=== PATIENT | female | born 1945 | race Caucasian/White ===

== ENCOUNTER 2016-09-07 12:29 | Observation (INO) | payer MEDICARE ==
--- NOTE | 2016-09-07 13:39 | RAD ---
Indication: Shortness of breath. Single frontal view of the chest performed at 1322 hours was reviewed. Comparison is made with previous exam dated January 21, 2016. No mediastinal shift is noted. Heart is of normal size and configuration. Lung maciel appear clear. Elevated right hemidiaphragm is present unchanged from previous exam IMPRESSION: NO ACTIVE CARDIOPULMONARY DISEASE IS NOTED.
[2016-09-07 14:15] LABS: Hematocrit 32 % (35-47); Mean Corpuscular HGB Conc 32 g/dl (31-36); Mean Corpuscular Hemoglobin 28 pg (27-31); Mean Corpuscular Volume 89 fL (80-97); Mean Platelet Volume 7 um3 (7.4-10.4); Red Blood Count 3.57 10^6/ul (4.0-5.4); Red Cell Distribution Width 16 % (10.5-15); White Blood Count 13.3 10^3/ul (3.5-10.8)
[2016-09-07 14:32] LABS: Albumin 3.6 g/dL (3.2-5.2); BUN/Creatinine Ratio 18.6 (8-20); Calcium 9.1 mg/dL (8.6-10.3); EGFR African American 29.9 (>60); EGFR Non-African American 23.2 (>60); Globulin 2.5 g/dL (2-4); Potassium 4.4 mmol/L (3.5-5.0); Total Bilirubin 0.5 mg/dL (0.2-1.0); Total Protein 6.1 g/dL (6.4-8.9)
[2016-09-07 14:33] LABS: Troponin I 0.01 ng/mL (<0.04)
[2016-09-07] MEDS ORDERED: Dextrose 50% Syringe 50 ML* 25 GM/50 ML SYRINGE IV PUSH ONE (14:50)
--- NOTE | 2016-09-07 15:14 | ED ---
Lalo Beckman Benjamin, scribed for Matilde Sherwood MD on 09/07/16 at 1310 . Complex/Multi-Sys Presentation - HPI Summary HPI Summary: 71yo female c/o weakness and lightheadedness today. Pt came from [place] today for low orthostatic BP . Pt also had diarrhea last week. Pt is on xeralto and presents ecchymosis on her left forearm. Pt is SOB chronically, and states that her SOB isnt any different to her baseline. 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 Onset/Duration: Gradual Onset, Lasting Hours, Still Present Timing: Constant Severity Currently: Moderate Severity Initially: Moderate Associated Signs And Symptoms: Positive: Weakness, Diarrhea - last week, Other - Lightheadedness - Allergies/Home Medications Allergies/Adverse Reactions: Allergies Allergy/AdvReac Type Severity Reaction Status Date / Time Meperidine Allergy Unknown Unknown Verified 06/24/16 06:55 Reaction Details Codeine Allergy Unknown Verified 07/20/16 15:13 Reaction Details Glatiramer [From Copaxone] Allergy Unknown Verified 07/20/16 15:13 Reaction Details Mannitol [From Copaxone] Allergy Unknown Verified 07/20/16 15:13 Reaction Details Morphine AdvReac Unknown Nausea And Verified 06/24/16 06:55 Vomiting NSAIDs AdvReac Unknown Bowel Verified 06/24/16 06:55 Changes PMH/Surg Hx/FS Hx/Imm Hx Endocrine/Hematology History: Reports: Hx Anticoagulant Therapy - S/P KNEE REPLACEMENTS, NOT CURRENTLY, Hx Anemia - CONTROL WITH MED Denies: Hx Blood Disorders, Hx Bone Marrow Disease, Hx Diabetes, Hx Systemic Lupus Erythematosus, Hx Sickle Cell Disease, Hx Thyroid Disease, Hx Unexplained Bleeding, Other Endocrine/Hematological Disorders Cardiovascular History: Reports: Hx Congestive Heart Failure, Hx Coronary Artery Disease - 2 STENT PLACED, Hx Hypercholesterolemia, Hx Hypertension, Hx Myocardial Infarction, Other Cardiovascular Problems/Disorders - systolic and diaslotic heart failure, EF 35 to 40% Denies: Hx Aneurysm, Hx Angina, Hx Angioplasty, Hx Auto Implanted Cardiovert Defib, Hx Cardiac Arrest, Hx Cardiomegaly, Hx Congenital Heart Disease, Hx Deep Vein Thrombosis, Hx Hypotension, Hx Pacemaker/ICD, Hx Peripheral Vascular Disease, Hx Rheumatic Fever, Hx Syncope, Hx Valvular Heart Disease Respiratory History: Reports: Hx Chronic Obstructive Pulmonary Disease (COPD), Hx Sleep Apnea - NO CPAP, Other Respiratory Problems/Disorders - HAVE OXYGEN BUT DOES NOT USE Denies: Hx Asthma, Hx Chronic Bronchitis, Hx Cystic Fibrosis, Hx Lung Cancer , Hx Pleural Effusion, Hx Pneumonia, Hx Pulmonary Edema, Hx Pulmonary Embolism, Hx Seasonal Allergies GI History: Reports: Hx Crohn's Disease - QUESTIONABLE, Hx Gastroesophageal Reflux Disease, Hx Irritable Bowel - QUESTIONABLE, Hx Ulcer - HX OF Denies: Hx Cirrhosis, Hx Diverticulosis, Hx Gall Bladder Disease, Hx Gastrointestinal Bleed, Hx Hiatal Hernia, Hx Jaundice, Hx Obstructive Bowel, Hx Ileostomy, Hx Pyloric Stenosis, Other GI Disorders History: Denies: Hx Acute Renal Failure, Hx Benign Prostatic Hyperplasia, Hx Chronic Renal Failure, Hx Dialysis, Hx Kidney Infection, Hx Kidney Stones, Other Problems/Disorders Musculoskeletal History: Reports: Hx Arthritis - OSTEOARTHRITIS, RHEUMATOID, Hx Rheumatoid Arthritis, Hx Back Problems, Hx Osteoporosis - OSTEOARTHRITIS, Other Musculoskeletal History - RA Denies: Hx Bursitis, Hx Congenital Bone Abnormalities, Hx Fibromyalgia, Hx Gout, Hx Orthopedic Injury, Hx Scoliosis, Hx Tendonitis Sensory History: Reports: Hx Cataracts - HX OF Denies: Hx Contacts or Glasses, Hx Eye Injury, Hx Eye Prosthesis, Hx Glaucoma , Hx Legally Blind, Hx Macular Degeneration, Hx Vision Problem, Hx Deafness, Hx Hearing Aid, Hx Hearing Problem, Other Sensory Impairments Opthamlomology History: Reports: Hx Cataracts - HX OF Denies: Hx Contacts or Glasses, Hx Eye Injury, Hx Eye Prosthesis, Hx Glaucoma , Hx Legally Blind, Hx Macular Degeneration, Hx Vision Problem, Other Sensory Impairments Neurological History: Reports: Hx Migraine - NONE LATELY, Hx Spinal Cord Injury Denies: Hx Dementia, Hx Developmental Delay, Hx Headaches, Hx Nerve Disease, Hx Seizures, Hx Transient Ischemic Attacks (TIA), Other Neuro Impairments/ Disorders Psychiatric History: Reports: Hx Anxiety, Hx Depression Denies: Hx Attention Deficit Hyperactivity Disorder, Hx Eating Disorder, Hx Panic Disorder, Hx Post Traumatic Stress Disorder, Hx Inpatient Treatment, Hx Community Mental Health Tx, Hx Schizophrenia, Hx Bipolar Disorder, Hx Suicide Attempt, Hx of Violent Episodes Against Others, Hx Substance Abuse, Other Psychiatric Issues/Disorders - Cancer History Hx Chemotherapy: No Hx Radiation Therapy: No - Surgical History Surgery Procedure, Year, and Place: Bilateral Osteotomies 1988,. OVARIAN CYST REMOVAL,. 2007 & 2011 BILATERAL CATARACT EXTRACTION WITH IOL IMPLANT, [facility] [place]. 1998 RIGHT TOTAL KNEE REPLACEMENT, [facility]. 2007 Triple Arthrodesis,. 2012 LEFT TOTAL KNEE REPLACEMENT. Appendectomy. 2013 RIGHT KNEE EXPLORATION, DEBRIDEMENT , REPLACEMENT OF ARTICULAR SURFACE, [facility] [place]. 2012 RIGHT KNEE ARTHROSCOPIC LAVAGE, [facility] [place]. 2013 CARDIAC EVENT MONITOR IMPLANTATION, [facility] [place]. 2014 HEART CATHERIZATION, [facility] [place]. 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 Denies: Hx Clostridium Difficile, Hx Hepatitis, Hx Human Immunodeficiency Virus (HIV), Hx of Known/Suspected MRSA, Hx Tuberculosis, Hx Known/Suspected VRSA, Traveled Outside the [place] in Last 30 Days - Family History Known Family History: Positive: Unknown - pt was a bad historian of FHx - Social History Alcohol Use: None Hx Substance Use: No Substance Use Type: Reports: None Hx Tobacco Use: Yes Smoking Status (MU): Former Smoker Type: Cigarettes Amount Used/How Often: 1 PPD FOR 40+ YEARS Length of Time of Smoking/Using Tobacco: 40+ YEARS Have You Smoked in the Last Year: No Review of Systems Constitutional: Negative Eyes: Negative ENT: Negative Cardiovascular: Negative Positive: Shortness Of Breath - chronic Positive: Nausea Genitourinary: Negative Musculoskeletal: Negative Positive: Bruising - Left forearm Positive: Weakness Psychological: Normal All Other Systems Reviewed And Are Negative: Yes Physical Exam Triage Information Reviewed: Yes Vital Signs On Initial Exam: Initial Vitals Temp Pulse Resp BP Pulse Ox 97.8 F 84 16 115/81 100 09/07/16 12:41 09/07/16 12:41 09/07/16 12:41 09/07/16 12:41 09/07/16 12:41 Vital Signs Reviewed: Yes Appearance: Positive: No Pain Distress, Well-Nourished, Ill-Appearing - mildly ill appearing Skin: Positive: Warm, Skin Color Reflects Adequate Perfusion, Dry, Other - large hematoma on left forearm Head/Face: Positive: Normal Head/Face Inspection Eyes: Positive: EOMI, MO ENT: Positive: Hearing grossly normal, Pharynx normal, TMs normal Neck: Positive: Supple, Nontender Respiratory/Lung Sounds: Positive: Clear to Auscultation, Breath Sounds Present Cardiovascular: Positive: RRR Abdomen Description: Positive: Nontender, Soft Bowel Sounds: Positive: Present Musculoskeletal: Positive: Strength/ROM Intact Neurological: Positive: Sensory/Motor Intact, Alert, Oriented to Person Place, Time, CN Intact II-III Psychiatric: Positive: Affect/Mood Appropriate Diagnostics - Vital Signs Vital Signs Temp Pulse Resp BP Pulse Ox 09/07/16 12:41 97.8 F 84 16 115/81 100 - Laboratory Lab Results: Lab Results 09/07/16 09/07/16 09/07/16 Range/Units 13:53 13:53 13:53 WBC 13.3 H (3.5-10.8) 10^3/ul RBC 3.57 L (4.0-5.4) 10^6/ul Hgb 10.0 L (12.0-16.0) g/dl Hct 32 L (35-47) % MCV 89 (80-97) fL MCH 28 (27-31) pg MCHC 32 (31-36) g/dl RDW 16 H (10.5-15) % Plt Count 283 (150-450) 10^3/ul MPV 7 L (7.4-10.4) um3 Neut % (Auto) 74.3 (38-83) % Lymph % (Auto) 13.5 L (25-47) % Milam % (Auto) 11.1 H (1-9) % Eos % (Auto) 0.3 (0-6) % Baso % (Auto) 0.8 (0-2) % Absolute Neuts (auto) 9.9 H (1.5-7.7) 10^3/ul Absolute Lymphs (auto) 1.8 (1.0-4.8) 10^3/ul Absolute Monos (auto) 1.5 H (0-0.8) 10^3/ul Absolute Eos (auto) 0 (0-0.6) 10^3/ul Absolute Basos (auto) 0.1 (0-0.2) 10^3/ul Absolute Nucleated RBC 0 10^3/ul Nucleated RBC % 0 INR (Anticoag Therapy) 0.97 (0.89-1.11) APTT 26.6 (26.0-36.3) seconds Sodium 130 L (133-145) mmol/L Potassium 4.4 (3.5-5.0) mmol/L Chloride 100 L (101-111) mmol/L Carbon Dioxide 22 (22-32) mmol/L Anion Gap 8 (2-11) mmol/L BUN 39 H (6-24) mg/dL Creatinine 2.10 H (0.51-0.95) mg/dL Est GFR ( Amer) 29.9 (>60) Est GFR (Non-Af Amer) 23.2 (>60) BUN/Creatinine Ratio 18.6 (8-20) Glucose 62 L (70-100) mg/dL Lactic Acid (0.5-2.0) mmol/L Calcium 9.1 (8.6-10.3) mg/dL Total Bilirubin 0.50 (0.2-1.0) mg/dL AST 21 (13-39) U/L ALT 14 (7-52) U/L Alkaline Phosphatase 92 (34-104) U/L Troponin I 0.01 (<0.04) ng/mL Total Protein 6.1 L (6.4-8.9) g/dL Albumin 3.6 (3.2-5.2) g/dL Globulin 2.5 (2-4) g/dL Albumin/Globulin Ratio 1.4 (1-3) // Range/Units 13:53 WBC (3.5-10.8) 10^3/ul RBC (4.0-5.4) 10^6/ul Hgb (12.0-16.0) g/dl Hct (35-47) % MCV (80-97) fL MCH (27-31) pg MCHC (31-36) g/dl RDW (10.5-15) % Plt Count (150-450) 10^3/ul MPV (7.4-10.4) um3 Neut % (Auto) (38-83) % Lymph % (Auto) (25-47) % Milam % (Auto) (1-9) % Eos % (Auto) (0-6) % Baso % (Auto) (0-2) % Absolute Neuts (auto) (1.5-7.7) 10^3/ul Absolute Lymphs (auto) (1.0-4.8) 10^3/ul Absolute Monos (auto) (0-0.8) 10^3/ul Absolute Eos (auto) (0-0.6) 10^3/ul Absolute Basos (auto) (0-0.2) 10^3/ul Absolute Nucleated RBC 10^3/ul Nucleated RBC % INR (Anticoag Therapy) (0.89-1.11) APTT (26.0-36.3) seconds Sodium (133-145) mmol/L Potassium (3.5-5.0) mmol/L Chloride (101-111) mmol/L Carbon Dioxide (22-32) mmol/L Anion Gap (2-11) mmol/L BUN (6-24) mg/dL Creatinine (0.51-0.95) mg/dL Est GFR ( Amer) (>60) Est GFR (Non-Af Amer) (>60) BUN/Creatinine Ratio (8-20) Glucose (70-100) mg/dL Lactic Acid 2.0 (0.5-2.0) mmol/L Calcium (8.6-10.3) mg/dL Total Bilirubin (0.2-1.0) mg/dL AST (13-39) U/L ALT (7-52) U/L Alkaline Phosphatase (34-104) U/L Troponin I (<0.04) ng/mL Total Protein (6.4-8.9) g/dL Albumin (3.2-5.2) g/dL Globulin (2-4) g/dL Albumin/Globulin Ratio (1-3) Result Diagrams: 09/07/16 13:53 09/07/16 13:53 Lab Statement: Any lab studies that have been ordered have been reviewed, and results considered in the medical decision making process. - Radiology CXR Xray Interpretation: No Acute Changes Radiology Interpretation Completed By: Radiologist - EKG 1312. Cardiac Rate: NL - 81bpm EKG Rhythm: Sinus Rhythm EKG Interpretation: incomplete BBB, inferior Qs, EKG Comparison: No Significant Change - compared to 03/29/16 Complex Multi-Symp Course/Dx Course Of Treatment: 71 yo male who went to pmd after several days of diarrhea with hematoma to left arm and noted hypotension in office. Here she was slightly hypotensive after getting a 500 cc bolus of d5. 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 I have asked Dr. Bernardo to evaluate the pt and am giving her an amp of d50 - Diagnoses Provider Diagnoses: Hypoglycemia, Dehydration - Physician Notifications Discussed Care Of Patient With: Dr. Bernardo (Hospitalist) @[id number]. Discharge - Discharge Plan Condition: Stable Disposition: ADMITTED TO [facility] documentation as recorded by the Lalo contreras Benjamin accurately reflects the service I personally performed and the decisions made by me, Matilde Sherwood MD.
[2016-09-07] MEDS ORDERED: Dextrose 50% Syringe 50 ML* 25 GM/50 ML SYRINGE IV PUSH PRN (15:39)
[2016-09-07] MEDS ORDERED: NS 0.9% 1000 ML* 500 ML IV SCH (15:45)
[2016-09-07] MEDS ORDERED: NS 0.9% 500 ML* 500 ML IV ONE (15:45)
--- NOTE | 2016-09-07 21:01 | HP ---
ADMISSION HISTORY AND PHYSICAL: DATE OF ADMISSION: 09/07/16 PRIMARY CARE PROVIDER: Dr. Watkins. SOURCE OF INFORMATION: History obtained from interview with the patient, review of past medical records. RELIABILITY: Good. CHIEF COMPLAINT: Hypotension and shortness of breath at primary care provider' s office today. HISTORY OF PRESENT ILLNESS: This 71-year-old female with complicated past medical history including history of rheumatoid arthritis, CAD with history of [place], systolic CHF and CVAs, chronic abdominal cramping, nausea and vomiting, suspected to be IBS, who has generally felt weaker over the last 1 to 2 months with decreased oral intake. For a fact, yesterday she thinks the only thing she ate was pizza chicken for dinner. She felt that she had been more fatigued and also wanted to discuss her medications with her primary care provider and so arranged followup for her today. When she arrived there today, she felt short of breath and fatigued. Her blood pressure was measured and found to be low, reportedly per the patient in the 70s, when she was referred to the emergency room for further evaluation. In the emergency room, presentation vitals are 115/81, heart rate of 83; however , blood sugar was noted to be 62 on presentation. The patient denies any chest pain or change in the character of her shortness of breath, which has been chronic. She denies any fevers, chills, or night sweats. No change in her cough or color of sputum. No nausea. She typically has 1 to 2 bowel movements per day that have not been loose. No melena or hematochezia. She denies any symptoms including dysuria, frequency or urinary hesitancy. Besides feeling generally weak and decreased appetite over the last 1 to 2 weeks, she has no other complaints. When seen by this author, she was interactive, pleasant, and had no complaints. In the emergency room, she received D50 injection for her low blood sugar. PAST MEDICAL HISTORY: 1. Hypertension. 2. CAD with NJ. 3. Systolic heart failure with last EF known 35% to 40%. 4. Rheumatoid arthritis. 5. COPD. 6. Paroxysmal atrial fibrillation. 7. CVA. 8. Depression. 9. Chronic abdominal cramping with nausea, vomiting, migraines. 10. FRANKIE. 11. Anemia. 12. Spinal compression fracture. 13. Ovarian cyst removal. 14. Appendectomy. 15. Knee replacement. MEDICATIONS: Include: 1. Venlafaxine 225 mg daily. 2. Tiotropium inhaled daily. 3. Spironolactone 25 mg every other day. 4. Xarelto 15 mg at bedtime. 5. Probiotic. 6. Potassium chloride 20 mEq twice daily. 7. Protonix 40 mg in the morning. 8. Metoprolol succinate 25 mg in the evening. 9. Magnesium oxide 800 mg daily. 10. Lisinopril 10 mg in the evening. 11. Hyoscyamine, both 0.125 and 0.375 mg daily. 12. Plaquenil 200 mg twice daily. 13. Vitamin D 1000 units daily. 14. Bumex 1 mg every other day. 15. Atorvastatin 40 mg in the evening. 16. Aspirin 81 mg daily. 17. Alendronate 70 units as directed. 18. Albuterol 1 to 2 puffs every 4 hours as needed for shortness of breath. 19. Alprazolam 0.25 mg twice daily as needed for anxiety. ALLERGIES: Include MEPERIDINE, CODEINE, , MANNITOL, MORPHINE, and NSAIDS. FAMILY HISTORY: Significant for CAD in her mother and her father. SOCIAL HISTORY: A [id number] history of smoking. No alcohol or illicits. REVIEW OF SYSTEMS: As per HPI. Otherwise, all other systems negative. PHYSICAL EXAMINATION GENERAL: Elderly woman lying approximately 25 degrees in bed, interactive, pleasant, in no apparent distress. VITAL SIGNS: When seen by this author, 109/84, heart rate 80, respiratory rate 16, 100% on room air, T-max in the emergency room was 97.8. HEENT: Oropharynx is clear. Moist mucous membranes. Sclerae anicteric. NECK: Nonelevated JVD. No supraclavicular or cervical lymphadenopathy. LUNGS: Mild rales in the right base. Otherwise clear. HEART: Regular rate and rhythm. No murmurs, rubs, or gallops. ABDOMEN: Soft, nontender, nondistended. EXTREMITIES: Warm and well perfused. She has 1+ lower extremity edema, bilateral lower extremities. She has diffuse ecchymosis in her left forearm which she notes is there since IV placed for her recent sigmoidoscopy in August. NEUROLOGIC: She is alert and oriented x3. Cranial nerves II through XII are intact. DATA: Reviewed. Notable for leukocytosis. White blood cell count 13,300, 74 % neutrophils, hemoglobin 10.0, MCV of 89, platelets 283. Her INR is 0.97. Sodium 130, chloride 100, BUN 39, creatinine 2.10, BNP 171, lactic acid 2.0. Data reviewed. Chest x-ray: Elevated right hemidiaphragm. Otherwise, no cardiopulmonary disease. EKG: Left axis, normal sinus rhythm. ASSESSMENT AND PLAN: This is a 71-year-old female with complicated past medical history presenting with hypotension at her PCP, resolved in the emergency room, although noted to have hypoglycemia and generalized malaise, decreased appetite, as well as acute on chronic kidney disease, with presence of rales in her right base. Hypotension, resolved on its own. Suspect possibility of mismanagement or mismeasurement. If it was correct, I suspect medication effect in the setting of diuretics. We will hold diuretics today and administer 500 cc of fluid at 75 cc per hour. Potential for adrenal insufficiency. She will be treated if blood pressure decreases again. Acute on chronic renal insufficiency in the setting of decreased p.o. intake as well as diuretics. Hold diuretics at 500 cc of fluid as above. Trend tomorrow. Leukocytosis: Unclear etiology at this point. We will hold on antibiotics. Trend for fevers. Repeat tomorrow. Urinalysis is still pending at this point. Hypoglycemia: Also unclear possibly in the setting of decreased p.o. intake; however, infectious should be on the etiology. In the absence of fevers or other source, we will hold on antibiotics and start if needed. Put on fingerstick glucose every 8 hours or D50 glucose if needed. Systolic heart failure: Holding diuretics as above. Continue all other home medications. Paroxysmal atrial fibrillation, on Xarelto. DVT prophylaxis, on Xarelto. CC: Dr. Watkins * [id number]/[facility] #: [id number] [facility] DIVISIONJose
[2016-09-08 06:38] LABS: Hematocrit 32 % (35-47); Hemoglobin 10.3 g/dl (12.0-16.0); Mean Corpuscular HGB Conc 32 g/dl (31-36); Mean Corpuscular Hemoglobin 29 pg (27-31); Mean Corpuscular Volume 89 fL (80-97); Mean Platelet Volume 7 um3 (7.4-10.4); Red Blood Count 3.58 10^6/ul (4.0-5.4); Red Cell Distribution Width 16 % (10.5-15); White Blood Count 12.5 10^3/ul (3.5-10.8)
[2016-09-08 06:52] LABS: BUN/Creatinine Ratio 19.2 (8-20); Calcium 8.7 mg/dL (8.6-10.3); EGFR African American 35.2 (>60); EGFR Non-African American 27.4 (>60); Potassium 4.5 mmol/L (3.5-5.0)
[2016-09-08] MEDS ORDERED: ALPRAZolam TAB* 0.25 MG PO PRN (07:07)
[2016-09-08 07:33] VITALS: BP 134/76
[2016-09-08] MEDS ORDERED: NS 0.9% 1000 ML* 500 ML IV SCH (08:30)
[2016-09-08] MEDS ORDERED: Hydroxychloroquine TAB* 200 MG PO SCH (09:00)
[2016-09-08] MEDS ORDERED: Tiotropium CAP.INH* CAP.INH/18 MCG (USE ORDER SET !) INH SCH (09:00)
[2016-09-08] MEDS ORDERED: Omeprazole CAP* 20 MG PO SCH (09:00)
[2016-09-08] MEDS ORDERED: Spiriva Inhaler DEVICE* 1 EACH DEVICE INH SCH (09:00)
[2016-09-08] MEDS ORDERED: Cholecalciferol TAB* 1000 UNITS PO SCH (09:00)
[2016-09-08] MEDS ORDERED: Potassium Chlor TAB* 20 MEQ TAB.ER PO SCH (09:00)
[2016-09-08] MEDS ORDERED: Hyoscyamine ER (NF) 0.375 MG TAB PO SCH (09:00)
[2016-09-08] MEDS ORDERED: Venlafaxine EXT RELEASE CAP* 75 MG PO SCH ×2 (09:00)
[2016-09-08] MEDS ORDERED: Aspirin Low Dose CHEW TAB* 81 MG PO SCH (09:00)
[2016-09-08] MEDS ORDERED: Magnesium Oxide TAB* 400 MG PO SCH (09:00)
[2016-09-08] MEDS ORDERED: Spironolactone TAB* 25 MG PO SCH (09:00)
[2016-09-08 12:07] LABS: Urine Bacteria Absent (Absent); Urine Bilirubin Negative (Negative); Urine Glucose Negative (Negative); Urine Nitrite Negative (Negative)
[2016-09-08] MEDS ORDERED: Lisinopril TAB* 10 MG PO SCH (18:00)
[2016-09-08] MEDS ORDERED: Atorvastatin* 40 MG TAB PO SCH (18:00)
--- NOTE | 2016-09-08 20:29 | DS ---
DISCHARGE SUMMARY: DATE OF ADMISSION: 09/07/16 DATE OF DISCHARGE: 09/08/16 PRIMARY CARE PROVIDER: Dr. Watkins. PRIMARY DIAGNOSES: 1. Dehydration. 2. Acute on chronic kidney disease. 3. Hypotension in office prior to presentation to the hospital. SECONDARY DIAGNOSES: Include: 1. Systolic heart failure, chronic and compensated. 2. History of coronary artery disease. 3. Hypertension. 4. Rheumatoid arthritis. 5. Chronic obstructive pulmonary disease. 6. Paroxysmal atrial fibrillation. 7. Depression. 8. Anemia. MEDICATIONS ON DISCHARGE: Unchanged from admission except for the decreased dose of Bumex from 1 mg every other day to 0.5 mg every other day. Home medications include: 1. Acetaminophen 500 mg twice daily as needed 2. Alprazolam 0.25 mg twice daily as needed. 3. Atorvastatin 40 mg in the evening. 4. Aspirin 81 mg daily. 5. Alendronate 70 units as directed. 6. Albuterol HFA 1 to 2 puffs every 4 hours as needed. 7. Cholecalciferol 5000 units daily. 8. Avant 10/325 one tab every hours as needed. 9. Lisinopril 10 mg daily. 10. Levbid 0.375 mg daily. 11. Protonix 40 mg in the morning. 12. Metoprolol XL 25 mg at bedtime. 13. Magnesium oxide 800 mg in the morning. 14. Tiotropium 1 cap inhaled daily. 15. Spironolactone 25 mg every other day. 16. Rivaroxaban 15 mg at bedtime. 17. Probiotics 1 cap daily. 18. Potassium chloride 20 mEq twice daily. 19. Venlafaxine extended release 75 and 150 mg in the morning for total of 225 mg daily. 20. Imitrex 50 mg twice daily as needed. 21. Bumex decreased to 0.5 mg every other day. PERTINENT LABORATORY DATA: Include creatinine on presentation 2.1, decreased to 1.8 on discharge; BUN of 39 decreasing to 35. White blood cell count 12.5 on discharge, 74% neutrophils. HISTORY OF PRESENT ILLNESS AND HOSPITAL COURSE: This is a 71-year-old female with past medical history as outlined in the history of present illness on date of admission by myself who presented to her PCP the day of admission to discuss her multiple medications and potentially decreasing or simplifying her regimen. When she arrived, she was short of breath, which she notes it was not unusual for herself; however, had her blood pressure checked and was noted to be hypotensive, reportedly in systolic of 70s. She was directed to [facility]. On presentation to [facility], her triage vitals were 115/81 without intervention, it changed to 134/76 on the day of discharge. She had no new complaints, although does have a constellation of chronic complaints including fatigue and decreased appetite. In the setting of her acute kidney injury, she was monitored. Her diuretics were held including Bumex and spironolactone with improvement in her kidney function. She was given addition of 500 cc of normal saline on the day of discharge and her Bumex was resumed at half dose. Her creatinine does not reflect the additional fluids received on the day of discharge. On the day of discharge, she had no complaints, tolerating heart- healthy diet, no shortness of breath or other symptoms. FOLLOWUP INSTRUCTIONS: On followup, please: 1. Evaluate stability of volume status on lower dose Bumex. 2. Can consider repeat BMP for stability of creatinine. 3. Can consider repeat CBC. Had elevated leukocytosis without left shift. No evidence of infection in urine, remained afebrile, and had no symptoms. Reasons to return to the hospital including, but not limited to recurrent or worsening symptoms including chest pain or shortness of breath, nausea, vomiting , lightheadedness, palpitations, loss of consciousness, near loss of consciousness, fevers, chills, night sweats, blood from any source, inability to obtain or tolerate medications were discussed with the patient. She acknowledged understanding. TIME SPENT: Greater than 45 minutes was spent on the discharge of this patient , greater than half was spent [id number] with the patient. CC: Dr. Watkins * [id number]/[facility] #: [id number] [place] [facility]
[2016-09-08] MEDS ORDERED: Metoprolol Succinate XL TAB* 25 MG PO SCH (21:00)
[2016-09-08] MEDS ORDERED: Rivaroxaban TAB(*) 15 MG PO SCH (21:00)
== END 2016-09-08 14:05 | disposition home or self-care (01) ==
LOC: ED 12:29 → MEDTELE 15:36 → MED 09-08 07:17
PROVIDERS: ADMIT Internal Medicine; ATTEND Internal Medicine
DX: E86.0 Dehydration (principal); I95.9 Hypotension, unspecified; M06.9 Rheumatoid arthritis, unspecified; J44.9 Chronic obstructive pulmonary disease, unspecified; I48.0 Paroxysmal atrial fibrillation; Z79.01 Long term (current) use of anticoagulants; F32.9 Major depressive disorder, single episode, unspecified; Z79.82 Long term (current) use of aspirin; I25.2 Old myocardial infarction; Z88.5 Allergy status to narcotic agent; Z88.6 Allergy status to analgesic agent
CPT/HCPCS: 36415; 71010; 80048; 80053; 81003; 81015; 83605; 83880; 84484; 85025; 85027; 85610; 85730; 87040; 87086; 93005; 99284; A9270-GY; G0378

== ENCOUNTER 2017-01-22 20:07 | Inpatient (IN) | payer MEDICARE ==
[2017-01-22] MEDS ORDERED: NS 0.9% 1000 ML* 1,000 ML IV ONE ×2 (20:08→21:59)
[2017-01-22] MEDS ORDERED: Ondansetron INJ* 2 MG/ML VIAL IV ONE (20:08)
[2017-01-22 20:36] LABS: Comments Flag Yes; Hematocrit 38 % (35-47); Hemoglobin 11.3 g/dl (12.0-16.0); Mean Corpuscular HGB Conc 30 g/dl (31-36); Mean Corpuscular Hemoglobin 25 pg (27-31); Mean Corpuscular Volume 86 fL (80-97); Mean Platelet Volume 7 um3 (7.4-10.4); Red Blood Count 4.48 10^6/ul (4.0-5.4); Red Cell Distribution Width 16 % (10.5-15); White Blood Count 29.9 10^3/ul (3.5-10.8)
[2017-01-22 20:38] LABS: Albumin 3.8 g/dL (3.2-5.2); C Reactive Protein 4.05 mg/L (< 5.00); Calcium 9.5 mg/dL (8.6-10.3); EGFR African American 24.7 (>60); EGFR Non-African American 19.2 (>60); Globulin 3.2 g/dL (2-4); Magnesium 2.7 mg/dL (1.9-2.7); Potassium 4.6 mmol/L (3.5-5.0); Total Bilirubin 0.4 mg/dL (0.2-1.0)
[2017-01-22 20:43] LABS: Add Diff/Slide Review? Slide Review Added
[2017-01-22] MEDS ORDERED: NS 0.9% 500 ML BAG* 500 ML IV ONE (21:19)
--- NOTE | 2017-01-22 21:31 | ED ---
Flaquita Beckman Thomas, scribed for Brandon Majano MD on 01/22/17 at 2012 . GI/ HPI - HPI Summary HPI Summary: The pt is a 72 y/o F BIBA c/o N/V/D that began at 15:00 today after she ate shrimp. In the ED, the pt says that she is feeling a little bit better. She additionally c/o dizziness (resolved when supine). She denies CP, jaw pain, shoulder pain. Per EMS, she was very pale in the ambulance. Per EMS, her blood sugar was 233. Per EMS, her systolic was in the 70s. Per EMS, she was fully alert and oriented in the ambulance. She is not allergic to any foods as far as she knows. PMHx: HTN, COPD, emphysema. She is on a ton of meds, per EMS. Her [place] [facility] [place]. NKDA. - History of Current Complaint Chief Complaint: EDNauseaVomitDiarrh Time Seen by Provider: 01/22/17 20:07 Stated Complaint: GENERAL ILLNESS Hx Obtained From: Patient, EMS Onset/Duration: Started Hours Ago - 15:00, Still Present Associated Signs and Symptoms: Positive: Dizziness - resolved when supine, Nausea, Vomiting, Diarrhea, Other: - NEG: jaw pain, shoulder pain. Negative: Chest Pain - Additional Pertinent History Primary Care Physician: [id number] - Allergy/Home Medications Allergies/Adverse Reactions: Allergies Allergy/AdvReac Type Severity Reaction Status Date / Time Meperidine Allergy Unknown Unknown Verified 06/24/16 06:55 Reaction Details Codeine Allergy Unknown Verified 07/20/16 15:13 Reaction Details Glatiramer [From Copaxone] Allergy Unknown Verified 07/20/16 15:13 Reaction Details Mannitol [From Copaxone] Allergy Unknown Verified 07/20/16 15:13 Reaction Details Morphine AdvReac Unknown Nausea And Verified 06/24/16 06:55 Vomiting NSAIDs AdvReac Unknown Bowel Verified 06/24/16 06:55 Changes Home Medications: Home Medications Alendronate Sodium 70 mg PO SEE INSTRUCTIONS 01/22/17 [History Confirmed ] Ferrous Sulfate 325 mg PO DAILY 01/22/17 [History Confirmed 01/22/17] Plaquenil TAB* 400 mg PO DAILY 01/22/17 [History Confirmed 01/22/17] Probiotic 1 dose PO DAILY 01/22/17 [History Confirmed 01/22/17] Protonix TAB (NF) 40 mg PO DAILY 01/22/17 [History Confirmed 01/22/17] Tylenol 500 mg PO BID PRN 01/22/17 [History Confirmed 01/22/17] Vitamin D-3 5,000 unit PO DAILY 01/22/17 [History Confirmed 01/22/17] sulfaSALAzine TAB* 500 mg PO BID 01/22/17 [History Confirmed 01/22/17] PMH/Surg Hx/FS Hx/Imm Hx Previously Healthy: No Endocrine/Hematology History: Reports: Hx Anticoagulant Therapy - S/P KNEE REPLACEMENTS, NOT CURRENTLY, Hx Anemia - CONTROL WITH MED Denies: Hx Blood Disorders, Hx Bone Marrow Disease, Hx Diabetes, Hx Systemic Lupus Erythematosus, Hx Sickle Cell Disease, Hx Thyroid Disease, Hx Unexplained Bleeding, Other Endocrine/Hematological Disorders Cardiovascular History: Reports: Hx Congestive Heart Failure, Hx Coronary Artery Disease - 2 STENT PLACED, Hx Hypercholesterolemia, Hx Hypertension, Hx Myocardial Infarction, Other Cardiovascular Problems/Disorders - systolic and diaslotic heart failure, EF 35 to 40% Denies: Hx Aneurysm, Hx Angina, Hx Angioplasty, Hx Auto Implanted Cardiovert Defib, Hx Cardiac Arrest, Hx Cardiomegaly, Hx Congenital Heart Disease, Hx Deep Vein Thrombosis, Hx Hypotension, Hx Pacemaker/ICD, Hx Peripheral Vascular Disease, Hx Rheumatic Fever, Hx Syncope, Hx Valvular Heart Disease Respiratory History: Reports: Hx Chronic Obstructive Pulmonary Disease (COPD), Hx Sleep Apnea - NO CPAP, Other Respiratory Problems/Disorders - HAVE OXYGEN BUT DOES NOT USE Denies: Hx Asthma, Hx Chronic Bronchitis, Hx Cystic Fibrosis, Hx Lung Cancer , Hx Pleural Effusion, Hx Pneumonia, Hx Pulmonary Edema, Hx Pulmonary Embolism, Hx Seasonal Allergies GI History: Reports: Hx Crohn's Disease - QUESTIONABLE, Hx Gastroesophageal Reflux Disease, Hx Irritable Bowel - QUESTIONABLE, Hx Ulcer - HX OF Denies: Hx Cirrhosis, Hx Diverticulosis, Hx Gall Bladder Disease, Hx Gastrointestinal Bleed, Hx Hiatal Hernia, Hx Jaundice, Hx Obstructive Bowel, Hx Ileostomy, Hx Pyloric Stenosis, Other GI Disorders History: Denies: Hx Acute Renal Failure, Hx Benign Prostatic Hyperplasia, Hx Chronic Renal Failure, Hx Dialysis, Hx Kidney Infection, Hx Kidney Stones, Other Problems/Disorders Musculoskeletal History: Reports: Hx Arthritis - OSTEOARTHRITIS, RHEUMATOID, Hx Rheumatoid Arthritis, Hx Back Problems, Other Musculoskeletal History Denies: Hx Bursitis, Hx Congenital Bone Abnormalities, Hx Fibromyalgia, Hx Gout, Hx Orthopedic Injury, Hx Osteoporosis, Hx Scoliosis, Hx Tendonitis Sensory History: Reports: Hx Cataracts - HX OF Denies: Hx Contacts or Glasses, Hx Eye Injury, Hx Eye Prosthesis, Hx Glaucoma , Hx Legally Blind, Hx Macular Degeneration, Hx Vision Problem, Hx Deafness, Hx Hearing Aid, Hx Hearing Problem, Other Sensory Impairments Opthamlomology History: Reports: Hx Cataracts - HX OF Denies: Hx Contacts or Glasses, Hx Eye Injury, Hx Eye Prosthesis, Hx Glaucoma , Hx Legally Blind, Hx Macular Degeneration, Hx Vision Problem, Other Sensory Impairments Neurological History: Reports: Hx Migraine - NONE LATELY, Hx Spinal Cord Injury Denies: Hx Dementia, Hx Developmental Delay, Hx Headaches, Hx Nerve Disease, Hx Seizures, Hx Transient Ischemic Attacks (TIA), Other Neuro Impairments/ Disorders Psychiatric History: Reports: Hx Anxiety, Hx Depression Denies: Hx Attention Deficit Hyperactivity Disorder, Hx Eating Disorder, Hx Panic Disorder, Hx Post Traumatic Stress Disorder, Hx Inpatient Treatment, Hx Community Mental Health Tx, Hx Schizophrenia, Hx Bipolar Disorder, Hx Suicide Attempt, Hx of Violent Episodes Against Others, Hx Substance Abuse, Other Psychiatric Issues/Disorders - Cancer History Hx Chemotherapy: No Hx Radiation Therapy: No - Surgical History Surgery Procedure, Year, and Place: Bilateral Osteotomies 1988,. OVARIAN CYST REMOVAL,. 2007 & 2011 BIL[place] [facility] [place]AC[place] [facility] [place] 2007 Triple Arthrodesis,. 2012 LEFT TOTAL KNEE REPLACEMENT. Appendectomy. 2012 RIGHT KNEE EXPLORATION, DEBRIDEMENT , REPLACEMENT OF ARTICULAR SURFACE[place] [facility] [place] 2012 RIGHT KNEE ARTHROSCOPIC LAVAGE[place] [facility] [place] 2014 CARDIAC EVENT MONITOR IMPL[place]ATION[place] [facility] [place] [facility] [place] [facility] [place] Anesthesia Reactions: No Infectious Disease History: Denies: Hx Clostridium Difficile, Hx Hepatitis, Hx Human Immunodeficiency Virus (HIV), Hx of Known/Suspected MRSA, Hx Tuberculosis, Hx Known/Suspected VRE , Hx Known/Suspected VRSA, Traveled Outside the [place] in Last 30 Days - Family History Known Family History: Positive: Unknown - pt was a bad historian of FHx (per previous EMR) - Social History Alcohol Use: Rare Hx Substance Use: No Substance Use Type: Reports: None Hx Tobacco Use: Yes Smoking Status (MU): Former Smoker Type: Cigarettes Amount Used/How Often: 1 PPD FOR 40+ YEARS Length of Time of Smoking/Using Tobacco: 40+ YEARS Have You Smoked in the Last Year: No Review of Systems Positive: Other - pallor (in ambulance), per EMS Eyes: Negative ENT: Negative Negative: Other - NEG: jaw pain Cardiovascular: Negative Negative: Chest Pain Respiratory: Negative Positive: Vomiting, Diarrhea, Nausea Genitourinary: Negative Musculoskeletal: Negative Negative: Other - NEG shoulder pain Skin: Negative Neurological: Other - POS: dizziness (resolved when supine) Psychological: Normal All Other Systems Reviewed And Are Negative: Yes Physical Exam Triage Information Reviewed: Yes Vital Signs On Initial Exam: Initial Vitals Temp Pulse Resp BP Pulse Ox 97.2 F 76 16 70/47 95 01/22/17 20:10 01/22/17 20:10 01/22/17 20:10 01/22/17 20:10 01/22/17 20:10 Vital Signs Reviewed: Yes Appearance: Positive: No Pain Distress, Ill-Appearing Skin: Positive: Warm, Dry, Pale Head/Face: Positive: Normal Head/Face Inspection Eyes: Positive: MO ENT: Positive: Hearing grossly normal Neck: Positive: Supple Respiratory/Lung Sounds: Positive: Clear to Auscultation, Breath Sounds Present Cardiovascular: Positive: RRR Abdomen Description: Positive: Nontender, Soft Bowel Sounds: Positive: Present Musculoskeletal: Positive: Strength/ROM Intact Neurological: Positive: Alert, Oriented to Person Place, Time Psychiatric: Positive: Affect/Mood Appropriate Diagnostics - Vital Signs Vital Signs Temp Pulse Resp BP Pulse Ox 01/22/17 20:10 97.2 F 76 16 70/47 95 - Laboratory Lab Results: Lab Results 01/22/17 01/22/17 01/22/17 Range/Units 20:15 20:15 20:15 WBC 29.9 H (3.5-10.8) 10^3/ul RBC 4.48 (4.0-5.4) 10^6/ul Hgb 11.3 L (12.0-16.0) g/dl Hct 38 (35-47) % MCV 86 (80-97) fL MCH 25 L (27-31) pg MCHC 30 L (31-36) g/dl RDW 16 H (10.5-15) % Plt Count 488 H D (150-450) 10^3/ul MPV 7 L (7.4-10.4) um3 Neut % (Auto) 87.7 H (38-83) % Lymph % (Auto) 7.5 L (25-47) % [place] % (Auto) 4.1 (1-9) % Eos % (Auto) 0.2 (0-6) % Baso % (Auto) 0.5 (0-2) % Absolute Neuts (auto) 26.2 H (1.5-7.7) 10^3/ul Absolute Lymphs (auto) 2.2 (1.0-4.8) 10^3/ul Absolute Monos (auto) 1.2 H (0-0.8) 10^3/ul Absolute Eos (auto) 0.1 (0-0.6) 10^3/ul Absolute Basos (auto) 0.1 (0-0.2) 10^3/ul Absolute Nucleated RBC 0.01 10^3/ul Nucleated RBC % 0 Sodium 134 (133-145) mmol/L Potassium 4.6 (3.5-5.0) mmol/L Chloride 100 L (101-111) mmol/L Carbon Dioxide 17 L (22-32) mmol/L Anion Gap 17 H (2-11) mmol/L BUN 37 H (6-24) mg/dL Creatinine 2.47 H (0.51-0.95) mg/dL Est GFR ( Amer) 24.7 (>60) Est GFR (Non-Af Amer) 19.2 (>60) BUN/Creatinine Ratio 15.0 (8-20) Glucose 197 H (70-100) mg/dL Lactic Acid 7.1 H* (0.5-2.0) mmol/L Calcium 9.5 (8.6-10.3) mg/dL Magnesium 2.7 (1.9-2.7) mg/dL Total Bilirubin 0.40 (0.2-1.0) mg/dL AST 30 (13-39) U/L ALT 18 (7-52) U/L Alkaline Phosphatase 166 H (34-104) U/L C-Reactive Protein 4.05 (< 5.00) mg/L Total Protein 7.0 (6.4-8.9) g/dL Albumin 3.8 (3.2-5.2) g/dL Globulin 3.2 (2-4) g/dL Albumin/Globulin Ratio 1.2 (1-3) Lipase 43 (11.0-82.0) U/L Result Diagrams: 01/22/17 20:15 01/22/17 20:15 Lab Statement: Any lab studies that have been ordered have been reviewed, and results considered in the medical decision making process. Re-Evaluation - Re-Evaluation First Eval Re-Evaluation Time: 20:26 Change: Improved - more alert, bp up GIGU Course/Dx - Diagnoses Provider Diagnoses: Vomiting, Dehydration - Physician Notifications Discussed Care Of Patient With: Sofia Oswald Time Discussed With Above Provider: 21:17 Instructed by Provider To: Admit As Inpatient - Discussed patient. She is in to see the pt at 21:35 Discharge - Discharge Plan Condition: Fair Disposition: ADMITTED TO [facility] The documentation as recorded by the Flaquita contreras Thomas accurately reflects the service I personally performed and the decisions made by me, Brandon Majano MD.
[2017-01-22] MEDS ORDERED: Ondansetron INJ* 2 MG/ML VIAL IV PRN (21:41)
[2017-01-22] MEDS ORDERED: Al Hydrox/Mg Hydrox/Simet LIQ* 30 ML UDC PO PRN (21:41)
[2017-01-22] MEDS ORDERED: PROCHLORPERAZINE INJ 5 MG/ML 2 ML VIAL IV PRN (21:43)
[2017-01-22] MEDS ORDERED: Albuterol HFA INHALER* 8 gm MDI INH PRN (21:49)
[2017-01-22] MEDS ORDERED: ALPRAZolam TAB* 0.25 MG PO PRN (21:49)
[2017-01-22] MEDS ORDERED: Omeprazole CAP* 20 MG PO SCH (22:00)
[2017-01-22] MEDS ORDERED: Rivaroxaban TAB(*) 15 MG PO SCH (22:30)
--- NOTE | 2017-01-22 23:23 | PN ---
Progress Note - Progress Note Date of Service: 01/22/17 Note: Paged by RN, toro red blood per rectum. Will d/c xarelto, start SCDs and change to IV protonix. Monitor H/H closely
[2017-01-22] MEDS ORDERED: Zosyn per Pharmacy* NOTE FOLLOW UP SCH (23:45)
[2017-01-22] MEDS: Pantoprazole IV* 40 MG IV SCH (23:49)
--- NOTE | 2017-01-23 00:44 | HP ---
CC: Jordin Watkins MD * HISTORY AND PHYSICAL: DATE OF ADMISSION: 01/22/17 TIME OF EVALUATION: 0. CHIEF COMPLAINT: Nausea, vomiting, and diarrhea. HISTORY OF PRESENT ILLNESS: This is a 72-year-old female with a past medical history of rheumatoid arthritis, systolic heart failure with EF of 35% to 40% with chronic intermittent explosive diarrhea with nausea who has been followed by GI in the past, who states she was in her usual state of health when she went out to dinner with her sister and [id number] to [employer] and had shrimp. No one else at the table had shrimp. About an hour later she began having explosive diarrhea and nausea and vomiting. She states she has only vomited a little bit, still remains very nauseated. She says she has a slight discomfort in her abdomen. In the emergency room the patient had labs, 2 L of fluid. She was brought in by EMS of note and was found to be hypotensive, systolic 70 and several metabolic derangements and was referred to the hospitalist service for further evaluation. She denies any chest pain or shortness of breath. No weight changes. Regarding her chronic nausea, vomiting , and diarrhea, she has issues with explosive diarrhea off and on in the past. She thought things were getting better. She has seen Dr. Gonzalez on occasion for this and he did a sigmoidoscopy back in July. Biopsies were negative for any abnormality. She denies any recent travel or antibiotic use. She states she has a mild chronic cough. She has had persistent chronic left-sided headache. No swelling in her legs recently. No fevers or chills. Otherwise, remaining review of systems is negative. As mentioned in the emergency room, she received 2 L of fluid, Zofran and was referred to the hospitalist service. PAST MEDICAL HISTORY: 1. Chronic explosive diarrhea with nausea and vomiting. 2. Hypertension. 3. Coronary artery disease, status post AR. 4. Systolic heart failure with an EF of less than 35% to 40%. 5. Rheumatoid arthritis. 6. COPD. 7. Paroxysmal atrial fibrillation, on anticoagulation. 8. History of CVA. 9. Depression. 10. Obstructive sleep apnea. 11. Anemia. 12. History of spinal cord compression fracture. 13. History of ovarian cyst removal. 14. History of appendectomy. 15. History of knee replacement. HOME MEDICATIONS: 1. Alendronate 70 mg as directed. 2. Tylenol 500 mg p.o. b.i.d. as needed. 3. Probiotic 1 dose p.o. daily. 4. Ferrous sulfate 325 mg p.o. daily. 5. Plaquenil 400 mg daily. 6. Vitamin D3 of 5000 units daily. 7. Sulfasalazine 500 mg p.o. b.i.d. 8. Protonix 40 mg p.o. daily. 9. Albuterol inhaler 1 to 2 puffs q.4 hours as needed. 10. Imitrex 50 mg p.o. b.i.d. as needed. 11. Xanax 0.25 mg p.o. b.i.d. as needed. 12. Bumex 0.5 mg p.o. every other day. 13. Atorvastatin 40 mg p.o. daily. 14. Aspirin 81 mg q.a.m. 15. Magnesium oxide 100 mg p.o. in the morning. 16. Lisinopril 5 mg p.o. daily. 17. Levbid 0.375 mg p.o. daily. 18. Hydrocodone/acetaminophen 10/325 one tablet p.o. q.8 hours as needed. 19. Metoprolol succinate XL 25 mg daily. 20. Potassium chloride 20 mEq p.o. b.i.d. 21. Spironolactone 25 mg every other day. 22. Xarelto 50 mg p.o. at bedtime. 23. Spiriva 1 cap inhaled in the morning. 24. Effexor 75 mg p.o. in the morning and 150 mg p.o. in the morning. ALLERGIES: MEPERIDINE, CODEINE, GLATIMAR, MANNITOL, MORPHINE, and NSAIDS. FAMILY HISTORY: Significant for coronary artery disease. SOCIAL HISTORY: The patient lives alone. She is independent of her ADLs. Her healthcare proxy is her sister, Sarah Membreno, phone number is [phone]. She has a [id number] history, quit 5 years ago. No alcohol use or illicit drug use. 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 MOLST form, which will be completed this evening is a DNR/DNI. REVIEW OF SYSTEMS: A 14-point review of systems was reviewed and as mentioned in the HPI. PHYSICAL EXAMINATION GENERAL: A frail, elderly, moderately ill-appearing female in no acute distress with her sister and [id number] sitting at the bedside. VITAL SIGNS: Temp 97.2, pulse rate 76, respiratory rate 16, oxygen saturation 95% on 2 L, blood pressure is 90/60. HEENT: Pupils are equal and reactive. Anicteric. Head; normocephalic. Oropharynx; mucous membranes dry. Cool, clammy skin appearance. NECK: Supple. No adenopathy. RESPIRATORY: Diminished breath sounds. No wheezes, rhonchi, or rales. CARDIAC: Regular rate and rhythm. Soft, systolic murmur heard throughout. ABDOMEN: Hypoactive bowel sounds, soft, some mild left lower quadrant tenderness. No rebound or guarding. EXTREMITIES: No clubbing, cyanosis or edema. Her extremities are warm, +1 DP. NEUROLOGIC: Alert and oriented x2, oriented to self and time. Answering questions appropriately and following commands appropriately. LABORATORY DATA: White count 29.9, hemoglobin 11.3, hematocrit 38, platelets 488,000. Sodium 134, potassium 4.6, chloride 100, bicarb 17, BUN 37, creatinine 3.47, lactic acid 7.1, alk phos 166, CRP is 4, mag is 2.7, total bili 0.4, AST is 30, ALT is 18, lipase is 43. ASSESSMENT: This is a 72-year-old female with a past medical history of intermittent diarrhea, nausea, vomiting with systolic heart failure with an ejection fraction 35% to 40% who presented to the emergency room with acute onset of nausea, vomiting, diarrhea with hypotensive and ill appearing, found to have leukocytosis and lactic acidosis. 1. Nausea, vomiting, diarrhea. Assessment: The patient is mildly to moderately ill appearing. Her symptoms became acutely onset after an hour after [employer] and no one else had the shrimp. It could be gastroenteritis from infectious etiology from food poisoning contributing to her lactic acidosis and leukocytosis. It is unclear because she has had these incidents in the past and has had an unremarkable workup including a negative biopsy, but this time she is much more ill appearing. Plan: We will admit her to the ICU, give her another liter of fluid, and continue fluids. We will obtain a CAT scan and we will check stool studies including Clostridium difficile, occult stool and stool culture, could be Clostridium difficile. Will start her on Zosyn empirically for possibly bacteremia. 2. Acute on chronic kidney injury. The patient's creatinine elevated, creatinine clearance is around 20. We will hold her lisinopril or Bumex and renally dose her remaining medications and check her renal function in the morning. Suspect this is from hypovolemia, prerenal azotemia. 3. Lactic acidosis. Assessment: This is likely secondary to her nausea, vomiting, and diarrhea. Plan: We will repeat the lactate after fluid resuscitation. CHRONIC MEDICAL PROBLEMS: 1. Coronary artery disease. History of congestive heart failure. At this time , we will hold her Bumex and her lisinopril and her Toprol in the setting of her severe hypotension. We will watch for rebound tachycardia. Continue her on her aspirin. 2. History of atrial fibrillation. Appears to be in sinus at this time. We will get an EKG. We will continue her on her aspirin or anticoagulant. If she is Hemoccult positive, we will hold that. 3. Rheumatoid arthritis. Continue her Plaquenil. 4. Chronic nausea, vomiting, diarrhea. Continue her sulfasalazine and hyoscyamine. 5. Chronic pain. Continue her Effexor to a renally dose level and hydrocodone. 6. Chronic obstructive pulmonary disease. Continue her albuterol and Spiriva. 7. Gastroesophageal reflux disease. Continue omeprazole 20 mg p.o. b.i.d. 8. FEN. We will place her on a clear liquid diet. Advance as tolerated. 9. DVT prophylaxis. The patient is moderate risk. She is on rivaroxaban. 10. Code status. The patient confirmed DNR/DNI. She will have her MOLST from completed at this time. TIME SPENT: Greater than 60 minutes was spent doing history and physical, more than half the time spent in direct patient contact and critical care time as the patient is critically ill and being admitted to the intensive care unit and admission will be discussed with Dr. Rogel. [id number]/[facility] #: [id number] LA NENA
[2017-01-23] MEDS: NS 0.9% 1000 ML* 1,000 ML IV SCH ×3 (01:16→19:44)
[2017-01-23 05:52] LABS: Hematocrit 29 % (35-47); Hemoglobin 8.9 g/dl (12.0-16.0); Mean Corpuscular HGB Conc 30 g/dl (31-36); Mean Corpuscular Hemoglobin 26 pg (27-31); Mean Corpuscular Volume 85 fL (80-97); Mean Platelet Volume 7 um3 (7.4-10.4); Red Blood Count 3.47 10^6/ul (4.0-5.4); Red Cell Distribution Width 16 % (10.5-15); White Blood Count 26.9 10^3/ul (3.5-10.8)
[2017-01-23 06:01] LABS: Comments Flag Yes
[2017-01-23 06:06] LABS: Albumin 2.8 g/dL (3.2-5.2); Calcium 7.6 mg/dL (8.6-10.3); EGFR African American 29.6 (>60); Globulin 2.3 g/dL (2-4); Potassium 4.3 mmol/L (3.5-5.0); Total Bilirubin 0.3 mg/dL (0.2-1.0); Total Protein 5.1 g/dL (6.4-8.9)
--- NOTE | 2017-01-23 07:46 | RAD ---
INDICATION: Nausea/vomiting. COMPARISON: CT abdomen and pelvis March 29, 2016 TECHNIQUE: Noncontrast axial source images were obtained from the hemidiaphragms to the symphysis pubis. This examination was ordered using a renal stone protocol which is performed without oral or intravenous contrast and therefore has inherent limitations when used to evaluate other intra-abdominal or intrapelvic pathology. Consider conventional contrast enhanced imaging if clinically . Lung bases: There is an implantable device in the left lower chest. There are coronary artery calcifications There are mild emphysematous changes in lung bases with a focal infiltrate in the right lung base. Suggest follow-up chest x-ray. Liver: The liver is normal in size. Noncontrast imaging shows no evidence of a hepatic mass or ductal dilatation. Gallbladder: There are no calcified gallstones. There is no evidence of wall thickening or pericholecystic fluid.. Spleen: The spleen is normal in size. The noncontrast CT appearance is normal. Pancreas: Noncontrast imaging shows no pancreatic mass or ductal dilitation. There is pancreatic atrophy Adrenal glands: No masses are identified. Kidneys/Bladder: There is no evidence of nephrolithiasis or CT evidence of hydronephrosis. The left kidney is mildly atrophic. Noncontrast imaging shows no evidence of a worrisome mass. There is a small left sided parapelvic cyst, unchanged. The bladder is decompressed. Adenopathy: There is no evidence of intraperitoneal or retroperitoneal adenopathy. Evaluation is limited without oral contrast. Fluid collections: There are no significant free or localized fluid collections. Vessels: Advanced atherosclerotic changes. Mild ectasia of the aortic root. Mild fusiform aneurysmal dilatation of the infrarenal abdominal aorta with a maximum transverse dimension of 2.7 x 2.7 cm. Iliac vessel intimal calcifications. Pelvic organs: The uterus and adnexa appear normal GI tract: Marked distention of the stomach. The stomach is largely fluid-filled. There are multiple nondilated fluid-filled loops of small bowel. Several loops show mild apparent mucosal thickening. The colon is also largely fluid-filled and is normal in caliber. There are scattered colonic diverticula. Soft tissues: No acute soft tissue abnormalities of the extraperitoneal abdomen or pelvis are identified. Elevation right hemidiaphragm, unchanged. Osseous structures: Advanced multilevel degenerative disc disease lumbar spine. Mild stable compression deformities at the thoracolumbar junction. No acute bony change. IMPRESSION: 1. Small infiltrate right lung base. Suggest follow-up chest x-ray. Underlying emphysematous change. 2. Advanced atherosclerotic changes of the aorta with mild dilatation of the aortic root and infrarenal abdominal aorta, unchanged. 3. Marked distention of the stomach. Nasogastric decompression is likely indicated. Consider gastroparesis or gastric outlet obstruction. Although not dilated there is significant amount of fluid in the small bowel and colon. There are several small bowel loops which appear mildly dilated. Suggest a follow-up abdominal series. 4. Scattered diverticula.
--- NOTE | 2017-01-23 07:59 | PN ---
Subjective Date of Service: 01/23/17 Interval History: Ms. Solomon is a 72 yo female with a history of chronic intermittent n/v/d who , after eating a shrimp dinner at [facility], had onset of explosive diarrhea and nausea and vomiting. She currently denies nausea at this time and last had diarrhea overnight between 12 and 1 am. She reports minimal abdominal pain and mostly just reports being tired. Denies CP, SOB. She states she didn't realize she was having bloody bowel movements, although this was reported overnight. Telemetry: SR 80s Family History: Unchanged from Admission Social History: Unchanged from Admission Past Medical History: Unchanged from Admission Objective Active Medications: Acetaminophen (Tylenol Tab*) 650 mg PO Q4H PRN PRN Reason: FEVER/PAIN Hydrocodone Bitart/Acetaminophen ([place] 5-325 Tab*) 1 tab PO Q8H PRN PRN Reason: PAIN Al Hydrox/Mg Hydrox/Simethicone (Maalox Plus*) 30 ml PO Q6H PRN PRN Reason: INDIGESTION Albuterol (Ventolin Hfa Inhaler*) 2 puff INH Q4H PRN PRN Reason: SOB/WHEEZING Alprazolam (Xanax Tab*) 0.25 mg PO BID PRN PRN Reason: STOMACH DISTRESS Aspirin (Aspirin Low Dose Tab*) 81 mg PO QAM [facility] Atorvastatin Calcium (Lipitor*) 40 mg PO QPM [facility] Device (Tiotropium Inhaler Device*) 0 each .SEE ORDER ONCE ONE Stop: 01/23/17 09:01 Hydroxychloroquine Sulfate (Plaquenil Tab*) 200 mg PO BID [facility] Hyoscyamine (Levbid (Nf)) 0.375 mg PO DAILY [facility] Piperacillin Sod/Tazobactam (Sod 3.375 gm/ Sodium Chloride) 100 mls @ 25 mls/ hr IVPB Q8H [facility] Last Admin: 01/23/17 03:10 Dose: 25 mls/hr Sodium Chloride (Ns 0.9% 1000 Ml*) 1,000 mls @ 125 mls/hr IV PER RATE [facility] Last Admin: 01/23/17 01:16 Dose: 125 mls/hr Magnesium Oxide (Magox 400 Tab*) 800 mg PO QAM [facility] Ondansetron HCl (Zofran Inj*) 4 mg IV Q4H PRN PRN Reason: NAUSEA/VOMITING Last Admin: 01/22/17 22:51 Dose: 4 mg Pantoprazole Sodium (Protonix Iv*) 40 mg IV Q24H [facility] Last Admin: 01/22/17 23:49 Dose: 40 mg Pharmacy Consult (Zosyn Per Pharmacy*) 1 note FOLLOW UP .ZOSYN PER PHARMACY [facility] Prochlorperazine Edisylate (Compazine Inj*) 5 mg IV Q6H PRN PRN Reason: NAUSEA/VOMITING Last Admin: 01/22/17 23:17 Dose: 5 mg Sulfasalazine (Azulfidine Tab*) 500 mg PO BID [facility] Sumatriptan Succinate (Imitrex Tab*) 50 mg PO BID PRN PRN Reason: MIGRAINE HEADACHE Tiotropium [place] (Spiriva Cap.Inh*) 1 cap INH QAM [facility] Venlafaxine HCl (Effexor Xr Cap*) 75 mg PO QAM [facility] Vital Signs 01/22/17 01/22/17 01/22/17 22:33 22:35 22:36 Temperature 98.4 F Pulse Rate 77 Respiratory 21 14 Rate Blood Pressure 90/66 90/66 (mmHg) O2 Sat by Pulse 93 Oximetry 01/22/17 01/22/17 01/22/17 22:45 22:46 23:00 Temperature Pulse Rate 73 Respiratory 16 18 17 Rate Blood Pressure 66/46 72/52 83/54 (mmHg) O2 Sat by Pulse 98 Oximetry 01/22/17 01/22/17 01/22/17 23:15 23:23 23:30 Temperature Pulse Rate 79 73 Respiratory 16 12 25 Rate Blood Pressure 86/63 98/55 (mmHg) O2 Sat by Pulse 87 99 Oximetry 01/22/17 01/22/17 01/23/17 23:45 23:52 00:00 Temperature 97.9 F Pulse Rate Respiratory 25 25 Rate Blood Pressure 95/53 (mmHg) O2 Sat by Pulse Oximetry 01/23/17 01/23/17 01/23/17 00:01 00:15 00:30 Temperature Pulse Rate 80 Respiratory 24 23 24 Rate Blood Pressure 99/56 88/70 108/62 (mmHg) O2 Sat by Pulse 98 Oximetry 01/23/17 01/23/17 01/23/17 00:45 01:00 01:15 Temperature Pulse Rate 82 79 81 Respiratory 24 25 24 Rate Blood Pressure 116/71 113/59 116/55 (mmHg) O2 Sat by Pulse 93 97 96 Oximetry 01/23/17 01/23/17 01/23/17 01:30 01:45 02:00 Temperature Pulse Rate 80 83 81 Respiratory 24 23 23 Rate Blood Pressure 120/73 126/67 (mmHg) O2 Sat by Pulse 99 98 97 Oximetry 01/23/17 01/23/17 01/23/17 02:01 02:15 02:30 Temperature Pulse Rate 81 83 80 Respiratory 21 17 18 Rate Blood Pressure 121/70 134/66 122/59 (mmHg) O2 Sat by Pulse 98 98 99 Oximetry 01/23/17 01/23/17 01/23/17 02:45 03:00 03:15 Temperature Pulse Rate 80 63 85 Respiratory 23 21 22 Rate Blood Pressure 121/66 113/92 98/51 (mmHg) O2 Sat by Pulse 97 90 93 Oximetry 01/23/17 01/23/17 01/23/17 03:39 04:00 05:00 Temperature 98.3 F Pulse Rate 86 Respiratory 21 19 Rate Blood Pressure 102/50 113/55 (mmHg) O2 Sat by Pulse 96 Oximetry 01/23/17 01/23/17 01/23/17 06:00 07:00 07:39 Temperature 98.9 F Pulse Rate 85 83 Respiratory 20 19 Rate Blood Pressure 82/59 117/57 (mmHg) O2 Sat by Pulse 98 91 Oximetry Appearance: Older female, drowsy but arousable, lying in bed, NAD Eyes: No Scleral Icterus Ears/Nose/Mouth/Throat: Clear Oropharnyx, - - dry oral mucosa Neck: NL Appearance and Movements; NL JVP Respiratory: Symmetrical Chest Expansion and Respiratory Effort, Clear to Auscultation - diminished throughout Cardiovascular: RRR - soft systolic murmur Abdominal: - - mild tenderness to mid and left abdomen with palpation, hypoactive BS Extremities: No Edema, No Clubbing, Cyanosis Skin: No Rash or Ulcers Neurological: Alert and Oriented x 3 Lines/Tubes/Other Access: Clean, Dry and Intact Peripheral IV Result Diagrams: 01/23/17 05:40 01/23/17 05:40 Additional Lab and Data: Lab Results 01/22/17 01/22/17 01/22/17 Range/Units 20:15 20:15 20:15 WBC 29.9 H (3.5-10.8) 10^3/ul RBC 4.48 (4.0-5.4) 10^6/ul Hgb 11.3 L (12.0-16.0) g/dl Hct 38 (35-47) % MCV 86 (80-97) fL MCH 25 L (27-31) pg MCHC 30 L (31-36) g/dl RDW 16 H (10.5-15) % Plt Count 488 H D (150-450) 10^3/ul MPV 7 L (7.4-10.4) um3 Neut % (Auto) 87.7 H (38-83) % Lymph % (Auto) 7.5 L (25-47) % [place] % (Auto) 4.1 (1-9) % Eos % (Auto) 0.2 (0-6) % Baso % (Auto) 0.5 (0-2) % Absolute Neuts (auto) 26.2 H (1.5-7.7) 10^3/ul Absolute Lymphs (auto) 2.2 (1.0-4.8) 10^3/ul Absolute Monos (auto) 1.2 H (0-0.8) 10^3/ul Absolute Eos (auto) 0.1 (0-0.6) 10^3/ul Absolute Basos (auto) 0.1 (0-0.2) 10^3/ul Absolute Nucleated RBC 0.01 10^3/ul Nucleated RBC % 0 Sodium 134 (133-145) mmol/L Potassium 4.6 (3.5-5.0) mmol/L Chloride 100 L (101-111) mmol/L Carbon Dioxide 17 L (22-32) mmol/L Anion Gap 17 H (2-11) mmol/L BUN 37 H (6-24) mg/dL Creatinine 2.47 H (0.51-0.95) mg/dL Est GFR ( Amer) 24.7 (>60) Est GFR (Non-Af Amer) 19.2 (>60) BUN/Creatinine Ratio 15.0 (8-20) Glucose 197 H (70-100) mg/dL Lactic Acid 7.1 H* (0.5-2.0) mmol/L Calcium 9.5 (8.6-10.3) mg/dL Magnesium 2.7 (1.9-2.7) mg/dL Total Bilirubin 0.40 (0.2-1.0) mg/dL AST 30 (13-39) U/L ALT 18 (7-52) U/L Alkaline Phosphatase 166 H (34-104) U/L C-Reactive Protein 4.05 (< 5.00) mg/L Total Protein 7.0 (6.4-8.9) g/dL Albumin 3.8 (3.2-5.2) g/dL Globulin 3.2 (2-4) g/dL Albumin/Globulin Ratio 1.2 (1-3) Lipase 43 (11.0-82.0) U/L Microbiology and Other Data: Microbiology 01/22/17 22:44 Nasal Screen MRSA (PCR)([facility]IT) - Final Nasal Mrsa Negative 01/22/17 23:12 Stool Gross Appearance - Final Stool C. difficile DNA Amplification - Final 027 Presumptive NEGATIVE Toxigenic C.diff NEGATIVE Stool Occult Blood (SUMIT) - Final 01/22/17 23:12 Stool Gross Appearance - Final Stool Assess/Plan/Problems-Billing Assessment: Ms. Solomon is a 72 yo female with a PMH of chronic intermittent n/v/d, HTN, CAD, systolic HF (EF <35-40%), RA, COPD, PAF (on anticoagulation), FRANKIE, anemia, and depression who presented on 01/22/17 with nausea/vomiting, explosive diarrhea and acute on chronic kidney injury. - Patient Problems (1) Nausea, vomiting, and diarrhea Code(s): R11.2 - NAUSEA WITH VOMITING, UNSPECIFIED; R19.7 - DIARRHEA, UNSPECIFIED Comment: Has a history of chronic intermittent n/v/d but had previously been well controlled. Will continue home sulfasalazine and hyosycamine Likely a gastroenteritis, etiology unclear Still with concern for food poisoning, given the short onset (1 hr) following shrimp dinner C. difficile PCR negative, stool culture, lactoferrin still pending. Abd CT/pelvis with concern for obstruction overnight, likely secondary to acute gastroenteritis (source unknown) Check KUB this morning, as there is concern stomach distention and dilated loops of bowel on CT, which may be secondary to sudden onset of gastroenteritis. Recheck HH this AM, with concern for reported bloody bowel movement, Xarelto d/ c. (2) GIB (gastrointestinal bleeding) Code(s): K92.2 - GASTROINTESTINAL HEMORRHAGE, UNSPECIFIED Comment: Positive stool occult, bright red blood seen with diarrhea HH did drop overnight to this morning, continue to trend Patient hemodynamically stable May be secondary to acute gastroenteritis Xarelto discontinued overnight (3) JUSTINA (acute kidney injury) Code(s): N17.9 - ACUTE KIDNEY FAILURE, UNSPECIFIED Comment: Acute on chronic kidney injury, mildly improved Suspect pre-renal causes, in the presence of N/V/D Continue to hold lisinopril, bumetanide Renally dose medications, avoid nephrotoxic agents (4) Lactic acidosis Code(s): E87.2 - ACIDOSIS Comment: Suspect secondary to acute n/v/d Recheck lactic acid this AM (5) COPD (chronic obstructive pulmonary disease) Code(s): J44.9 - CHRONIC OBSTRUCTIVE PULMONARY DISEASE, UNSPECIFIED Comment: Does not appear to be in acute exacerbation Continue tiotropium, prn albuterol. (6) Hypertension Code(s): I10 - ESSENTIAL (PRIMARY) HYPERTENSION Comment: Currently normotensive and at times mildly hypotensive Holding antihypertensives at this time. (7) CAD (coronary artery disease) Code(s): I25.10 - ATHSCL HEART DISEASE OF [place] CORONARY ARTERY W/O ANG PCTRS Comment: Aspirin held with concern for acute GIB Resume metoprolol when medically appropriate, pt currently hypotensive (8) CHF (congestive heart failure) Code(s): I50.9 - HEART FAILURE, UNSPECIFIED Comment: Chronic systolic heart failure, EF <35-40% Currently holding home metoprolol, spironolactone, bumetanide, lisinopril. Daily weights, I/O Resume home meds as patient's condition continues to improve (9) Paroxysmal a-fib Code(s): I48.0 - PAROXYSMAL ATRIAL FIBRILLATION Comment: Currently in sinus rhythm Resume home metoprolol when hemodynamically stable (currently hypotensive) Rivaroxaban on hold for acute GIB (10) Rheumatoid arthritis Code(s): M06.9 - RHEUMATOID ARTHRITIS, UNSPECIFIED Comment: Continue hydroxychloroquine, sulfasalazine. (11) Depression Code(s): F32.9 - MAJOR DEPRESSIVE DISORDER, SINGLE EPISODE, UNSPECIFIED Comment: Continue venlafaxine. (12) Migraine Code(s): G43.909 - MIGRAINE, UNSP, NOT INTRACTABLE, WITHOUT STATUS MIGRAINOSUS Comment: Continue PRN sumatriptan. (13) H/O: stroke Code(s): Z86.73 - PRSNL HX OF TIA (TIA), AND CEREB INFRC W/O RESID DEFICITS Comment: Rivaroxaban on hold with acute GIB (14) DVT prophylaxis Code(s): [id number] - Comment: SCDs Rivaroxaban held for acute GIB (15) DNR (do not resuscitate) Status and Disposition: Inpatient admission. Anticipate LOS >2 days. D/c to home when medically stable.
--- NOTE | 2017-01-23 08:49 | RAD ---
Indication: Obstruction. Flat and upright views of the abdomen demonstrates no free air. Nonspecific bowel gas pattern is noted with mildly distended loops of small bowel. No organomegaly is noted. IMPRESSION: Mildly distended small bowel loops. No free air is noted. Nonspecific bowel gas pattern. Distended stomach is present.
[2017-01-23] MEDS ORDERED: Spiriva Inhaler DEVICE* 1 EACH DEVICE ONE (09:00)
[2017-01-23] MEDS ORDERED: Venlafaxine EXT RELEASE CAP* 75 MG PO SCH ×2 (09:00)
[2017-01-23] MEDS ORDERED: Aspirin Low Dose CHEW TAB* 81 MG PO SCH (09:00)
[2017-01-23] MEDS: Hydroxychloroquine TAB* 200 MG PO SCH ×2 (10:17→21:07)
[2017-01-23] MEDS: sulfaSALAzine TAB* 500 MG PO SCH ×3 (10:17→21:07)
[2017-01-23] MEDS: Tiotropium CAP.INH* CAP.INH/18 MCG INH SCH (10:17)
[2017-01-23] MEDS: Magnesium Oxide TAB* 400 MG PO SCH (10:17)
[2017-01-23] MEDS: Hyoscyamine ER (NF) 0.375 MG TAB PO SCH (10:17)
[2017-01-23 12:03] LABS: Hematocrit 32 % (35-47); Hemoglobin 9.4 g/dl (12.0-16.0)
[2017-01-23 12:04] LABS: Comments Flag Yes
[2017-01-23] MEDS: Atorvastatin* 40 MG TAB PO SCH (18:07)
[2017-01-23] MEDS: Pantoprazole IV* 40 MG IV SCH (23:31)
[2017-01-24] MEDS: Acetaminophen TAB* 325 MG PO PRN ×2 (00:10→16:10)
[2017-01-24] MEDS: NS 0.9% 1000 ML* 1,000 ML IV SCH (04:55)
[2017-01-24 06:12] LABS: Hematocrit 26 % (35-47); Hemoglobin 7.8 g/dl (12.0-16.0); Mean Corpuscular HGB Conc 31 g/dl (31-36); Mean Corpuscular Hemoglobin 26 pg (27-31); Mean Corpuscular Volume 84 fL (80-97); Mean Platelet Volume 7 um3 (7.4-10.4); Red Blood Count 3.03 10^6/ul (4.0-5.4); Red Cell Distribution Width 16 % (10.5-15); White Blood Count 15.5 10^3/ul (3.5-10.8)
[2017-01-24 06:25] LABS: BUN/Creatinine Ratio 19.4 (8-20); Calcium 7.8 mg/dL (8.6-10.3); EGFR African American 52.2 (>60); EGFR Non-African American 40.6 (>60); Potassium 4.2 mmol/L (3.5-5.0)
[2017-01-24] MEDS ORDERED: NS 0.9% 1000 ML* 1,000 ML IV SCH (07:29)
--- NOTE | 2017-01-24 08:15 | RAD ---
Indication: Nausea, vomiting, diarrhea. Gastroenteritis. Comparison: January 23, 2017 Technique: Supine view of the abdomen. Report: Chronic moderate elevation of the RIGHT hemidiaphragm. Unremarkable bowel gas pattern. Small volume of stool in the colon without significant rectal distension. Multiple peripherally calcified pelvic phleboliths versus hyperdense diverticula of the sigmoid colon based on correlation with CT. Unremarkable soft tissue contours. Multilevel degenerative spondylosis and facet joint osteoarthritis of the lumbar sacral spine. IMPRESSION: 1. No compelling evidence for presence of an acute abdominal pelvic pathologic process. 2. Multiple peripherally calcified pelvic phleboliths versus hyperdense diverticula of the sigmoid colon based on correlation with CT.
[2017-01-24] MEDS: Hydroxychloroquine TAB* 200 MG PO SCH ×2 (08:36→21:23)
[2017-01-24] MEDS: Magnesium Oxide TAB* 400 MG PO SCH (08:38)
[2017-01-24] MEDS: Venlafaxine EXT RELEASE CAP* 75 MG PO SCH (08:39)
[2017-01-24] MEDS: sulfaSALAzine TAB* 500 MG PO SCH ×2 (08:39→21:23)
[2017-01-24] MEDS: Hyoscyamine ER (NF) 0.375 MG TAB PO SCH (08:40)
--- NOTE | 2017-01-24 08:41 | PN ---
Subjective Date of Service: 01/24/17 Interval History: Patient seen and examined at bedside. Ms. Solomon reports feeling better this morning and denies any further n/v. No further episodes of diarrhea or bloody stools. She reports having "lots of gas" this morning. No other complaint. She is frustrated over not knowing the cause of these episodes. Family History: Unchanged from Admission Social History: Unchanged from Admission Past Medical History: Unchanged from Admission Objective Active Medications: Acetaminophen (Tylenol Tab*) 650 mg PO Q4H PRN PRN Reason: FEVER/PAIN Last Admin: 01/24/17 00:10 Dose: 650 mg Hydrocodone Bitart/Acetaminophen ([place] 5-325 Tab*) 1 tab PO Q8H PRN PRN Reason: PAIN Al Hydrox/Mg Hydrox/Simethicone (Maalox Plus*) 30 ml PO Q6H PRN PRN Reason: INDIGESTION Albuterol (Ventolin Hfa Inhaler*) 2 puff INH Q4H PRN PRN Reason: SOB/WHEEZING Alprazolam (Xanax Tab*) 0.25 mg PO BID PRN PRN Reason: STOMACH DISTRESS Atorvastatin Calcium (Lipitor*) 40 mg PO QPM [facility] Last Admin: 01/23/17 18:07 Dose: 40 mg Hydroxychloroquine Sulfate (Plaquenil Tab*) 200 mg PO BID [facility] Last Admin: 01/24/17 08:36 Dose: 200 mg Hyoscyamine (Levbid (Nf)) 0.375 mg PO DAILY [facility] Last Admin: 01/24/17 08:40 Dose: Not Given Piperacillin Sod/Tazobactam (Sod 3.375 gm/ Sodium Chloride) 100 mls @ 25 mls/ hr IVPB Q8H [facility] Last Admin: 01/24/17 02:50 Dose: 25 mls/hr Sodium Chloride (Ns 0.9% 1000 Ml*) 1,000 mls @ 75 mls/hr IV PER RATE [facility] Magnesium Oxide (Magox 400 Tab*) 800 mg PO QAM [facility] Last Admin: 01/24/17 08:38 Dose: 800 mg Ondansetron HCl (Zofran Inj*) 4 mg IV Q4H PRN PRN Reason: NAUSEA/VOMITING Last Admin: 01/22/17 22:51 Dose: 4 mg Pantoprazole Sodium (Protonix Iv*) 40 mg IV Q24H [facility] Last Admin: 01/23/17 23:31 Dose: 40 mg Pharmacy Consult (Zosyn Per Pharmacy*) 1 note FOLLOW UP .ZOSYN PER PHARMACY [facility] Prochlorperazine Edisylate (Compazine Inj*) 5 mg IV Q6H PRN PRN Reason: NAUSEA/VOMITING Last Admin: 01/22/17 23:17 Dose: 5 mg Sulfasalazine (Azulfidine Tab*) 500 mg PO BID [facility] Last Admin: 01/24/17 08:39 Dose: 500 mg Sumatriptan Succinate (Imitrex Tab*) 50 mg PO BID PRN PRN Reason: MIGRAINE HEADACHE Tiotropium [place] (Spiriva Cap.Inh*) 1 cap INH QAM [facility] Last Admin: 01/23/17 10:17 Dose: 1 cap Venlafaxine HCl (Effexor Xr Cap*) 150 mg PO DAILY [facility] Last Admin: 01/24/17 08:39 Dose: 150 mg Vital Signs 01/23/17 01/23/17 01/23/17 09:00 10:00 11:00 Temperature Pulse Rate 81 84 Respiratory 18 17 13 Rate Blood Pressure 117/63 128/74 132/75 (mmHg) O2 Sat by Pulse 94 99 Oximetry 01/23/17 01/23/17 01/23/17 11:23 11:50 12:00 Temperature 99.2 F Pulse Rate Respiratory 13 17 Rate Blood Pressure 133/68 (mmHg) O2 Sat by Pulse Oximetry 01/23/17 01/23/17 01/23/17 13:00 14:00 15:00 Temperature Pulse Rate 86 85 Respiratory 20 18 17 Rate Blood Pressure 124/60 114/62 (mmHg) O2 Sat by Pulse 97 92 Oximetry 01/23/17 01/23/17 01/23/17 15:24 17:30 19:30 Temperature 99.9 F 98.1 F 98.0 F Pulse Rate 84 85 Respiratory 16 16 Rate Blood Pressure 152/82 132/65 (mmHg) O2 Sat by Pulse 100 98 Oximetry 01/23/17 01/23/17 01/24/17 20:00 22:20 00:12 Temperature 97.9 F Pulse Rate 97 Respiratory 17 17 20 Rate Blood Pressure 114/69 (mmHg) O2 Sat by Pulse 93 Oximetry 01/24/17 01/24/17 01/24/17 04:02 07:16 07:35 Temperature 97.3 F 98.2 F Pulse Rate 84 82 Respiratory 16 16 16 Rate Blood Pressure 124/54 143/69 (mmHg) O2 Sat by Pulse 95 99 Oximetry Oxygen Devices in Use Now: None Appearance: Elderly female, lying in bed, NAD Eyes: No Scleral Icterus Ears/Nose/Mouth/Throat: Clear Oropharnyx, Mucous Membranes Moist Neck: NL Appearance and Movements; NL JVP Respiratory: Symmetrical Chest Expansion and Respiratory Effort, Clear to Auscultation Cardiovascular: RRR - soft systolic murmur Abdominal: NL Sounds; No Tenderness; No Distention Extremities: No Edema Neurological: Alert and Oriented x 3 Lines/Tubes/Other Access: Clean, Dry and Intact Peripheral IV Nutrition: Taking PO's Result Diagrams: 01/24/17 11:35 01/24/17 05:46 Additional Lab and Data: Lab Results 01/22/17 01/22/17 01/22/17 Range/Units 20:15 20:15 20:15 WBC 29.9 H (3.5-10.8) 10^3/ul RBC 4.48 (4.0-5.4) 10^6/ul Hgb 11.3 L (12.0-16.0) g/dl Hct 38 (35-47) % MCV 86 (80-97) fL MCH 25 L (27-31) pg MCHC 30 L (31-36) g/dl RDW 16 H (10.5-15) % Plt Count 488 H D (150-450) 10^3/ul MPV 7 L (7.4-10.4) um3 Neut % (Auto) 87.7 H (38-83) % Lymph % (Auto) 7.5 L (25-47) % [place] % (Auto) 4.1 (1-9) % Eos % (Auto) 0.2 (0-6) % Baso % (Auto) 0.5 (0-2) % Absolute Neuts (auto) 26.2 H (1.5-7.7) 10^3/ul Absolute Lymphs (auto) 2.2 (1.0-4.8) 10^3/ul Absolute Monos (auto) 1.2 H (0-0.8) 10^3/ul Absolute Eos (auto) 0.1 (0-0.6) 10^3/ul Absolute Basos (auto) 0.1 (0-0.2) 10^3/ul Absolute Nucleated RBC 0.01 10^3/ul Nucleated RBC % 0 Sodium 134 (133-145) mmol/L Potassium 4.6 (3.5-5.0) mmol/L Chloride 100 L (101-111) mmol/L Carbon Dioxide 17 L (22-32) mmol/L Anion Gap 17 H (2-11) mmol/L BUN 37 H (6-24) mg/dL Creatinine 2.47 H (0.51-0.95) mg/dL Est GFR ( Amer) 24.7 (>60) Est GFR (Non-Af Amer) 19.2 (>60) BUN/Creatinine Ratio 15.0 (8-20) Glucose 197 H (70-100) mg/dL Lactic Acid 7.1 H* (0.5-2.0) mmol/L Calcium 9.5 (8.6-10.3) mg/dL Magnesium 2.7 (1.9-2.7) mg/dL Total Bilirubin 0.40 (0.2-1.0) mg/dL AST 30 (13-39) U/L ALT 18 (7-52) U/L Alkaline Phosphatase 166 H (34-104) U/L C-Reactive Protein 4.05 (< 5.00) mg/L Total Protein 7.0 (6.4-8.9) g/dL Albumin 3.8 (3.2-5.2) g/dL Globulin 3.2 (2-4) g/dL Albumin/Globulin Ratio 1.2 (1-3) Lipase 43 (11.0-82.0) U/L Microbiology and Other Data: Microbiology 01/22/17 22:44 Nasal Screen MRSA (PCR)([facility]) - Final Nasal Mrsa Negative 01/22/17 23:12 Stool Gross Appearance - Final Stool C. difficile DNA Amplification - Final 027 Presumptive NEGATIVE Toxigenic C.diff NEGATIVE Stool Occult Blood ([facility]) - Final 01/22/17 23:12 Stool Gross Appearance - Final Stool Assess/Plan/Problems-Billing Assessment: Ms. Solomon is a 72 yo female with a PMH of chronic intermittent n/v/d, HTN, CAD, systolic HF (EF <35-40%), RA, COPD, PAF (on anticoagulation), FRANKIE, anemia, and depression who presented on 01/22/17 with nausea/vomiting, explosive diarrhea and acute on chronic kidney injury. - Patient Problems (1) Gastroenteritis Code(s): K52.9 - NONINFECTIVE GASTROENTERITIS AND COLITIS, UNSPECIFIED Comment : Improving Etiology unclear, likely viral Patient had concern for food poisoning from shrimp, but onset of symptoms was only 1 hour after ingestion. Will continue Zosyn, given patient's leukocytosis; could probably discontinue at discharge. Has a history of chronic intermittent n/v/d but had previously been well controlled. Will continue home sulfasalazine and hyosycamine C. difficile and E. coli PCR negative, stool culture negative. Resolution of bowel and stomach distention on KUB Continue to follow HH Advance diet (2) GIB (gastrointestinal bleeding) Code(s): K92.2 - GASTROINTESTINAL HEMORRHAGE, UNSPECIFIED Comment: Positive stool occult, bright red blood seen with diarrhea HH dropped to 7.8, recheck later this AM Type and screen, as patient may require PRBC Fecal lactoferrin positive ASA and Xarelto held (3) Sepsis Comment: Patient meets sepsis criteria on admission by SIRS criteria with leukocytosis, tachypnea, and elevated lactic acid. Patient meets sepsis criteria on admission by SOFA guidelines with tachypnea, MAP <70, SBP <90, and acute renal dysfunction (creatinine 2.47). Source is gastrointestinal. Continue Zosyn. (4) JUSTINA (acute kidney injury) Code(s): N17.9 - ACUTE KIDNEY FAILURE, UNSPECIFIED Comment: Acute on chronic kidney injury, improved back to patient's baseline Suspect pre-renal causes, in the presence of N/V/D Continue to hold lisinopril, bumetanide Avoid nephrotoxic agents (5) Lactic acidosis Code(s): E87.2 - ACIDOSIS Comment: Resolved Suspect secondary to acute n/v/d (6) COPD (chronic obstructive pulmonary disease) Code(s): J44.9 - CHRONIC OBSTRUCTIVE PULMONARY DISEASE, UNSPECIFIED Comment: Does not appear to be in acute exacerbation Continue tiotropium, prn albuterol. (7) Hypertension Code(s): I10 - ESSENTIAL (PRIMARY) HYPERTENSION Comment: Normotensive Resume home metoprolol. (8) CAD (coronary artery disease) Code(s): I25.10 - ATHSCL HEART DISEASE OF [place] CORONARY ARTERY W/O ANG PCTRS Comment: Aspirin held with concern for acute GIB Continue metoprolol. (9) CHF (congestive heart failure) Code(s): I50.9 - HEART FAILURE, UNSPECIFIED Comment: Chronic systolic heart failure, EF <35-40% Continue metoprolol Currently holding home spironolactone, bumetanide, lisinopril. Daily weights, I/O Resume home meds as patient's condition continues to improve (10) Paroxysmal a-fib Code(s): I48.0 - PAROXYSMAL ATRIAL FIBRILLATION Comment: Currently in sinus rhythm Continue metoprolol Rivaroxaban on hold for acute GIB (11) Rheumatoid arthritis Code(s): M06.9 - RHEUMATOID ARTHRITIS, UNSPECIFIED Comment: Continue hydroxychloroquine, sulfasalazine. (12) Depression Code(s): F32.9 - MAJOR DEPRESSIVE DISORDER, SINGLE EPISODE, UNSPECIFIED Comment: Continue venlafaxine. (13) Migraine Code(s): G43.909 - MIGRAINE, UNSP, NOT INTRACTABLE, WITHOUT STATUS MIGRAINOSUS Comment: Continue PRN sumatriptan. (14) H/O: stroke Code(s): Z86.73 - PRSNL HX OF TIA (TIA), AND CEREB INFRC W/O RESID DEFICITS Comment: Rivaroxaban on hold with acute GIB (15) DVT prophylaxis Code(s): [id number] - Comment: SCDs Rivaroxaban held for acute GIB (16) DNR (do not resuscitate) Status and Disposition: Inpatient admission. Anticipate LOS >2 days. D/c to home when medically stable.
[2017-01-24] MEDS: HYDROcodone/ACETAMIN 5-325 MG* 1 TAB PO PRN ×2 (08:48→17:19)
[2017-01-24] MEDS: Tiotropium CAP.INH* CAP.INH/18 MCG INH SCH (09:07)
[2017-01-24] MEDS: Omeprazole CAP* 20 MG PO SCH (10:42)
[2017-01-24 11:53] LABS: Hematocrit 24 % (35-47); Hemoglobin 7.3 g/dl (12.0-16.0)
[2017-01-24] MEDS ORDERED: Furosemide IV* 10 MG/ML VIAL (40 MG) IV SLOW PU ONE (16:00)
[2017-01-24] MEDS: Atorvastatin* 40 MG TAB PO SCH (17:18)
--- NOTE | 2017-01-24 18:18 | RAD ---
INDICATION: Gastroenteritis COMPARISON: Chest x-ray dated September 07, 2016 TECHNIQUE: PA and lateral views of the chest were obtained. FINDINGS: The heart and mediastinal structures are normal in size and morphology. An external subcutaneous cardiac device is unchanged in position. There is a gas-filled loop of bowel below the right hemidiaphragm consistent with a [place] bowel loop. There is persistent elevation of the right hemidiaphragm relative to the previous chest x-ray. This chest x-ray is linear density overlying the medial aspect of the right lung. IMPRESSION: INTERVAL APPEARANCE OF LINEAR DENSITY AT THE MEDIAL ASPECT OF THE RIGHT LUNG BASE COULD REPRESENT ATELECTASIS VERSUS CONSOLIDATION. THERE IS PERSISTENT ELEVATION OF THE RIGHT HEMIDIAPHRAGM OVERLYING A [place]ILA[place]ITI LOOP OF BOWEL.
[2017-01-24 18:35] LABS: Hematocrit 30 % (35-47); Hemoglobin 9.4 g/dl (12.0-16.0)
[2017-01-24 19:49] LABS: Urine Bilirubin Negative (Negative); Urine Glucose Negative (Negative); Urine Nitrite Negative (Negative)
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
[2017-01-24 20:36] LABS: Urine Bacteria Absent (Absent)
[2017-01-24] MEDS: Metoprolol Succinate XL TAB* 25 MG PO SCH (21:23)
[2017-01-25] MEDS: HYDROcodone/ACETAMIN 5-325 MG* 1 TAB PO PRN ×3 (03:20→18:33)
[2017-01-25 05:23] LABS: Hematocrit 30 % (35-47); Hemoglobin 9.3 g/dl (12.0-16.0); Mean Corpuscular HGB Conc 32 g/dl (31-36); Mean Corpuscular Hemoglobin 27 pg (27-31); Mean Corpuscular Volume 85 fL (80-97); Mean Platelet Volume 7 um3 (7.4-10.4); Red Blood Count 3.48 10^6/ul (4.0-5.4); Red Cell Distribution Width 16 % (10.5-15); White Blood Count 12.2 10^3/ul (3.5-10.8)
[2017-01-25 05:33] LABS: BUN/Creatinine Ratio 21.4 (8-20); Calcium 8.2 mg/dL (8.6-10.3); EGFR African American 58.5 (>60); EGFR Non-African American 45.5 (>60); Potassium 3.7 mmol/L (3.5-5.0)
[2017-01-25] MEDS: Magnesium Oxide TAB* 400 MG PO SCH (10:28)
[2017-01-25] MEDS: Lactobacillus Acidophilu (GG)* 1 CAP CAP PO SCH (10:29)
[2017-01-25] MEDS: Hydroxychloroquine TAB* 200 MG PO SCH ×2 (10:29→21:56)
[2017-01-25] MEDS: sulfaSALAzine TAB* 500 MG PO SCH ×2 (10:29→21:57)
[2017-01-25] MEDS: Venlafaxine EXT RELEASE CAP* 75 MG PO SCH (10:29)
[2017-01-25] MEDS: Ferrous Sulfate TAB* 325 MG PO SCH (10:29)
[2017-01-25] MEDS: SUMAtriptan TAB* 50 MG PO PRN (10:30)
[2017-01-25] MEDS: Omeprazole CAP* 20 MG PO SCH (10:32)
[2017-01-25] MEDS: Tiotropium CAP.INH* CAP.INH/18 MCG INH SCH (12:06)
[2017-01-25] MEDS: Hyoscyamine ER (NF) 0.375 MG TAB PO SCH (12:24)
--- NOTE | 2017-01-25 12:27 | PN ---
Subjective Date of Service: 01/25/17 Interval History: This is a 72 yo female with CAD and associated ischemic cardiomyopathy, FRANKIE, PAF , FRANKIE and RA who presented with severe n/v/d. One BM was slightly bloody and she was heme positive at admission. She was empirically started on Zosyn. No pathogens have been isolated on stool testing, but lactoferrin and heme positive. Hgb has fallen throughout hospital stay and she was transfused one unit PRBCs yesterday. Initial CT showed a severely distended stomach and mildly dilated loops of bowel. Subsequent KUBs has shown resolution. Patient was evaluated by GI yesterday who did not recommend further work-up. Today, she reports that she is still having frequent bouts of diarrhea, but none are bloody. Her appetite has improved. No n/v. She is complaining of a FUENTES. No abd pain. She is still feeling fairly weak Objective Active Medications: Acetaminophen (Tylenol Tab*) 650 mg PO Q4H PRN PRN Reason: FEVER/PAIN Last Admin: 01/24/17 16:10 Dose: 650 mg Hydrocodone Bitart/Acetaminophen (Independence 5-325 Tab*) 1 tab PO Q8H PRN PRN Reason: PAIN Last Admin: 01/25/17 10:31 Dose: 1 tab Al Hydrox/Mg Hydrox/Simethicone (Maalox Plus*) 30 ml PO Q6H PRN PRN Reason: INDIGESTION Albuterol (Ventolin Hfa Inhaler*) 2 puff INH Q4H PRN PRN Reason: SOB/WHEEZING Alprazolam (Xanax Tab*) 0.25 mg PO BID PRN PRN Reason: STOMACH DISTRESS Last Admin: 01/24/17 12:48 Dose: 0.25 mg Atorvastatin Calcium (Lipitor*) 40 mg PO QPM MARY Last Admin: 01/24/17 17:18 Dose: 40 mg Ferrous Sulfate (Ferrous Sulfate Tab*) 325 mg PO DAILY [facility] Last Admin: 01/25/17 10:29 Dose: 325 mg Hydroxychloroquine Sulfate (Plaquenil Tab*) 200 mg PO BID [facility] Last Admin: 01/25/17 10:29 Dose: 200 mg Hyoscyamine (Anaspaz Tab*) 0.125 mg PO TID [facility] Piperacillin Sod/Tazobactam (Sod 3.375 gm/ Sodium Chloride) 100 mls @ 25 mls/ hr IVPB Q8H [facility] Last Admin: 01/25/17 12:04 Dose: 25 mls/hr Lactobacillus Rhamnosus (Culturelle*) 1 cap PO DAILY [facility] Last Admin: 01/25/17 10:29 Dose: 1 cap Magnesium Oxide (Magox 400 Tab*) 800 mg PO QAM [facility] Last Admin: 01/25/17 10:28 Dose: 800 mg Metoprolol Succinate (Toprol Xl Tab*) 25 mg PO BEDTIME [facility] Last Admin: 01/24/17 21:23 Dose: 25 mg Omeprazole (Prilosec Cap*) 20 mg PO DAILY [facility] Last Admin: 01/25/17 10:32 Dose: 20 mg Ondansetron HCl (Zofran Inj*) 4 mg IV Q4H PRN PRN Reason: NAUSEA/VOMITING Last Admin: 01/22/17 22:51 Dose: 4 mg Pharmacy Consult (Zosyn Per Pharmacy*) 1 note FOLLOW UP .ZOSYN PER PHARMACY [facility] Prochlorperazine Edisylate (Compazine Inj*) 5 mg IV Q6H PRN PRN Reason: NAUSEA/VOMITING Last Admin: 01/22/17 23:17 Dose: 5 mg Sulfasalazine (Azulfidine Tab*) 500 mg PO BID [facility] Last Admin: 01/25/17 10:29 Dose: 500 mg Sumatriptan Succinate (Imitrex Tab*) 50 mg PO BID PRN PRN Reason: MIGRAINE HEADACHE Last Admin: 01/25/17 10:30 Dose: 50 mg Tiotropium Clinton (Spiriva Cap.Inh*) 1 cap INH QAM [facility] Last Admin: 01/25/17 12:06 Dose: 1 cap Venlafaxine HCl (Effexor Xr Cap*) 150 mg PO DAILY [facility] Last Admin: 01/25/17 10:29 Dose: 150 mg Vital Signs: Temp Pulse Resp BP Pulse Ox 97.6 F 73 16 140/80 96 01/25/17 04:00 01/25/17 07:17 01/25/17 10:31 01/25/17 07:17 01/25/17 07:17 Oxygen Devices in Use Now: None Appearance: Well appearing elderly female in NAD Respiratory: Symmetrical Chest Expansion and Respiratory Effort, Clear to Auscultation Cardiovascular: NL Sounds; No Murmurs; No JVD, RRR Abdominal: NL Sounds; No Tenderness; No Distention Extremities: No Edema Skin: No Rash or Ulcers Neurological: Alert and Oriented x 3 Result Diagrams: 01/25/17 05:06 01/25/17 05:06 Additional Lab and Data: . Microbiology and Other Data: Microbiology 01/22/17 22:44 Nasal Screen MRSA (PCR)([facility]) - Final Nasal Mrsa Negative 01/22/17 23:12 Stool Gross Appearance - Final Stool C. difficile DNA Amplification - Final 027 Presumptive NEGATIVE Toxigenic C.diff NEGATIVE Stool Occult Blood ([facility]) - Final 01/22/17 23:12 Stool Gross Appearance - Final Stool Diagnostic Imaging: CT abd/pelvis - distended stomach and mildly dilated loops of small bowel KUB 7/10 - stomach and SB still slightly dilated KUB 7/11 - NAD CXR - small linear atelectasis in the R lung field Assess/Plan/Problems-Billing Assessment: Ms. Solomon is a 72 yo female with a PMH of chronic intermittent n/v/d, HTN, CAD, systolic HF (EF <35-40%), RA, COPD, PAF (on anticoagulation), FRANKIE, anemia, and depression who presented on 01/22/17 with nausea/vomiting, explosive diarrhea and acute on chronic kidney injury. - Patient Problems (1) Sepsis Comment: Patient meets sepsis criteria on admission by SIRS criteria with leukocytosis, tachypnea, and elevated lactic acid. Patient meets sepsis criteria on admission by SOFA guidelines with tachypnea, MAP <70, SBP <90, and acute renal dysfunction (creatinine 2.47). Source is gastrointestinal. Continue Zosyn. (2) GIB (gastrointestinal bleeding) Comment: Positive stool occult, bright red blood seen with diarrhea Transfused 1U pRBCs Fecal lactoferrin positive ASA and Xarelto held No further bleeding noted H/H stable (3) Nausea, vomiting, and diarrhea Comment: Has a history of chronic intermittent n/v/d but had previously been well controlled. Will continue home sulfasalazine and hyosycamine Likely a gastroenteritis, etiology unclear Still with concern for food poisoning, given the short onset (1 hr) following shrimp dinner C. difficile PCR negative, lactoferrin positive, no pathogens identified on culture Abd CT/pelvis with concern for obstruction overnight, likely secondary to acute gastroenteritis, but now resolved (4) JUSTINA (acute kidney injury) Comment: Acute on chronic kidney injury, improved back to patient's baseline Secondary to hypovolemia due to GI losses Continue to hold bumetanide, lisinopril resumed today Avoid nephrotoxic agents (5) Anemia Comment: Transfused 1U PRBCs yesterday Stool heme positive Hgb appears stable since transfusion GI does recommend further evaluation at this time Will cont to monitor (6) CHF (congestive heart failure) Comment: No evidence of acute exacerbation Chronic systolic heart failure, EF <35-40% Continue metoprolol Currently holding home Bumex Resume lisinopril and spironolactone today Daily weights, I/O Resume home meds as patient's condition continues to improve (7) CAD (coronary artery disease) Comment: Aspirin held with concern for acute GIB Continue metoprolol. (8) Paroxysmal a-fib Comment: Currently in sinus rhythm Continue metoprolol Rivaroxaban on hold for acute GIB, GI recommends resuming in 10-14 days if heme negative and GI symptoms completely resolve (9) Rheumatoid arthritis Comment: Continue hydroxychloroquine, sulfasalazine. (10) DNR (do not resuscitate) (11) DVT prophylaxis Comment: SCDs Rivaroxaban held for acute GIB Status and Disposition: Inpatient admission. Possible discharge home tomorrow
[2017-01-25] MEDS: Spironolactone TAB* 25 MG PO SCH (14:25)
[2017-01-25] MEDS: Hyoscyamine TAB* 0.125 MG PO SCH ×2 (14:25→21:56)
[2017-01-25] MEDS ORDERED: Lisinopril TAB* 10 MG PO SCH (18:00)
[2017-01-25] MEDS: Atorvastatin* 40 MG TAB PO SCH (18:31)
[2017-01-25] MEDS: Metoprolol Succinate XL TAB* 25 MG PO SCH (21:57)
[2017-01-26] MEDS: HYDROcodone/ACETAMIN 5-325 MG* 1 TAB PO PRN (04:25)
[2017-01-26] MEDS: SUMAtriptan TAB* 50 MG PO PRN (04:26)
[2017-01-26 07:26] VITALS: BP 137/88
[2017-01-26 08:10] LABS: Hematocrit 33 % (35-47); Hemoglobin 10.6 g/dl (12.0-16.0); Mean Corpuscular HGB Conc 32 g/dl (31-36); Mean Corpuscular Hemoglobin 26 pg (27-31); Mean Corpuscular Volume 84 fL (80-97); Mean Platelet Volume 7 um3 (7.4-10.4); Red Blood Count 3.99 10^6/ul (4.0-5.4); Red Cell Distribution Width 15 % (10.5-15); White Blood Count 13.8 10^3/ul (3.5-10.8)
[2017-01-26] MEDS: Ferrous Sulfate TAB* 325 MG PO SCH (08:16)
[2017-01-26] MEDS: Venlafaxine EXT RELEASE CAP* 75 MG PO SCH (08:16)
[2017-01-26] MEDS: Omeprazole CAP* 20 MG PO SCH (08:16)
[2017-01-26] MEDS: Lactobacillus Acidophilu (GG)* 1 CAP CAP PO SCH (08:17)
[2017-01-26] MEDS: Spironolactone TAB* 25 MG PO SCH (08:17)
[2017-01-26] MEDS: Hydroxychloroquine TAB* 200 MG PO SCH (08:17)
[2017-01-26] MEDS: Hyoscyamine TAB* 0.125 MG PO SCH (08:18)
[2017-01-26] MEDS: Magnesium Oxide TAB* 400 MG PO SCH (08:18)
[2017-01-26] MEDS: sulfaSALAzine TAB* 500 MG PO SCH (08:19)
[2017-01-26 08:28] LABS: Calcium 8.9 mg/dL (8.6-10.3); EGFR African American 66.3 (>60); EGFR Non-African American 51.5 (>60)
[2017-01-26] MEDS: Tiotropium CAP.INH* CAP.INH/18 MCG INH SCH (08:28)
--- NOTE | 2017-01-26 17:18 | DS ---
CC: Dr. Watkins * DISCHARGE SUMMARY: DATE OF ADMISSION: 01/22/17 DATE OF DISCHARGE: 01/26/17 PRIMARY CARE PROVIDER: Dr. Watkins. CONSULTING GUM SPRAYER: Dr. Claros. DISCHARGING PROVIDER: STARLA Mills SUPERVISING PHYSICIAN: Dr. Desiree Chaney. * (DICTATED BY STARLA MILLS) PRIMARY DISCHARGE DIAGNOSES: 1. Sepsis secondary to suspected gastroenteritis. 2. Gastrointestinal bleed. 3. Acute kidney injury secondary to sepsis. 4. Anemia secondary to gastrointestinal blood loss, status post transfusion of 1 unit of packed red blood cells. SECONDARY DISCHARGE DIAGNOSES: 1. Chronic systolic heart failure with ejection fraction of approximately 35% to 40%. 2. Coronary artery disease without acute symptoms. 3. Paroxysmal atrial fibrillation - Xarelto held at the time of discharge due to concern for acute bleeding. 4. Rheumatoid arthritis. DISCHARGE MEDICATIONS: 1. Alendronate 70 mg p.o. weekly. 2. Ferrous sulfate 325 mg p.o. daily. 3. Plaquenil 400 mg p.o. daily. 4. Probiotic daily. 5. Protonix 40 mg p.o. daily. 6. Vitamin D3 5000 units p.o. daily. 7. Sulfasalazine 500 mg p.o. twice daily. 8. Xanax 0.25 mg p.o. twice daily. 9. Albuterol 1 to 2 puffs inhaled q.4 hours as needed for shortness of breath. 10. Aspirin 81 mg p.o. daily. 11. Lipitor 40 mg p.o. daily. 12. Bumex 0.5 mg p.o. every other day. 13. Cipro 500 mg p.o. twice daily x7 days. 14. Hydrocodone/acetaminophen 10/325 one tablet p.o. q.8 hours as needed for pain. 15. Hyoscyamine extended release 0.375 mg p.o. daily. 16. Lisinopril 5 mg p.o. daily. 17. Magnesium oxide 800 mg p.o. daily. 18. Metoprolol succinate 25 mg p.o. at bedtime. 19. Potassium chloride 20 mEq p.o. twice daily. 20. Imitrex 50 mg p.o. twice daily as needed for migraine headache. 21. Spironolactone 25 mg p.o. every other day. 22. Spiriva 1 capsule inhaled daily. 23. Effexor 225 mg p.o. daily. Medication changes: 1. Cipro x7 days. 2. Hold Xarelto. HOSPITAL IMAGIN. CT of the abdomen and pelvis demonstrates severe distention of the stomach with borderline dilatation of the small bowel, scattered diverticula without diverticulitis, and small infiltrate of the right lung base. 2. KUB, 01/23/17, demonstrates mildly distended small bowel loops. No free air noted and nonspecific bowel gas pattern and distended stomach is present. 3. KUB, 01/24/17, shows no intraabdominal pathologic process. 4. Chest x-ray shows linear density at the medial aspect of the right lung, which could represent atelectasis versus consolidation. HOSPITAL COURSE: This is a 72-year-old female with history of coronary artery disease and associated ischemic cardiomyopathy with estimated EF of 35% to 40% as well as hypertension; obstructive sleep apnea; paroxysmal atrial fibrillation , anticoagulated on Xarelto; as well as rheumatoid arthritis, who presented to the emergency department with severe nausea, vomiting, and diarrhea. The patient's symptoms started approximately 30 minutes after consuming a seafood meal at a local restaurant. She had 1 episode of bloody diarrhea in the emergency department. She had been feeling otherwise well earlier in the day and denied any sick contacts. Initial labs demonstrated severe leukocytosis with white blood cell count of 29,000, which were primarily neutrophils at that time with an associated thrombocytosis. She also had significant elevation in her creatinine to 2.47 just well above her baseline of approximately 1.1 to 1.2 and an estimated GFR of 19. Her initial lactic acid was 7.1 and she was severely hypotensive with an initial blood pressure of 70/47. The patient underwent CT of the abdomen and pelvis, which demonstrated a severely distended stomach and borderline dilated loops of small bowel, but no other specific pathology. She was initially admitted to ICU with picture of septic shock and aggressively rehydrated and empirically started on Zosyn for coverage of intraabdominal pathology. Blood cultures remained negative. Stool analysis was negative for C. diff or other pathogens. Stool was positive for heme and lactoferrin. Her white blood cell count slowly improved throughout her hospital stay, had not completely normalized at the time of discharge. She continued to have frequent loose bowel movements but her appetite returned to normal. She was able to maintain a soft diet without nausea or vomiting. Her stomach distention and dilated loops of small bowel resolved on serial KUBs with supportive care. Her hemoglobin did drift down during her hospital stay initially measured at 11,300, drifted down to as low as 7.3 g/dL and the patient was transfused 1 unit of packed red blood cells. She was evaluated by Gastroenterology at the time of her heme-positive status and associated anemia. Dr. Claros did not suggest any further workup at this time. Her Xarelto had been held and he recommended continuing to hold it for an additional 10 to 14 days, rechecking the stool. If she is heme negative at that point, can cautiously resume Xarelto. DISPOSITION AND FOLLOWUP PLAN: The patient is being discharged to home where she lives alone. Recommend close followup with her primary care provider within a week including repeat CBC and she will also need to have a repeat stool sample submitted to test for occult blood. Can resume Xarelto in 10 to 14 days if she is heme negative and hemoglobin is stable. Also, recommend 7 days of Cipro as described above. STARLA MILLS [id number]/[facility] #: [id number] LA NENA
== END 2017-01-26 17:00 | disposition home health service (06) | DRG 871 ==
LOC: ED 20:07 → ICU 21:41 → MED 01-23 14:46
PROVIDERS: ADMIT Pediatrics; ATTEND Hospitalist
PROC: 30233N1 Transfusion of Nonautologous Red Blood Cells into Peripheral Vein, Percutaneous Approach (ICD-10-PCS; principal; 2017-01-24)
DX: A41.9 Sepsis, unspecified organism (principal); R65.21 Severe sepsis with septic shock; N17.9 Acute kidney failure, unspecified; I95.9 Hypotension, unspecified; E87.2 Acidosis; I50.22 Chronic systolic (congestive) heart failure; D62 Acute posthemorrhagic anemia; K92.2 Gastrointestinal hemorrhage, unspecified; I48.0 Paroxysmal atrial fibrillation; J44.9 Chronic obstructive pulmonary disease, unspecified; K52.9 Noninfective gastroenteritis and colitis, unspecified; I25.10 Atherosclerotic heart disease of native coronary artery without angina pectoris; M06.9 Rheumatoid arthritis, unspecified; Z96.653 Presence of artificial knee joint, bilateral; E78.00 Pure hypercholesterolemia, unspecified; K21.9 Gastro-esophageal reflux disease without esophagitis; M19.90 Unspecified osteoarthritis, unspecified site; Z96.1 Presence of intraocular lens; F41.9 Anxiety disorder, unspecified; F32.9 Major depressive disorder, single episode, unspecified; G43.909 Migraine, unspecified, not intractable, without status migrainosus; G47.33 Obstructive sleep apnea (adult) (pediatric); Z66 Do not resuscitate; G89.29 Other chronic pain; I25.5 Ischemic cardiomyopathy; K58.9 Irritable bowel syndrome, unspecified; K57.10 Diverticulosis of small intestine without perforation or abscess without bleeding; Z79.82 Long term (current) use of aspirin; Z88.5 Allergy status to narcotic agent; Z88.8 Allergy status to other drugs, medicaments and biological substances; Z95.5 Presence of coronary angioplasty implant and graft; I25.2 Old myocardial infarction; Z88.6 Allergy status to analgesic agent; Z98.42 Cataract extraction status, left eye; Z98.41 Cataract extraction status, right eye; Z87.891 Personal history of nicotine dependence; Z86.73 Personal history of transient ischemic attack (TIA), and cerebral infarction without residual deficits; Z82.49 Family history of ischemic heart disease and other diseases of the circulatory system
CPT/HCPCS: 36415; 71020; 74000; 74176; 80048; 80053; 81003; 81015; 82272; 83605; 83630; 83690; 83735; 85014; 85018; 85025; 85610; 85730; 86140; 86850; 86900; 86901; 86922; 87040; 87045; 87046; 87493; 87641; 87899; 93005; 94640; A9270-GY; J0780; J1940; J2405; J2543; P9040

== ENCOUNTER 2017-06-14 17:36 | Inpatient (IN) | payer MEDICARE ==
[2017-06-14] MEDS ORDERED: NS 0.9% 1000 ML* 2,000 ML IV ONE (17:56)
[2017-06-14 18:40] LABS: Hematocrit 33 % (35-47); Hemoglobin 10.3 g/dl (12.0-16.0); Mean Corpuscular HGB Conc 32 g/dl (31-36); Mean Corpuscular Hemoglobin 30 pg (27-31); Mean Corpuscular Volume 93 fL (80-97); Mean Platelet Volume 7 um3 (7.4-10.4); Red Blood Count 3.49 10^6/ul (4.0-5.4); Red Cell Distribution Width 14 % (10.5-15); White Blood Count 28.7 10^3/ul (3.5-10.8)
--- NOTE | 2017-06-14 18:41 | RAD ---
INDICATION: Short of breath COMPARISON: January 24, 2017 TECHNIQUE: An AP portable view obtained at 1826 hours is submitted. FINDINGS: Bones/Soft Tissues: There are no acute bony findings. Cardiomediastinal: The cardiomediastinal silhouette is normal. Lungs: There are acute infiltrates. There is minor atelectasis or scarring in the medial right lung base, unchanged. Pleura: There are no pleural effusions . There is mild biapical scarring. Other: There is partially eventration of the right hemidiaphragm, unchanged. IMPRESSION: NO ACTIVE DISEASE.
[2017-06-14 18:44] LABS: Add Diff/Slide Review? Slide Review Added; Comments Flag Yes
[2017-06-14 18:52] LABS: BUN/Creatinine Ratio 14.4 (8-20); Blood Urea Nitrogen 34 mg/dL (6-24); CO2 Carbon Dioxide 19 mmol/L (22-32); Chloride 104 mmol/L (101-111); EGFR Non-African American 20.2 (>60); Glucose 86 mg/dL (70-100); Sodium 138 mmol/L (133-145)
[2017-06-14 18:53] LABS: ALT 11 U/L (7-52); Albumin 3.3 g/dL (3.2-5.2); Alkaline Phosphatase 328 U/L (34-104); Calcium 8.3 mg/dL (8.6-10.3); Creatine Kinase 66 U/L (10-223); Globulin 2.3 g/dL (2-4); Magnesium 2.8 mg/dL (1.9-2.7); Total Protein 5.6 g/dL (6.4-8.9)
[2017-06-14 18:55] LABS: Anion Gap 15 mmol/L (2-11)
[2017-06-14 18:57] LABS: Troponin I 0.04 ng/mL (<0.04)
[2017-06-14] MEDS ORDERED: metroNIDAZOLE IV 500 MG/100ML* 500 MG/100 ML BAG IVPB ONE (19:12)
[2017-06-14] MEDS ORDERED: Levofloxacin 500 MG IVPREMIX(* 500 MG/100 ML BAG IVPB ONE (19:12)
[2017-06-14 19:13] LABS: Urine Bacteria Absent (Absent); Urine Bilirubin Negative (Negative); Urine Glucose Negative (Negative); Urine Nitrite Negative (Negative)
[2017-06-14 19:22] LABS: TSH (Thyroid Stimulating Horm) 4.48 mcIU/mL (0.34-5.60)
[2017-06-14] MEDS ORDERED: NS 0.9% 1000 ML* 1,000 ML IV ONE ×2 (19:27→22:10)
[2017-06-14] MEDS ORDERED: Piperacillin/Tazobac ADVAN(*) 3.375 GM in NS 0.9% 100 ML* 100 ML IVPB ONE (19:37)
[2017-06-14 19:45] LABS: Immature Granulocytes 11 % (0-9); Neutrophil % 79 % (38-83); RBC Morphology Normal (Normal); Toxic Granulation 1+
[2017-06-14] MEDS ORDERED: Norepinephrine 16MCG/ML IVPRE* 4,000 MCG/250 ML BAG IV ONE (19:55)
[2017-06-14] MEDS ORDERED: Vancomycin(*) 1,000 MG VIAL IVPB SCH (20:00)
[2017-06-14] MEDS ORDERED: Norepinephrine 16MCG/ML IVPRE* 4,000 MCG/250 ML BAG IV SCH (20:00)
[2017-06-14] MEDS ORDERED: Vancomycin(*) 1,000 MG - ED ONCE IVPB ONE ×2 (20:00)
[2017-06-14 20:18] LABS: Troponin I 0.03 ng/mL (<0.04)
--- NOTE | 2017-06-14 20:31 | RAD ---
INDICATION: Abdominal pain COMPARISON: CT January 22, 2017 TECHNIQUE: Noncontrast axial source images were obtained from the hemidiaphragms to the symphysis pubis. This examination was ordered using a renal stone protocol which is performed without oral or intravenous contrast and therefore has inherent limitations when used to evaluate other intra-abdominal or intrapelvic pathology. Consider conventional contrast enhanced imaging if clinically . Lung bases: There is mild right basilar infiltrate or atelectasis with elevation right hemidiaphragm, unchanged.. Liver: The liver is normal in size. Noncontrast imaging shows no evidence of a hepatic mass or ductal dilatation. Gallbladder: The gallbladder is mildly distended. There is no thickening gallbladder wall or pericholecystic fluid. There are no calcified gallstones. Spleen: The spleen is normal in size. The noncontrast CT appearance is normal. Pancreas: Noncontrast imaging shows no pancreatic mass or ductal dilitation. The pancreas appears atrophic Adrenal glands: No masses are identified. Kidneys/Bladder: There is no evidence of nephrolithiasis or CT evidence of hydronephrosis. Noncontrast imaging shows no evidence of a renal mass. There is moderate left renal atrophy. The bladder is unremarkable.. Adenopathy: There is no evidence of intraperitoneal or retroperitoneal adenopathy. Evaluation is limited without oral contrast. Fluid collections: There are no free or localized fluid collections. Vessels: There are atherosclerotic changes of the aorta and iliac vessels. There is fusiform ectasia of the infrarenal abdominal aorta to approximately 2.7 cm, unchanged. The IVC appears normal Pelvic organs: The uterus and adnexa appear normal GI tract: Evaluation is very limited as no oral contrast was given. The stomach is significantly distended and fluid-filled. This was also present previously. Consider nasogastric decompression. The noncontrast CT appearance the small bowel is unremarkable. There does appear to be mild diffuse mural thickening of the descending colon but in part this may be related to underdistention. There are scant diverticula. There is colonic interposition in the right upper quadrant Soft tissues: No soft tissue abnormalities of the extraperitoneal abdomen or pelvis are identified. Osseous structures: There is advanced multilevel degenerative disc disease of lumbar spine. The findings are stable. There is a 30% compression deformity of T12 which is chronic. IMPRESSION: LIMITED NONCONTRAST IMAGING WAS PERFORMED. THERE ARE NO ACUTE CT FINDINGS. THERE IS SIGNIFICANT DILATATION OF THE STOMACH WHICH MAY REQUIRE NASOGASTRIC DECOMPRESSION
--- NOTE | 2017-06-14 21:31 | RAD ---
INDICATION: Abdominal pain COMPARISON: CT abdomen and pelvis; gallbladder sonogram March 29, 2016 same date TECHNIQUE: Longitudinal and transverse scans of the right upper quadrant were obtained. Doppler interrogation of the hepatic and portal venous system was performed. FINDINGS: Liver: The liver is normal in size and echogenicity. There are no focal masses. The liver measures 17 cm in cephalocaudal dimension. Vessels: There is normal portal venous flow. The hepatic venous flow cannot be evaluated due to bowel gas.. Bile ducts: The ducts are not adequately evaluated due to bowel gas. Gallbladder: Gallbladder is mildly distended but not well evaluated due to bowel gas. Pancreas: The visualized pancreas appears normal evaluation is limited. Right kidney: The right kidney is normal in size and echogenicity. There are no masses or calculi. There is no evidence of hydronephrosis. The right kidney measures 9.2 x 4.6 x 5.0 cm. IVC and aorta: The aorta and superior vena cava appear normal. Fluid: There is no ascites. Other: None. IMPRESSION: LIMITED STUDY DUE INTERFERING BOWEL GAS. MILDLY DISTENDED GALLBLADDER WITHOUT EVIDENCE OF CHOLELITHIASIS
[2017-06-14] MEDS ORDERED: Morphine INJ* 2 MG/ML 1 ML SYRINGE (TWO MG - NEW SYRINGE VERSION) IV PRN (21:36)
[2017-06-14] MEDS ORDERED: Al Hydrox/Mg Hydrox/Simet LIQ* 30 ML UDC PO PRN (21:36)
[2017-06-14] MEDS ORDERED: Acetaminophen TAB* 325 MG PO PRN (21:36)
[2017-06-14] MEDS ORDERED: Senna TAB PO PRN (21:36)
[2017-06-14] MEDS ORDERED: Docusate CAP* 100 MG PO PRN (21:36)
[2017-06-14] MEDS ORDERED: NS 0.9% 1000 ML* 1,000 ML IV SCH (22:15)
[2017-06-14 23:38] LABS: Hematocrit 28 % (35-47); Hemoglobin 8.7 g/dl (12.0-16.0)
[2017-06-15] MEDS ORDERED: Ciprofloxacin 400MG IVPREMIX(* 400 MG/200 ML BAG IVPB SCH ×2 (01:00)
[2017-06-15] MEDS: metroNIDAZOLE IV 500 MG/100ML* 500 MG/100 ML BAG IVPB SCH ×2 (01:35→06:32)
--- NOTE | 2017-06-15 03:15 | HP ---
CC: Jordin Watkins MD * HISTORY AND PHYSICAL: DATE OF ADMISSION: 06/14/17 TIME OF EVALUATION: 0 PRIMARY CARE PHYSICIAN: Jordin Watkins MD CHIEF COMPLAINT: Diarrhea, abdominal pain, and nausea. HISTORY OF PRESENT ILLNESS: This is a 72-year-old female with a past medical history of rheumatoid arthritis, irritable bowel syndrome, who presents to the emergency room, was having 3 days of abdominal pain, diarrhea, and nausea. The patient states she was doing relatively well, and then developed epigastric right upper quadrant abdominal pain with stool incontinence, nausea. No vomiting, no fevers or chills. The pain and discomfort became unbearable. She came to the emergency room for further evaluation. She denies any chest pain. She states she is always short of breath; is not worse recently. She denies any urinary symptoms. She states that she was recently here in January, she had seen Gastroenterology then, she had a sigmoidoscopy back in June of 2016 and was told there was nothing remarkable then. She never had an EGD in the past or colonoscopy. She does mention that she does have episodes of chronic explosive diarrhea with nausea and vomiting; this was different and more significant. In the emergency room, the patient had labs, imaging. She was given 3 L of normal saline. She was given vanco, Zosyn, Flagyl, and started on Levophed for hypotension and referred to the hospitalist service for further evaluation. PAST MEDICAL HISTORY: 1. Admission back in January 2017 with a GI bleed and gastroenteritis. 2. History of chronic explosive diarrhea with nausea and vomiting/irritable bowel syndrome. 3. Hypertension. 4. History of coronary artery status post UT. 5. History of systolic heart failure with EF of 35% to 40%. 6. Rheumatoid arthritis, followed by Dr. Ceron. 7. COPD on room air. 8. History of paroxysmal atrial fibrillation, on anticoagulation. 9. History of CVA. 10. Depression. 11. Obstructive sleep apnea. 12. Anemia. 13. History of spinal cord compression fracture. 14. History of ovarian cyst removal. 15. History of appendectomy. 16. History of knee replacement. MEDICATIONS: The patient is not sure of the exact list. We will need to obtain that in the morning, she did state that she is still taking her Xarelto and a new IBS medication called Viberzi. ALLERGIES: MEPERIDINE, CODEINE, GLATIRAMER, MANNITOL, MORPHINE, and NSAIDS. FAMILY HISTORY: Reviewed and noncontributory. SOCIAL HISTORY: The patient lives alone. She is independent of her ADLs. Her healthcare proxy is her sister, Sarah Wood, phone number is [phone]. I did offer to call for her, but she declined. She has a [id number] history of smoking, quit 5 years ago. No alcohol use or illicit drug use. 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 She confirms she remains a DNR/DNI. REVIEW OF SYSTEMS: Fourteen-point review of systems, pertinent positives and negatives as mentioned in the HPI, otherwise negative. PHYSICAL EXAMINATION GENERAL: Ill-appearing, in no acute distress. VITAL SIGNS: Temp 98.8, pulse rate 81, respiratory rate 20, oxygen saturation 96 % on room air, blood pressure 149/73. HEENT: Head normocephalic. Pupils are equal and reactive. Anicteric. Oropharynx, mucous membranes dry. NECK: Supple. No adenopathy. RESPIRATORY: Diminished breath sounds. No wheezes, rhonchi, or rales. CARDIAC: Regular rate and rhythm. Soft, systolic murmur heard throughout. ABDOMEN: Hyperactive bowel sounds, soft, tenderness in the epigastric and right upper quadrant region. EXTREMITIES: The patient with a significant left upper extremity hematoma. No lower extremity swelling. +2 DPs. NEUROLOGIC: Alert and oriented x3, no focal neurologic deficits. DIAGNOSTIC STUDIES/LAB DATA: White count 28.7, hemoglobin 10.3, hematocrit 33 , platelets 446. INR is 1.05. Sodium 138, potassium 4.2, chloride 104, bicarb 29, BUN 34, creatinine 2.36, lactic acid 5.75, magnesium 2.8. Alk phos 328. Troponin 0.04, repeat 0.03. TSH is 4.48. Urine shows +1 protein, trace leukocytes. Radiographic data: Abdominal and pelvis CT shows there are no acute findings. There is significant dilatation of the stomach which may require NG decompression. Gallbladder ultrasound: Limited study due to bowel gas, mildly distended gallbladder without evidence of cholelithiasis. Chest x-ray: No active disease. EKG shows normal sinus rhythm. ASSESSMENT AND PLAN: This is a 72-year-old female with past medical history of irritable bowel syndrome with issues with explosive diarrhea and nausea and vomiting and rheumatoid arthritis, who presents to the emergency room with worsening of abdominal pain, stool incontinence, and nausea. 1. Nausea, abdominal pain, and diarrhea. Assessment: The patient with multiple laboratory derangements with leukocytosis , bandemia, and CAT scan showing a dilated stomach of unclear etiology, concerning for infectious, gastroenteritis, possibly Clostridium difficile colitis. Plan: We will admit her to the ICU. I did speak with Dr. Rogel discussing the care of her case. Continue her for a total of 4 L of normal saline. Continue her on Levophed. We will continue on Cipro and Flagyl for intraabdominal infectious etiology. We will follow up on her lactate as well and her cultures including followup on her Clostridium difficile. We will place an NG tube for comfort and gastric decompression. 2. Acute kidney injury. Assessment: Likely from prerenal azotemia in the setting of sepsis. Plan: Continue IV fluids. Repeat her labs and renally dose her meds. 3. Hematoma. Assessment: The patient with a significant hematoma on her left lower extremity. She states she had some knee swelling and put a brace on it and then disocovered the hematoma after the brace was placed.. We will repeat an H and H to see if this is expanding and then do further imaging. She states the size has not dramatically increased in size over the past day. CHRONIC MEDICAL PROBLEMS: We will need to get a home medication list and order them accordingly. We will hold off on any p.o. medications in the setting of her extremely dilated stomach. FEN: We will keep her n.p.o. with ice chips only in the setting of her gastric dilatation, and IV fluids on board. DVT prophylaxis: The patient scores high risk with her huge hematoma and inability to take p.o. We will hold off on resuming her Xarelto and place her on SCDs for now. Code status: The patient confirmed that she is DNR/DNI. PATIENT TIME: Greater than 60 minutes was spent doing history and physical, and critical care time, more than half time spent in direct patient contact. [id number]/[facility] #: [id number] MTDD
[2017-06-15] MEDS: Vancomycin CAP* 250 MG CAP PO SCH ×2 (03:23→06:32)
[2017-06-15 06:49] LABS: Hematocrit 29 % (35-47); Mean Corpuscular HGB Conc 32 g/dl (31-36); Mean Corpuscular Hemoglobin 30 pg (27-31); Mean Corpuscular Volume 95 fL (80-97); Mean Platelet Volume 6 um3 (7.4-10.4); Red Blood Count 3.02 10^6/ul (4.0-5.4); Red Cell Distribution Width 14 % (10.5-15); White Blood Count 29.7 10^3/ul (3.5-10.8)
[2017-06-15 07:04] LABS: Albumin 2.8 g/dL (3.2-5.2); BUN/Creatinine Ratio 17.4 (8-20); Calcium 7.5 mg/dL (8.6-10.3); EGFR African American 30.3 (>60); EGFR Non-African American 23.5 (>60); Globulin 2.1 g/dL (2-4); Potassium 4.9 mmol/L (3.5-5.0); Total Bilirubin 0.7 mg/dL (0.2-1.0); Total Protein 4.9 g/dL (6.4-8.9)
[2017-06-15 07:10] LABS: Comments Flag Yes
--- NOTE | 2017-06-15 07:17 | ED ---
Neelam Beckman Gabriel, scribed for Don Garcia MD on 06/14/17 at 1936 . Progress - Progress Note Progress Note: This patient was signed out from Dr. Fay, pending disposition, awaiting CT ABD /Pelvis. CT reveals LIMITED NONCONTRAST IMAGING WAS PERFORMED. THERE ARE NO ACUTE CT FINDINGS. THERE IS SIGNIFICANT DILATATION OF THE STOMACH WHICH MAY REQUIRE NASOGASTRIC DECOMPRESSION. US Gallbladder reveals LIMITED STUDY DUE INTERFERING BOWEL GAS. MILDLY DISTENDED GALLBLADDER WITHOUT EVIDENCE OF CHOLELITHIASIS. The patients condition is stable and will be admitted to [facility] with Dx of septic shock and RUQ abdominal pain. The patient was evaluated and given a physical exam. Pt states she has had ABD problems previously and currently reports ABD pain 1 and loose stool that has been happening for three days. Pt denies cough, congestion, and sore throat. She does not still have her appendix but her gallbladder has not been removed. She has not been on antibiotics recently. Appearance: Pale appearing, no pain distress Skin: warm, dry, reflects adequate perfusion Head/face: normal Eyes: EOMI, [place] ENT: Dry mucous membranes Neck: supple, non-tender Respiratory: CTA, breath sounds present Cardiovascular: RRR, pulses symmetrical Abdomen: soft, RUQ tenderness Bowel: present Musculoskeletal: normal, strength/ROM intact Neuro: normal, sensory motor intact, A&Ox3 Course/Dx - Course Course Of Treatment: Pt critically ill. Pale and hypotense. Cont lg volume IVF. "Diarrhea" at home but lab delay C diff testing as stool was more formed. Abd discomfort, CT neg for def pathology. US GB pending at discharge. Septic shock. Started vasopressor. Admit for further to ICU. - Diagnoses Provider Diagnoses: Septic shock, RUQ abdominal pain - Provider Notifications Discussed Care Of Patient With: Sofia Oswald Time Discussed With Above Provider: 20:52 Instructed by Provider To: Other - We discussed patient care with Dr. Oswald, hospitalist. She recommends the patient is admitted to ICU. - Critical Care Time Critical Care Time: 30-74 min - CCT is EXCLUSIVE of separately billable procedures The documentation as recorded by the Neelam contreras Gabriel accurately reflects the service I personally performed and the decisions made by , Don Garcia MD.
[2017-06-15] MEDS ORDERED: NS 0.9% 1000 ML* 1,000 ML IV SCH (07:40)
--- NOTE | 2017-06-15 07:46 | PN ---
Subjective Date of Service: 06/15/17 Interval History: No more diarrhea. She states she takes 15 mg rivaroxaban at night, may not have taken it for 2 days for no particular reason. Hungry. No new c/0. Objective Active Medications: Acetaminophen (Tylenol Tab*) 650 mg PO Q4H PRN PRN Reason: FEVER/PAIN Al Hydrox/Mg Hydrox/Simethicone (Maalox Plus*) 30 ml PO Q6H PRN PRN Reason: INDIGESTION Aspirin (Aspirin Low Dose Tab*) 81 mg PO QAM MARY Atorvastatin Calcium (Lipitor*) 40 mg PO QPM MARY Docusate Sodium (Colace Cap*) 100 mg PO BID PRN PRN Reason: CONSTIPATION Norepinephrine Bitartrate (Levophed 16 Mcg/Ml Premix Bag*) 4,000 mcg in 250 mls @ 0 mls/hr IV .INITIAL RATE MARY; Titrate PRN Reason: Protocol Last Admin: 06/14/17 19:58 Dose: 7.5 mls/hr Sodium Chloride (Ns 0.9% 1000 Ml*) 1,000 mls @ 50 mls/hr IV PER RATE [facility] Lisinopril (Prinivil Tab*) 2.5 mg PO DAILY [facility] Metoprolol Succinate (Toprol Xl Tab*) 25 mg PO BEDTIME [facility] Metronidazole (Flagyl Tab*) 500 mg PO TID [facility] Morphine Sulfate (Morphine Inj (Syringe)*) 2 mg IV Q4H PRN PRN Reason: PAIN Non-Formulary Medication (Bumetanide [Bumex 0.5 Mg Tab]) 0.5 mg PO EVERY OTHER DAY [facility] Non-Formulary Medication (Plaquenil Tab*) 400 mg PO DAILY [facility] Non-Formulary Medication (Protonix Tab (Nf)) 40 mg PO DAILY [facility] Non-Formulary Medication (Sulfasalazine Tab*) 500 mg PO BID [facility] Ondansetron HCl (Zofran Inj*) 4 mg IV Q4H PRN PRN Reason: NAUSEA/VOMITING Rivaroxaban (Xarelto(*)) 15 mg PO BEDTIME [facility] Senna (Senokot Tab*) 1 tab PO BID PRN PRN Reason: CONSTIPATION Spironolactone (Aldactone Tab*) 25 mg PO EVERY OTHER DAY [facility] Tiotropium Marana (Spiriva Cap.Inh*) cap INH QAM MARY Venlafaxine HCl (Effexor Er (Nf)) 150 mg PO QAM [facility] Vital Signs 06/14/17 06/14/17 06/14/17 21:45 22:00 22:15 Temperature Pulse Rate 81 82 82 Respiratory 14 15 16 Rate Blood Pressure 132/67 126/72 117/68 (mmHg) O2 Sat by Pulse 99 99 99 Oximetry 06/14/17 06/14/17 06/14/17 22:30 22:45 22:58 Temperature Pulse Rate 71 80 Respiratory 23 17 Rate Blood Pressure 137/71 121/66 119/71 (mmHg) O2 Sat by Pulse 79 98 Oximetry 06/14/17 06/14/17 06/14/17 23:00 23:02 23:12 Temperature 98.8 F Pulse Rate 80 82 Respiratory 17 Rate Blood Pressure 135/77 135/77 (mmHg) O2 Sat by Pulse 91 98 Oximetry 06/14/17 06/14/17 06/14/17 23:15 23:16 23:17 Temperature Pulse Rate 81 81 Respiratory 20 20 18 Rate Blood Pressure 149/73 (mmHg) O2 Sat by Pulse 96 95 Oximetry 06/14/17 06/14/17 06/15/17 23:30 23:46 00:00 Temperature 98.5 F Pulse Rate 80 78 82 Respiratory 19 21 19 Rate Blood Pressure 146/75 134/70 134/76 (mmHg) O2 Sat by Pulse 93 95 99 Oximetry 06/15/17 06/15/17 06/15/17 00:39 00:46 00:52 Temperature Pulse Rate 80 86 81 Respiratory 12 23 18 Rate Blood Pressure 128/72 95/72 118/72 (mmHg) O2 Sat by Pulse 99 Oximetry 06/15/17 06/15/17 06/15/17 01:00 01:15 01:30 Temperature Pulse Rate 76 79 78 Respiratory 12 19 19 Rate Blood Pressure 127/76 113/64 111/57 (mmHg) O2 Sat by Pulse 97 96 94 Oximetry 06/15/17 06/15/17 06/15/17 01:45 02:00 02:18 Temperature Pulse Rate 75 75 Respiratory 17 22 Rate Blood Pressure 101/66 (mmHg) O2 Sat by Pulse 96 100 Oximetry 06/15/17 06/15/17 06/15/17 02:19 02:30 02:46 Temperature Pulse Rate 75 74 74 Respiratory 21 20 20 Rate Blood Pressure 98/52 106/65 95/62 (mmHg) O2 Sat by Pulse 93 97 96 Oximetry 06/15/17 06/15/17 06/15/17 03:00 03:05 03:15 Temperature Pulse Rate 77 80 76 Respiratory 19 20 18 Rate Blood Pressure 87/56 89/57 91/58 (mmHg) O2 Sat by Pulse 93 96 94 Oximetry 06/15/17 06/15/17 06/15/17 03:30 03:45 04:00 Temperature 98.9 F Pulse Rate 73 79 76 Respiratory 20 19 18 Rate Blood Pressure 103/65 104/60 109/61 (mmHg) O2 Sat by Pulse 94 94 100 Oximetry 06/15/17 06/15/17 06/15/17 04:15 04:45 05:00 Temperature Pulse Rate 77 79 80 Respiratory 17 19 18 Rate Blood Pressure 105/57 95/52 84/58 (mmHg) O2 Sat by Pulse 95 100 93 Oximetry 06/15/17 06/15/17 06/15/17 05:11 05:15 05:30 Temperature Pulse Rate 80 82 81 Respiratory 24 19 18 Rate Blood Pressure 91/55 92/55 90/57 (mmHg) O2 Sat by Pulse 94 95 94 Oximetry 06/15/17 06/15/17 06/15/17 05:45 05:54 06:00 Temperature Pulse Rate 81 82 Respiratory 14 18 16 Rate Blood Pressure 94/56 101/61 (mmHg) O2 Sat by Pulse 94 95 Oximetry Oxygen Devices in Use Now: None Appearance: Alert, supine on ICU bed. In fair spirits. Looks comfortable. Eyes: No Scleral Icterus Neck: NL Appearance and Movements; NL JVP, No Thyroid Enlargement, Masses Respiratory: Symmetrical Chest Expansion and Respiratory Effort, Clear to Auscultation, Clear to Percussion Cardiovascular: NL Sounds; No Murmurs; No JVD, RRR, No Edema Extremities: No Edema, No Clubbing, Cyanosis, - Skin: No Nodules or Sclerosis, - - extensive ecchymosis L thigh medial aspect, no palpable hematoma, not tender Neurological: Alert and Oriented x 3, NL Sensation, - - Some decrease in memory and word-finding. Result Diagrams: 06/15/17 06:25 06/15/17 06:25 Microbiology and Other Data: Microbiology 06/15/17 00:39 Stool Gross Appearance - Final Stool C. difficile DNA Amplification - Final 027 Presumptive NEGATIVE Toxigenic C.diff POSITIVE 06/14/17 23:10 Nasal Screen MRSA (PCR)([facility]) - Final Nasal Mrsa Negative Assess/Plan/Problems-Billing Assessment: - Patient Problems (1) C. difficile diarrhea Current Visit: Yes Status: Acute Code(s): A04.72 - ENTEROCOLITIS D/T CLOSTRIDIUM DIFFICILE, NOT SPCF RECUR SNOMED Code(s): 0661120067140 Comment: Oral metronidazole ordered. HH diet. Reduce IV fluids. (2) JUSTINA (acute kidney injury) Current Visit: No Status: Acute Priority: Medium Code(s): N17.9 - ACUTE KIDNEY FAILURE, UNSPECIFIED SNOMED Code(s): 06128657 Comment: Acute on chronic kidney injury, improved 06/15. Reduce IV fluids. BMP 06/16. Due to diarrhea with chronic systolic heart failure. (3) CAD (coronary artery disease) Current Visit: No Status: Chronic Priority: Medium Code(s): I25.10 - ATHSCL HEART DISEASE OF [place] CORONARY ARTERY W/O ANG PCTRS SNOMED Code(s): 38232977 Comment: Chronic systolic heart failure. Continue ASA, statin. Start lower dose lisinopril 06/16, resume bumetanide 06/16 and spironolactone 06/15. Continue BB. (4) Paroxysmal a-fib Current Visit: No Status: Chronic Priority: Medium Code(s): I48.0 - PAROXYSMAL ATRIAL FIBRILLATION SNOMED Code(s): 292304262 Comment: Resume rivaroxaban PM 06/15. Continue BB. (5) Anemia Current Visit: No Status: Acute Priority: Medium Code(s): D64.9 - ANEMIA, UNSPECIFIED SNOMED Code(s): 285482954 Comment: Chronic, due to CKD, perhaps sl worse due to soft tissue bleeding. Needs outpt fup. (6) Rheumatoid arthritis Current Visit: No Status: Chronic Code(s): M06.9 - RHEUMATOID ARTHRITIS, UNSPECIFIED SNOMED Code(s): 73529844 Comment: Continue hydroxychloroquine, sulfasalazine. (7) Irritable bowel disease Current Visit: Yes Status: Acute Comment: Pt gets constipated with Viberzi. Pt advised to not use it.
--- NOTE | 2017-06-15 08:11 | RAD ---
Indication: Evaluate hematoma size. CT of the left lower extremity from the hip to the knee was obtained. Sagittal and coronal reconstructed images were obtained. Patient status post left knee replacement. This limits evaluation. There is suprapatellar effusion noted. No definite fracture is identified although evaluation is limited due to artifact in the distal femur. Soft tissue edema is noted at the level of the greater trochanter in the left hip. A Menon catheter is in place. No pelvic masses are identified. IMPRESSION: No fracture of the left femur is noted. Patient is status post left knee arthroplasty. A joint effusion is noted in the knee.
[2017-06-15] MEDS ORDERED: Spiriva Inhaler DEVICE* 1 EACH DEVICE INH ONE (09:00)
[2017-06-15] MEDS ORDERED: metroNIDAZOLE TAB* 250 MG PO SCH (09:00)
[2017-06-15] MEDS: Tiotropium CAP.INH* CAP.INH/18 MCG (USE ORDER SET !) INH SCH (09:55)
[2017-06-15] MEDS: Omeprazole CAP* 20 MG PO SCH (09:57)
[2017-06-15] MEDS: Spironolactone TAB* 25 MG PO SCH (09:57)
[2017-06-15] MEDS: Aspirin Low Dose CHEW TAB* 81 MG PO SCH (09:57)
[2017-06-15] MEDS: Venlafaxine EXT RELEASE CAP* 75 MG PO SCH (09:57)
[2017-06-15] MEDS: Hydroxychloroquine TAB* 200 MG PO SCH (14:04)
[2017-06-15] MEDS: sulfaSALAzine TAB* 500 MG PO SCH ×2 (14:04→20:48)
[2017-06-15] MEDS: metroNIDAZOLE TAB* 250 MG PO SCH ×2 (14:08→20:48)
--- NOTE | 2017-06-15 17:13 | ECHO ---
Patient: IZABELA DORAN [facility] Rec#: [id number] : 1945 Date: 06/15/2017 Age: 72y Height: 177.8 cm / 70.0 in Weight: 69.9 kg / 154.1 lbs Sex: F BSA: 1.9 Room#: ICU 4 Admit Date#: 06/14/2017 Type: Inpatient Referring: Boni Buchanan MD Reading: Stephan Riley DO Arts Administrator: Randi Godfrey RN RDCS CC: Jordin Watkins MD Transthoracic Echocardiogram Indication: Hypotension BP: 101/61 HR: 88 Rhythm: NSR Findings History: CAD with [place] and PCI, HTN, CVA, CHF, COPD, FRANKIE, former smoker, RA Technical Comments: The study quality is fair. The study is technically limited due to the patient's history of COPD. The study is technically limited due to the patient's smoking history. Completed at 1500. Left Ventricle: The left ventricular chamber size is normal. Mild to moderate concentric left ventricular hypertrophy is observed. There is global hypokinesis of the left ventricle with minor regional variation., inferolateral wall is akinetic There is mild to moderately decreased left ventricular systolic function. The estimated ejection fraction is 35-40%. Abnormal left ventricular diastolic filling is observed, consistent with impaired relaxation. Left Atrium: The left atrium is mildly dilated. Right Ventricle: The right ventricular chamber size and systolic function are within normal limits. Right Atrium: The right atrial cavity size is normal. There is evidence of an atrial septal aneurysm. Aortic Valve: The aortic valve leaflets are moderately thickened.and mildly calcified There is a trace of aortic regurgitation. There is mild aortic stenosis. Mitral Valve: Mild mitral annular calcification present. The mitral valve leaflets are moderately thickened. There is mild mitral regurgitation. There is no evidence of mitral stenosis. Tricuspid Valve: The tricuspid valve leaflets are normal. There is mild tricuspid regurgitation. There is evidence of borderline pulmonary hypertension. There is no tricuspid stenosis. Pulmonic Valve: The pulmonic valve structure is not well visualized. There is a trace pulmonic regurgitation. There is no pulmonic stenosis. Pericardium: There is no significant pericardial effusion. Aorta: There is no dilatation of the ascending aorta. There is no dilatation of the aortic arch. The aortic root is normal in size. Pulmonary Artery: The main pulmonary artery is not well visualized. Venous: The venous system is not well visualized. The inferior vena cava is not visualized. Conclusions The left ventricular chamber size is normal. Mild to moderate concentric left ventricular hypertrophy is observed. There is global hypokinesis of the left ventricle with minor regional variation, inferolateral wall is severely hypokinetic to akinetic. There is mild to moderately decreased left ventricular systolic function. The estimated ejection fraction is 35-40%. The left atrium is mildly dilated. The right ventricular chamber size and systolic function are within normal limits. There is mild aortic stenosis. No more than mild valvular regurgitation noted. There is evidence of borderline pulmonary hypertension. Compared to prior study from 02/2017, no clinically significant changes noted Measurements Name Value Normal Range RVDdMajor (2D) 3.2 cm (2.2 - 4.4) RAd ISD 4CH 4.6 cm (3.4 - 4.9) RA (A4C)W 3.8 cm (2.9 - 4.6) IVSd (2D) 1.4 cm (0.6 - 1) LVPWd (2D) 1.3 cm (0.6 - 1) LVIDd (2D) 3.6 cm (3.6 - 5.4) Aortic Annulus 1.9 cm (1.4 - 2.6) Ao root diameter (2D) 3.5 cm (2.1 - 3.5) Ascending Ao 3.3 cm (2.1 - 3.4) Aortic arch 2.8 cm (1.8 - 3.4) LA dimension (AP) 2D 3.5 cm (2.3 - 3.8) LAd ISD 4CH 4.4 cm (2.9 - 5.3) LA ISD 4CH W 3.8 cm (2.5 - 4.5) Name Value Normal Range LA ESV SP 4CH (A/L) 46 ml - LA ESV SP 2CH (A/L) 77 ml - LA ESV BP (A/L) 67 ml - LA ESV BP (A/L) index 36 ml/m2 - LA ESV SP 4CH (MOD) 43 ml - LA ESV SP 2CH (MOD) 73 ml - Name Value Normal Range MV E-wave Vmax 0.77 m/sec - MV deceleration time 194 msec - MV A-wave Vmax 1.3 m/sec - MV E:A ratio 0.6 ratio - LV septal e' Vmax 0.06 m/sec - LV lateral e' Vmax 0.12 m/sec - LV E:e' septal ratio 12.8 ratio - LV E:e' lateral ratio 6.4 ratio - Name Value Normal Range AV Vmax 2.6 m/sec - AV VTI 43.9 cm - AV peak gradient 26.4 mmHg - AV mean gradient 14.3 mmHg - LVOT diameter 2 cm - LVOT Vmax 1.2 m/sec - LVOT VTI 22.6 cm - LVOT peak gradient 6.1 mmHg - LVOT mean gradient 3.8 mmHg - DOI (VTI) 0.51 ratio - DOI (Vmax) 0.46 ratio - SV LVOT 71 ml - CO LVOT 6.2 l/min - Cardiac index 3.3 l/min/m2 - VITO (continuity VTI) 1.6 cm2 - Name Value Normal Range MV Vmax 1.5 m/sec - MV VTI 24 cm - MV peak gradient 9.3 mmHg - MV mean gradient 2.7 mmHg - MV PHT 70 msec - MVA (PHT) 3.2 cm2 - MVA (continuity VTI) 3 cm2 - Name Value Normal Range TR Vmax 2.6 m/sec - TR peak gradient 27 mmHg - RAP 8 mmHg - RVSP 35 mmHg - Name Value Normal Range PV Vmax 1.2 m/sec -
[2017-06-15] MEDS: Atorvastatin* 40 MG TAB PO SCH (19:23)
[2017-06-15] MEDS: Metoprolol Succinate XL TAB* 25 MG PO SCH (20:48)
[2017-06-15] MEDS: Rivaroxaban TAB(*) 15 MG PO SCH (20:48)
[2017-06-16 08:29] LABS: BUN/Creatinine Ratio 27.9 (8-20); Calcium 7.2 mg/dL (8.6-10.3); EGFR African American 47.5 (>60); Potassium 4.8 mmol/L (3.5-5.0)
[2017-06-16] MEDS: Venlafaxine EXT RELEASE CAP* 75 MG PO SCH (08:55)
[2017-06-16] MEDS: Aspirin Low Dose CHEW TAB* 81 MG PO SCH (08:55)
[2017-06-16] MEDS: Omeprazole CAP* 20 MG PO SCH (08:55)
[2017-06-16] MEDS: Lisinopril TAB* 5 MG PO SCH (08:56)
[2017-06-16] MEDS: sulfaSALAzine TAB* 500 MG PO SCH ×2 (08:56→22:15)
[2017-06-16] MEDS: Hydroxychloroquine TAB* 200 MG PO SCH (08:56)
[2017-06-16] MEDS: metroNIDAZOLE TAB* 250 MG PO SCH ×3 (08:56→22:15)
[2017-06-16] MEDS ORDERED: Bumetanide TAB* 1 MG PO SCH (09:00)
--- NOTE | 2017-06-16 12:42 | PN ---
Subjective Date of Service: 06/16/17 Interval History: She reports two small BM's so far today. More or less at her baseline, no new c /o. Objective Active Medications: Acetaminophen (Tylenol Tab*) 650 mg PO Q4H PRN PRN Reason: FEVER/PAIN Al Hydrox/Mg Hydrox/Simethicone (Maalox Plus*) 30 ml PO Q6H PRN PRN Reason: INDIGESTION Aspirin (Aspirin Low Dose Tab*) 81 mg PO QAM [facility] Last Admin: 06/16/17 08:55 Dose: 81 mg Atorvastatin Calcium (Lipitor*) 40 mg PO QPM [facility] Last Admin: 06/15/17 19:23 Dose: 40 mg Bumetanide (Bumex Tab*) 0.5 mg PO EVERY OTHER DAY [facility] Last Admin: 06/16/17 08:55 Dose: 0.5 mg Docusate Sodium (Colace Cap*) 100 mg PO BID PRN PRN Reason: CONSTIPATION Hydroxychloroquine Sulfate (Plaquenil Tab*) 400 mg PO DAILY [facility] Last Admin: 06/16/17 08:56 Dose: 400 mg Norepinephrine Bitartrate (Levophed 16 Mcg/Ml Premix Bag*) 4,000 mcg in 250 mls @ 0 mls/hr IV .INITIAL RATE MARY; Titrate PRN Reason: Protocol Last Admin: 06/14/17 19:58 Dose: 7.5 mls/hr Lisinopril (Prinivil Tab*) 2.5 mg PO DAILY [facility] Last Admin: 06/16/17 08:56 Dose: 2.5 mg Metoprolol Succinate (Toprol Xl Tab*) 25 mg PO BEDTIME [facility] Last Admin: 06/15/17 20:48 Dose: 25 mg Metronidazole (Flagyl Tab*) 500 mg PO TID [facility] Last Admin: 06/16/17 08:56 Dose: 500 mg Morphine Sulfate (Morphine Inj (Syringe)*) 2 mg IV Q4H PRN PRN Reason: PAIN Omeprazole (Prilosec Cap*) 20 mg PO DAILY@0730 [facility] Last Admin: 06/16/17 08:55 Dose: 20 mg Ondansetron HCl (Zofran Inj*) 4 mg IV Q4H PRN PRN Reason: NAUSEA/VOMITING Rivaroxaban (Xarelto(*)) 15 mg PO BEDTIME [facility] Last Admin: 06/15/17 20:48 Dose: 15 mg Senna (Senokot Tab*) 1 tab PO BID PRN PRN Reason: CONSTIPATION Spironolactone (Aldactone Tab*) 25 mg PO EVERY OTHER DAY [facility] Last Admin: 06/15/17 09:57 Dose: 25 mg Sulfasalazine (Azulfidine Tab*) 500 mg PO BID [facility] Last Admin: 06/16/17 08:56 Dose: 500 mg Tiotropium [place] (Spiriva Cap.Inh*) 1 cap INH QAM [facility] Last Admin: 06/15/17 09:55 Dose: 18 mcg Venlafaxine HCl (Effexor Xr Cap*) 150 mg PO QAM [facility] Last Admin: 06/16/17 08:55 Dose: 150 mg Vital Signs 06/15/17 06/15/17 06/15/17 13:00 13:31 14:00 Temperature Pulse Rate 89 Respiratory 16 20 21 Rate Blood Pressure 114/60 (mmHg) O2 Sat by Pulse 95 Oximetry 06/15/17 06/15/17 06/15/17 14:33 15:00 15:30 Temperature Pulse Rate 88 90 87 Respiratory 18 14 20 Rate Blood Pressure 131/86 109/76 123/70 (mmHg) O2 Sat by Pulse 95 98 98 Oximetry 06/15/17 06/15/17 06/15/17 16:00 16:30 17:00 Temperature 98.7 F Pulse Rate 89 87 91 Respiratory 21 21 17 Rate Blood Pressure 133/69 110/75 125/70 (mmHg) O2 Sat by Pulse 95 93 95 Oximetry 06/15/17 06/15/17 06/15/17 18:00 18:01 18:49 Temperature Pulse Rate Respiratory 23 15 20 Rate Blood Pressure 118/76 (mmHg) O2 Sat by Pulse Oximetry 06/15/17 06/15/17 06/15/17 21:00 21:37 21:45 Temperature 97.4 F 97.4 F Pulse Rate 93 93 Respiratory 16 20 18 Rate Blood Pressure 147/74 147/74 (mmHg) O2 Sat by Pulse 97 97 Oximetry 06/16/17 06/16/17 06/16/17 00:12 00:19 03:03 Temperature 98.0 F 98.0 F Pulse Rate 102 95 99 Respiratory 16 24 Rate Blood Pressure 85/52 112/62 (mmHg) O2 Sat by Pulse 92 94 Oximetry 06/16/17 06/16/17 06/16/17 03:10 07:34 09:10 Temperature 98.0 F Pulse Rate 84 Respiratory 18 16 Rate Blood Pressure 102/56 123/67 (mmHg) O2 Sat by Pulse 94 Oximetry 06/16/17 11:05 Temperature 98.1 F Pulse Rate 85 Respiratory 20 Rate Blood Pressure 110/58 (mmHg) O2 Sat by Pulse 96 Oximetry Oxygen Devices in Use Now: None Appearance: Alert, on her side in bed. In fair spirits, looks comfortable. Abdominal: NL Sounds; No Tenderness; No Distention, No Hepatosplenomegaly, - Extremities: No Edema, No Clubbing, Cyanosis, - Skin: No Rash or Ulcers, No Nodules or Sclerosis, - Neurological: Alert and Oriented x 3, NL Sensation Result Diagrams: 06/15/17 06:25 06/16/17 06:31 Microbiology and Other Data: Microbiology 06/15/17 00:39 Stool Gross Appearance - Final Stool C. difficile DNA Amplification - Final 027 Presumptive NEGATIVE Toxigenic C.diff POSITIVE 06/14/17 23:10 Nasal Screen MRSA (PCR)([facility]) - Final Nasal Mrsa Negative Assess/Plan/Problems-Billing Assessment: - Patient Problems (1) C. difficile diarrhea Current Visit: Yes Status: Acute Code(s): A04.72 - ENTEROCOLITIS D/T CLOSTRIDIUM DIFFICILE, NOT SPCF RECUR SNOMED Code(s): 4389189321539 Comment: Continue oral metronidazole. HH diet. Stop IV fluids. (2) JUSTINA (acute kidney injury) Current Visit: No Status: Acute Priority: Medium Code(s): N17.9 - ACUTE KIDNEY FAILURE, UNSPECIFIED SNOMED Code(s): 94453064 Comment: Creatinine at her baseline 06/16. (3) CAD (coronary artery disease) Current Visit: No Status: Chronic Priority: Medium Code(s): I25.10 - ATHSCL HEART DISEASE OF [place] CORONARY ARTERY W/O ANG PCTRS SNOMED Code(s): 12083694 Comment: Chronic systolic heart failure. Continue ASA, statin. Continue lower dose lisinopril, home dose bumetanide, spironolactone, BB. (4) Paroxysmal a-fib Current Visit: No Status: Chronic Priority: Medium Code(s): I48.0 - PAROXYSMAL ATRIAL FIBRILLATION SNOMED Code(s): 941001080 Comment: Resume rivaroxaban PM 06/15. Continue BB. (5) Anemia Current Visit: No Status: Acute Priority: Medium Code(s): D64.9 - ANEMIA, UNSPECIFIED SNOMED Code(s): 887159194 Comment: Chronic, due to CKD, perhaps sl worse due to soft tissue bleeding. Needs outpt fup. (6) Rheumatoid arthritis Current Visit: No Status: Chronic Code(s): M06.9 - RHEUMATOID ARTHRITIS, UNSPECIFIED SNOMED Code(s): 73375083 Comment: Continue hydroxychloroquine, sulfasalazine. (7) Irritable bowel disease Current Visit: Yes Status: Acute Comment: Pt gets constipated with Viberzi. Pt advised to not use it.
[2017-06-16] MEDS: Tiotropium CAP.INH* CAP.INH/18 MCG (USE ORDER SET !) INH SCH (14:17)
--- NOTE | 2017-06-16 15:02 | PN ---
Progress Note - Progress Note Date of Service: 06/16/17 Note: Additional diagnosis noted: hypovolemic shock, resolved after pressors and IV fluids.
[2017-06-16] MEDS: Atorvastatin* 40 MG TAB PO SCH (17:08)
[2017-06-16] MEDS: ALPRAZolam TAB* 0.25 MG PO PRN (17:50)
[2017-06-16] MEDS: HYDROcodone/ACETAMIN 5-325 MG* 1 TAB PO PRN (20:39)
[2017-06-16] MEDS: Metoprolol Succinate XL TAB* 25 MG PO SCH (22:15)
[2017-06-16] MEDS: Rivaroxaban TAB(*) 15 MG PO SCH (22:15)
[2017-06-17] MEDS: Ondansetron INJ* 2 MG/ML VIAL IV PRN ×2 (03:43→08:34)
[2017-06-17] MEDS: HYDROcodone/ACETAMIN 5-325 MG* 1 TAB PO PRN (03:43)
[2017-06-17] MEDS: Tiotropium CAP.INH* CAP.INH/18 MCG (USE ORDER SET !) INH SCH (08:29)
[2017-06-17] MEDS: Omeprazole CAP* 20 MG PO SCH (08:30)
[2017-06-17] MEDS: Venlafaxine EXT RELEASE CAP* 75 MG PO SCH (08:31)
[2017-06-17] MEDS: sulfaSALAzine TAB* 500 MG PO SCH (08:31)
[2017-06-17] MEDS: Lisinopril TAB* 5 MG PO SCH (08:31)
[2017-06-17] MEDS: Aspirin Low Dose CHEW TAB* 81 MG PO SCH (08:31)
[2017-06-17] MEDS: Spironolactone TAB* 25 MG PO SCH (08:31)
[2017-06-17] MEDS: Hydroxychloroquine TAB* 200 MG PO SCH (08:31)
[2017-06-17] MEDS: metroNIDAZOLE TAB* 250 MG PO SCH (08:31)
[2017-06-17] MEDS: ALPRAZolam TAB* 0.25 MG PO PRN (08:49)
[2017-06-17 08:54] VITALS: BP 114/65
[2017-06-17] MEDS ORDERED: Ondansetron TAB* 4 MG PO PRN (08:55)
--- NOTE | 2017-06-17 10:23 | DCNOTE ---
Subjective Date of Service: 06/17/17 Interval History: C/O again about occipital headache. She is also concerned that she still has some abdominal discomfort and some loose stools. Objective Active Medications: Acetaminophen (Tylenol Tab*) 650 mg PO Q4H PRN PRN Reason: FEVER/PAIN Hydrocodone Bitart/Acetaminophen ([place] 5-325 Tab*) 1 tab PO Q4H PRN PRN Reason: PAIN Last Admin: 06/17/17 03:43 Dose: 1 tab Al Hydrox/Mg Hydrox/Simethicone (Maalox Plus*) 30 ml PO Q6H PRN PRN Reason: INDIGESTION Alprazolam (Xanax Tab*) 0.25 mg PO Q6H PRN PRN Reason: ANXIETY Last Admin: 06/17/17 08:49 Dose: 0.25 mg Aspirin (Aspirin Low Dose Tab*) 81 mg PO QAM [facility] Last Admin: 06/17/17 08:31 Dose: 81 mg Atorvastatin Calcium (Lipitor*) 40 mg PO QPM [facility] Last Admin: 06/16/17 17:08 Dose: 40 mg Bumetanide (Bumex Tab*) 0.5 mg PO EVERY OTHER DAY [facility] Last Admin: 06/16/17 08:55 Dose: 0.5 mg Docusate Sodium (Colace Cap*) 100 mg PO BID PRN PRN Reason: CONSTIPATION Hydroxychloroquine Sulfate (Plaquenil Tab*) 400 mg PO DAILY [facility] Last Admin: 06/17/17 08:31 Dose: 400 mg Norepinephrine Bitartrate (Levophed 16 Mcg/Ml Premix Bag*) 4,000 mcg in 250 mls @ 0 mls/hr IV .INITIAL RATE MARY; Titrate PRN Reason: Protocol Last Admin: 06/14/17 19:58 Dose: 7.5 mls/hr Lisinopril (Prinivil Tab*) 2.5 mg PO DAILY [facility] Last Admin: 06/17/17 08:31 Dose: 2.5 mg Metoprolol Succinate (Toprol Xl Tab*) 25 mg PO BEDTIME [facility] Last Admin: 06/16/17 22:15 Dose: 25 mg Metronidazole (Flagyl Tab*) 500 mg PO TID [facility] Last Admin: 06/17/17 08:31 Dose: 500 mg Morphine Sulfate (Morphine Inj (Syringe)*) 2 mg IV Q4H PRN PRN Reason: PAIN Omeprazole (Prilosec Cap*) 20 mg PO DAILY@0730 [facility] Last Admin: 06/17/17 08:30 Dose: 20 mg Ondansetron HCl (Zofran Tab*) 4 mg PO Q6H PRN PRN Reason: NAUSEA Rivaroxaban (Xarelto(*)) 15 mg PO BEDTIME [facility] Last Admin: 06/16/17 22:15 Dose: 15 mg Senna (Senokot Tab*) 1 tab PO BID PRN PRN Reason: CONSTIPATION Spironolactone (Aldactone Tab*) 25 mg PO EVERY OTHER DAY [facility] Last Admin: 06/17/17 08:31 Dose: 25 mg Sulfasalazine (Azulfidine Tab*) 500 mg PO BID [facility] Last Admin: 06/17/17 08:31 Dose: 500 mg Tiotropium [place] (Spiriva Cap.Inh*) 1 cap INH QAM [facility] Last Admin: 06/17/17 08:29 Dose: 1 mcg Venlafaxine HCl (Effexor Xr Cap*) 150 mg PO QAM [facility] Last Admin: 06/17/17 08:31 Dose: 150 mg Vital Signs 06/16/17 06/16/17 06/16/17 11:05 15:18 15:36 Temperature 98.1 F 97.7 F Pulse Rate 85 92 Respiratory 20 18 16 Rate Blood Pressure 110/58 112/56 (mmHg) O2 Sat by Pulse 96 95 Oximetry 06/16/17 06/16/17 06/16/17 17:50 20:00 20:39 Temperature Pulse Rate Respiratory 18 20 20 Rate Blood Pressure (mmHg) O2 Sat by Pulse Oximetry 06/16/17 06/17/17 06/17/17 23:51 03:27 03:36 Temperature 97.5 F 97.6 F Pulse Rate 86 78 Respiratory 16 16 16 Rate Blood Pressure 109/66 117/67 (mmHg) O2 Sat by Pulse 94 94 Oximetry 06/17/17 06/17/17 06/17/17 03:43 06:47 08:17 Temperature 98.1 F Pulse Rate 86 Respiratory 20 16 20 Rate Blood Pressure 114/65 (mmHg) O2 Sat by Pulse 96 Oximetry 06/17/17 06/17/17 08:49 08:55 Temperature Pulse Rate Respiratory 16 16 Rate Blood Pressure (mmHg) O2 Sat by Pulse Oximetry Oxygen Devices in Use Now: None Appearance: Alert, supine in bed. Depressed affect, otherwise looks comfortable. Eyes: No Scleral Icterus Abdominal: NL Sounds; No Tenderness; No Distention, No Hepatosplenomegaly, - Extremities: No Edema, No Clubbing, Cyanosis, - Skin: No Rash or Ulcers, No Nodules or Sclerosis, - Neurological: Alert and Oriented x 3, NL Sensation Result Diagrams: 06/15/17 06:25 06/16/17 06:31 Microbiology and Other Data: Microbiology 06/15/17 00:39 Stool Gross Appearance - Final Stool C. difficile DNA Amplification - Final 027 Presumptive NEGATIVE Toxigenic C.diff POSITIVE 06/14/17 23:10 Nasal Screen MRSA (PCR)([facility]) - Final Nasal Mrsa Negative Assess/Plan/Problems-Billing Assessment: - Patient Problems (1) C. difficile diarrhea Current Visit: Yes Status: Acute Code(s): A04.72 - ENTEROCOLITIS D/T CLOSTRIDIUM DIFFICILE, NOT SPCF RECUR SNOMED Code(s): 1033185067758 Comment: Continue oral metronidazole 14 days as outpt. (2) JUSTINA (acute kidney injury) Current Visit: No Status: Acute Priority: Medium Code(s): N17.9 - ACUTE KIDNEY FAILURE, UNSPECIFIED SNOMED Code(s): 03498795 Comment: Creatinine at her baseline 06/16. BMP in 3 days as outpt. (3) CAD (coronary artery disease) Current Visit: No Status: Chronic Priority: Medium Code(s): I25.10 - ATHSCL HEART DISEASE OF [place] CORONARY ARTERY W/O ANG PCTRS SNOMED Code(s): 02711413 Comment: Chronic systolic heart failure. Continue ASA, statin. Continue lower dose lisinopril, home dose bumetanide, spironolactone, BB. (4) Paroxysmal a-fib Current Visit: No Status: Chronic Priority: Medium Code(s): I48.0 - PAROXYSMAL ATRIAL FIBRILLATION SNOMED Code(s): 308193801 Comment: Resume rivaroxaban PM 06/15. Continue BB. (5) Anemia Current Visit: No Status: Acute Priority: Medium Code(s): D64.9 - ANEMIA, UNSPECIFIED SNOMED Code(s): 529266415 Comment: Chronic, due to CKD, perhaps sl worse due to soft tissue bleeding. CBC in 3 days as outpt. (6) Rheumatoid arthritis Current Visit: No Status: Chronic Code(s): M06.9 - RHEUMATOID ARTHRITIS, UNSPECIFIED SNOMED Code(s): 30926323 Comment: Continue hydroxychloroquine, sulfasalazine. (7) Irritable bowel disease Current Visit: Yes Status: Acute Comment: Pt gets constipated with Viberzi. Pt advised to not use it.
--- NOTE | 2017-06-17 10:31 | PN ---
Progress Note - Progress Note Date of Service: 06/17/17 Note: Time spent on discharge 50 minutes.
--- NOTE | 2017-06-17 11:02 | RAD ---
INDICATION: Posterior headache. COMPARISON: Most recent comparison head CT's dated May 15, 2014 TECHNIQUE: Contiguous axial sections of the brain were obtained from the skull base to the vertex without contrast. FINDINGS: The ventricles, cisterns and sulci mild involutional changes. There is a focus of hypoattenuation at the junction of the left frontal and parietal lobes (axial image 19 of 32). Elsewhere the willams-white matter differentiation is adequately maintained and there is no sulcal effacement. No significant focal abnormality or mass effect is present. There is no evidence for intracranial hemorrhage. No significant focal osseous abnormality is present. The visualized portion of the paranasal sinuses and mastoid air cells appear clear. IMPRESSION: There is an age indeterminant focus of hypoattenuation at the junction of the left frontal and parietal lobes new since the May 15, 2014 CT of the brain. Differential includes encephalomalacia from focal infarction or, less likely a neoplastic focus. If the patient is exhibiting focal neurologic deficits further characterization can be made with MRI. Findings discussed with Dr. Buchanan over the telephone at approximately 1000 hours on June 17, 2017.
--- NOTE | 2017-06-17 15:39 | DS ---
CC: Dr. Watkins; Dr. Gonzalez DISCHARGE SUMMARY: DATE OF ADMISSION: DATE OF DISCHARGE: 06/17/17 HISTORY: This 72-year-old woman presented with diarrhea, abdominal pain, and nausea. She said she h as had these symptoms for 3 days. She has had a lot of trouble with bowel function in the past and s he had been prescribed Viberzi, which started gave her constipation. The patient with some hypotensive. In the emergency room, she was given Levophed and admitted to the intensive care unit. She received intravenous fluids. She did not require pressors for very long t tatiana. She did have acute kidney injury. This resolved with a creatinine going from 2.36 to 1.40 duri ng the hospital stay. It was not checked on the day of discharge. She will have repeat labs in 3 ys as an outpatient. Stool showed C. difficile and she was treated initially with oral vancomycin, then oral metronidazole . She was having a few bowel movements a day at the time of discharge, not a large volume and some m ild abdominal discomfort. She also complained of occipital headache. CT scan showed encephalomalacia at the side of her previo us frontal infarction from 2013. No acute findings. DISCHARGE DIAGNOSES: 1. Clostridium difficile diarrhea. 2. Acute kidney injury. 3. Coronary artery disease. 4. Paroxysmal atrial fibrillation. 5. Anemia. 6. Rheumatoid arthritis. 7. Irritable bowel disease. DISCHARGE MEDICATIONS: 1. Metronidazole 500 mg t.i.d. for 14 more days. 2. Rivaroxaban 15 mg h.s. 3. Lisinopril 2.5 mg daily, this is a reduction in her usual dose. 4. Aspirin 81 mg daily. 5. Potassium 20 mEq b.i.d. 6. Magnesium oxide 800 mg daily. 7. Spironolactone 25 mg daily. 8. Venlafaxine extended release 75 mg daily. 9. Metoprolol succinate 25 mg h.s. 10. Atorvastatin 40 mg h.s. 11. Tiotropium one capsule daily. 12. Albuterol inhaler 1 to 2 puffs every 4 hours p.r.n. 13. Alprazolam 0.25 mg b.i.d. 14. Hyoscyamine 0.375 mg daily. 15. Sumatriptan 50 mg b.i.d. p.r.n. 16. Bumetanide 0.5 mg every other day. 17. Vitamin D3 5000 units daily. 18. Sulfasalazine 500 mg b.i.d. 19. Pantoprazole 40 mg daily. 20. Plaquenil 400 mg daily. 21. Acetaminophen 500 mg b.i.d. p.r.n. 22. Probiotic 1 daily. 23. Ferrous sulfate 325 mg daily. 24. Alendronate 70 mg as prescribed. 25. Hydrocodone/acetaminophen 10/325 one every 8 hours p.r.n. [id number]/[facility] #: [id number]
== END 2017-06-17 12:10 | disposition home health service (06) | DRG 371 ==
LOC: ED 17:36 → ICU 21:36 → MED 06-15 21:47
PROVIDERS: ADMIT Pediatrics; ATTEND Internal Medicine
PROC: 3E033XZ Introduction of Vasopressor into Peripheral Vein, Percutaneous Approach (ICD-10-PCS; principal; 2017-06-14)
DX: A04.72 Enterocolitis due to Clostridium difficile, not specified as recurrent (principal); R57.1 Hypovolemic shock; N17.9 Acute kidney failure, unspecified; I13.0 Hypertensive heart and chronic kidney disease with heart failure and stage 1 through stage 4 chronic kidney disease, or unspecified chronic kidney disease; G93.89 Other specified disorders of brain; I95.9 Hypotension, unspecified; I50.22 Chronic systolic (congestive) heart failure; I48.0 Paroxysmal atrial fibrillation; S80.12XA Contusion of left lower leg, initial encounter; D63.1 Anemia in chronic kidney disease; F32.9 Major depressive disorder, single episode, unspecified; M06.9 Rheumatoid arthritis, unspecified; J44.9 Chronic obstructive pulmonary disease, unspecified; K58.9 Irritable bowel syndrome, unspecified; I25.10 Atherosclerotic heart disease of native coronary artery without angina pectoris; I25.2 Old myocardial infarction; Z86.73 Personal history of transient ischemic attack (TIA), and cerebral infarction without residual deficits; G47.33 Obstructive sleep apnea (adult) (pediatric); Z96.659 Presence of unspecified artificial knee joint; Z88.8 Allergy status to other drugs, medicaments and biological substances; Z88.5 Allergy status to narcotic agent; Z88.6 Allergy status to analgesic agent; Z87.891 Personal history of nicotine dependence; Z66 Do not resuscitate; X58.XXXA Exposure to other specified factors, initial encounter; Y92.9 Unspecified place or not applicable; N18.9 Chronic kidney disease, unspecified; R51 Headache; K59.03 Drug induced constipation; T50.7X5A Adverse effect of analeptics and opioid receptor antagonists, initial encounter; Z79.01 Long term (current) use of anticoagulants; Z79.82 Long term (current) use of aspirin
CPT/HCPCS: 36415; 70450; 71010; 74176; 76705; 80048; 80053; 81003; 81015; 82270; 82272; 82533; 82550; 83605; 83630; 83690; 83735; 84443; 84484; 85014; 85018; 85025; 85610; 85730; 86850; 86900; 86901; 87040; 87045; 87046; 87077; 87086; 87493; 87502; 87641; 87899; 93005; 93306; 94640; A9270-GY; J0744; J2405; J2543; J3370; J3490

== ENCOUNTER 2017-09-15 15:26 | Inpatient (IN) | payer MEDICARE ==
[2017-09-15 16:43] LABS: ABS Basophils 0.1 10^3/ul (0-0.2); ABS Eosinophils 0 10^3/ul (0-0.6); ABS Lymphocytes 1.9 10^3/ul (1.0-4.8); ABS Monocytes 0.9 10^3/ul (0-0.8); ABS Neutrophils 5.6 10^3/ul (1.5-7.7); ABS Nucleated RBC 0 10^3/ul; Eosinophil % 0 % (0-6); Hematocrit 33 % (35-47); Hemoglobin 10.6 g/dl (12.0-16.0); Lymphocyte % 21.8 % (25-47); Mean Corpuscular HGB Conc 32 g/dl (31-36); Mean Corpuscular Hemoglobin 27 pg (27-31); Mean Corpuscular Volume 86 fL (80-97); Mean Platelet Volume 7 um3 (7.4-10.4); Nucleated Red Blood Cells % 0; Platelet Count 195 10^3/ul (150-450); Red Blood Count 3.87 10^6/ul (4.0-5.4); Red Cell Distribution Width 18 % (10.5-15); White Blood Count 8.5 10^3/ul (3.5-10.8)
[2017-09-15 16:50] LABS: INR 1.54 (0.77-1.02)
[2017-09-15 16:57] LABS: EGFR Non-African American 42.9 (>60)
[2017-09-15] MEDS ORDERED: NS 0.9% 1000 ML* 1,000 ML BOLUS SCH (17:30)
[2017-09-15] MEDS ORDERED: Calcium Gluconate INJ* 1 GM in NS 0.9% 100 ML* 100 ML IVPB ONE (18:24)
[2017-09-15] MEDS ORDERED: Magnesium Sulfate IV* 3 GM in NS 0.9% 100 ML* 100 ML IVPB ONE (18:26)
[2017-09-15] MEDS ORDERED: NS 0.9% 1000 ML* 1,000 ML IV SCH (18:30)
[2017-09-15] MEDS ORDERED: Ondansetron INJ* 2 MG/ML VIAL IV PRN (18:33)
--- NOTE | 2017-09-15 19:12 | RAD ---
Indication: Assess for CHF. History of CHF with systolic and diastolic heart failure. COPD. Comparison: June 14, 2017 CT abdomen. June 14, 2017 chest radiograph. Technique: Upright AP 1830 hours Report: Moderate elevation of the RIGHT hemidiaphragm without significant change. Elevated lung volumes and both diffuse mild prominence of the interstitial markings and patchy rarefaction of the mid to upper lung zone interstitial markings. No focal pulmonary lesion, compelling alveolar consolidation, pleural effusion, pneumothorax. Cardiomegaly. Unremarkable central pulmonary vasculature and mediastinal contours. Implanted cardiac sonographer noted. Healed RIGHT fifth rib fracture noted. IMPRESSION: 1. Stigmata of chronic obstructive pulmonary disease. 2. Cardiomegaly without evidence for pulmonary edema.
[2017-09-15 19:39] LABS: EGFR Non-African American 42.5 (>60)
[2017-09-15] MEDS ORDERED: Insulin REGULAR(*) 1 UNITS UNIT IV PUSH ONE (19:44)
[2017-09-15] MEDS ORDERED: Dextrose 50% Syringe 50 ML* 25 GM/50 ML SYRINGE IV PUSH ONE (19:46)
--- NOTE | 2017-09-15 19:57 | RAD ---
Indication: Abdominal pain, diarrhea. Comparison: June 14, 2017 CT Technique: Supine view of the abdomen. Report: Implanted cardiac/vascular sonographer noted. Unremarkable bowel gas pattern. Moderate stool in the colon without significant rectal distension. Atherosclerotic calcification of the abdominal aorta noted. Unremarkable soft tissue contours. IMPRESSION: Moderate stool in the colon without significant rectal distension. Negative for dilated bowel loops to indicate bowel obstruction.
[2017-09-15] MEDS ORDERED: Dextrose 50% Syringe 50 ML* 25 GM/50 ML SYRINGE IV PUSH PRN (20:11)
[2017-09-15] MEDS: Mometasone/Formoter 200/5 MDI INH SCH (20:22)
--- NOTE | 2017-09-15 20:51 | ED ---
Nely Beckman Nilda, scribed for Janette Lance MD on 09/15/17 at 1642 . GI/ HPI - HPI Summary HPI Summary: This patient is a 72 year old F BIBA with a chief complaint of constant diffuse abd pain with diarrhea secondary to recurrent C. difficile infection. The patient rates the pain 3/10 in severity. Symptoms aggravated and alleviated by nothing. Patient reports bowel incontinence, bloody stool secondary to irritated anus, and increased flatus, but denies fever, CP, SOB, and N/V. Pt states that she's had constant abd pain for over a year. She notes Dr. Gonzalez (GI) performed sigmoidoscopy, which was unremarkable. In 05/2017 she was diagnosed with C. Diff and was placed on flagyl first and then oral vancomycin for a few weeks. Pt states her symptoms didn't clear, and she was placed on a second course of oral vancomycin, which also didn't resolve her symptoms. Pt notes she's been on a 3rd course of oral vancomycin (125 mg q6) since 09/08/17. Pt has consulted with Cherie Fish about this and has wanted to consult with Dr. James (ID specialist). She has not seen Dr. Gonzalez for this , and has not seen him since the sigmoidoscopy. She also notes she is immunosuppresed on Humira for RA. Pt's PCP is Dr. Watkins. - History of Current Complaint Chief Complaint: EDNauseaVomitDiarrh Time Seen by Provider: 09/15/17 16:05 Stated Complaint: ABD PAIN Hx Obtained From: Patient Onset/Duration: Started Weeks Ago, Still Present Timing: Constant Severity: Moderate Current Severity: Severe Pain Intensity: 3 Location of Pain: Diffuse Pain Characteristics: Cramping Pain Radiates to: Flank Associated Signs and Symptoms: Positive: Weight Loss, Blood w/Stool, Diarrhea, Other: - diarrhea, bowel incontinence, bloody stool secondary to irritated anus , and increased flatus, but denies fever, CP, SOB, and N/V. Aggravating Factor(s): Nothing Alleviating Factor(s): Nothing - Additional Pertinent History Primary Care Physician: [id number] - Allergy/Home Medications Allergies/Adverse Reactions: Allergies Allergy/AdvReac Type Severity Reaction Status Date / Time meperidine Allergy Unknown Unknown Verified 09/15/17 17:44 Reaction Details codeine Allergy Unknown Verified 09/15/17 17:44 Reaction Details glatiramer (copolymer 1) Allergy Unknown Verified 09/15/17 17:44 Reaction Details morphine AdvReac Nausea And Verified 09/15/17 17:44 Vomiting NSAIDS (Non-Steroidal AdvReac BOWEL Verified 09/15/17 17:44 Anti-Inflamma CHANGES Home Medications: Home Medications Acetaminophen [Acetaminophen Extra Strength] 500 mg PO BID 09/15/17 [History Confirmed 09/15/17] Alendronate (NF) [Fosamax (NF)] 70 mg PO WEEKLY 09/15/17 [History Confirmed 09/03] Bumetanide TAB* [Bumex 1 MG TAB*] 0.5 mg PO EVERY OTHER DAY 09/15/17 [History Confirmed 09/15/17] Cholecalciferol TAB* [Vitamin D TAB*] 5,000 unit PO DAILY 09/15/17 [History Confirmed 09/15/17] Eluxadoline (NF) [Viberzi] 75 mg PO EVERY OTHER DAY MDD 75 mg 09/15/17 [History Confirmed 09/15/17] Ferrous Sulfate TAB* 325 mg PO DAILY 09/15/17 [History Confirmed 09/15/17] Fluticasone/Vilanterol MDI(NF) [Breo Ellipta MDI 200/25(NF)] 1 inh IN DAILY 09/03 [History Confirmed 09/15/17] Hydrocodone/Acetamin 10/325(NF [[place] 10/325 (NF)] 1 tab PO Q6H PRN MDD 4 tabs 09/15/17 [History Confirmed 09/15/17] Hydroxychloroquine TAB* [Plaquenil TAB*] 200 mg PO BID 09/15/17 [History Confirmed 09/15/17] L.acidoph,Paracasei, B.lactis [Probiotic] 1 each PO DAILY 09/15/17 [History Confirmed 09/15/17] Ondansetron TAB* [Zofran 4 MG Tab*] 4 mg PO Q6H PRN 09/15/17 [History Confirmed 09/15/17] Pantoprazole TAB (NF) [Protonix TAB (NF)] 40 mg PO DAILY 09/15/17 [History Confirmed 09/15/17] Rivaroxaban TAB(*) [Xarelto 15 mg(*)] 15 mg PO DAILY 09/15/17 [History Confirmed 09/15/17] Vancomycin CAP* 125 mg PO Q6H 09/15/17 [History Confirmed 09/15/17] Venlafaxine ER (NF) [Effexor ER (NF)] 150 mg PO DAILY 09/15/17 [History Confirmed 09/15/17] PMH/Surg Hx/FS Hx/Imm Hx Endocrine/Hematology History: Reports: Hx Anticoagulant Therapy - xarelto, s/p CVA, Hx Anemia Denies: Hx Blood Disorders, Hx Bone Marrow Disease, Hx Diabetes, Hx Systemic Lupus Erythematosus, Hx Sickle Cell Disease, Hx Thyroid Disease, Hx Unexplained Bleeding, Other Endocrine/Hematological Disorders Cardiovascular History: Reports: Hx Congestive Heart Failure, Hx Coronary Artery Disease - 2 STENT PLACED, Hx Hypercholesterolemia, Hx Hypertension, Hx Myocardial Infarction, Other Cardiovascular Problems/Disorders - systolic and diaslotic heart failure, EF 35 to 40% Denies: Hx Aneurysm, Hx Angina, Hx Angioplasty, Hx Auto Implanted Cardiovert Defib, Hx Cardiac Arrest, Hx Cardiomegaly, Hx Congenital Heart Disease, Hx Deep Vein Thrombosis, Hx Hypotension, Hx Pacemaker/ICD, Hx Peripheral Vascular Disease, Hx Rheumatic Fever, Hx Syncope, Hx Valvular Heart Disease Respiratory History: Reports: Hx Chronic Obstructive Pulmonary Disease (COPD), Hx Sleep Apnea - NO CPAP Denies: Hx Asthma, Hx Chronic Bronchitis, Hx Cystic Fibrosis, Hx Lung Cancer , Hx Pleural Effusion, Hx Pneumonia, Hx Pulmonary Edema, Hx Pulmonary Embolism, Hx Seasonal Allergies GI History: Reports: Hx Gastroesophageal Reflux Disease, Hx Ulcer Denies: Hx Cirrhosis, Hx Diverticulosis, Hx Gall Bladder Disease, Hx Gastrointestinal Bleed, Hx Hiatal Hernia, Hx Jaundice, Hx Obstructive Bowel, Hx Ileostomy, Hx Pyloric Stenosis, Other GI Disorders History: Denies: Hx Acute Renal Failure, Hx Benign Prostatic Hyperplasia, Hx Chronic Renal Failure, Hx Dialysis, Hx Kidney Infection, Hx Kidney Stones, Other Problems/Disorders Musculoskeletal History: Reports: Hx Arthritis - OSTEOARTHRITIS, RHEUMATOID, Hx Rheumatoid Arthritis, Hx Back Problems Denies: Hx Bursitis, Hx Congenital Bone Abnormalities, Hx Fibromyalgia, Hx Gout, Hx Orthopedic Injury, Hx Osteoporosis, Hx Scoliosis, Hx Tendonitis Sensory History: Reports: Hx Cataracts - HX OF Denies: Hx Contacts or Glasses, Hx Eye Injury, Hx Eye Prosthesis, Hx Glaucoma , Hx Legally Blind, Hx Macular Degeneration, Hx Vision Problem, Hx Deafness, Hx Hearing Aid, Hx Hearing Problem, Other Sensory Impairments Opthamlomology History: Reports: Hx Cataracts - HX OF Denies: Hx Contacts or Glasses, Hx Eye Injury, Hx Eye Prosthesis, Hx Glaucoma , Hx Legally Blind, Hx Macular Degeneration, Hx Vision Problem, Other Sensory Impairments Neurological History: Reports: Hx CVA, Hx Migraine Denies: Hx Dementia, Hx Developmental Delay, Hx Headaches, Hx Nerve Disease, Hx Seizures, Hx Transient Ischemic Attacks (TIA), Other Neuro Impairments/ Disorders Psychiatric History: Reports: Hx Anxiety, Hx Depression Denies: Hx Attention Deficit Hyperactivity Disorder, Hx Eating Disorder, Hx Panic Disorder, Hx Post Traumatic Stress Disorder, Hx Inpatient Treatment, Hx Community Mental Health Tx, Hx Schizophrenia, Hx Bipolar Disorder, Hx Suicide Attempt, Hx of Violent Episodes Against Others, Hx Substance Abuse, Other Psychiatric Issues/Disorders - Cancer History Hx Chemotherapy: No Hx Radiation Therapy: No - Surgical History Surgery Procedure, Year, and Place: Bilateral Osteotomies 1988,. OVARIAN CYST REMOVAL,. 2007 & 2011 BILATERAL CATARACT EXTRACTION WITH IOL IMPLANT, [facility] [place]. 1998 RIGHT TOTAL KNEE REPLACEMENT, [facility] [place]. 2007 Triple Arthrodesis,. 2012 LEFT TOTAL KNEE REPLACEMENT. Appendectomy. 2013 RIGHT KNEE EXPLORATION, DEBRIDEMENT , REPLACEMENT OF ARTICULAR SURFACE, [facility] [place]. 2012 RIGHT KNEE ARTHROSCOPIC LAVAGE, [facility] [place]. 2013 CARDIAC EVENT MONITOR IMPLANTATION, [facility] [place]. 2014 HEART CATHERIZATION, [facility] [place]. 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 Negative: Vomiting, Nausea Genitourinary: Negative Positive: Arthralgia Skin: Negative Neurological: Negative Psychological: Normal All Other Systems Reviewed And Are Negative: Yes Physical Exam - Summary Physical Exam Summary: Appearance: Frail, elderly female with rheumatoid deformities and ulnar deviation, expelling copious gas even during interview Skin: Warm, color reflects adequate perfusion Head: Normal Head/Face inspection Eyes: Conjunctiva clear ENT: Normal inspection Neck: Supple, no nodes, no JVD. Respiratory: Lungs clear, Normal breath sounds, no respiratory distress Cardio: RRR, No murmur, pulses normal, brisk capillary refill Abdomen: soft, diffuse tenderness, no masses palpated, expelling copious gas even during interview. Bowel sounds: hyperactive Musculoskeletal: Rheumatoid deformities and ulnar deviation. No calf tenderness. No edema. Neuro: Alert, muscle tone normal, facial symmetry, speech normal, sensory/motor intact Psychological: Normal Triage Information Reviewed: Yes Vital Signs On Initial Exam: Initial Vitals Temp Pulse Resp BP Pulse Ox 98.2 F 83 16 103/83 95 09/15/17 15:28 09/15/17 15:28 09/15/17 15:28 09/15/17 15:28 09/15/17 15:28 Vital Signs Reviewed: Yes Diagnostics - Vital Signs Vital Signs Temp Pulse Resp BP Pulse Ox 09/15/17 16:01 81 94 09/15/17 16:00 106/75 09/15/17 15:59 25 84 09/15/17 15:51 44 91 09/15/17 15:40 103/83 09/15/17 15:28 98.2 F 83 16 103/83 95 - Laboratory Result Diagrams: 09/15/17 16:25 09/15/17 23:41 Lab Statement: Any lab studies that have been ordered have been reviewed, and results considered in the medical decision making process. Re-Evaluation - Re-Evaluation First Eval Re-Evaluation Time: 17:37 Change: Unchanged Comment: Reviewed labs and admission plan with pt. JONATHAN Course/Dx - Course Assessment/Plan: This patient is a 72 year old F BIBA with a chief complaint of constant diffuse abd pain with diarrhea secondary to recurrent C. difficile infection which has not resolved s/p 3 courses of oral vancomycin and 1 course of Flagyl. Pending labs. Labs reveal BNP 8082, Trop 0.04 and Potassium 6.0. Of note lab states K+ is not hemolyzed. Also note pt is on K+ supplementation and on spironolactone. Also note, pt had no CP or SOB or physical exam findings of CHF. [1716] Dr. Gonzalez (GI) recommended pt be admitted. [1736] Dr. Phillips (hospitalist) agrees to admit pt. Pt medications reviewed this visit. High blood pressure noted. Allergies Noted. New LBBB (widened QRS) noted when repeat EKG is done in setting of hyperkalemia. Pt still with no CP. Reviewed with STARLA Gonzalez. Pt is stable and will be admitted with C difficile colitis, resistant to antibiotic treatment, Hyperkalemia, elevated troponin, new LBBB, HTN in poor control. Pt understands and is agreeable with this plan to be admitted. - Diagnoses Differential Diagnoses - Female: Colitis, Diarrhea, Enterocolitis, Ischemic Bowel Provider Diagnoses: Hypertension, poor control, C. difficile colitis, Hyperkalemia, Elevated troponin, New onset left bundle branch block (LBBB) - Physician Notifications Discussed Care Of Patient With: Sunday Gonzalez - GI Time Discussed With Above Provider: 17:16 Instructed by Provider To: Other - recommends pt admission. Discharge - Discharge Plan Condition: Stable Disposition: ADMITTED TO [facility] documentation as recorded by the Nely contreras Nilda accurately reflects the service I personally performed and the decisions made by , Janette Lance MD.
[2017-09-15] MEDS ORDERED: Potassium Chlor TAB* 10 MEQ TAB.ER PO SCH (21:00)
[2017-09-15] MEDS: NS 0.9% 1000 ML* 1,000 ML IV SCH (22:15)
[2017-09-15] MEDS: Hydroxychloroquine TAB* 200 MG PO SCH (22:29)
[2017-09-15] MEDS: Lactobacillus Acidophilu (GG)* 1 CAP CAP PO SCH (22:30)
[2017-09-15] MEDS: Metoprolol Succinate XL TAB* 25 MG PO SCH (22:30)
[2017-09-15] MEDS: Vancomycin CAP* 125 MG CAP PO SCH (22:31)
[2017-09-16 00:02] LABS: EGFR Non-African American 47.8 (>60)
[2017-09-16] MEDS: Vancomycin CAP* 125 MG CAP PO SCH ×4 (00:58→18:10)
--- NOTE | 2017-09-16 04:05 | HP ---
CC: Dr. Watkins; Dr. Gonzalez; Dr. Alice Nj.* ADMISSION HISTORY AND PHYSICAL: DATE OF ADMISSION: 09/15/17 PRIMARY CARE PROVIDER: Dr. Watkins. PARTY PLAN DEMONSTRATOR: Dr. Gonzalez. MY ATTENDING WHILE IN THE HOSPITAL: Alice Nj MD* (dictated by STARLA Torres). CHIEF COMPLAINT: Diarrhea, nausea, weakness. HISTORY OF PRESENT ILLNESS: Ms. Solomon is a 72-year-old female with past medical history significant for recurrent C. diff; history of myocardial infarction, with stent placement; CHF, estimated ejection fraction 35% to 40%; rheumatoid arthritis; COPD; anemia; and CVA, who presents with 3 days of explosive frequent diarrhea with nausea for about the last 3 weeks with very poor oral intake and weakness that has been ongoing for months, but has recently gotten much worse. The patient was diagnosed with clostridium difficile colitis when she was here in May. The patient was treated with initially vancomycin, which was switched to Flagyl. The patient after finishing that course had 3 recurrences of diarrhea, all of which were treated with vancomycin outpatient by her primary care provider. The patient states that she has been getting slowly and progressively weaker. The patient states today she came in to the emergency department because she was incontinent of stool and just did not have the energy to even stand up and clean herself up. The patient recently finished a course of vancomycin, but as soon as she stopped it approximately 3 days ago, her diarrhea started again. The patient had a sigmoidoscopy while she was previously in the hospital in July of last year, which showed no microscopic colitis or other abnormality. The patient has not followed up since that time with Gastroenterology. The patient has no fevers or chills. The patient has increased shortness of breath on exertion without leg swelling, PND, nocturia. The patient has no chest pain with exertion or rest, though the patient has no chest pain with her previous [facility]. The patient had a heart catheterization. The patient has occasional abdominal pain, which does not get better or worse. She describes it as a cramping, diffuse pain. The patient states she has had dizziness with standing. No syncope, changes in her vision, headache. The patient denies decrease in her urination or change in the color. The patient states she urinates approximately 8 to 10 times a day. The patient states that she remembers when this all started several years ago on an uneventful day when she went out to lunch with her friend and has had frequent loose stools since then. The patient has tried physical therapy for her weakness which was prescribed by her primary care provider and she had no improvement with this. The patient was found to have a potassium of 6.0 while in the hospital. For concerns for recurrent C. diff colitis, weakness, and hyperkalemia, the hospitalist service was asked to evaluate for admission. PAST MEDICAL HISTORY: Recurrent Clostridium difficile infection; myocardial infarction with systolic CHF, most recent EF of 30% to 40%; hypertension; rheumatoid arthritis, on Plaquenil; COPD; paroxysmal atrial fibrillation; CVA; depression; obstructive sleep apnea; anemia, probable anemia of chronic disease ; spinal compression fracture. PAST SURGICAL HISTORY: Ovarian cyst removal, appendectomy, and knee replacement. MEDICATIONS: 1. Aspirin 81 mg p.o. q.a.m. 2. Potassium chloride 20 mEq p.o. t.i.d. 3. Magnesium oxide 800 mg p.o. q.a.m. 4. Spironolactone 25 mg p.o. every other day. 5. Venlafaxine 75 mg p.o. q.a.m. 6. Metoprolol succinate 25 mg p.o. at bedtime. 7. Atorvastatin 40 mg p.o. q.p.m. 8. Tiotropium 1 cap inhalation q.a.m. 9. Alprazolam 0.25 mg b.i.d. as needed. 10. Lisinopril 2.5 mg p.o. daily. 11. Rivaroxaban 15 mg p.o. daily. 12. Vancomycin 125 mg p.o. q.6 hours. 13. Lactobacillus acidophilus, paracasei, B. Lactis probiotic 1 each daily. 14. Pantoprazole tab 40 mg p.o. daily. 15. Zofran 4 mg p.o. q.6 hours as needed. 16. Hydroxychloroquine 200 mg p.o. b.i.d. 17. Breo Ellipta 225 one inhalation daily. 18. Ferrous sulfate 325 mg p.o. daily. 19. Viberzi 75 mg p.o. every other day. 20. Vitamin D 5000 units p.o. daily. 21. Bumex 0.5 mg p.o. every other day. 22. Fosamax 75 mg p.o. weekly. 23. Tylenol 500 mg p.o. b.i.d. 24. [place] 10/325 1 tab p.o. q.6 hours as needed. ALLERGIES: MEPERIDINE, CODEINE, GLATIRAMER, MORPHINE, NSAIDS. FAMILY HISTORY: Both patient's parents have a history of coronary artery disease as well as her brother. The patient had an aunt with ovarian cancer. The patient has no other syndromes that run in her family. SOCIAL HISTORY: The patient has a 50-pack year history of smoking, quit in recent years. The patient denies any alcohol or drugs. 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 The patient lives at home alone. The patient has steps in her house, but she has been able to get up, but it is a very tiring experience for her. The patient's healthcare proxy is her sister, Sarah. REVIEW OF SYSTEMS: A 14-point review of systems was reviewed and is negative except as above. PHYSICAL EXAMINATION GENERAL: The patient is a 72-year-old female who appears stated age and sitting on the bed, in no acute distress. VITAL SIGNS: Upon arrival to the emergency department, temperature 98.2, pulse rate 84, respiratory rate 16, oxygen saturation 96% on room air, blood pressure 103/83. HEENT: Head normocephalic and atraumatic. Sclerae anicteric. No conjunctival injection. Nasal mucosa and oral mucosa dry. No pharyngeal erythema, discharge or exudate. NECK: Supple, nontender. No lymphadenopathy. No carotid bruit auscultated. No JVD. RESPIRATORY: Clear to auscultation bilaterally. No wheezes, rales or rhonchi. Good air exchange bilaterally. CARDIAC: Regular rate and rhythm. No clicks, murmurs, gallops, or rubs. Pulses 2+ in the bilateral dorsalis pedis, posterior tibialis, and radial areas. No bilateral lower extremity edema noted. No tenderness to palpation in the calves. ABDOMEN: Bowel sounds present and hypoactive in all 4 quadrants. No hepatosplenomegaly. No abdominal bruits is auscultated. Slight tenderness to palpation throughout. NEUROLOGIC: Cranial nerves II through XII intact. No focal deficits. Alert and oriented x3. PSYCHIATRIC: Pleasant and cooperative. DIAGNOSTIC STUDIES/LAB DATA: White blood cell count 8.5, hemoglobin 10.6, RDW 18, MCV 86, MCH 27, platelet count 195. INR 1.54, APTT 31.6. Sodium 137, potassium 6.0, chloride 104, carbon dioxide 27, anion gap 6, BUN 21, creatinine 1.23, glucose 80, lactic acid 2.0, calcium 8.9, magnesium 1.7. Bilirubin 0.7, AST 68, ALT 76, alkaline phosphatase 183. Total creatinine kinase 77, troponin I 0.04, CRP 10.74, BNP 8082. Total protein 5.5, albumin 3.2, globulin 2.3, amylase 40, lipase 14. Studies: Electrocardiogram shows normal sinus rhythm, rate of 86, left bundle- branch block pattern, not present on previous exam with ST-segment elevation in V2, V3, and V4 with ST-segment depression and T-wave inversions in V5, V6. No peaked T waves. QTC of 460. Left ventricular hypertrophy. Left axis deviation. No abnormalities. Chest x-ray read pending. On personal review, flattening of the diaphragms, elevation of the right lawson diaphragm, no focal infiltrates, possible increased vascular congestion, cardiomegaly. No other abnormalities. Significant bowel gas present underneath the diaphragm without evidence of intraperitoneal air. ASSESSMENT AND PLAN: Impression: The patient is a 72-year-old female with a past medical history significant for recurrent Clostridium difficile infection, myocardial infarction, congestive heart failure, rheumatoid arthritis, atrial fibrillation and anemia, who presents with recurrent episodes of frequent explosive diarrhea after her third treatment with vancomycin for Clostridium difficile and weakness. While in the emergency department, the patient was found to have an elevated potassium. EKG showed a new left bundle-branch block with ST-segment elevation and positive clostridium difficile by PCR in the stool. The patient was admitted to the hospital for IV fluids, echocardiogram, rule out of myocardial infarction, and continued antibiotics for her Clostridium difficile. 1. Explosive diarrhea, Clostridium difficile infection. Ms. Solomon has toxigenic Clostridium difficile by PCR in her stool, this is consistent with the result from May of last year. The patient has been treated with metronidazole and then vancomycin oral x3. The patient recently finished a course of vancomycin 125 mg p.o. daily and after that had recurrent explosive diarrhea. The patient looks to be very dehydrated and has weakness with inability to function at home. We will resume treatment with vancomycin. We will get Infectious Disease and Gastroenterology consult for the consideration of fecal transplant. We will give fluids to replete the patient's fluid stores as she appears very dry, but I will be careful to not over hydrate due to the patient's previous congestive heart failure. 2. Congestive heart failure, history of myocardial infarction, elevated troponin, new left bundle-branch block. The patient has no chest pain. The patient has a slightly elevated troponin, which could be due to demand ischemia. We will monitor these x3 and consult Cardiology if they continue to rise. The patient has an extremely elevated BNP at 8082. The patient does not appear to be fluid overloaded; however, the patient does have slight increase in her liver enzymes, which may be due to fluid overload or dehydration. We will repeat these in the morning. The patient's new left bundle-branch block may be due to hyperkalemia. We will repeat BMP as the patient has received significant fluids and treat with potassium-lowering therapies, not including Kayexalate due to the patient's diarrhea at this time. The patient has no peaked T waves or signs of symptomatic hyperkalemia. We will monitor the patient on telemetry. Continue aspirin, metoprolol, and Lipitor. 3. Hyperkalemia. As above. We will repeat BMP now and initiate potassium- lowering therapy as indicated. The patient is asymptomatic at this time. Hold patient's lisinopril and spironolactone due to hyperkalemia as well as her potassium chloride. 4. Chronic obstructive pulmonary disease. Continue patient's home inhalers. 5. Rheumatoid arthritis. Continue patient's home Plaquenil. 6. Atrial fibrillation. The patient is currently in normal sinus rhythm. Continue metoprolol. Monitor on telemetry and continue Xarelto. 7. Anemia. This is stable at patient's baseline, likely related to anemia of chronic disease. The patient had a positive stool occult blood; however, the patient is on iron. We will monitor patient's hemoglobin daily. 8. Depression. Continue venlafaxine. 9. Hypertension. Hold patient's spironolactone, lisinopril, and Bumex due to hyperkalemia and hypotension and fluid repletion respectively. 10. FEN: The patient will have a clear liquid diet and fluids as above. 11. DVT prophylaxis: The patient will be continued on Xarelto. 12. Code status: The patient will be a full code. The patient's surrogate decision maker is her sister, Sarah, as above. TIME SPENT: Approximately 60 minutes was spent on this admission, 30 of which was spent [id number] with the patient obtaining history and physical and discussing the treatment plan. This plan has been discussed with my attending, Dr. Alice Nj, and she is in agreement. STARLA TORRES [id number]/CPS #: [id number] [place]
[2017-09-16 04:11] LABS: Urine Appearance Turbid; Urine Blood 1+ (Negative); Urine Color Yellow; Urine Ketones Negative (Negative); Urine Protein 2+(100 mg/dL) (Negative); Urine Specific Gravity 1.016 (1.010-1.030); Urine Urobilinogen Negative (Negative)
[2017-09-16 05:38] LABS: ABS Basophils 0.1 10^3/ul (0-0.2); ABS Eosinophils 0 10^3/ul (0-0.6); ABS Lymphocytes 2.2 10^3/ul (1.0-4.8); ABS Monocytes 1.1 10^3/ul (0-0.8); ABS Neutrophils 6.6 10^3/ul (1.5-7.7); ABS Nucleated RBC 0 10^3/ul; Eosinophil % 0 % (0-6); Hematocrit 36 % (35-47); Hemoglobin 11.2 g/dl (12.0-16.0); Lymphocyte % 21.9 % (25-47); Mean Corpuscular HGB Conc 31 g/dl (31-36); Mean Corpuscular Hemoglobin 27 pg (27-31); Mean Corpuscular Volume 87 fL (80-97); Mean Platelet Volume 7 um3 (7.4-10.4); Nucleated Red Blood Cells % 0; Platelet Count 202 10^3/ul (150-450); Red Blood Count 4.11 10^6/ul (4.0-5.4); Red Cell Distribution Width 18 % (10.5-15); White Blood Count 9.9 10^3/ul (3.5-10.8)
[2017-09-16 05:44] LABS: EGFR Non-African American 48.3 (>60)
[2017-09-16] MEDS: Tiotropium CAP.INH* CAP.INH/18 MCG (USE ORDER SET !) INH SCH (07:36)
[2017-09-16] MEDS: Mometasone/Formoter 200/5 MDI INH SCH ×2 (07:36→20:04)
[2017-09-16] MEDS ORDERED: Spiriva Inhaler DEVICE* 1 EACH DEVICE INH ONE (09:00)
[2017-09-16] MEDS ORDERED: Potassium Chlor TAB* 20 MEQ TAB.ER PO SCH (09:00)
[2017-09-16] MEDS: metroNIDAZOLE IV 500 MG/100ML* 500 MG/100 ML BAG IVPB SCH ×2 (09:56→16:52)
[2017-09-16] MEDS: Venlafaxine EXT RELEASE CAP* 75 MG PO SCH (09:57)
[2017-09-16] MEDS: Aspirin Low Dose CHEW TAB* 81 MG PO SCH (09:57)
[2017-09-16] MEDS: Ferrous Sulfate TAB* 325 MG PO SCH (09:57)
[2017-09-16] MEDS: Omeprazole CAP* 20 MG PO SCH (09:57)
[2017-09-16] MEDS: Rivaroxaban TAB(*) 15 MG PO SCH (09:57)
[2017-09-16] MEDS: Hydroxychloroquine TAB* 200 MG PO SCH ×2 (09:57→20:58)
[2017-09-16] MEDS: Magnesium Oxide TAB* 400 MG PO SCH (09:57)
[2017-09-16] MEDS: Lactobacillus Acidophilu (GG)* 1 CAP CAP PO SCH ×2 (09:57→20:58)
[2017-09-16] MEDS: Cholecalciferol TAB* 1000 UNITS PO SCH (10:03)
--- NOTE | 2017-09-16 15:55 | CONS ---
CONSULTATION REPORT: DATE OF CONSULT: 09/16/17 REQUESTING PHYSICIAN: Dr. Lance, in the emergency room. INDICATION: Explosive diarrhea, positive C. diff. NARRATIVE: Ms. Solomon is a very pleasant 72-year-old female who has a history of recurrent C. diff. She has been treated at least 3 times for this. She has had Flagyl in the past. She has had at least 2 rounds of vancomycin. She came in with complaints of explosive diarrhea and increased gas over the past couple of days. She is feeling very weak and worn out and really could not take care of herself at home. I did see her in the office approximately a month ago, felt that she had a postinfectious irritable bowel, was having formed stools at that time, did perform a small intestinal bacterial overgrowth breath test and was negative. She denies any fevers or chills. She denies any increased abdominal distention. She denies any abdominal pain. She states that this morning she is feeling better. She has not had any further diarrhea and she denies any pain. PAST MEDICAL HISTORY: Also significant for history of an VA, systolic congestive heart failure, EF of 40%, hypertension, rheumatoid arthritis, COPD, A -fib, CVA, depression, FRANKIE, anemia of chronic disease. PAST SURGICAL HISTORY: Includes an appendectomy, knee replacement, ovarian cystectomy. MEDICATIONS UPON ADMISSION: Include: 1. Lando. 2. Fosamax. 3. Bumex. 4. Iron. 5. Breo Ellipta. 6. Hydroxychloroquine. 7. Zofran. 8. Pantoprazole. 9. Vanco. 10. Eliquis. 11. Lisinopril. 12. Alprazolam. 13. Atorvastatin. 14. Metoprolol. 15. Spironolactone. 16. Potassium. 17. Aspirin. ALLERGIES: To DEMEROL, CODEINE, MORPHINE, and NON-STEROIDAL'S. FAMILY HISTORY: Coronary artery disease, ovarian cancer. SOCIAL HISTORY: She quit smoking over the past few years. No alcohol or IV drug use. 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 REVIEW OF SYSTEMS: Twelve systems were reviewed, other than that mentioned in the HPI were unremarkable. PHYSICAL EXAM: Temperature is 97.9, blood pressure is 106/66, pulse is 73. General: Chronically ill-appearing female, in no apparent distress, lying flat in bed. Alert, easily awoken from sleep. She is oriented x3. HEENT: Mucous membranes are moist without lesions, ulcers, or exudate. Neck: Supple. Trachea is midline. Head is normocephalic, atraumatic. Heart: Irregular rate and rhythm. Lungs: Clear to auscultation. Abdomen: Soft, nontender, nondistended. No rebound, no guarding, hypoactive bowel sounds. Skin is warm and dry. DIAGNOSTIC STUDIES/LAB DATA: Of note, white count is 9.9, hemoglobin went from 10.6 to 11.2, platelets of 202,000. INR is 1.54. BUN 19, creatinine 1.11. Lactate is 2.3. AST is elevated at 68, ALT elevated at 76. Alk phos is 185. ASSESSMENT AND PLAN: This is a 72-year-old female with recurrent C. diff infection. This is likely at least her third or fourth episode. She has been treated with Flagyl and vanco in the past. She is on 125 mg of vanco every 6. At this point, I would like to add an intravenous Flagyl. She is not toxic appearing but given the recurrent nature I would like to add another antibiotic. The other options are treatment with Dificid versus pulse dose therapy with vanco versus stool transplants. We will see how she does over the next few days and make further decisions. [id number]/[facility] #: [id number] MTDD
--- NOTE | 2017-09-16 16:19 | PN ---
Subjective Date of Service: 09/16/17 Interval History: No BM since arrival in her room. Appetite OK. No new c/o. Objective Active Medications: Hydrocodone Bitart/Acetaminophen ([place] 10/325 (Nf)) 1 tab PO Q6H PRN PRN Reason: PAIN - BACK Alprazolam (Xanax Tab*) 0.25 mg PO BID PRN PRN Reason: ANXIETY Aspirin (Aspirin Low Dose Tab*) 81 mg PO QAM [facility] Last Admin: 09/16/17 09:57 Dose: 81 mg Atorvastatin Calcium (Lipitor*) 40 mg PO QPM [facility] Cholecalciferol (Vitamin D Tab*) 5,000 units PO DAILY [facility] Last Admin: 09/16/17 10:03 Dose: 5,000 units Dextrose (D50w Syringe 50 Ml*) 25 gm IV PUSH ONCE PRN PRN Reason: FS < 60 Stop: 09/16/17 20:10 Ferrous Sulfate (Ferrous Sulfate Tab*) 325 mg PO DAILY [facility] Last Admin: 09/16/17 09:57 Dose: 325 mg Hydroxychloroquine Sulfate (Plaquenil Tab*) 200 mg PO BID [facility] Last Admin: 09/16/17 09:57 Dose: 200 mg Sodium Chloride (Ns 0.9% 1000 Ml*) 1,000 mls @ 0 mls/hr BOLUS .BOLUS DOSE [facility] PRN Reason: Wide Open Last Admin: 09/15/17 18:21 Dose: 1,000 mls/hr Sodium Chloride (Ns 0.9% 1000 Ml*) 1,000 mls @ 75 mls/hr IV PER RATE [facility] Stop: 09/17/17 11:13 Last Admin: 09/15/17 22:15 Dose: 75 mls/hr Metronidazole/Sodium Chloride (Flagyl 500 Mg Ivpb*) 500 mg in 100 mls @ 100 mls /hr IVPB Q8H [facility] Last Admin: 09/16/17 09:56 Dose: 100 mls/hr Lactobacillus Rhamnosus (Culturelle*) 1 cap PO BID [facility] Last Admin: 09/16/17 09:57 Dose: 1 cap Magnesium Oxide (Magox 400 Tab*) 800 mg PO QAM [facility] Last Admin: 09/16/17 09:57 Dose: 800 mg Metoprolol Succinate (Toprol Xl Tab*) 25 mg PO BEDTIME [facility] Last Admin: 09/15/17 22:30 Dose: 25 mg Mometasone Furoate/Formoterol Fumar (Dulera 200/5 Mdi*) 2 puff INH BID [facility] Last Admin: 09/16/17 07:36 Dose: 2 puff Omeprazole (Prilosec Cap*) 20 mg PO DAILY@0730 [facility] Last Admin: 09/16/17 09:57 Dose: 20 mg Ondansetron HCl (Zofran Inj*) 4 mg IV Q6H PRN PRN Reason: NAUSEA Rivaroxaban (Xarelto(*)) 15 mg PO DAILY [facility] Last Admin: 09/16/17 09:57 Dose: 15 mg Tiotropium [place] (Spiriva Cap.Inh*) 1 cap INH QAM [facility] Last Admin: 09/16/17 07:36 Dose: 1 cap.inh Vancomycin HCl (Vancomycin Cap*) 125 mg PO Q6HR [facility] Last Admin: 09/16/17 11:12 Dose: 125 mg Venlafaxine HCl (Effexor Xr Cap*) 75 mg PO QAM [facility] Last Admin: 09/16/17 09:57 Dose: 75 mg Vital Signs - 8 hr 09/16/17 09/16/17 09/16/17 08:25 11:56 14:48 Temperature 97.2 F 97.2 F Pulse Rate 41 85 Respiratory 16 24 16 Rate Blood Pressure 120/81 112/76 (mmHg) O2 Sat by Pulse 83 95 Oximetry Oxygen Devices in Use Now: None Appearance: Alert, partly up in bed. In good spirits. Looks comfortable. Eyes: No Scleral Icterus Abdominal: NL Sounds; No Tenderness; No Distention, No Hepatosplenomegaly, - Extremities: No Edema, No Clubbing, Cyanosis, - Skin: No Rash or Ulcers, No Nodules or Sclerosis, - Neurological: Alert and Oriented x 3, NL Sensation Result Diagrams: 09/16/17 05:20 09/16/17 05:13 Assess/Plan/Problems-Billing Assessment: - Patient Problems (1) C. difficile diarrhea Current Visit: No Status: Acute Code(s): A04.72 - ENTEROCOLITIS D/T CLOSTRIDIUM DIFFICILE, NOT SPCF RECUR SNOMED Code(s): 4524918280750 Comment: Much improved. Continue IV metronidazole and po vancomycin. Discussed with Dr. Gonzalez. If she continues to do well, consider discharge 09/[address] James. (2) Hyperkalemia Current Visit: Yes Status: Acute Code(s): E87.5 - HYPERKALEMIA SNOMED Code (s): 06429770 Comment: Avoid spironolactone. Now on renal diet. BMP 09/17. She hasn't finished the ordered NSS as of 09/16. (3) Hypertension Current Visit: No Status: Acute Code(s): I10 - ESSENTIAL (PRIMARY) HYPERTENSION SNOMED Code(s): 24836329 Comment: Continue home metoprolol. (4) Paroxysmal a-fib Current Visit: No Status: Chronic Priority: Medium Code(s): I48.0 - PAROXYSMAL ATRIAL FIBRILLATION SNOMED Code(s): 021574269 Comment: Continue rivaroxaban and metoprolol. (5) Rheumatoid arthritis Current Visit: No Status: Chronic Code(s): M06.9 - RHEUMATOID ARTHRITIS, UNSPECIFIED SNOMED Code(s): 03385871 Comment: Continue hydroxychloroquine.
[2017-09-16] MEDS: NS 0.9% 1000 ML* 1,000 ML IV SCH (16:53)
[2017-09-16] MEDS: Atorvastatin* 40 MG TAB PO SCH (18:09)
[2017-09-16] MEDS: Hydrocodone/Acetamin 10/325 1 TAB PO PRN (18:19)
[2017-09-16] MEDS: Metoprolol Succinate XL TAB* 25 MG PO SCH (20:58)
[2017-09-17] MEDS: ALPRAZolam TAB* 0.25 MG PO PRN (00:38)
[2017-09-17] MEDS: Vancomycin CAP* 125 MG CAP PO SCH ×4 (00:43→17:24)
[2017-09-17] MEDS: metroNIDAZOLE IV 500 MG/100ML* 500 MG/100 ML BAG IVPB SCH ×2 (00:55→09:09)
[2017-09-17] MEDS: Hydrocodone/Acetamin 10/325 1 TAB PO PRN (03:20)
[2017-09-17 07:23] LABS: EGFR Non-African American 42.9 (>60)
[2017-09-17] MEDS: Omeprazole CAP* 20 MG PO SCH (07:48)
[2017-09-17] MEDS: Magnesium Oxide TAB* 400 MG PO SCH (07:48)
[2017-09-17] MEDS: Venlafaxine EXT RELEASE CAP* 75 MG PO SCH (07:48)
[2017-09-17] MEDS: Aspirin Low Dose CHEW TAB* 81 MG PO SCH (07:48)
[2017-09-17] MEDS: Hydroxychloroquine TAB* 200 MG PO SCH ×2 (07:48→20:53)
[2017-09-17] MEDS: Ferrous Sulfate TAB* 325 MG PO SCH (07:48)
[2017-09-17] MEDS: Rivaroxaban TAB(*) 15 MG PO SCH (07:48)
[2017-09-17] MEDS: Lactobacillus Acidophilu (GG)* 1 CAP CAP PO SCH ×2 (07:48→20:53)
[2017-09-17] MEDS: Cholecalciferol TAB* 1000 UNITS PO SCH (07:48)
[2017-09-17] MEDS: Tiotropium CAP.INH* CAP.INH/18 MCG (USE ORDER SET !) INH SCH (09:23)
[2017-09-17] MEDS: Mometasone/Formoter 200/5 MDI INH SCH ×2 (09:23→20:31)
--- NOTE | 2017-09-17 12:29 | ECHO ---
Amended Report Patient: IZABELA DORAN [facility] Rec#: [id number] : 1945 Date: 09/17/2017 Age: 72y Height: 177.8 cm / 70.0 in Weight: 60.33 kg / 133.0 lbs Sex: F BSA: 1.76 Room#: 438 Admit Date#: 09/15/2017 Type: Inpatient Referring: Khari Sutton Reading: Genaro Auguste MD Coatings Inspector: Misty Zimmerman RDCS CC: Jordin Watkins MD Transthoracic Echocardiogram Indication: CHF BP: 109/73 HR: 80 Rhythm: NSR with PACs Findings History: C-Diff, ME s/p PCI, CHF, COPD, RA, anemia, CVA, FRANKIE, former smoker. Technical Comments: The study quality is good. Completed at 1200. Left Ventricle: The left ventricular chamber size is normal. Mild concentric left ventricular hypertrophy is observed. There is a prominent septal knuckle. Severe global hypokinesis of the left ventricle is observed.The mid inferior-lateral wall appears severely hyokinetic to akinetic. There is severely decreased left ventricular systolic function. The estimated ejection fraction is 25-30%. The assessment of diastolic function is non-diagnostic. Left Atrium: The left atrium is moderately dilated. Right Ventricle: Moderator Band present. The right ventricle is moderately dilated. The right ventricular global systolic function is mildly to moderately reduced. Right Atrium: The right atrium is moderately dilated. Aortic Valve: The aortic valve is trileaflet. Mild aortic leaflet calcification is visualized. Systolic excursion of the aortic valve cusps is reduced. There is a trace of aortic regurgitation. There is mild aortic stenosis.on 2-D imaging. The mean gradient of the aortic valve is 4.64 mmHg. The peak instantaneous gradient of the aortic valve is 9.33 mmHg. Mitral Valve: There is mitral annular calcification. Moderate mitral leaflet calcification is visualized. Mitral valve leaflet mobility is mildly restricted. There is moderate mitral regurgitation. There is no evidence of mitral stenosis. Tricuspid Valve: The tricuspid valve leaflets are moderately thickened. There is moderate tricuspid regurgitation. The right ventricular systolic pressure is estimated at 37 mmHg. There is evidence of mild pulmonary hypertension. Pulmonic Valve: The pulmonic valve appears normal. There is a trace pulmonic regurgitation. There is no pulmonic stenosis. Pericardium: There is no significant pericardial effusion. Aorta: There is mild dilatation of the ascending aorta. There is no dilatation of the aortic arch. The aortic root is normal in size. Pulmonary Artery: The main pulmonary artery appears normal. Venous: The inferior vena cava appears normal in size. There is a greater than 50% respiratory change in the inferior vena cava dimension. Conclusions There is severely decreased left ventricular systolic function. The estimated ejection fraction is 25-30%. Severe global hypokinesis of the left ventricle is observed.The mid inferior-lateral wall appears severely hyokinetic to akinetic. The left ventricular chamber size is normal. Mild concentric left ventricular hypertrophy is observed. The left atrium is moderately dilated. The right ventricle is moderately dilated. The right ventricular global systolic function is mildly to moderately reduced. The right atrium is moderately dilated. There is mild aortic stenosis. There is moderate mitral regurgitation (MR). There is moderate tricuspid regurgitation (TR). There is evidence of mild pulmonary hypertension. There is mild dilatation of the ascending aorta. Since the prior echocardiogram completed 06/15/17, pertinent changes are prior LVEF reported at 35-40%, prior normal right ventricular size and function reported, prior MR and TR graded mild and prior normal ascending aortic size reported. Measurements Name Value Normal Range RVIDd (AP) 2D 3.9 cm (0.9 - 2.6) RVDdMajor (2D) 5 cm (2.2 - 4.4) RAd ISD 4CH 5.4 cm (3.4 - 4.9) RA (A4C)W 4 cm (2.9 - 4.6) IVSd (2D) 1.3 cm (0.6 - 1) LVPWd (2D) 1.1 cm (0.6 - 1) LVIDd (2D) 4.7 cm (3.6 - 5.4) LVIDs (2D) 4.1 cm - LV FS (2D) 13 % (25 - 45) Aortic Annulus 1.8 cm (1.4 - 2.6) Ao root diameter (2D) 3.4 cm (2.1 - 3.5) Ascending Ao 3.7 cm (2.1 - 3.4) Aortic arch 2.9 cm (1.8 - 3.4) LA dimension (AP) 2D 4.5 cm (2.3 - 3.8) LAd ISD 4CH 6.3 cm (2.9 - 5.3) LA ISD 4CH W 5.3 cm (2.5 - 4.5) Name Value Normal Range LA ESV SP 4CH (A/L) 89 ml - LA ESV SP 2CH (A/L) 120 ml - LA ESV BP (A/L) 115 ml - LA ESV BP (A/L) index 65 ml/m2 - LA ESV SP 4CH (MOD) 77 ml - LA ESV SP 2CH (MOD) 117 ml - Name Value Normal Range MV E-wave Vmax 1.3 m/sec - MV deceleration time 137.3 msec - MV A-wave Vmax 0.94 m/sec - MV E:A ratio 1.32 ratio - LV septal e' Vmax 0.05 m/sec - LV lateral e' Vmax 0.05 m/sec - LV E:e' septal ratio 26 ratio - LV E:e' lateral ratio 26 ratio - Name Value Normal Range AV Vmax 1.52 m/sec - AV VTI 25.6 cm - AV peak gradient 9.33 mmHg - AV mean gradient 4.64 mmHg - LVOT diameter 2 cm - LVOT Vmax 0.56 m/sec - LVOT VTI 8.49 cm - LVOT peak gradient 1.29 mmHg - LVOT mean gradient 0.64 mmHg - DOI (VTI) 0.33 ratio - MARY Vmax 0.27 m/sec - Name Value Normal Range MV Vmax 1.6 m/sec - MV VTI 31.75 cm - MV PHT 38.33 msec - MR Vmax 5.3 m/sec - MR VTI 172.3 cm - MR flow (PISA) 70 ml/sec - MR ERO 0.13 cm2 - MR PISA radius 0.6 cm - MR alias Vmax 30.92 cm/sec - MVA (PHT) 5.7 cm2 - Name Value Normal Range TR Vmax 2.9 m/sec - TR peak gradient 34 mmHg - RAP 3 mmHg - RVSP 37 mmHg - IVC diameter 1.7 cm - Name Value Normal Range PV Vmax 0.64 m/sec - PV peak gradient 1.65 mmHg -
--- NOTE | 2017-09-17 13:24 | PN ---
Subjective Date of Service: 09/17/17 Interval History: One small loose stool so far today. No new c/o. Objective Active Medications: Hydrocodone Bitart/Acetaminophen ([place] 10/325 (Nf)) 1 tab PO Q6H PRN PRN Reason: PAIN - BACK Last Admin: 09/17/17 03:20 Dose: 1 tab Alprazolam (Xanax Tab*) 0.25 mg PO BID PRN PRN Reason: ANXIETY Last Admin: 09/17/17 00:38 Dose: 0.25 mg Aspirin (Aspirin Low Dose Tab*) 81 mg PO QAM [facility] Last Admin: 09/17/17 07:48 Dose: 81 mg Atorvastatin Calcium (Lipitor*) 40 mg PO QPM [facility] Last Admin: 09/16/17 18:09 Dose: 40 mg Cholecalciferol (Vitamin D Tab*) 5,000 units PO DAILY [facility] Last Admin: 09/17/17 07:48 Dose: 5,000 units Ferrous Sulfate (Ferrous Sulfate Tab*) 325 mg PO DAILY [facility] Last Admin: 09/17/17 07:48 Dose: 325 mg Hydroxychloroquine Sulfate (Plaquenil Tab*) 200 mg PO BID [facility] Last Admin: 09/17/17 07:48 Dose: 200 mg Sodium Chloride (Ns 0.9% 1000 Ml*) 1,000 mls @ 0 mls/hr BOLUS .BOLUS DOSE [facility] PRN Reason: Wide Open Last Admin: 09/15/17 18:21 Dose: 1,000 mls/hr Lactobacillus Rhamnosus (Culturelle*) 1 cap PO BID [facility] Last Admin: 09/17/17 07:48 Dose: 1 cap Magnesium Oxide (Magox 400 Tab*) 800 mg PO QAM [facility] Last Admin: 09/17/17 07:48 Dose: 800 mg Metoprolol Succinate (Toprol Xl Tab*) 25 mg PO BEDTIME [facility] Last Admin: 09/16/17 20:58 Dose: 25 mg Metronidazole (Flagyl Tab*) 500 mg PO TID [facility] Mometasone Furoate/Formoterol Fumar (Dulera 200/5 Mdi*) 2 puff INH BID [facility] Last Admin: 09/17/17 09:23 Dose: Not Given Omeprazole (Prilosec Cap*) 20 mg PO DAILY@0730 [facility] Last Admin: 09/17/17 07:48 Dose: 20 mg Ondansetron HCl (Zofran Inj*) 4 mg IV Q6H PRN PRN Reason: NAUSEA Rivaroxaban (Xarelto(*)) 15 mg PO DAILY [facility] Last Admin: 09/17/17 07:48 Dose: 15 mg Tiotropium [place] (Spiriva Cap.Inh*) 1 cap INH QAM [facility] Last Admin: 09/17/17 09:23 Dose: Not Given Vancomycin HCl (Vancomycin Cap*) 125 mg PO Q6HR [facility] Last Admin: 09/17/17 11:43 Dose: 125 mg Venlafaxine HCl (Effexor Xr Cap*) 75 mg PO QAM [facility] Last Admin: 09/17/17 07:48 Dose: 75 mg Vital Signs - 8 hr 09/17/17 09/17/17 09/17/17 07:45 08:18 08:22 Temperature 98.2 F Pulse Rate 62 Respiratory 18 20 Rate Blood Pressure 120/86 (mmHg) O2 Sat by Pulse 79 93 Oximetry Oxygen Devices in Use Now: None Appearance: Alert, sitting up in bed enjoying lunch. In fair spirits. Looks comfortable. Eyes: No Scleral Icterus Extremities: No Edema, No Clubbing, Cyanosis, - Skin: No Rash or Ulcers, No Nodules or Sclerosis, - Neurological: Alert and Oriented x 3, NL Sensation Result Diagrams: 09/16/17 05:20 09/17/17 06:44 Microbiology and Other Data: Microbiology 09/15/17 23:50 Urine Culture - Preliminary Urine Escherichia Coli Assess/Plan/Problems-Billing Assessment: - Patient Problems (1) C. difficile diarrhea Current Visit: No Status: Acute Code(s): A04.72 - ENTEROCOLITIS D/T CLOSTRIDIUM DIFFICILE, NOT SPCF RECUR SNOMED Code(s): 9759665743532 Comment: Much improved. Continue po metronidazole and po vancomycin. Discussed with Dr. Gonzalez. She needs fup with Dr. James. She feels she needs STR. (2) Hyperkalemia Current Visit: Yes Status: Acute Code(s): E87.5 - HYPERKALEMIA SNOMED Code (s): 80030620 Comment: Avoid spironolactone. Now on renal diet. K+ sdl downto 5.4 on 09/17. Re-check in a few days. (3) Hypertension Current Visit: No Status: Acute Code(s): I10 - ESSENTIAL (PRIMARY) HYPERTENSION SNOMED Code(s): 68203667 Comment: Continue home metoprolol. (4) Paroxysmal a-fib Current Visit: No Status: Chronic Priority: Medium Code(s): I48.0 - PAROXYSMAL ATRIAL FIBRILLATION SNOMED Code(s): 195393760 Comment: Continue rivaroxaban and metoprolol. (5) Rheumatoid arthritis Current Visit: No Status: Chronic Code(s): M06.9 - RHEUMATOID ARTHRITIS, UNSPECIFIED SNOMED Code(s): 19544160 Comment: Continue hydroxychloroquine.
[2017-09-17] MEDS: metroNIDAZOLE TAB* 250 MG PO SCH ×2 (14:52→20:53)
[2017-09-17] MEDS: Atorvastatin* 40 MG TAB PO SCH (17:24)
[2017-09-17] MEDS: Metoprolol Succinate XL TAB* 25 MG PO SCH (20:53)
[2017-09-18] MEDS: Vancomycin CAP* 125 MG CAP PO SCH ×4 (00:04→17:13)
[2017-09-18] MEDS: ALPRAZolam TAB* 0.25 MG PO PRN ×2 (07:54→22:15)
[2017-09-18] MEDS: Mometasone/Formoter 200/5 MDI INH SCH ×2 (08:07→20:20)
[2017-09-18] MEDS: Tiotropium CAP.INH* CAP.INH/18 MCG (USE ORDER SET !) INH SCH (08:07)
[2017-09-18] MEDS: Omeprazole CAP* 20 MG PO SCH (09:48)
[2017-09-18] MEDS: Aspirin Low Dose CHEW TAB* 81 MG PO SCH (09:48)
[2017-09-18] MEDS: Cholecalciferol TAB* 1000 UNITS PO SCH (09:49)
[2017-09-18] MEDS: Ferrous Sulfate TAB* 325 MG PO SCH (09:50)
[2017-09-18] MEDS: Hydroxychloroquine TAB* 200 MG PO SCH ×2 (09:50→22:14)
[2017-09-18] MEDS: Lactobacillus Acidophilu (GG)* 1 CAP CAP PO SCH ×2 (09:51→22:14)
[2017-09-18] MEDS: Magnesium Oxide TAB* 400 MG PO SCH (09:51)
[2017-09-18] MEDS: metroNIDAZOLE TAB* 250 MG PO SCH ×3 (09:52→22:14)
[2017-09-18] MEDS: Rivaroxaban TAB(*) 15 MG PO SCH (09:53)
[2017-09-18] MEDS: Venlafaxine EXT RELEASE CAP* 75 MG PO SCH (09:54)
--- NOTE | 2017-09-18 14:02 | PN ---
Subjective Date of Service: 09/18/17 Interval History: C/O malaise, states she doesn't know what's wrong with her. Objective Active Medications: Hydrocodone Bitart/Acetaminophen ([place] 10/325 (Nf)) 1 tab PO Q6H PRN PRN Reason: PAIN - BACK Last Admin: 09/17/17 03:20 Dose: 1 tab Alprazolam (Xanax Tab*) 0.25 mg PO BID PRN PRN Reason: ANXIETY Last Admin: 09/18/17 07:54 Dose: 0.25 mg Aspirin (Aspirin Low Dose Tab*) 81 mg PO QAM [facility] Last Admin: 09/18/17 09:48 Dose: 81 mg Atorvastatin Calcium (Lipitor*) 40 mg PO QPM [facility] Last Admin: 09/17/17 17:24 Dose: 40 mg Cholecalciferol (Vitamin D Tab*) 5,000 units PO DAILY [facility] Last Admin: 09/18/17 09:49 Dose: 5,000 units Ferrous Sulfate (Ferrous Sulfate Tab*) 325 mg PO DAILY [facility] Last Admin: 09/18/17 09:50 Dose: 325 mg Hydroxychloroquine Sulfate (Plaquenil Tab*) 200 mg PO BID [facility] Last Admin: 09/18/17 09:50 Dose: 200 mg Sodium Chloride (Ns 0.9% 1000 Ml*) 1,000 mls @ 0 mls/hr BOLUS .BOLUS DOSE [facility] PRN Reason: Wide Open Last Admin: 09/15/17 18:21 Dose: 1,000 mls/hr Lactobacillus Rhamnosus (Culturelle*) 1 cap PO BID [facility] Last Admin: 09/18/17 09:51 Dose: 1 cap Magnesium Oxide (Magox 400 Tab*) 800 mg PO QAM [facility] Last Admin: 09/18/17 09:51 Dose: 800 mg Metoprolol Succinate (Toprol Xl Tab*) 25 mg PO BEDTIME [facility] Last Admin: 09/17/17 20:53 Dose: 25 mg Metronidazole (Flagyl Tab*) 500 mg PO TID [facility] Last Admin: 09/18/17 09:52 Dose: 500 mg Mometasone Furoate/Formoterol Fumar (Dulera 200/5 Mdi*) 2 puff INH BID [facility] Last Admin: 09/18/17 08:07 Dose: 2 puff Omeprazole (Prilosec Cap*) 20 mg PO DAILY@0730 [facility] Last Admin: 09/18/17 09:48 Dose: 20 mg Ondansetron HCl (Zofran Inj*) 4 mg IV Q6H PRN PRN Reason: NAUSEA Last Admin: 09/18/17 12:56 Dose: 4 mg Rivaroxaban (Xarelto(*)) 15 mg PO DAILY [facility] Last Admin: 09/18/17 09:53 Dose: 15 mg Tiotropium [place] (Spiriva Cap.Inh*) 1 cap INH QAM [facility] Last Admin: 09/18/17 08:07 Dose: 1 cap.inh Vancomycin HCl (Vancomycin Cap*) 125 mg PO Q6HR [facility] Last Admin: 09/18/17 12:57 Dose: 125 mg Venlafaxine HCl (Effexor Xr Cap*) 75 mg PO QAM [facility] Last Admin: 09/18/17 09:54 Dose: 75 mg Vital Signs - 8 hr 09/18/17 09/18/17 09/18/17 07:54 08:00 08:41 Temperature 97.3 F Pulse Rate 79 Respiratory 20 18 18 Rate Blood Pressure 130/90 (mmHg) O2 Sat by Pulse 100 Oximetry 09/18/17 09/18/17 11:10 11:41 Temperature Pulse Rate 80 Respiratory 18 16 Rate Blood Pressure 109/86 (mmHg) O2 Sat by Pulse 98 Oximetry Oxygen Devices in Use Now: None Appearance: Alert, partly up in bed. In fair spirits. Looks comfortable. Eyes: No Scleral Icterus Abdominal: NL Sounds; No Tenderness; No Distention, No Hepatosplenomegaly, - Extremities: No Edema, No Clubbing, Cyanosis, - Skin: No Rash or Ulcers, No Nodules or Sclerosis, - Neurological: Alert and Oriented x 3, NL Sensation - diminished memory Result Diagrams: 09/16/17 05:20 09/17/17 06:44 Microbiology and Other Data: Microbiology 09/15/17 23:50 Urine Culture - Preliminary Urine Escherichia Coli Assess/Plan/Problems-Billing Assessment: - Patient Problems (1) C. difficile diarrhea Current Visit: No Status: Acute Code(s): A04.72 - ENTEROCOLITIS D/T CLOSTRIDIUM DIFFICILE, NOT SPCF RECUR SNOMED Code(s): 6511573869476 Comment: Much improved. Continue po metronidazole and po vancomycin. Discussed with Dr. Gonzalez. She needs fup with Dr. James. She feels she needs STR. (2) Hyperkalemia Current Visit: Yes Status: Acute Code(s): E87.5 - HYPERKALEMIA SNOMED Code (s): 68114989 Comment: Avoid spironolactone. Now on renal diet. K+ 5.4 on 09/17. Re-check 09/19. Cortisol level 09/19. (3) Hypertension Current Visit: No Status: Acute Code(s): I10 - ESSENTIAL (PRIMARY) HYPERTENSION SNOMED Code(s): 41815578 Comment: Continue home metoprolol. (4) Paroxysmal a-fib Current Visit: No Status: Chronic Priority: Medium Code(s): I48.0 - PAROXYSMAL ATRIAL FIBRILLATION SNOMED Code(s): 530675087 Comment: Continue rivaroxaban and metoprolol. (5) Rheumatoid arthritis Current Visit: No Status: Chronic Code(s): M06.9 - RHEUMATOID ARTHRITIS, UNSPECIFIED SNOMED Code(s): 34197671 Comment: Continue hydroxychloroquine.
[2017-09-18] MEDS: Hydrocodone/Acetamin 10/325 1 TAB PO PRN ×2 (15:51→22:15)
[2017-09-18] MEDS: Atorvastatin* 40 MG TAB PO SCH (17:13)
[2017-09-18] MEDS: Ondansetron INJ* 2 MG/ML VIAL IV PRN (20:43)
--- NOTE | 2017-09-18 21:40 | CONS ---
CONSULTATION REPORT: DATE OF CONSULT: 09/18/17 REQUESTING PHYSICIAN: Dr. Buchanan. CONSULTING SERVICE: Infectious Disease. REASON FOR CONSULTATION: C. difficile diarrhea. IMPRESSION: 1. Recent episodes of Clostridium difficile diarrhea treated with vancomycin and recently has been on vancomycin, but developed explosive stools while on it. She had some formed stool on her KUB when she arrived. The Clostridium difficile PCR was positive, formed stool on the KUB I think least diagnosis and question to some extent. In any event, she has improved on a combination of vancomycin and Flagyl and has had a couple formed stools in the last day. 2. Coronary artery disease and a history of myocardial infarction. 3. Rheumatoid arthritis, on Plaquenil. RECOMMENDATION: Continue combination of vancomycin and Flagyl, assuming she continues to improve. We can plan on taper after the 2 weeks of vancomycin. If her symptoms recur on this regimen, I think that would raise the question of other etiologies for diarrhea. HISTORY OF PRESENT ILLNESS: This is a 72-year-old woman treated for C. difficile diarrhea in May, then in July and then was started on vancomycin about 10 to 14 days ago by her provider at [facility] for what she says was a positive C. diff test. She was having a few soft stools a day and then end of last week had a more explosive liquid stools while on vancomycin. She came to the hospital. She did not have a leukocytosis. Her stool was sent and is PCR positive for C. diff. In the last couple of days, she has been on 2 to 3 soft to loose stools with mild generalized abdominal discomfort. No focal pain. She has had no fevers or chills. Food makes her nauseous. PAST MEDICAL HISTORY: 1. C. difficile diarrhea. 2. Myocardial infarction. 3. Coronary artery disease, now systolic congestive heart failure, last ejection fraction 30% to 40%. 4. Hypertension. 5. Rheumatoid arthritis. 6. COPD. 7. Atrial fibrillation. 8. Stroke. 9. Depression. 10. Obstructive sleep apnea. 11. Anemia of chronic disease. 12. Compression fracture. 13. Status post ovarian cyst removal. 14. Status post appendectomy. 15. Status post right knee arthroplasty complicated by infection. MEDICATIONS: 1. Xanax as needed. 2. Aspirin. 3. Lipitor. 4. Cholecalciferol 5. Vicodin. 6. Plaquenil. 7. Lactobacillus. 8. Metronidazole 500 mg by mouth 3 times a day. 9. Rivaroxaban. 10. Vancomycin 125 mg by mouth 4 times a day. 11. Effexor. ALLERGIES: MEPERIDINE, CODEINE, GLATIRAMER, MORPHINE, NONSTEROIDALS. FAMILY HISTORY: No current infections. SOCIAL HISTORY: She lives outside of [place]. 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 Nonsmoker. REVIEW OF SYSTEMS: A 14-point review of systems was negative except as noted above. PHYSICAL EXAMINATION: Vital Signs: Temperature is 36.3, heart rate 80, respiratory rate 18, blood pressure 130/90, oxygen saturation 100% on room air. In general, she is awake, not in distress. Neurologic: She is oriented x3. HEENT: There is no conjunctival hemorrhage. Mucous membranes are moist. Neck is supple without mass. Heart has regular rate and rhythm without murmur, rubs , or gallops. Lungs are clear to auscultation bilaterally. Abdomen: Soft, nontender, nondistended. There are bowel sounds present. Skin: There is no rash or splinter hemorrhages. Musculoskeletal: There is no spine tenderness to palpation. LABORATORY DATA: White blood cell count 9.9, hemoglobin 11.2, platelets 202. Creatinine 1.2. CRP was 10 on admission. Please see impressions and recommendations outlined above, which I have discussed with Dr. Gonzalez. Thank you for asking me to see Ms. Solomon in consultation. [id number]/CPS #: [id number] MTDD
[2017-09-18] MEDS: Metoprolol Succinate XL TAB* 25 MG PO SCH (22:14)
[2017-09-19] MEDS: Ondansetron INJ* 2 MG/ML VIAL IV PRN ×2 (00:57→06:33)
[2017-09-19] MEDS: Vancomycin CAP* 125 MG CAP PO SCH ×4 (00:57→17:33)
[2017-09-19 05:41] LABS: EGFR Non-African American 32.1 (>60)
[2017-09-19] MEDS: Hydrocodone/Acetamin 10/325 1 TAB PO PRN (06:32)
[2017-09-19] MEDS: Omeprazole CAP* 20 MG PO SCH (07:25)
[2017-09-19] MEDS: Tiotropium CAP.INH* CAP.INH/18 MCG (USE ORDER SET !) INH SCH (09:31)
[2017-09-19] MEDS: Mometasone/Formoter 200/5 MDI INH SCH ×2 (09:31→20:44)
[2017-09-19] MEDS: Magnesium Oxide TAB* 400 MG PO SCH (09:51)
[2017-09-19] MEDS: Ferrous Sulfate TAB* 325 MG PO SCH (09:51)
[2017-09-19] MEDS: Aspirin Low Dose CHEW TAB* 81 MG PO SCH (09:51)
[2017-09-19] MEDS: Rivaroxaban TAB(*) 15 MG PO SCH (09:51)
[2017-09-19] MEDS: metroNIDAZOLE TAB* 250 MG PO SCH ×3 (09:52→21:34)
[2017-09-19] MEDS: Hydroxychloroquine TAB* 200 MG PO SCH ×2 (09:52→21:36)
[2017-09-19] MEDS: Venlafaxine EXT RELEASE CAP* 75 MG PO SCH (09:52)
[2017-09-19] MEDS: Lactobacillus Acidophilu (GG)* 1 CAP CAP PO SCH ×2 (09:53→21:35)
[2017-09-19] MEDS: Cholecalciferol TAB* 1000 UNITS PO SCH (09:53)
[2017-09-19] MEDS ORDERED: NS 0.9% 1000 ML* 1,000 ML IV SCH (13:45)
--- NOTE | 2017-09-19 13:52 | PN ---
Subjective Date of Service: 09/19/17 Interval History: SALGUERO. Only 1 BM today. C/O nausea, also SALGUERO. Objective Active Medications: Hydrocodone Bitart/Acetaminophen (Ragan 10/325 (Nf)) 1 tab PO Q6H PRN PRN Reason: PAIN - BACK Last Admin: 09/19/17 06:32 Dose: 1 tab Alprazolam (Xanax Tab*) 0.25 mg PO BID PRN PRN Reason: ANXIETY Last Admin: 09/18/17 22:15 Dose: 0.25 mg Aspirin (Aspirin Low Dose Tab*) 81 mg PO QAM [facility] Last Admin: 09/19/17 09:51 Dose: 81 mg Atorvastatin Calcium (Lipitor*) 40 mg PO QPM [facility] Last Admin: 09/18/17 17:13 Dose: 40 mg Cholecalciferol (Vitamin D Tab*) 5,000 units PO DAILY [facility] Last Admin: 09/19/17 09:53 Dose: 5,000 units Ferrous Sulfate (Ferrous Sulfate Tab*) 325 mg PO DAILY [facility] Last Admin: 09/19/17 09:51 Dose: 325 mg Hydroxychloroquine Sulfate (Plaquenil Tab*) 200 mg PO BID [facility] Last Admin: 09/19/17 09:52 Dose: 200 mg Sodium Chloride (Ns 0.9% 1000 Ml*) 1,000 mls @ 100 mls/hr IV PER RATE [facility] Lactobacillus Rhamnosus (Culturelle*) 1 cap PO BID [facility] Last Admin: 09/19/17 09:53 Dose: 1 cap Magnesium Oxide (Magox 400 Tab*) 800 mg PO QAM [facility] Last Admin: 09/19/17 09:51 Dose: 800 mg Metoprolol Succinate (Toprol Xl Tab*) 25 mg PO BEDTIME [facility] Last Admin: 09/18/17 22:14 Dose: 25 mg Metronidazole (Flagyl Tab*) 500 mg PO TID [facility] Last Admin: 09/19/17 09:52 Dose: 500 mg Mometasone Furoate/Formoterol Fumar (Dulera 200/5 Mdi*) 2 puff INH BID [facility] Last Admin: 09/19/17 09:31 Dose: 2 puff Omeprazole (Prilosec Cap*) 20 mg PO DAILY@0730 [facility] Last Admin: 09/19/17 07:25 Dose: 20 mg Ondansetron HCl (Zofran Inj*) 4 mg IV Q4H PRN PRN Reason: NAUSEA Last Admin: 09/19/17 06:33 Dose: 4 mg Rivaroxaban (Xarelto(*)) 15 mg PO DAILY [facility] Last Admin: 09/19/17 09:51 Dose: 15 mg Sodium Polystyrene Sulfonate (Kayexalate Oral.Skyla*) 15 gm PO TUTHSA [facility] Tiotropium [place] (Spiriva Cap.Inh*) 1 cap INH QAM [facility] Last Admin: 09/19/17 09:31 Dose: 2 cap.inh Vancomycin HCl (Vancomycin Cap*) 125 mg PO Q6HR [facility] Last Admin: 09/19/17 13:06 Dose: 125 mg Venlafaxine HCl (Effexor Xr Cap*) 75 mg PO QAM [facility] Last Admin: 09/19/17 09:52 Dose: 75 mg Vital Signs - 8 hr 09/19/17 09/19/17 09/19/17 06:32 07:38 08:28 Temperature 97.0 F Pulse Rate 73 Respiratory 16 16 16 Rate Blood Pressure 107/72 (mmHg) O2 Sat by Pulse 96 Oximetry 09/19/17 09:43 Temperature Pulse Rate Respiratory 16 Rate Blood Pressure (mmHg) O2 Sat by Pulse Oximetry Oxygen Devices in Use Now: None Appearance: Alert, supine in bed. In fair spirits. Looks comfortable, somewhat discouraged. Neck: No Thyroid Enlargement, Masses - JVD at 90 degrees Respiratory: Symmetrical Chest Expansion and Respiratory Effort, Clear to Auscultation, Clear to Percussion Cardiovascular: NL Sounds; No Murmurs; No JVD, RRR, No Edema, - Extremities: No Edema, No Clubbing, Cyanosis, - Skin: No Rash or Ulcers, No Nodules or Sclerosis, - Neurological: Alert and Oriented x 3, NL Sensation Result Diagrams: 09/16/17 05:20 09/19/17 05:05 Microbiology and Other Data: Microbiology 09/15/17 23:50 Urine Culture - Preliminary Urine Escherichia Coli Assess/Plan/Problems-Billing Assessment: - Patient Problems (1) C. difficile diarrhea Current Visit: No Status: Acute Code(s): A04.72 - ENTEROCOLITIS D/T CLOSTRIDIUM DIFFICILE, NOT SPCF RECUR SNOMED Code(s): 9404174583726 Comment: Much improved. Continue po metronidazole and po vancomycin for [address] course[address]iscuss[address] Dr. Gonzalez. She needs fup with Dr. James. She feels she needs STR. (2) Hyperkalemia Current Visit: Yes Status: Acute Code(s): E87.5 - HYPERKALEMIA SNOMED Code (s): 16652700 Comment: Avoid spironolactone. Now on renal diet. K+ 5.4 on 09/17. Re-check 09/19. Cortisol level 09/19 was 16.99. Start Kayexalate 15 gm TIW on 09/19. BMP 09/20. Random urine soium chliride, potassiu, creatinine sent 09/19. (3) Hypertension Current Visit: No Status: Acute Code(s): I10 - ESSENTIAL (PRIMARY) HYPERTENSION SNOMED Code(s): 82786505 Comment: Continue home metoprolol. (4) Paroxysmal a-fib Current Visit: No Status: Chronic Priority: Medium Code(s): I48.0 - PAROXYSMAL ATRIAL FIBRILLATION SNOMED Code(s): 523074742 Comment: Continue rivaroxaban and metoprolol. (5) Rheumatoid arthritis Current Visit: No Status: Chronic Code(s): M06.9 - RHEUMATOID ARTHRITIS, UNSPECIFIED SNOMED Code(s): 07086949 Comment: Continue hydroxychloroquine.
[2017-09-19] MEDS: Sodium Polystyrene ORAL.SOL* 15 GM/60 ML BTL PO SCH (14:26)
[2017-09-19] MEDS: Atorvastatin* 40 MG TAB PO SCH (17:33)
[2017-09-19] MEDS: Metoprolol Succinate XL TAB* 25 MG PO SCH (21:35)
[2017-09-20] MEDS: Vancomycin CAP* 125 MG CAP PO SCH ×4 (00:02→18:58)
[2017-09-20 05:57] LABS: EGFR Non-African American 27.7 (>60)
[2017-09-20] MEDS: Tiotropium CAP.INH* CAP.INH/18 MCG (USE ORDER SET !) INH SCH (08:23)
[2017-09-20] MEDS: Mometasone/Formoter 200/5 MDI INH SCH ×2 (08:24→19:58)
--- NOTE | 2017-09-20 09:14 | PN ---
Progress Note - Progress Note Date of Service: 09/20/17 SOAP: Subjective: CC: Cdif HPI: 72 year old woman with recurrent Cdif infection treated with vancomycin and admitted with worsening diarrhea. Improved now, no abd pain and 1 soft stool today. Appetite improved. No fever. Objective: Vital Signs Temp 36.7 C 09/20/17 03:44 Pulse 72 09/20/17 03:44 Resp 20 09/20/17 03:44 BP 108/71 09/20/17 03:44 Pulse Ox 98 09/20/17 03:44 Intake & Output 09/19/17 09/20/17 09/20/17 18:59 06:59 18:59 Intake Total 550 400 Output Total 200 200 Balance 350 200 Weight 138 lb 14.4 oz Intake: Oral 550 400 Output: Urine 200 200 Other: Estimated Void Small # Bowel Movements 1 Estimated Stool Amount Small # Voids 1 Gen:awake, no distress HEENT:PERRL, MMM Heart:RRR no murmur Lungs:CTA BL Abd:+BS NTND soft Skin: no rash Laboratory Results - last 24 hr 09/20/17 09/20/17 04:46 05:55 Sodium 135 Potassium 5.2 H Chloride 105 Carbon Dioxide 23 Anion Gap 7 BUN 50 H Creatinine 1.80 H Est GFR ( Amer) 35.6 Est GFR (Non-Af Amer) 27.7 BUN/Creatinine Ratio 27.8 H Glucose 82 Calcium 9.0 Ur Random Creatinine 123.18 Ur Random Sodium < 18 Ur Random Chloride 31 Urine Potassium 106.2 Assessment: 1. Cdif colitis, recurrent, improving 2. Acute kidney injury; pre renal by labs ?secondary to low cardiac output and poor PO intake Plan: 1. continue vancomycin 125 mg po 4 times daily; appetite improving, flagyl may be inhibiting it but starting to improve today Discussed with Dr Buchanan
[2017-09-20] MEDS ORDERED: NS 0.9% 1000 ML* 1,000 ML IV ONE (09:17)
[2017-09-20] MEDS: metroNIDAZOLE TAB* 250 MG PO SCH (09:47)
[2017-09-20] MEDS: Cholecalciferol TAB* 1000 UNITS PO SCH (10:05)
[2017-09-20] MEDS: Aspirin Low Dose CHEW TAB* 81 MG PO SCH (10:06)
[2017-09-20] MEDS: Omeprazole CAP* 20 MG PO SCH (10:06)
[2017-09-20] MEDS: Lactobacillus Acidophilu (GG)* 1 CAP CAP PO SCH ×2 (10:06→20:55)
[2017-09-20] MEDS: Ferrous Sulfate TAB* 325 MG PO SCH (10:07)
[2017-09-20] MEDS: Venlafaxine EXT RELEASE CAP* 75 MG PO SCH (10:07)
[2017-09-20] MEDS: Rivaroxaban TAB(*) 15 MG PO SCH (10:07)
[2017-09-20] MEDS: Hydroxychloroquine TAB* 200 MG PO SCH ×2 (10:07→20:56)
[2017-09-20] MEDS: Magnesium Oxide TAB* 400 MG PO SCH (10:07)
--- NOTE | 2017-09-20 14:12 | PN ---
Subjective Date of Service: 09/20/17 Interval History: No subj change. SALGUERO. Objective Active Medications: Hydrocodone Bitart/Acetaminophen ([place] 10/325 (Nf)) 1 tab PO Q6H PRN PRN Reason: PAIN - BACK Last Admin: 09/19/17 06:32 Dose: 1 tab Alprazolam (Xanax Tab*) 0.25 mg PO BID PRN PRN Reason: ANXIETY Last Admin: 09/18/17 22:15 Dose: 0.25 mg Aspirin (Aspirin Low Dose Tab*) 81 mg PO QAM [facility] Last Admin: 09/20/17 10:06 Dose: 81 mg Atorvastatin Calcium (Lipitor*) 40 mg PO QPM [facility] Last Admin: 09/19/17 17:33 Dose: 40 mg Cholecalciferol (Vitamin D Tab*) 5,000 units PO DAILY [facility] Last Admin: 09/20/17 10:05 Dose: 5,000 units Ferrous Sulfate (Ferrous Sulfate Tab*) 325 mg PO DAILY [facility] Last Admin: 09/20/17 10:07 Dose: 325 mg Hydralazine HCl (Apresoline Tab*) 5 mg PO BID [facility] Hydroxychloroquine Sulfate (Plaquenil Tab*) 200 mg PO BID [facility] Last Admin: 09/20/17 10:07 Dose: 200 mg Sodium Chloride (Ns 0.9% 1000 Ml*) 1,000 mls @ 200 mls/hr IV .PER RATE ONE Stop: 09/20/17 14:16 Last Admin: 09/20/17 10:04 Dose: 200 mls/hr Lactobacillus Rhamnosus (Culturelle*) 1 cap PO BID [facility] Last Admin: 09/20/17 10:06 Dose: 1 cap Magnesium Oxide (Magox 400 Tab*) 800 mg PO QAM [facility] Last Admin: 09/20/17 10:07 Dose: 800 mg Metoprolol Succinate (Toprol Xl Tab*) 25 mg PO BEDTIME [facility] Last Admin: 09/19/17 21:35 Dose: 25 mg Mometasone Furoate/Formoterol Fumar (Dulera 200/5 Mdi*) 2 puff INH BID [facility] Last Admin: 09/20/17 08:24 Dose: 2 puff Omeprazole (Prilosec Cap*) 20 mg PO DAILY@0730 [facility] Last Admin: 09/20/17 10:06 Dose: 20 mg Ondansetron HCl (Zofran Inj*) 4 mg IV Q4H PRN PRN Reason: NAUSEA Last Admin: 09/19/17 06:33 Dose: 4 mg Rivaroxaban (Xarelto(*)) 15 mg PO DAILY [facility] Last Admin: 09/20/17 10:07 Dose: 15 mg Sodium Polystyrene Sulfonate (Kayexalate Oral.Skyla*) 15 gm PO TUTHSA [facility] Last Admin: 09/19/17 14:26 Dose: 15 gm Tiotropium [place] (Spiriva Cap.Inh*) 1 cap INH QAM [facility] Last Admin: 09/20/17 08:23 Dose: 1 cap.inh Vancomycin HCl (Vancomycin Cap*) 125 mg PO Q6HR [facility] Last Admin: 09/20/17 13:09 Dose: 125 mg Venlafaxine HCl (Effexor Xr Cap*) 75 mg PO QAM [facility] Last Admin: 09/20/17 10:07 Dose: 75 mg Vital Signs - 8 hr 09/20/17 09/20/17 09/20/17 07:56 08:00 08:24 Temperature 97.3 F Pulse Rate 71 90 Respiratory 24 22 Rate Blood Pressure 93/60 (mmHg) O2 Sat by Pulse 96 Oximetry Oxygen Devices in Use Now: None Appearance: Alert, sl up in bed. Neutral affect. Looks comfortable. Eyes: No Scleral Icterus Respiratory: Symmetrical Chest Expansion and Respiratory Effort, Clear to Auscultation, Clear to Percussion Extremities: No Edema, No Clubbing, Cyanosis, - Skin: No Rash or Ulcers, No Nodules or Sclerosis, - Neurological: Alert and Oriented x 3, NL Sensation Result Diagrams: 09/16/17 05:20 09/20/17 04:46 Microbiology and Other Data: Microbiology 09/15/17 23:50 Urine Culture - Preliminary Urine Escherichia Coli Assess/Plan/Problems-Billing Assessment: - Patient Problems (1) C. difficile diarrhea Current Visit: No Status: Acute Code(s): A04.72 - ENTEROCOLITIS D/T CLOSTRIDIUM DIFFICILE, NOT SPCF RECUR SNOMED Code(s): 3241180630054 Comment: Much improved. Continue po vancomycin for 2 week course. Discuss[address] with Dr. James 09/20. She feels she needs STR. (2) Hyperkalemia Current Visit: Yes Status: Acute Code(s): E87.5 - HYPERKALEMIA SNOMED Code (s): 74759956 Comment: Avoid spironolactone. Now on renal diet. Cortisol level 09/19 was 16.99. Start Kayexalate 15 gm TIW on 09/19. On liter NSS IV on 09/20. BMP 09/21. (3) Hypertension Current Visit: No Status: Acute Code(s): I10 - ESSENTIAL (PRIMARY) HYPERTENSION SNOMED Code(s): 83782550 Comment: Continue home metoprolol. (4) Paroxysmal a-fib Current Visit: No Status: Chronic Priority: Medium Code(s): I48.0 - PAROXYSMAL ATRIAL FIBRILLATION SNOMED Code(s): 941697193 Comment: Continue rivaroxaban and metoprolol. (5) Rheumatoid arthritis Current Visit: No Status: Chronic Code(s): M06.9 - RHEUMATOID ARTHRITIS, UNSPECIFIED SNOMED Code(s): 11478264 Comment: Continue hydroxychloroquine. (6) JUSTINA (acute kidney injury) Current Visit: Yes Status: Acute Code(s): N17.9 - ACUTE KIDNEY FAILURE, UNSPECIFIED SNOMED Code(s): 21010344 Comment: Discussed with Dr. Pierce. Mainly due to systolic heart failure. Hydralazine started PM 09/20. BMP 09/21. 1000 ml NSS on 08/23 given IV.
--- NOTE | 2017-09-20 14:44 | PN ---
Progress Note - Progress Note Date of Service: 09/20/17 Note: Bladder scan volume 71 ml.
[2017-09-20] MEDS: hydrALAZINE TAB* 10 MG PO SCH ×2 (15:08→20:55)
[2017-09-20] MEDS: Atorvastatin* 40 MG TAB PO SCH (18:58)
--- NOTE | 2017-09-20 19:45 | CONS ---
CONTINUATION ADDENDUM NOW INCLUDED ON THIS REPORT CC: Dr. Watkins * NEPHROLOGY CONSULTATION REPORT: DATE OF CONSULT: 09/20/17 HISTORY OF PRESENT ILLNESS: Ms. Solomon is a 72-year-old female with history of atherosclerotic cardiovascular disease, who is status post myocardial infarction. She has a known depressed ejection fraction of about 35%. However , she also has moderate mitral regurgitation. She has a history of rheumatoid arthritis, COPD, and a previous CVA. She presented because of diarrhea, nausea , and weakness. She has been found to have recurrent C. difficile infection. She has been noted to have rising serum creatinine while here in the hospital precipitating this consultation. She has been weak. She has been noting dyspnea on exertion while here in the hospital. Her appetite is poor. She has not been eating well. PAST MEDICAL HISTORY: Her previous medical history is also significant for an ovarian cyst removal. She has had an appendectomy. She has had bilateral knee replacements. She has compression fractures of the spine. She has obstructive sleep apnea. MEDICATIONS: Her medications at the time of admission included: 1. Aspirin 81 mg daily. 2. Potassium chloride 20 mEq . 3. Magnesium oxide 800 mg every morning. 4. Spironolactone 25 mg every other day. 5. Venlafaxine 75 mg daily. 6. Metoprolol 25 mg at bedtime. 7. Atorvastatin 40 mg daily. 8. Tiotropium 1 cap inhalation daily. 9. Alprazolam 0.25 mg b.i.d. 10. Lisinopril 2.5 mg daily. 11. Rivaroxaban mg daily. 12. Vancomycin 125 mg p.o. q.6 hours. 13. Lactobacillus acidophilus 1 daily. 14. Pantoprazole 40 mg daily. 15. Zofran 4 mg every 6 hours as required. 16. Hydroxychloroquine 200 mg twice a day. 17. Breo Ellipta 200/25 mg daily. 18. Iron sulfate 325 mg daily. 19. Viberzi 75 mg every other day. 20. Vitamin D 50,000 units daily. 21. Bumex 0.5 mg daily. 22. Fosamax 75 mg weekly. 23. Tylenol 500 mg b.i.d. 24. Emily 10/325 one every 6 hours p.r.n. ALLERGIES: She is allergic to MEPERIDINE, CODEINE, GLATIRAMER, MORPHINE, and NSAIDS. CONTINUATION ADDENDUM: FAMILY HISTORY: Significant that her brother had coronary artery disease. She has an aunt with ovarian cancer. 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 She lives at home alone. REVIEW OF SYSTEMS: Significant, she does not feel she has decreased mental acuity. She has not had orthopnea. She has no swallowing difficulties. No chest pain. Otherwise, her review was included in the previous and present medical illnesses. PHYSICAL EXAM: She is an elderly appearing white female, who appears to be quite comfortable, lying at approximately 15 degrees of elevation. Her blood pressure is 93/60 with a pulse of 71, respiratory rate of 22. She is having occasional PVCs on the monitor. Her urinary output has been quite poor. Her weight is up about 2 kg since admission. HEENT: Her mucous membranes are moist. She is anicteric. Her extraocular muscles are intact. The chest is surprisingly clear. The heart revealed a regular rhythm with a grade 2/6 systolic murmur, which apparently is not new. The abdomen is soft and nontender. There is no edema. LABORATORY DATA: Review of her laboratory studies reveals a white count of 9.9 , hemoglobin of 11.2, platelet count of 220,000. INR of 1.54. Sodium of 135, potassium of 5.2, total CO2 23, chloride 105, BUN 50 up from 21 on presentation , creatinine 1.8 up from 1.23 on presentation. Her iron studies have been quite low. She has had urinary sodium of less than 18 ; as a result, her fractional excretion of sodium must be very, very low. IMPRESSION: Acute renal insufficiency. This is highly likely to be on the basis of a prerenal state secondary to her congestive heart failure. She has received some intravenous hydration and her renal function has only deteriorated in the face of that. She is also hyperkalemic and this is a little improved at present and this is likely due to the fact that while her urinary potassium level is reasonable at 106, her total urine volume is terrible. Therefore, total urinary losses of potassium are going to be small. At the present time, drugs like spironolactone and lisinopril are relatively contraindicated. It would be nice to get better blood flow out of her heart and as a result, I think a reasonable trial should be made with some hydralazine. We will obviously start with very low doses and increase sequentially as long as her blood pressure tolerates it. I would hope that as we do that we would see a cessation of her rise in serum creatinine. I have wondered about orthostatic dizziness and hypotension. I have discussed the case at length with Dr. Buchanan. [id number]/CPS #: [id number] Ricky- [id number]/CPS #: [id number] MTDD
--- NOTE | 2017-09-20 20:02 | CONS ---
NEPHROLOGY CONSULTATION: ADDENDUM: FAMILY HISTORY: Significant that her brother had coronary artery disease. She has an aunt with ovarian cancer. 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 She lives at home alone. REVIEW OF SYSTEMS: Significant, she does not feel she has decreased mental acuity. She has not had orthopnea. She has no swallowing difficulties. No chest pain. Otherwise, her review was included in the previous and present medical illnesses. PHYSICAL EXAM: She is an elderly appearing white female, who appears to be quite comfortable, lying at approximately 15 degrees of elevation. Her blood pressure is 93/60 with a pulse of 71, respiratory rate of 22. She is having occasional PVCs on the monitor. Her urinary output has been quite poor. Her weight is up about 2 kg since admission. HEENT: Her mucous membranes are moist. She is anicteric. Her extraocular muscles are intact. The chest is surprisingly clear. The heart revealed a regular rhythm with a grade 2/6 systolic murmur, which apparently is not new. The abdomen is soft and nontender. There is no edema. LABORATORY DATA: Review of her laboratory studies reveals a white count of 9.9 , hemoglobin of 11.2, platelet count of 220,000. INR of 1.54. Sodium of 135, potassium of 5.2, total CO2 23, chloride 105, BUN 50 up from 21 on presentation , creatinine 1.8 up from 1.23 on presentation. Her iron studies have been quite low. She has had urinary sodium of less than 18 as a result her fractional excretion of sodium must be very, very low. IMPRESSION: Acute renal insufficiency. This is highly likely to be on the basis of a prerenal state secondary to her congestive heart failure. She has received some intravenous hydration and her renal function has only deteriorated in the face of that. She is also hyperkalemic and this is a little improved at present and this is likely due to the fact that while her urinary potassium level is reasonable at 106, her total urine volume is terrible. Therefore, total urinary losses of potassium are going to be small. At the present time, drugs like spironolactone and lisinopril are relatively contraindicated. It would be nice to get better blood flow out of her heart and as a result, I think a reasonable trial should be made with some hydralazine. We will obviously start with very low doses and increase sequentially as long as her blood pressure tolerates it. I would hope that as we do that we would see a cessation of her rise in serum creatinine. I have wondered about orthostatic dizziness and hypotension. I have discussed the case at length with Dr. Buchanan. [id number]/[id number] #: [id number] MTDD
[2017-09-20] MEDS: Metoprolol Succinate XL TAB* 25 MG PO SCH (20:56)
[2017-09-21] MEDS: Vancomycin CAP* 125 MG CAP PO SCH ×5 (01:20→23:54)
[2017-09-21 06:00] LABS: EGFR Non-African American 36.4 (>60)
[2017-09-21] MEDS: Omeprazole CAP* 20 MG PO SCH (07:27)
[2017-09-21] MEDS ORDERED: Furosemide IV* 10 MG/ML 2 ML VIAL (20 MG) IV ONE (09:02)
[2017-09-21] MEDS: Mometasone/Formoter 200/5 MDI INH SCH ×2 (09:03→19:18)
[2017-09-21] MEDS: Tiotropium CAP.INH* CAP.INH/18 MCG (USE ORDER SET !) INH SCH (09:03)
[2017-09-21] MEDS: Cholecalciferol TAB* 1000 UNITS PO SCH (09:35)
[2017-09-21] MEDS: Lactobacillus Acidophilu (GG)* 1 CAP CAP PO SCH ×2 (09:35→21:16)
[2017-09-21] MEDS: Ferrous Sulfate TAB* 325 MG PO SCH (09:35)
[2017-09-21] MEDS: Venlafaxine EXT RELEASE CAP* 75 MG PO SCH (09:35)
[2017-09-21] MEDS: Aspirin Low Dose CHEW TAB* 81 MG PO SCH (09:35)
[2017-09-21] MEDS: Rivaroxaban TAB(*) 15 MG PO SCH (09:36)
[2017-09-21] MEDS: hydrALAZINE TAB* 10 MG PO SCH ×3 (09:36→21:17)
[2017-09-21] MEDS: Hydroxychloroquine TAB* 200 MG PO SCH ×2 (09:36→21:16)
[2017-09-21] MEDS: Magnesium Oxide TAB* 400 MG PO SCH (09:37)
--- NOTE | 2017-09-21 09:49 | PN ---
Subjective Date of Service: 09/21/17 Interval History: C/O dyspnea, lower abdominal pain. Objective Active Medications: Hydrocodone Bitart/Acetaminophen ([place] 10/325 (Nf)) 1 tab PO Q6H PRN PRN Reason: PAIN - BACK Last Admin: 09/19/17 06:32 Dose: 1 tab Alprazolam (Xanax Tab*) 0.25 mg PO BID PRN PRN Reason: ANXIETY Last Admin: 09/18/17 22:15 Dose: 0.25 mg Aspirin (Aspirin Low Dose Tab*) 81 mg PO QAM [facility] Last Admin: 09/21/17 09:35 Dose: 81 mg Atorvastatin Calcium (Lipitor*) 40 mg PO QPM [facility] Last Admin: 09/20/17 18:58 Dose: 40 mg Cholecalciferol (Vitamin D Tab*) 5,000 units PO DAILY [facility] Last Admin: 09/21/17 09:35 Dose: 5,000 units Ferrous Sulfate (Ferrous Sulfate Tab*) 325 mg PO DAILY [facility] Last Admin: 09/21/17 09:35 Dose: 325 mg Furosemide (Lasix Tab*) 20 mg PO MOWEFR [facility] Hydralazine HCl (Apresoline Tab*) 5 mg PO TID [facility] Last Admin: 09/21/17 09:36 Dose: 5 mg Hydroxychloroquine Sulfate (Plaquenil Tab*) 200 mg PO BID [facility] Last Admin: 09/21/17 09:36 Dose: 200 mg Lactobacillus Rhamnosus (Culturelle*) 1 cap PO BID [facility] Last Admin: 09/21/17 09:35 Dose: 1 cap Magnesium Oxide (Magox 400 Tab*) 800 mg PO QAM [facility] Last Admin: 09/21/17 09:37 Dose: 800 mg Metoprolol Succinate (Toprol Xl Tab*) 25 mg PO BEDTIME [facility] Last Admin: 09/20/17 20:56 Dose: 25 mg Mometasone Furoate/Formoterol Fumar (Dulera 200/5 Mdi*) 2 puff INH BID [facility] Last Admin: 09/21/17 09:03 Dose: 2 puff Omeprazole (Prilosec Cap*) 20 mg PO DAILY@0730 [facility] Last Admin: 09/21/17 07:27 Dose: 20 mg Ondansetron HCl (Zofran Inj*) 4 mg IV Q4H PRN PRN Reason: NAUSEA Last Admin: 09/19/17 06:33 Dose: 4 mg Rivaroxaban (Xarelto(*)) 15 mg PO DAILY [facility] Last Admin: 09/21/17 09:36 Dose: 15 mg Sodium Polystyrene Sulfonate (Kayexalate Oral.Skyla*) 15 gm PO TUTHSA [facility] Last Admin: 09/19/17 14:26 Dose: 15 gm Tiotropium [place] (Spiriva Cap.Inh*) 1 cap INH QAM [facility] Last Admin: 09/21/17 09:03 Dose: 1 cap.inh Vancomycin HCl (Vancomycin Cap*) 125 mg PO Q6HR [facility] Last Admin: 09/21/17 06:22 Dose: 125 mg Venlafaxine HCl (Effexor Xr Cap*) 75 mg PO QAM [facility] Last Admin: 09/21/17 09:35 Dose: 75 mg Vital Signs - 8 hr 09/21/17 09/21/17 04:15 09:28 Temperature 97.4 F 98.7 F Pulse Rate 76 78 Respiratory 20 21 Rate Blood Pressure 118/82 (mmHg) O2 Sat by Pulse 92 96 Oximetry Oxygen Devices in Use Now: None, Nasal Cannula Appearance: Alert, sl up in bed. In fair spirits. Looks comfortable. Eyes: No Scleral Icterus Respiratory: Symmetrical Chest Expansion and Respiratory Effort, Clear to Percussion, - - Bibasilar coarse rales Cardiovascular: NL Sounds; No Murmurs; No JVD, RRR, No Edema, - Extremities: No Clubbing, Cyanosis, - - Tr edema BL Skin: No Rash or Ulcers, No Nodules or Sclerosis, - Neurological: Alert and Oriented x 3, NL Sensation, - - diminished memory Result Diagrams: 09/16/17 05:20 09/21/17 05:15 Microbiology and Other Data: Microbiology 09/15/17 23:50 Urine Culture - Preliminary Urine Escherichia Coli Assess/Plan/Problems-Billing Assessment: - Patient Problems (1) C. difficile diarrhea Current Visit: No Status: Acute Code(s): A04.72 - ENTEROCOLITIS D/T CLOSTRIDIUM DIFFICILE, NOT SPCF RECUR SNOMED Code(s): 0219651120717 Comment: Much improved. Continue po vancomycin for 2 week course[address]iscuss[address] Dr. James 09/20. She feels she needs STR. (2) Hyperkalemia Current Visit: Yes Status: Acute Code(s): E87.5 - HYPERKALEMIA SNOMED Code (s): 31576935 Comment: Avoid spironolactone. Now on renal diet. Cortisol level 09/19 was 16.99. Start Kayexalate 15 gm TIW on 09/19. On liter NSS IV on 09/20. Furosemide 20 mg IV on 09/21, start furosemide 20 mg MoWeFr on 09/22. BMP 09/22. (3) Hypertension Current Visit: No Status: Acute Code(s): I10 - ESSENTIAL (PRIMARY) HYPERTENSION SNOMED Code(s): 73264299 Comment: Continue home metoprolol. (4) Paroxysmal a-fib Current Visit: No Status: Chronic Priority: Medium Code(s): I48.0 - PAROXYSMAL ATRIAL FIBRILLATION SNOMED Code(s): 551155870 Comment: Continue rivaroxaban and metoprolol. (5) Rheumatoid arthritis Current Visit: No Status: Chronic Code(s): M06.9 - RHEUMATOID ARTHRITIS, UNSPECIFIED SNOMED Code(s): 27403327 Comment: Continue hydroxychloroquine. (6) JUSTINA (acute kidney injury) Current Visit: Yes Status: Acute Code(s): N17.9 - ACUTE KIDNEY FAILURE, UNSPECIFIED SNOMED Code(s): 34472585 Comment: Discussed with Dr. Pierce. Mainly due to systolic heart failure. Hydralazine started PM 09/20, increased to 5 mg tid 09/21, will increase to 10 mg tid 09/21/17 2100 hrs. BMP 09/21. 1000 ml NSS given IV on 09/20 . (7) Anemia Current Visit: No Status: Acute Priority: Medium Code(s): D64.9 - ANEMIA, UNSPECIFIED SNOMED Code(s): 310185698 Comment: Chronic, likely ACD. CBC 09/22.
[2017-09-21] MEDS: Sodium Polystyrene ORAL.SOL* 15 GM/60 ML BTL PO SCH (14:22)
[2017-09-21] MEDS: Atorvastatin* 40 MG TAB PO SCH (17:37)
[2017-09-21] MEDS: Metoprolol Succinate XL TAB* 25 MG PO SCH (21:16)
[2017-09-22 05:07] LABS: ABS Basophils 0 10^3/ul (0-0.2); ABS Eosinophils 0 10^3/ul (0-0.6); ABS Lymphocytes 1.3 10^3/ul (1.0-4.8); ABS Monocytes 1.2 10^3/ul (0-0.8); ABS Neutrophils 8.6 10^3/ul (1.5-7.7); ABS Nucleated RBC 0 10^3/ul; Eosinophil % 0 % (0-6); Hematocrit 27 % (35-47); Hemoglobin 8.7 g/dl (12.0-16.0); Lymphocyte % 11.6 % (25-47); Mean Corpuscular HGB Conc 32 g/dl (31-36); Mean Corpuscular Hemoglobin 28 pg (27-31); Mean Corpuscular Volume 87 fL (80-97); Mean Platelet Volume 7 um3 (7.4-10.4); Nucleated Red Blood Cells % 0.2; Platelet Count 261 10^3/ul (150-450); Red Blood Count 3.08 10^6/ul (4.0-5.4); Red Cell Distribution Width 18 % (10.5-15)
[2017-09-22] MEDS: Vancomycin CAP* 125 MG CAP PO SCH ×4 (05:46→23:24)
[2017-09-22] MEDS: Omeprazole CAP* 20 MG PO SCH (07:32)
[2017-09-22] MEDS: Mometasone/Formoter 200/5 MDI INH SCH ×2 (08:07→19:45)
[2017-09-22] MEDS: Tiotropium CAP.INH* CAP.INH/18 MCG (USE ORDER SET !) INH SCH (08:07)
--- NOTE | 2017-09-22 09:02 | RAD ---
HISTORY: Hypoxia COMPARISONS: September 15, 2014 VIEWS: 1: frontal portable view of the chest at 8:02 AM FINDINGS: LINES AND TUBES: None. CARDIOMEDIASTINAL SILHOUETTE: The cardiac silhouette is enlarged. The cardiomediastinal silhouette is otherwise normal for portable technique. PLEURA: There is persistent elevation of the right hemidiaphragm. LUNG PARENCHYMA: There is linear opacification of the right lung base. ABDOMEN: The upper abdomen is clear. There is no subphrenic gas. BONES AND SOFT TISSUES: There is a chronic right-sided rib fracture. IMPRESSION: 1. CARDIOMEGALY. 2. LINEAR ATELECTASIS OF THE RIGHT LUNG BASE.
[2017-09-22] MEDS: Cholecalciferol TAB* 1000 UNITS PO SCH (10:01)
[2017-09-22] MEDS: Aspirin Low Dose CHEW TAB* 81 MG PO SCH (10:01)
[2017-09-22] MEDS: Venlafaxine EXT RELEASE CAP* 75 MG PO SCH (10:01)
[2017-09-22] MEDS: Lactobacillus Acidophilu (GG)* 1 CAP CAP PO SCH ×2 (10:02→20:04)
[2017-09-22] MEDS: Furosemide TAB* 20 MG PO SCH (10:02)
[2017-09-22] MEDS: Magnesium Oxide TAB* 400 MG PO SCH (10:02)
[2017-09-22] MEDS: hydrALAZINE TAB* 10 MG PO SCH ×3 (10:02→20:06)
[2017-09-22] MEDS: Rivaroxaban TAB(*) 15 MG PO SCH (10:02)
[2017-09-22] MEDS: Hydroxychloroquine TAB* 200 MG PO SCH ×2 (10:02→20:05)
[2017-09-22] MEDS ORDERED: cefTRIAXone(*) 1 GM in NS 0.9% 50 ML* 50 ML IVPB SCH (12:00)
[2017-09-22] MEDS: Hydrocodone/Acetamin 10/325 1 TAB PO PRN (12:30)
[2017-09-22] MEDS ORDERED: Furosemide IV* 10 MG/ML 2 ML VIAL (20 MG) IV SLOW PU ONE (12:59)
--- NOTE | 2017-09-22 16:12 | PN ---
Subjective Date of Service: 09/22/17 Interval History: Patient has had 3 loose stools without blood or melena in the past 24 hours. None during the day today. No abdominal pain. Patient desaturated into the high- 70s overnight and again during the day. No SOB, dizziness, or somnolence. Possible inaccurate reading. No dysuria, F/C, N/V, CP, lower extremity edema, palpitations, or other pain. Family History: Unchanged from Admission Social History: Unchanged from Admission Past Medical History: Unchanged from Admission Objective Active Medications: Hydrocodone Bitart/Acetaminophen ([place] 10/325 (Nf)) 1 tab PO Q6H PRN PRN Reason: PAIN - BACK Last Admin: 09/22/17 12:30 Dose: 1 tab Alprazolam (Xanax Tab*) 0.25 mg PO BID PRN PRN Reason: ANXIETY Last Admin: 09/18/17 22:15 Dose: 0.25 mg Aspirin (Aspirin Low Dose Tab*) 81 mg PO QAM [facility] Last Admin: 09/22/17 10:01 Dose: 81 mg Atorvastatin Calcium (Lipitor*) 40 mg PO QPM [facility] Last Admin: 09/21/17 17:37 Dose: 40 mg Cholecalciferol (Vitamin D Tab*) 5,000 units PO DAILY [facility] Last Admin: 09/22/17 10:01 Dose: 5,000 units Ferrous Sulfate (Ferrous Sulfate Tab*) 325 mg PO EVERY OTHER DAY [facility] Furosemide (Lasix Tab*) 20 mg PO MOWEFR [facility] Last Admin: 09/22/17 10:02 Dose: 20 mg Hydralazine HCl (Apresoline Tab*) 10 mg PO TID [facility] Last Admin: 09/22/17 13:52 Dose: 10 mg Hydroxychloroquine Sulfate (Plaquenil Tab*) 200 mg PO BID [facility] Last Admin: 09/22/17 10:02 Dose: 200 mg Ceftriaxone Sodium 1 gm/ (Sodium Chloride) 50 mls @ 200 mls/hr IVPB Q24H [facility] Last Admin: 09/22/17 12:23 Dose: 200 mls/hr Lactobacillus Rhamnosus (Culturelle*) 1 cap PO BID [facility] Last Admin: 09/22/17 10:02 Dose: 1 cap Magnesium Oxide (Magox 400 Tab*) 800 mg PO QAM [facility] Last Admin: 03/09/18 10:02 Dose: 800 mg Melatonin (Melatonin (Nf)) 3 mg PO BEDTIME [facility] Metoprolol Succinate (Toprol Xl Tab*) 25 mg PO BEDTIME [facility] Last Admin: 09/21/17 21:16 Dose: 25 mg Mometasone Furoate/Formoterol Fumar (Dulera 200/5 Mdi*) 2 puff INH BID [facility] Last Admin: 09/22/17 08:07 Dose: 2 puff Omeprazole (Prilosec Cap*) 20 mg PO DAILY@0730 [facility] Last Admin: 09/22/17 07:32 Dose: 20 mg Ondansetron HCl (Zofran Inj*) 4 mg IV Q4H PRN PRN Reason: NAUSEA Last Admin: 09/19/17 06:33 Dose: 4 mg Rivaroxaban (Xarelto(*)) 15 mg PO DAILY [facility] Last Admin: 09/22/17 10:02 Dose: 15 mg Tiotropium [place] (Spiriva Cap.Inh*) 1 cap INH QAM [facility] Last Admin: 09/22/17 08:07 Dose: 1 cap.inh Vancomycin HCl (Vancomycin Cap*) 125 mg PO Q6HR [facility] Last Admin: 09/22/17 12:23 Dose: 125 mg Venlafaxine HCl (Effexor Xr Cap*) 75 mg PO QAM [facility] Last Admin: 09/22/17 10:01 Dose: 75 mg Vital Signs - 8 hr 09/22/17 09/22/17 09/22/17 11:30 12:14 12:30 Temperature 98.0 F Pulse Rate 86 Respiratory 20 26 Rate Blood Pressure 94/70 (mmHg) O2 Sat by Pulse 96 Oximetry 09/22/17 14:30 Temperature Pulse Rate Respiratory 26 Rate Blood Pressure (mmHg) O2 Sat by Pulse Oximetry Oxygen Devices in Use Now: Nasal Cannula - 2L Appearance: Patient is a 72yo female who appears stated age and is sitting in the bed in [facility]. Eyes: No Scleral Icterus, PERRLA Ears/Nose/Mouth/Throat: NL Teeth, Lips, Gums, Clear Oropharnyx, Mucous Membranes Moist Neck: NL Appearance and Movements; NL JVP, Trachea Midline Respiratory: Symmetrical Chest Expansion and Respiratory Effort, - - Slight crackles in B/L Lung bases. Cardiovascular: NL Sounds; No Murmurs; No JVD, RRR, No Edema Abdominal: NL Sounds; No Tenderness; No Distention, No Hepatosplenomegaly Lymphatic: No Cervical Adenopathy Extremities: No Edema, No Clubbing, Cyanosis Skin: No Nodules or Sclerosis, - - Small pruritic scabs on fingers. Neurological: Alert and Oriented x 3, NL Sensation, NL Muscle Strength and Tone Result Diagrams: 09/22/17 04:45 09/22/17 09:21 Microbiology and Other Data: Microbiology 09/15/17 23:50 Urine Culture - Preliminary Urine Escherichia Coli Assess/Plan/Problems-Billing Assessment: Patient is a 72yo female with a PMF for CHF, C. Diff, ND, RA, AF, FRANKIE, anemia, who presents with recurrent C. Diff improving on vancomycin oral treatment with Justina which is resolved and new hypoxia possibly from fluid overload. - Patient Problems (1) JUSTINA (acute kidney injury) Current Visit: Yes Status: Acute Code(s): N17.9 - ACUTE KIDNEY FAILURE, UNSPECIFIED SNOMED Code(s): 52785023 Comment: Discussed with Dr. Pierce. Improved below baseline with fluids and hydralzaine Mainly due to systolic heart failure. Hydralazine at 10mg TID. (2) Hyperkalemia Current Visit: Yes Status: Acute Code(s): E87.5 - HYPERKALEMIA SNOMED Code (s): 87975772 Comment: Improved. Hold Spironolatone. Now on renal diet. Furosemide 20mg PO MOWEFR. Will monitor. Would recommend holding potassium supplemtation at Discharge. (3) Anemia Current Visit: No Status: Acute Priority: Medium Code(s): D64.9 - ANEMIA, UNSPECIFIED SNOMED Code(s): 020828397 Comment: Chronic, likely ACD and SANA plus possibly some dilution from fluids yesterday. Will monitor. Asymptomatic. Continue iron supplementation every other day. Repeat Stool Occult Blood. (4) C. difficile diarrhea Current Visit: No Status: Acute Code(s): A04.72 - ENTEROCOLITIS D/T CLOSTRIDIUM DIFFICILE, NOT SPCF RECUR SNOMED Code(s): 0819233901142 Comment: 3 loose BMs in the past 24hrs. Much improved. Continue po vancomycin for 2 week course. (5) Elevated troponin Current Visit: No Status: Acute Code(s): R79.89 - OTHER SPECIFIED ABNORMAL FINDINGS OF BLOOD CHEMISTRY SNOMED Code(s): 397549972 Comment: Likely from demand ischemia. Chronic EKG changes with LBBB. No CP or other signs of ACS during admission. (6) Hypertension Current Visit: No Status: Acute Code(s): I10 - ESSENTIAL (PRIMARY) HYPERTENSION SNOMED Code(s): 26817892 Comment: Continue home metoprolol. (7) CAD (coronary artery disease) Current Visit: No Status: Chronic Priority: Medium Code(s): I25.10 - ATHSCL HEART DISEASE OF [place] CORONARY ARTERY W/O ANG PCTRS SNOMED Code(s): 95928257 Comment: Chronic systolic heart failure. Continue ASA, statin. Hold lisinopril, Spironolactone. Lasix 3x a week. (8) CHF (congestive heart failure) Current Visit: No Status: Chronic Priority: High Code(s): I50.9 - HEART FAILURE, UNSPECIFIED SNOMED Code(s): 21139525 Comment: Hypoxia overnight with crackles in lungs. Fluids yesterday. Diurese as BP will tolerate. Chronic systolic heart failure, EF <35-40% Continue metoprolol Lasix 3x week. Daily weights, I/O Resume home meds as patient's condition continues to improve (9) Rheumatoid arthritis Current Visit: No Status: Chronic Code(s): M06.9 - RHEUMATOID ARTHRITIS, UNSPECIFIED SNOMED Code(s): 40351728 Comment: Continue hydroxychloroquine. (10) DVT prophylaxis Current Visit: No Status: Acute Priority: Medium Code(s): YYV6354 - SNOMED Code(s): 340469748 Comment: Ruddy. Status and Disposition: Discharge to [facility] when medically stable.
[2017-09-22] MEDS: Atorvastatin* 40 MG TAB PO SCH (17:44)
[2017-09-22 18:21] LABS: Hematocrit 30 % (35-47); Hemoglobin 9.5 g/dl (12.0-16.0)
[2017-09-22] MEDS: CMCS Melatonin (NF) 3 MG TAB PO SCH (20:05)
[2017-09-22] MEDS: Metoprolol Succinate XL TAB* 25 MG PO SCH (20:05)
[2017-09-22 22:29] LABS: EGFR Non-African American 53.3 (>60)
[2017-09-23] MEDS: Vancomycin CAP* 125 MG CAP PO SCH ×4 (05:52→22:44)
[2017-09-23 05:55] LABS: ABS Basophils 0 10^3/ul (0-0.2); ABS Eosinophils 0 10^3/ul (0-0.6); ABS Lymphocytes 1.3 10^3/ul (1.0-4.8); ABS Monocytes 1.1 10^3/ul (0-0.8); ABS Neutrophils 6.3 10^3/ul (1.5-7.7); ABS Nucleated RBC 0 10^3/ul; Eosinophil % 0 % (0-6); Hematocrit 26 % (35-47); Hematocrit for Retic CNT 26 % (35-47); Hemoglobin 8.4 g/dl (12.0-16.0); Lymphocyte % 14.5 % (25-47); Mean Corpuscular HGB Conc 32 g/dl (31-36); Mean Corpuscular Hemoglobin 28 pg (27-31); Mean Corpuscular Volume 87 fL (80-97); Mean Platelet Volume 7 um3 (7.4-10.4); Nucleated Red Blood Cells % 0.1; Platelet Count 251 10^3/ul (150-450); Red Cell Distribution Width 19 % (10.5-15); White Blood Count 8.7 10^3/ul (3.5-10.8)
[2017-09-23 06:11] LABS: EGFR Non-African American 58.5 (>60)
[2017-09-23] MEDS ORDERED: Magnesium Sulfate 2 GM IV* 2 GM/50 ML BAG IVPB ONE (06:55)
[2017-09-23 07:53] LABS: Corrected Retic Count 2.3 % (0.5-1.5)
[2017-09-23] MEDS: Rivaroxaban TAB(*) 15 MG PO SCH (08:21)
[2017-09-23] MEDS: Hydroxychloroquine TAB* 200 MG PO SCH ×2 (08:21→20:31)
[2017-09-23] MEDS: Lactobacillus Acidophilu (GG)* 1 CAP CAP PO SCH ×2 (08:22→20:31)
[2017-09-23] MEDS: Cholecalciferol TAB* 1000 UNITS PO SCH (08:22)
[2017-09-23] MEDS: Venlafaxine EXT RELEASE CAP* 75 MG PO SCH (08:22)
[2017-09-23] MEDS: Aspirin Low Dose CHEW TAB* 81 MG PO SCH (08:22)
[2017-09-23] MEDS: Ferrous Sulfate TAB* 325 MG PO SCH (08:22)
[2017-09-23] MEDS: Magnesium Oxide TAB* 400 MG PO SCH (08:22)
[2017-09-23] MEDS: Omeprazole CAP* 20 MG PO SCH (08:22)
[2017-09-23] MEDS: hydrALAZINE TAB* 10 MG PO SCH ×5 (08:23→21:00)
[2017-09-23] MEDS: Tiotropium CAP.INH* CAP.INH/18 MCG (USE ORDER SET !) INH SCH (09:03)
[2017-09-23] MEDS: Mometasone/Formoter 200/5 MDI INH SCH ×2 (09:03→20:34)
[2017-09-23] MEDS: ALPRAZolam TAB* 0.25 MG PO PRN ×2 (11:16→22:42)
[2017-09-23] MEDS: ceFAZolin 1 GM VIAL(*) 1 GM in NS 0.9% 50 ML* 50 ML IVPB SCH ×2 (12:23→20:22)
[2017-09-23] MEDS ORDERED: Furosemide IV* 10 MG/ML 2 ML VIAL (20 MG) IV SLOW PU ONE (12:51)
--- NOTE | 2017-09-23 14:19 | PN ---
Subjective Date of Service: 09/23/17 Interval History: Patient feels significantly worse than yesterday. Feels overall fatigued and weak. Had several Loose BMs without blood or melena. Patient has increased SOB from yesterday. Patient denies F/C, N/V abdominal pain, CP, Dizziness, palpitations, FUENTES, dysuria, or other pain. Patient states that she would prefer not to go to a [facility] but that she is not sure how well she would function at home. Family History: Unchanged from Admission Social History: Unchanged from Admission Past Medical History: Unchanged from Admission Objective Active Medications: Hydrocodone Bitart/Acetaminophen ([place] 10 (Nf)) 1 tab PO Q6H PRN PRN Reason: PAIN - BACK Last Admin: 09/22/17 12:30 Dose: 1 tab Alprazolam (Xanax Tab*) 0.25 mg PO BID PRN PRN Reason: ANXIETY Last Admin: 09/23/17 11:16 Dose: 0.25 mg Aspirin (Aspirin Low Dose Tab*) 81 mg PO QAM [facility] Last Admin: 09/23/17 08:22 Dose: 81 mg Atorvastatin Calcium (Lipitor*) 40 mg PO QPM [facility] Last Admin: 09/22/17 17:44 Dose: 40 mg Cholecalciferol (Vitamin D Tab*) 5,000 units PO DAILY [facility] Last Admin: 09/23/17 08:22 Dose: 5,000 units Ferrous Sulfate (Ferrous Sulfate Tab*) 325 mg PO EVERY OTHER DAY [facility] Last Admin: 09/23/17 08:22 Dose: 325 mg Furosemide (Lasix Tab*) 20 mg PO MOWEFR [facility] Last Admin: 09/22/17 10:02 Dose: 20 mg Hydralazine HCl (Apresoline Tab*) 10 mg PO TID [facility] Last Admin: 09/23/17 08:23 Dose: 10 mg Hydroxychloroquine Sulfate (Plaquenil Tab*) 200 mg PO BID [facility] Last Admin: 09/23/17 08:21 Dose: 200 mg Cefazolin Sodium 1 gm/ Sodium (Chloride) 50 mls @ 200 mls/hr IVPB Q8H [facility] Last Admin: 09/23/17 12:23 Dose: 200 mls/hr Lactobacillus Rhamnosus (Culturelle*) 1 cap PO BID [facility] Last Admin: 09/23/17 08:22 Dose: 1 cap Magnesium Oxide (Magox 400 Tab*) 800 mg PO QAM [facility] Last Admin: 09/23/17 08:22 Dose: 800 mg Melatonin (Melatonin (Nf)) 3 mg PO BEDTIME [facility] Last Admin: 09/22/17 20:05 Dose: 3 mg Metoprolol Succinate (Toprol Xl Tab*) 25 mg PO BEDTIME [facility] Last Admin: 09/22/17 20:05 Dose: 25 mg Mometasone Furoate/Formoterol Fumar (Dulera 200/5 Mdi*) 2 puff INH BID [facility] Last Admin: 09/23/17 09:03 Dose: 2 puff Omeprazole (Prilosec Cap*) 20 mg PO DAILY@0730 [facility] Last Admin: 09/23/17 08:22 Dose: 20 mg Ondansetron HCl (Zofran Inj*) 4 mg IV Q4H PRN PRN Reason: NAUSEA Last Admin: 09/19/17 06:33 Dose: 4 mg Tiotropium [place] (Spiriva Cap.Inh*) 1 cap INH QAM [facility] Last Admin: 09/23/17 09:03 Dose: 1 cap.inh Vancomycin HCl (Vancomycin Cap*) 125 mg PO Q6HR [facility] Last Admin: 09/23/17 11:16 Dose: 125 mg Venlafaxine HCl (Effexor Xr Cap*) 75 mg PO QAM [facility] Last Admin: 09/23/17 08:22 Dose: 75 mg Vital Signs - 8 hr 09/23/17 09/23/17 09/23/17 07:47 08:39 09:07 Temperature 97.1 F Pulse Rate 79 87 Respiratory 16 18 16 Rate Blood Pressure 115/77 (mmHg) O2 Sat by Pulse 94 94 Oximetry 09/23/17 11:16 Temperature Pulse Rate Respiratory 18 Rate Blood Pressure (mmHg) O2 Sat by Pulse Oximetry Oxygen Devices in Use Now: None Appearance: Patient is a pale 72yo female who appears stated age and is sitting in the bed in [facility]. Eyes: No Scleral Icterus, PERRLA Ears/Nose/Mouth/Throat: NL Teeth, Lips, Gums, Clear Oropharnyx, Mucous Membranes Moist Neck: NL Appearance and Movements; NL JVP, Trachea Midline Respiratory: Symmetrical Chest Expansion and Respiratory Effort, - - Wet Crackles in B/L lower and middle lobes. Cardiovascular: NL Sounds; No Murmurs; No JVD, RRR, No Edema, - - Pulses 2+ Abdominal: NL Sounds; No Tenderness; No Distention, No Hepatosplenomegaly Lymphatic: No Cervical Adenopathy Extremities: No Clubbing, Cyanosis Skin: No Rash or Ulcers, No Nodules or Sclerosis Neurological: Alert and Oriented x 3, - - CN II-XII intact. Decreased strength throughout without focality. Result Diagrams: 09/23/17 05:27 09/23/17 05:27 Microbiology and Other Data: Microbiology 09/15/17 23:50 Urine Culture - Preliminary Urine Escherichia Coli Assess/Plan/Problems-Billing Assessment: Patient is a 72yo female with a PMF for CHF, C. Diff, [place], RA, AF, FRANKIE, anemia, who presents with recurrent C. Diff improving on vancomycin oral treatment with Justina which is resolved and new hypoxia from fluid overload and anemia with positive Guaic x2. - Patient Problems (1) Anemia Current Visit: No Status: Acute Priority: Medium Code(s): D64.9 - ANEMIA, UNSPECIFIED SNOMED Code(s): 480450029 Comment: Chronic, likely ACD and SANA plus possibly some dilution from fluid overload/ dehydration on admission from diarrhea. Will monitor. Asymptomatic. Continue iron supplementation every other day. Repeat stool occult blood positive. Will hold xarelto at this time. (2) JUSTINA (acute kidney injury) Current Visit: Yes Status: Acute Code(s): N17.9 - ACUTE KIDNEY FAILURE, UNSPECIFIED SNOMED Code(s): 84676090 Comment: Discussed with Dr. Piecre. Improved below baseline with fluids and hydralzaine Mainly due to systolic heart failure. Hydralazine at 10mg TID. (3) Hyperkalemia Current Visit: Yes Status: Acute Code(s): E87.5 - HYPERKALEMIA SNOMED Code (s): 60095001 Comment: Improved. Hold Spironolatone. Now on renal diet. Furosemide 20mg PO MOWEFR. Will monitor. Would recommend holding potassium supplemtation at Discharge. (4) C. difficile diarrhea Current Visit: No Status: Acute Code(s): A04.72 - ENTEROCOLITIS D/T CLOSTRIDIUM DIFFICILE, NOT SPCF RECUR SNOMED Code(s): 7139072169871 Comment: 3 loose BMs in the past 24hrs. Much improved. Continue po vancomycin for 2 week course. Patient had diarrhea disorder before confirmed diagnosis of C. diff. If relapse may benefit from stool transplant. (5) Elevated troponin Current Visit: No Status: Acute Code(s): R79.89 - OTHER SPECIFIED ABNORMAL FINDINGS OF BLOOD CHEMISTRY SNOMED Code(s): 024953702 Comment: Likely from demand ischemia. Chronic EKG changes with LBBB. No CP or other signs of ACS during admission. (6) Hypertension Current Visit: No Status: Acute Code(s): I10 - ESSENTIAL (PRIMARY) HYPERTENSION SNOMED Code(s): 12754079 Comment: Normotensive Continue home metoprolol. (7) CAD (coronary artery disease) Current Visit: No Status: Chronic Priority: Medium Code(s): I25.10 - ATHSCL HEART DISEASE OF [place] CORONARY ARTERY W/O ANG PCTRS SNOMED Code(s): 37332808 Comment: Chronic systolic heart failure. Continue ASA, statin. Hold lisinopril, Spironolactone. Lasix 3x a week. (8) CHF (congestive heart failure) Current Visit: No Status: Chronic Priority: High Code(s): I50.9 - HEART FAILURE, UNSPECIFIED SNOMED Code(s): 37029216 Comment: Hypoxia overnight with crackles in lungs. Fluids yesterday. Diurese as BP will tolerate. Chronic systolic heart failure, EF <35-40% Continue metoprolol Lasix 3x week. Daily weights, I/O Resume home meds as patient's condition continues to improve Fluid overloaded today with hypoxia and crackles on exam. Will give lasix 20mg IV. (9) Rheumatoid arthritis Current Visit: No Status: Chronic Code(s): M06.9 - RHEUMATOID ARTHRITIS, UNSPECIFIED SNOMED Code(s): 93119658 Comment: Continue hydroxychloroquine. (10) DVT prophylaxis Current Visit: No Status: Acute Priority: Medium Code(s): VUN7359 - SNOMED Code(s): 957308772 Comment: SCDs at this time due to positive Guaic. Resume Xarelto if no further decrease in hemoglobin. Status and Disposition: Discharge to [facility] when medically stable.
[2017-09-23] MEDS: Atorvastatin* 40 MG TAB PO SCH (18:13)
[2017-09-23] MEDS: CMCS Melatonin (NF) 3 MG TAB PO SCH (20:31)
[2017-09-23] MEDS: Metoprolol Succinate XL TAB* 25 MG PO SCH (20:46)
[2017-09-23] MEDS: Hydrocodone/Acetamin 10/325 1 TAB PO PRN (20:53)
[2017-09-24] MEDS: ceFAZolin 1 GM VIAL(*) 1 GM in NS 0.9% 50 ML* 50 ML IVPB SCH ×3 (03:26→20:14)
[2017-09-24] MEDS: Vancomycin CAP* 125 MG CAP PO SCH ×4 (05:28→23:14)
[2017-09-24 06:12] LABS: ABS Basophils 0.1 10^3/ul (0-0.2); ABS Eosinophils 0 10^3/ul (0-0.6); ABS Lymphocytes 1.4 10^3/ul (1.0-4.8); ABS Neutrophils 6.7 10^3/ul (1.5-7.7); ABS Nucleated RBC 0 10^3/ul; Eosinophil % 0 % (0-6); Hematocrit 24 % (35-47); Hemoglobin 7.7 g/dl (12.0-16.0); Lymphocyte % 15.4 % (25-47); Mean Corpuscular HGB Conc 32 g/dl (31-36); Mean Corpuscular Hemoglobin 28 pg (27-31); Mean Corpuscular Volume 87 fL (80-97); Mean Platelet Volume 7 um3 (7.4-10.4); Nucleated Red Blood Cells % 0.1; Platelet Count 229 10^3/ul (150-450); Red Blood Count 2.77 10^6/ul (4.0-5.4); Red Cell Distribution Width 20 % (10.5-15); White Blood Count 9.2 10^3/ul (3.5-10.8)
[2017-09-24 06:34] LABS: EGFR Non-African American 60.8 (>60)
[2017-09-24] MEDS ORDERED: Magnesium Sulfate 2 GM IV* 2 GM/50 ML BAG IVPB ONE (06:58)
[2017-09-24] MEDS: Omeprazole CAP* 20 MG PO SCH ×2 (07:42→16:05)
[2017-09-24] MEDS: Tiotropium CAP.INH* CAP.INH/18 MCG (USE ORDER SET !) INH SCH (08:12)
[2017-09-24] MEDS: Mometasone/Formoter 200/5 MDI INH SCH ×2 (08:12→20:28)
[2017-09-24] MEDS: Venlafaxine EXT RELEASE CAP* 75 MG PO SCH (08:47)
[2017-09-24] MEDS: Hydroxychloroquine TAB* 200 MG PO SCH ×2 (08:47→20:14)
[2017-09-24] MEDS: Lactobacillus Acidophilu (GG)* 1 CAP CAP PO SCH ×2 (08:47→20:14)
[2017-09-24] MEDS: Magnesium Oxide TAB* 400 MG PO SCH (08:47)
[2017-09-24] MEDS: Cholecalciferol TAB* 1000 UNITS PO SCH (08:47)
[2017-09-24] MEDS: Aspirin Low Dose CHEW TAB* 81 MG PO SCH (08:47)
[2017-09-24] MEDS: hydrALAZINE TAB* 10 MG PO SCH ×3 (08:48→20:14)
[2017-09-24] MEDS ORDERED: Furosemide IV* 10 MG/ML 2 ML VIAL (20 MG) IV SLOW PU ONE (12:50)
--- NOTE | 2017-09-24 12:54 | PN ---
Subjective Date of Service: 09/24/17 Interval History: Patient continues to feel poorly with SOB and overall fatigue. Patient has again had 3 loose stools without blood since last examination. Patient has not had the energy to walk a significant distance. Patient denies CP, Abdominal pain. Patient denies F/C, N/V, dysuria, cough, or other pain. Patient states that she is frustrated with her continued diarrhea. Family History: Unchanged from Admission Social History: Unchanged from Admission Past Medical History: Unchanged from Admission Objective Active Medications: Hydrocodone Bitart/Acetaminophen ([place] 10/325 (Nf)) 1 tab PO Q6H PRN PRN Reason: PAIN - BACK Last Admin: 09/23/17 20:53 Dose: 1 tab Alprazolam (Xanax Tab*) 0.25 mg PO BID PRN PRN Reason: ANXIETY Last Admin: 09/23/17 22:42 Dose: 0.25 mg Atorvastatin Calcium (Lipitor*) 40 mg PO QPM [facility] Last Admin: 09/23/17 18:13 Dose: 40 mg Cholecalciferol (Vitamin D Tab*) 5,000 units PO DAILY [facility] Last Admin: 09/24/17 08:47 Dose: 5,000 units Ferrous Sulfate (Ferrous Sulfate Tab*) 325 mg PO EVERY OTHER DAY [facility] Last Admin: 09/23/17 08:22 Dose: 325 mg Furosemide (Lasix Tab*) 20 mg PO MOWEFR [facility] Last Admin: 09/22/17 10:02 Dose: 20 mg Hydralazine HCl (Apresoline Tab*) 10 mg PO TID [facility] Last Admin: 09/24/17 08:48 Dose: 10 mg Hydroxychloroquine Sulfate (Plaquenil Tab*) 200 mg PO BID [facility] Last Admin: 09/24/17 08:47 Dose: 200 mg Cefazolin Sodium 1 gm/ Sodium (Chloride) 50 mls @ 200 mls/hr IVPB Q8H [facility] Last Admin: 09/24/17 12:00 Dose: 200 mls/hr Lactobacillus Rhamnosus (Culturelle*) 1 cap PO BID [facility] Last Admin: 09/24/17 08:47 Dose: 1 cap Magnesium Oxide (Magox 400 Tab*) 800 mg PO QAM [facility] Last Admin: 09/24/17 08:47 Dose: 800 mg Melatonin (Melatonin (Nf)) 3 mg PO BEDTIME [facility] Last Admin: 09/23/17 20:31 Dose: 3 mg Metoprolol Succinate (Toprol Xl Tab*) 25 mg PO BEDTIME [facility] Last Admin: 09/23/17 20:46 Dose: 25 mg Mometasone Furoate/Formoterol Fumar (Dulera 200/5 Mdi*) 2 puff INH BID [facility] Last Admin: 09/24/17 08:12 Dose: 2 puff Omeprazole (Prilosec Cap*) 40 mg PO 0730,1630 [facility] Ondansetron HCl (Zofran Inj*) 4 mg IV Q4H PRN PRN Reason: NAUSEA Last Admin: 09/19/17 06:33 Dose: 4 mg Tiotropium [place] (Spiriva Cap.Inh*) 1 cap INH QAM [facility] Last Admin: 09/24/17 08:12 Dose: 1 cap.inh Vancomycin HCl (Vancomycin Cap*) 125 mg PO Q6HR [facility] Last Admin: 09/24/17 12:00 Dose: 125 mg Venlafaxine HCl (Effexor Xr Cap*) 75 mg PO QAM [facility] Last Admin: 09/24/17 08:47 Dose: 75 mg Vital Signs - 8 hr 09/24/17 09/24/17 08:00 08:56 Temperature 97.8 F Pulse Rate 83 Respiratory 16 16 Rate Blood Pressure 107/65 (mmHg) O2 Sat by Pulse 94 Oximetry Oxygen Devices in Use Now: None Appearance: Patient is a 72yo female who appears stated age and is sitting in the bed in [facility]. Eyes: No Scleral Icterus, PERRLA Ears/Nose/Mouth/Throat: NL Teeth, Lips, Gums, Clear Oropharnyx, Mucous Membranes Moist Neck: NL Appearance and Movements; NL JVP, Trachea Midline Respiratory: Symmetrical Chest Expansion and Respiratory Effort, - - Crackles in B/L Lower and middle lobes. Cardiovascular: NL Sounds; No Murmurs; No JVD, RRR, - - 2+ edema in B/L LE. Abdominal: NL Sounds; No Tenderness; No Distention, No Hepatosplenomegaly Lymphatic: No Cervical Adenopathy Extremities: No Edema, No Clubbing, Cyanosis Skin: No Rash or Ulcers, No Nodules or Sclerosis Neurological: Alert and Oriented x 3, NL Sensation, NL Muscle Strength and Tone , - - CN II-XII intact. Result Diagrams: 09/24/17 05:19 09/24/17 05:19 Microbiology and Other Data: Microbiology 09/15/17 23:50 Urine Culture - Preliminary Urine Escherichia Coli Assess/Plan/Problems-Billing Assessment: Patient is a 72yo female with a PMF for CHF, C. Diff, [place], RA, AF, FRANKIE, anemia, who presents with recurrent C. Diff improving on vancomycin oral treatment with Josias which is resolved and new hypoxia from fluid overload and anemia with positive Guaic x2. - Patient Problems (1) Anemia Current Visit: No Status: Acute Priority: Medium Code(s): D64.9 - ANEMIA, UNSPECIFIED SNOMED Code(s): 454820194 Comment: Decreasing steadily. Will recheck this PM and transfuse if again under 8.0. Increased Omeprazole. Chronic, likely ACD and SANA plus possibly some dilution from fluid overload/ dehydration on admission from diarrhea. Will monitor. Asymptomatic. Continue iron supplementation every other day. Repeat stool occult blood positive. Patient has a history of GI bleed. Will hold xarelto and aspirin at this time. Will ask Gastroenterology to assess for appropriateness of colonscopy due to recurrent diarrhea and possible GI bleeding. (2) JOSIAS (acute kidney injury) Current Visit: Yes Status: Acute Code(s): N17.9 - ACUTE KIDNEY FAILURE, UNSPECIFIED SNOMED Code(s): 84661400 Comment: Discussed with Dr. Pierce. Improved below baseline with fluids and hydralzaine Mainly due to systolic heart failure. Hydralazine at 10mg TID. (3) Hyperkalemia Current Visit: Yes Status: Acute Code(s): E87.5 - HYPERKALEMIA SNOMED Code (s): 20615526 Comment: Improved. Hold Spironolatone. Now on renal diet. Furosemide 20mg PO MOWEFR. Will monitor. Would recommend holding potassium supplementation at Discharge. (4) C. difficile diarrhea Current Visit: No Status: Acute Code(s): A04.72 - ENTEROCOLITIS D/T CLOSTRIDIUM DIFFICILE, NOT SPCF RECUR SNOMED Code(s): 8243899477873 Comment: 3 loose BMs in the past 24hrs. Much improved from before admission but pateint feels it is worsening again. Continue po vancomycin at this dose for 2 week course then taper. Taper would begin on 09/29. Patient had diarrhea disorder before confirmed diagnosis of C. diff. If relapse may benefit from stool transplant. Will ask Gastroenterology to reassess for appropriateness of colonoscopy/ Flexible sigmoidoscopy. (5) Elevated troponin Current Visit: No Status: Acute Code(s): R79.89 - OTHER SPECIFIED ABNORMAL FINDINGS OF BLOOD CHEMISTRY SNOMED Code(s): 042141952 Comment: Likely from demand ischemia. Chronic EKG changes with LBBB. No CP or other signs of ACS during admission. (6) Hypertension Current Visit: No Status: Acute Code(s): I10 - ESSENTIAL (PRIMARY) HYPERTENSION SNOMED Code(s): 38549193 Comment: Normotensive Continue home metoprolol. Continue hydralazine. Hold Lisinopril. (7) CAD (coronary artery disease) Current Visit: No Status: Chronic Priority: Medium Code(s): I25.10 - ATHSCL HEART DISEASE OF [place] CORONARY ARTERY W/O ANG PCTRS SNOMED Code(s): 97474379 Comment: Chronic systolic heart failure. Continue ASA, statin. Hold lisinopril, Spironolactone. Lasix 3x a week. (8) CHF (congestive heart failure) Current Visit: No Status: Chronic Priority: High Code(s): I50.9 - HEART FAILURE, UNSPECIFIED SNOMED Code(s): 58632236 Comment: Hypoxia overnight with crackles in lungs. Fluids yesterday. Diurese as BP will tolerate. Chronic systolic heart failure, EF <35-40% Continue metoprolol Lasix 3x week. Daily weights, I/O. Inaccurate due to stool contamination. Resume home meds as patient's condition continues to improve Fluid overloaded today with hypoxia and crackles on exam. Will give lasix 20mg IV again today. (9) Rheumatoid arthritis Current Visit: No Status: Chronic Code(s): M06.9 - RHEUMATOID ARTHRITIS, UNSPECIFIED SNOMED Code(s): 90137111 Comment: Continue hydroxychloroquine. (10) DVT prophylaxis Current Visit: No Status: Acute Priority: Medium Code(s): HFV6234 - SNOMED Code(s): 117351412 Comment: SCDs at this time due to positive Guaic. Status and Disposition: Discharge to [facility] when medically stable.
[2017-09-24 15:53] LABS: Hematocrit 24 % (35-47); Hemoglobin 7.7 g/dl (12.0-16.0)
[2017-09-24] MEDS: Atorvastatin* 40 MG TAB PO SCH (17:04)
[2017-09-24] MEDS: CMCS Melatonin (NF) 3 MG TAB PO SCH (20:14)
[2017-09-24] MEDS: Metoprolol Succinate XL TAB* 25 MG PO SCH (20:14)
[2017-09-24] MEDS: Hydrocodone/Acetamin 10/325 1 TAB PO PRN (20:28)
[2017-09-25] MEDS: ALPRAZolam TAB* 0.25 MG PO PRN (01:45)
[2017-09-25] MEDS: ceFAZolin 1 GM VIAL(*) 1 GM in NS 0.9% 50 ML* 50 ML IVPB SCH ×3 (03:04→20:00)
[2017-09-25] MEDS: Vancomycin CAP* 125 MG CAP PO SCH ×3 (04:58→17:51)
[2017-09-25 06:23] LABS: ABS Basophils 0.1 10^3/ul (0-0.2); ABS Eosinophils 0 10^3/ul (0-0.6); ABS Lymphocytes 1.7 10^3/ul (1.0-4.8); ABS Monocytes 1.2 10^3/ul (0-0.8); ABS Neutrophils 7.9 10^3/ul (1.5-7.7); ABS Nucleated RBC 0 10^3/ul; Eosinophil % 0 % (0-6); Hematocrit 24 % (35-47); Hemoglobin 7.6 g/dl (12.0-16.0); Lymphocyte % 15.3 % (25-47); Mean Corpuscular HGB Conc 31 g/dl (31-36); Mean Corpuscular Hemoglobin 28 pg (27-31); Mean Corpuscular Volume 88 fL (80-97); Mean Platelet Volume 7 um3 (7.4-10.4); Nucleated Red Blood Cells % 0.1; Platelet Count 233 10^3/ul (150-450); Red Blood Count 2.76 10^6/ul (4.0-5.4); Red Cell Distribution Width 20 % (10.5-15); White Blood Count 10.8 10^3/ul (3.5-10.8)
[2017-09-25] MEDS: Omeprazole CAP* 20 MG PO SCH ×2 (06:26→17:51)
[2017-09-25 06:34] LABS: EGFR Non-African American 73.7 (>60)
[2017-09-25] MEDS: Tiotropium CAP.INH* CAP.INH/18 MCG (USE ORDER SET !) INH SCH (07:54)
[2017-09-25] MEDS: Mometasone/Formoter 200/5 MDI INH SCH ×2 (07:54→19:40)
[2017-09-25] MEDS: Magnesium Oxide TAB* 400 MG PO SCH (09:02)
[2017-09-25] MEDS: Cholecalciferol TAB* 1000 UNITS PO SCH (09:02)
[2017-09-25] MEDS: Lactobacillus Acidophilu (GG)* 1 CAP CAP PO SCH ×2 (09:02→20:04)
[2017-09-25] MEDS: Ferrous Sulfate TAB* 325 MG PO SCH (09:02)
[2017-09-25] MEDS: Furosemide TAB* 20 MG PO SCH (09:02)
[2017-09-25] MEDS: hydrALAZINE TAB* 10 MG PO SCH ×3 (09:02→20:04)
[2017-09-25] MEDS: Venlafaxine EXT RELEASE CAP* 75 MG PO SCH (09:02)
[2017-09-25] MEDS: Hydroxychloroquine TAB* 200 MG PO SCH ×2 (09:02→20:04)
--- NOTE | 2017-09-25 13:20 | PN ---
Subjective Date of Service: 09/25/17 Interval History: Ms. Solomon feels tired and anxious today but denies any acute complaints. She reports having about 5 very small loose stools today. She denies abdominal pain. She is tolerating oral intake well. Family History: Unchanged from Admission Social History: Unchanged from Admission Past Medical History: Unchanged from Admission Objective Active Medications: Hydrocodone Bitart/Acetaminophen ([place] 10/325 (Nf)) 1 tab PO Q6H PRN Alprazolam (Xanax Tab*) 0.25 mg PO BID PRN Atorvastatin Calcium (Lipitor*) 40 mg PO QPM MARY Cholecalciferol (Vitamin D Tab*) 5,000 units PO DAILY MARY Ferrous Sulfate (Ferrous Sulfate Tab*) 325 mg PO EVERY OTHER DAY MARY Furosemide (Lasix Tab*) 20 mg PO MOWEFR MARY Hydralazine HCl (Apresoline Tab*) 10 mg PO TID MARY Hydroxychloroquine Sulfate (Plaquenil Tab*) 200 mg PO BID MARY Cefazolin Sodium 1 gm/ Sodium (Chloride) 50 mls @ 200 mls/hr IVPB Q8H MARY Lactobacillus Rhamnosus (Culturelle*) 1 cap PO BID MARY Magnesium Oxide (Magox 400 Tab*) 800 mg PO QAM MARY Melatonin (Melatonin (Nf)) 3 mg PO BEDTIME MARY Metoprolol Succinate (Toprol Xl Tab*) 25 mg PO BEDTIME MARY Mometasone Furoate/Formoterol Fumar (Dulera 200/5 Mdi*) 2 puff INH BID MARY Omeprazole (Prilosec Cap*) 40 mg PO 0730,1630 MARY Ondansetron HCl (Zofran Inj*) 4 mg IV Q4H PRN Tiotropium [place] (Spiriva Cap.Inh*) 1 cap INH QAM MARY Vancomycin HCl (Vancomycin Cap*) 125 mg PO Q6HR MARY Venlafaxine HCl (Effexor Xr Cap*) 75 mg PO QAM MARY Vital Signs: Temp Pulse Resp BP Pulse Ox 97.5 F 101 28 108/60 98 09/25/17 11:47 09/25/17 11:47 09/25/17 11:47 09/25/17 11:47 09/25/17 11:50 Oxygen Devices in Use Now: None Appearance: Female sitting up in chair in NAD Eyes: No Scleral Icterus Ears/Nose/Mouth/Throat: Mucous Membranes Moist Neck: Trachea Midline Respiratory: Symmetrical Chest Expansion and Respiratory Effort, Clear to Auscultation Cardiovascular: NL Sounds; No Murmurs; No JVD, No Edema Abdominal: NL Sounds; No Tenderness; No Distention Lymphatic: No Cervical Adenopathy Extremities: No Edema Skin: No Rash or Ulcers Neurological: Alert and Oriented x 3, NL Muscle Strength and Tone Nutrition: Taking PO's Result Diagrams: 09/25/17 06:08 09/25/17 06:08 Microbiology and Other Data: . Assess/Plan/Problems-Billing Assessment: Ms. Solomon is a 72yo female with a PMF for CHF, C. Diff, [place], RA, AF, FRANKIE, anemia, who presents with recurrent C. Diff improving on vancomycin oral treatment with JUSTINA which is resolved and new hypoxia from fluid overload and anemia with positive Guaic x2. - Patient Problems (1) C. difficile diarrhea Comment: - Continues to have loose BMs. - Much improved from before admission. - Continue po vancomycin at this dose for 2 week course then taper. Taper would begin on 09/29. If relapse may benefit from stool transplant. - Plan for colonoscopy given GI bleed, see below. (2) Anemia Comment: - Had been decreasing steadily but holding steady. Will transfuse if under 8.0. - Repeat stool occult blood positive. Patient has a history of GI bleed. Will hold xarelto and aspirin at this time. Plan for colonoscopy per GI. - Continue increased omeprazole. - Chronic, likely ACD and SANA plus possibly some dilution from fluid overload/ dehydration on admission from diarrhea. Continue iron supplementation every other day. (3) JUSTINA (acute kidney injury) Comment: - Resolved. (4) Hyperkalemia Comment: - Resolved. - Hold Spironolatone. Now on renal diet. Furosemide 20mg PO MOWEFR. Would recommend holding potassium supplementation at discharge. (5) Elevated troponin Comment: - Chronic EKG changes with LBBB. No CP or other signs of ACS during admission. - Likely from demand ischemia. (6) Hypertension Comment: - Normotensive - Continue home metoprolol and hydralazine. Hold Lisinopril. (7) CAD (coronary artery disease) Comment: - Chronic systolic heart failure. Continue ASA, statin. Hold lisinopril, Spironolactone. Lasix 3x a week. (8) CHF (congestive heart failure) Comment: - Hypoxia overnight with crackles in lungs. Fluids yesterday. Diurese as BP will tolerate, given lasix x 1 yesterday. - Chronic systolic heart failure, EF <35-40% - Continue metoprolol. Lasix 3x week. - Daily weights, I/O. Inaccurate due to stool contamination. (9) COPD (chronic obstructive pulmonary disease) Comment: - Does not appear to be in acute exacerbation. - Continue tiotropium, prn albuterol. (10) Depression Comment: - Continue venlafaxine. (11) Paroxysmal a-fib Comment: - Rivaroxaban on hold due to anemia and metoprolol. (12) DVT prophylaxis Comment: SCDs at this time due to positive Guaic. (13) Full code status Comment: Status and Disposition: Discharge to [facility] when medically stable.
[2017-09-25] MEDS: Atorvastatin* 40 MG TAB PO SCH (17:51)
[2017-09-25] MEDS: CMCS Melatonin (NF) 3 MG TAB PO SCH (20:04)
[2017-09-25] MEDS: Metoprolol Succinate XL TAB* 25 MG PO SCH (20:04)
[2017-09-25] MEDS: Hydrocodone/Acetamin 10/325 1 TAB PO PRN (20:23)
[2017-09-26] MEDS: Vancomycin CAP* 125 MG CAP PO SCH ×4 (00:52→17:39)
[2017-09-26] MEDS: ceFAZolin 1 GM VIAL(*) 1 GM in NS 0.9% 50 ML* 50 ML IVPB SCH (04:17)
[2017-09-26] MEDS: Omeprazole CAP* 20 MG PO SCH ×2 (06:05→17:39)
[2017-09-26 07:04] LABS: Hematocrit 23 % (35-47); Hemoglobin 7.2 g/dl (12.0-16.0)
--- NOTE | 2017-09-26 08:04 | PN ---
Subjective Date of Service: 09/26/17 Interval History: Ms. Solomon denies any acute complaint today. She continues to have multiple small bowel movements during the day. She denies nausea or abdominal pain. She reports feeling depressed and would like to try to increase her venlafexine again and slightly increase her xanax. Family History: Unchanged from Admission Social History: Unchanged from Admission Past Medical History: Unchanged from Admission Objective Active Medications: Hydrocodone Bitart/Acetaminophen ([place] 10/325 (Nf)) 1 tab PO Q6H PRN Alprazolam (Xanax Tab*) 0.25 mg PO BID PRN Atorvastatin Calcium (Lipitor*) 40 mg PO QPM MARY Cholecalciferol (Vitamin D Tab*) 5,000 units PO DAILY MARY Ferrous Sulfate (Ferrous Sulfate Tab*) 325 mg PO EVERY OTHER DAY MARY Furosemide (Lasix Tab*) 20 mg PO MOWEFR MARY Hydralazine HCl (Apresoline Tab*) 10 mg PO TID MARY Hydroxychloroquine Sulfate (Plaquenil Tab*) 200 mg PO BID MARY Cefazolin Sodium 1 gm/ Sodium (Chloride) 50 mls @ 200 mls/hr IVPB Q8H MARY Lactobacillus Rhamnosus (Culturelle*) 1 cap PO BID MARY Magnesium Oxide (Magox 400 Tab*) 800 mg PO QAM MARY Melatonin (Melatonin (Nf)) 3 mg PO BEDTIME MARY Metoprolol Succinate (Toprol Xl Tab*) 25 mg PO BEDTIME MARY Mometasone Furoate/Formoterol Fumar (Dulera 200/5 Mdi*) 2 puff INH BID MARY Omeprazole (Prilosec Cap*) 40 mg PO 0730,1630 MARY Ondansetron HCl (Zofran Inj*) 4 mg IV Q4H PRN Polyethylene Glycol/Electrolytes (Golytely*) 4,000 ml PO ONCE ONE Tiotropium Marcell (Spiriva Cap.Inh*) 1 cap INH QAM MARY Vancomycin HCl (Vancomycin Cap*) 125 mg PO Q6HR MARY Venlafaxine HCl (Effexor Xr Cap*) 75 mg PO QAM MARY Vital Signs - 8 hr Vital Signs: Temp Pulse Resp BP Pulse Ox 98.2 F 78 20 110/70 94 09/26/17 03:45 09/26/17 03:45 09/26/17 03:45 09/26/17 04:10 09/26/17 03:45 Oxygen Devices in Use Now: None Appearance: Female lying in bed in NAD Eyes: No Scleral Icterus Ears/Nose/Mouth/Throat: Mucous Membranes Moist Neck: Trachea Midline Respiratory: Symmetrical Chest Expansion and Respiratory Effort, - - Crackles in bilateral bases Cardiovascular: NL Sounds; No Murmurs; No JVD, No Edema Abdominal: NL Sounds; No Tenderness; No Distention Lymphatic: No Cervical Adenopathy Extremities: No Edema Skin: No Rash or Ulcers Neurological: Alert and Oriented x 3, NL Muscle Strength and Tone Nutrition: Taking PO's Result Diagrams: 09/26/17 06:33 09/25/17 06:08 Microbiology and Other Data: . Assess/Plan/Problems-Billing Assessment: Ms. Solomon is a 72yo female with a PMF for CHF, C. Diff, [place], RA, AF, FRANKIE, anemia, who presents with recurrent C. Diff improving on vancomycin oral treatment with JUSTINA which is resolved and new hypoxia from fluid overload and anemia with positive Guaic x2. - Patient Problems (1) C. difficile diarrhea Comment: - Continues to have loose BMs. Much improved from before admission. - Continue po vancomycin at this dose for 2 week course then taper. Taper would begin on 09/29. If relapse may benefit from stool transplant. - Plan for colonoscopy given GI bleed, see below. (2) Anemia Comment: - Had been decreasing steadily, now 7.2. - Plan for one unit PRBC given hypotension overnight. - Repeat stool occult blood positive. Patient has a history of GI bleed. Will hold xarelto and aspirin. Plan for colonoscopy per GI. - Continue increased omeprazole. - Also component of SANA plus possibly some dilution from fluid overload/ dehydration on admission from diarrhea. Continue iron supplementation every other day. (3) UTI (urinary tract infection) Comment: - UA positive with ecoli on culture. - Plan for 5 day course of abx, switch to bactrim for 2 more days. (4) CHF (congestive heart failure) Comment: - Crackles in lungs with some mildly labored breathing. - Diurese as BP and creatinine will tolerate, increase to lasix 20mg po daily. - Chronic systolic heart failure, EF <35-40% - Continue metoprolol. - Daily weights, I/O. Inaccurate due to stool contamination. (5) JUSTINA (acute kidney injury) Comment: - Resolved. - Monitor closely with increased efforts at diuresis. - Appreciate nephrology consult. (6) Hypertension Comment: - Some hypotension overnight, plan for one unit PRBC - Continue home metoprolol and decreased hydralazine (with hold parameters). Hold lisinopril and spironolactone given JUSTINA during admission. (7) Hyperkalemia Comment: - Resolved. - Hold Spironolatone. Would recommend holding potassium supplementation at discharge. (8) Elevated troponin Comment: - Chronic EKG changes with LBBB. No CP or other signs of ACS during admission. - Likely from demand ischemia. (9) CAD (coronary artery disease) Comment: - Asymptomatic. - History of chronic systolic heart failure. - Continue metoprolol, aspirin, statin. Lasix increased today. Hold lisinopril , spironolactone. (10) COPD (chronic obstructive pulmonary disease) Comment: - No sign of exacerbation - Continue tiotropium, prn albuterol. (11) Depression Comment: - Patient was on 225mg venlafaxine ER but was cut back to 75mg for unclear reasons. - Plan to increase to 150mg today and adjust back up to 225 as tolerated. - Will also increase very low dose xanax to TID. (12) Paroxysmal a-fib Comment: - Rivaroxaban on hold due to anemia and metoprolol. (13) DVT prophylaxis Comment: SCDs at this time due to positive Guaic. (14) Full code status Comment: Status and Disposition: Discharge to [facility] when medically stable.
[2017-09-26] MEDS ORDERED: hydrALAZINE TAB* 10 MG PO SCH (08:09)
[2017-09-26] MEDS: Tiotropium CAP.INH* CAP.INH/18 MCG (USE ORDER SET !) INH SCH (08:50)
[2017-09-26] MEDS: Mometasone/Formoter 200/5 MDI INH SCH ×2 (08:51→19:30)
[2017-09-26] MEDS: Lactobacillus Acidophilu (GG)* 1 CAP CAP PO SCH ×2 (09:40→20:11)
[2017-09-26] MEDS: Venlafaxine EXT RELEASE CAP* 75 MG PO SCH (09:40)
[2017-09-26] MEDS: Hydroxychloroquine TAB* 200 MG PO SCH ×2 (09:40→20:11)
[2017-09-26] MEDS: Magnesium Oxide TAB* 400 MG PO SCH (09:40)
[2017-09-26] MEDS: Cholecalciferol TAB* 1000 UNITS PO SCH (09:40)
[2017-09-26] MEDS: Furosemide TAB* 20 MG PO SCH (09:40)
[2017-09-26] MEDS ORDERED: Venlafaxine EXT RELEASE CAP* 75 MG PO ONE (09:56)
[2017-09-26] MEDS: ALPRAZolam TAB* 0.25 MG PO PRN (11:04)
[2017-09-26] MEDS: hydrALAZINE TAB* 10 MG PO SCH ×2 (14:17→20:10)
[2017-09-26] MEDS ORDERED: PEG 3000 GI LAVAGE* 1 GALLON PO ONE (17:00)
[2017-09-26] MEDS: Atorvastatin* 40 MG TAB PO SCH (17:39)
[2017-09-26] MEDS: Sulfamethox/Trimethoprim DS 800/160* TAB PO SCH (20:11)
[2017-09-26] MEDS: CMCS Melatonin (NF) 3 MG TAB PO SCH (20:11)
[2017-09-26] MEDS: Metoprolol Succinate XL TAB* 25 MG PO SCH (20:11)
[2017-09-27] MEDS: Vancomycin CAP* 125 MG CAP PO SCH ×5 (00:59→23:46)
[2017-09-27] MEDS: Mometasone/Formoter 200/5 MDI INH SCH ×2 (08:21→21:21)
[2017-09-27] MEDS: Tiotropium CAP.INH* CAP.INH/18 MCG (USE ORDER SET !) INH SCH (08:21)
[2017-09-27] MEDS: Hydrocodone/Acetamin 10/325 1 TAB PO PRN (09:22)
[2017-09-27] MEDS: ALPRAZolam TAB* 0.25 MG PO PRN (09:23)
[2017-09-27] MEDS: Furosemide TAB* 20 MG PO SCH (09:24)
[2017-09-27] MEDS: Ferrous Sulfate TAB* 325 MG PO SCH (09:24)
[2017-09-27] MEDS: Sulfamethox/Trimethoprim DS 800/160* TAB PO SCH ×2 (09:25→23:46)
[2017-09-27] MEDS: Venlafaxine EXT RELEASE CAP* 75 MG PO SCH ×2 (09:26)
[2017-09-27] MEDS: Hydroxychloroquine TAB* 200 MG PO SCH ×2 (09:28→23:45)
[2017-09-27] MEDS: hydrALAZINE TAB* 10 MG PO SCH ×3 (09:28→21:26)
[2017-09-27] MEDS: Magnesium Oxide TAB* 400 MG PO SCH (09:34)
[2017-09-27] MEDS: Omeprazole CAP* 20 MG PO SCH ×2 (09:34→17:19)
[2017-09-27 09:35] LABS: ABS Basophils 0.1 10^3/ul (0-0.2); ABS Eosinophils 0 10^3/ul (0-0.6); ABS Monocytes 1.1 10^3/ul (0-0.8); ABS Neutrophils 6.5 10^3/ul (1.5-7.7); ABS Nucleated RBC 0 10^3/ul; Eosinophil % 0 % (0-6); Hematocrit 27 % (35-47); Hemoglobin 8.5 g/dl (12.0-16.0); Lymphocyte % 11.5 % (25-47); Mean Corpuscular HGB Conc 32 g/dl (31-36); Mean Corpuscular Hemoglobin 28 pg (27-31); Mean Corpuscular Volume 87 fL (80-97); Mean Platelet Volume 7 um3 (7.4-10.4); Nucleated Red Blood Cells % 0; Platelet Count 254 10^3/ul (150-450); Red Blood Count 3.05 10^6/ul (4.0-5.4); Red Cell Distribution Width 19 % (10.5-15); White Blood Count 8.7 10^3/ul (3.5-10.8)
[2017-09-27] MEDS: Cholecalciferol TAB* 1000 UNITS PO SCH (09:35)
[2017-09-27] MEDS: Lactobacillus Acidophilu (GG)* 1 CAP CAP PO SCH ×2 (09:36→23:45)
[2017-09-27 10:08] LABS: EGFR Non-African American 64.9 (>60)
[2017-09-27] MEDS ORDERED: Furosemide IV* 10 MG/ML 2 ML VIAL (20 MG) IV SLOW PU ONE (10:41)
[2017-09-27] MEDS ORDERED: fentaNYL* 50 MCG/ML 2 ML VIAL (100 MCG VIAL) ONE (14:01)
[2017-09-27] MEDS ORDERED: Midazolam* 1 MG/ML 10 ML VIAL (10 MG) ONE (14:01)
--- NOTE | 2017-09-27 15:48 | PN ---
Progress Note - Progress Note Date of Service: 09/27/17 - Gastroenterology Note: Patient seen and examined. Frequency of stool output is decreasing and slightly becoming more formed. No rectal bleeding. No abdominal pain. Vital Signs: Temp Pulse Resp BP Pulse Ox 98.3 F 82 18 104/74 96 09/27/17 11:37 09/27/17 11:37 09/27/17 13:02 09/27/17 11:37 09/27/17 11:37 Physical Examination: GENERAL: AAOx3, NAD. CV: RRR. PULM: Bibasilar crackles B/L. ABDOMEN: Soft, NT/ND. Extremities: B/L pitting edema in lower extremities. Laboratory Last Values WBC 8.7 10^3/ul (3.5-10.8) 09/27/17 09:17 RBC 3.05 10^6/ul (4.0-5.4) L 09/27/17 09:17 RBC (Retic) 3.00 10^6/ul (4.6-6.2) L 09/23/17 05:27 Hgb 8.5 g/dl (12.0-16.0) L 09/27/17 09:17 Hct 27 % (35-47) L 09/27/17 09:17 HCT (Retic) 26 % (35-47) L 09/23/17 05:27 MCV 87 fL (80-97) 09/27/17 09:17 MCH 28 pg (27-31) 09/27/17 09:17 MCHC 32 g/dl (31-36) 09/27/17 09:17 RDW 19 % (10.5-15) H 09/27/17 09:17 Plt Count 254 10^3/ul (150-450) 09/27/17 09:17 MPV 7 um3 (7.4-10.4) L 09/27/17 09:17 Neut % (Auto) 75.0 % (38-83) 09/27/17 09:17 Lymph % (Auto) 11.5 % (25-47) L 09/27/17 09:17 [place] % (Auto) 12.6 % (0-7) H 09/27/17 09:17 Eos % (Auto) 0 % (0-6) 09/27/17 09:17 Baso % (Auto) 0.9 % (0-2) 09/27/17 09:17 Absolute Neuts (auto) 6.5 10^3/ul (1.5-7.7) 09/27/17 09:17 Absolute Lymphs (auto) 1.0 10^3/ul (1.0-4.8) 09/27/17 09:17 Absolute Monos (auto) 1.1 10^3/ul (0-0.8) H 09/27/17 09:17 Absolute Eos (auto) 0 10^3/ul (0-0.6) 09/27/17 09:17 Absolute Basos (auto) 0.1 10^3/ul (0-0.2) 09/27/17 09:17 Absolute Nucleated RBC 0 10^3/ul 09/27/17 09:17 Nucleated RBC % 0 09/27/17 09:17 Retic Count, Calc 3.9 % (0.5-1.5) H 09/23/17 05:27 Corrected Retic Count 2.3 % (0.5-1.5) H 09/23/17 05:27 Retic Shift Factor 2.0 09/23/17 05:27 Retic Production Index 1.20 09/23/17 05:27 Immature Retic Fraction 0.70 09/23/17 05:27 Mean Retic Volume 147.9 09/23/17 05:27 INR (Anticoag Therapy) 1.54 (0.77-1.02) H 09/15/17 16:25 APTT 31.6 seconds (26.0-36.3) 09/15/17 16:25 Patient Temperature Not Reportable 09/27/17 00:45 ABG pH 7.53 (7.35-7.45) H 09/27/17 00:45 ABG pH (Temp Correct) Not Reportable 09/27/17 00:45 ABG pCO2 38 mmHg (35-45) 09/27/17 00:45 ABG pCO2 (Temp Corrct Not Reportable 09/27/17 00:45 ABG pO2 131 mmHg (80-100) H 09/27/17 00:45 ABG pO2 (Temp Correct Not Reportable 09/27/17 00:45 ABG HCO3 31.5 mmol/L (19-31) H 09/27/17 00:45 ABG O2 Saturation 99.4 % (95-98) H 09/27/17 00:45 ABG Base Excess 8.4 (-2.0-2.0) H 09/27/17 00:45 Respiration Rate Not Reportable 09/27/17 00:45 O2 Delivery Device Oxymask 09/27/17 00:45 Ventilator Type Not Reportable 09/27/17 00:45 Vent Mode Not Reportable 09/27/17 00:45 FiO2 15 09/27/17 00:45 Inspiratory Time Not Reportable 09/27/17 00:45 PEEP Not Reportable 09/27/17 00:45 Pressure Support Not Reportable 09/27/17 00:45 Pressure Control Not Reportable 09/27/17 00:45 EPAP Not Reportable 09/27/17 00:45 IPAP Not Reportable 09/27/17 00:45 BiPAP Not Reportable 09/27/17 00:45 Sodium 140 mmol/L (133-145) 09/27/17 09:17 Potassium 3.5 mmol/L (3.5-5.0) 09/27/17 09:17 Chloride 101 mmol/L (101-111) 09/27/17 09:17 Carbon Dioxide 30 mmol/L (22-32) 09/27/17 09:17 Anion Gap 9 mmol/L (2-11) 09/27/17 09:17 BUN 30 mg/dL (6-24) H 09/27/17 09:17 Creatinine 0.86 mg/dL (0.51-0.95) 09/27/17 09:17 Est GFR ( Amer) 83.4 (>60) 09/27/17 09:17 Est GFR (Non-Af Amer) 64.9 (>60) 09/27/17 09:17 BUN/Creatinine Ratio 34.9 (8-20) H 09/27/17 09:17 Glucose 80 mg/dL (70-100) 09/27/17 09:17 POC Glucose (mg/dL) 87 mg/dL (70-100) 09/16/17 00:54 Lactic Acid 2.3 mmol/L (0.5-2.0) H* 09/16/17 05:20 Calcium 8.8 mg/dL (8.6-10.3) 09/27/17 09:17 Magnesium 2.0 mg/dL (1.9-2.7) 09/25/17 06:08 Iron 23 ug/dL (50-212) L 09/22/17 04:46 TIBC 329 mcg/dL (250-450) 09/22/17 04:46 % Saturation 7 % (15-55) L 09/22/17 04:46 Unsat Iron Binding 306 ug/dL 09/22/17 04:46 Transferrin 235 mg/dL (203-362) 09/22/17 04:46 Ferritin 60.4 ng/mL (11-307) 09/22/17 09:25 Total Bilirubin 0.70 mg/dL (0.2-1.0) 09/27/17 09:17 AST 53 U/L (13-39) H 09/27/17 09:17 ALT 35 U/L (7-52) 09/27/17 09:17 Alkaline Phosphatase 180 U/L (34-104) H 09/27/17 09:17 Total Creatine Kinase 77 U/L (10-223) 09/15/17 16:25 Troponin I 0.04 ng/mL (<0.04) H* 09/15/17 21:26 C-Reactive Protein 10.74 mg/L (< 5.00) H 09/15/17 16:25 B-Natriuretic Peptide 8082 pg/mL (-100) H 09/15/17 16:25 Total Protein 5.5 g/dL (6.4-8.9) L 09/27/17 09:17 Albumin 3.1 g/dL (3.2-5.2) L 09/27/17 09:17 Globulin 2.4 g/dL (2-4) 09/27/17 09:17 Albumin/Globulin Ratio 1.3 (1-3) 09/27/17 09:17 Amylase 48 U/L (29-103) 09/15/17 16:25 Lipase 14 U/L (11.0-82.0) 09/15/17 16:25 Vitamin B12 710 pg/mL (180-914) 09/22/17 04:46 Folate 11.67 ng/mL (>3.99) 09/22/17 04:46 Cortisol 16.99 mcg/dL 09/19/17 05:05 Urine Color Yellow 09/15/17 23:50 Urine Appearance Turbid 09/15/17 23:50 Urine pH 7.0 (5-9) 09/15/17 23:50 Ur Specific [place] 1.016 (1.010-1.030) 09/15/17 23:50 Urine Protein 2+(100 mg/dl) (Negative) A 09/15/17 23:50 Urine Ketones Negative (Negative) 09/15/17 23:50 Urine Blood 1+ (Negative) A 09/15/17 23:50 Urine Nitrate Positive (Negative) A 09/15/17 23:50 Urine Bilirubin Negative (Negative) 09/15/17 23:50 Urine Urobilinogen Negative (Negative) 09/15/17 23:50 Ur Leukocyte Esterase 3+ (Negative) A 09/15/17 23:50 Urine WBC (Auto) 3+(>20/hpf) (Absent) A 09/15/17 23:50 Urine RBC (Auto) 3+(>10/hpf) (Absent) A 09/15/17 23:50 Urine Bacteria 2+ (Absent) A 09/15/17 23:50 Ur Random Creatinine 123.18 mg/dL 09/20/17 05:55 Ur Random Sodium < 18 mmol/L 09/20/17 05:55 Ur Random Chloride 31 mmol/L 09/20/17 05:55 Urine Potassium 106.2 mmol/L 09/20/17 05:55 Urine Glucose 2+(150 mg/dl) (Negative) A 09/15/17 23:50 Blood Type O Positive 09/26/17 06:33 Antibody Screen Negative 09/26/17 06:33 Crossmatch See Detail 09/26/17 06:33 72 yo female with recurrent C.diff on oral vancomycin and normocytic anemia. Diarrhea is slowly improving. Colonoscopy was preformed today. For results of colonoscopy see below. 1. Normocytic Anemia - stable. ~S/p 1 unit of prbcs due to hypotension yesterday. ~No evidence of active rectal bleeding. ~Guaiac positive x 2. ~S/p Colonoscopy this afternoon with normal-appearing terminal ileum and normal- appearing mucosa in the colon. One small cecal polyp was removed and sigmoid diverticulosis was seen. Random biopsies were obtain from the right colon, left colon and rectum to rule out microscopic colitis. Terminal ileum was also biopsied to rule out Crohns disease although there was no endoscopic evidence of it. Moderate-sized internal hemorrhoids were also seen. ~Continue iron therapy. 2. Recurrent C.diff ~Improving slowly on vancomycin. ~May need FMT in the future if fails vancomycin therapy. 3. A.fib and CAD ~May restart Xarelto and ASA tomorrow am. 4. FRANKIE, COPD, CHF Will discuss with Ambar Gonzalez NP. Please call with any further questions or concerns. Yolanda Mathews D.O.
--- NOTE | 2017-09-27 16:42 | PN ---
Subjective Date of Service: 09/27/17 Interval History: Patient examined after colonoscopy. Feels rather groggy, has had numerous bowel movements today. No F/C, N/V, abdominal pain, CP, SOB, dysuria. Feels to be in a much better mood today than previously likely due to an increase in her Venlafaxine. Patient denies changes in vision or dizziness on standing. Family History: Unchanged from Admission Social History: Unchanged from Admission Past Medical History: Unchanged from Admission Objective Active Medications: Hydrocodone Bitart/Acetaminophen ([place] 10/325 (Nf)) 1 tab PO Q6H PRN PRN Reason: PAIN - BACK Last Admin: 09/27/17 09:22 Dose: 1 tab Alprazolam (Xanax Tab*) 0.25 mg PO TID PRN PRN Reason: ANXIETY Last Admin: 09/27/17 09:23 Dose: 0.25 mg Atorvastatin Calcium (Lipitor*) 40 mg PO QPM [facility] Last Admin: 09/26/17 17:39 Dose: 40 mg Cholecalciferol (Vitamin D Tab*) 5,000 units PO DAILY [facility] Last Admin: 09/27/17 09:35 Dose: 5,000 units Ferrous Sulfate (Ferrous Sulfate Tab*) 325 mg PO EVERY OTHER DAY [facility] Last Admin: 09/27/17 09:24 Dose: 325 mg Furosemide (Lasix Tab*) 20 mg PO DAILY [facility] Last Admin: 09/27/17 09:24 Dose: 20 mg Hydralazine HCl (Apresoline Tab*) 5 mg PO TID [facility] Last Admin: 09/27/17 14:24 Dose: Not Given Hydroxychloroquine Sulfate (Plaquenil Tab*) 200 mg PO BID [facility] Last Admin: 09/27/17 09:28 Dose: 200 mg Lactobacillus Rhamnosus (Culturelle*) 1 cap PO BID [facility] Last Admin: 09/27/17 09:36 Dose: 1 cap Magnesium Oxide (Magox 400 Tab*) 800 mg PO QAM [facility] Last Admin: 09/27/17 09:34 Dose: 800 mg Melatonin (Melatonin (Nf)) 3 mg PO BEDTIME [facility] Last Admin: 09/26/17 20:11 Dose: 3 mg Metoprolol Succinate (Toprol Xl Tab*) 25 mg PO BEDTIME [facility] Last Admin: 09/26/17 20:11 Dose: 25 mg Mometasone Furoate/Formoterol Fumar (Dulera 200/5 Mdi*) 2 puff INH BID [facility] Last Admin: 09/27/17 08:21 Dose: 2 puff Omeprazole (Prilosec Cap*) 40 mg PO 0730,1630 [facility] Last Admin: 09/27/17 09:34 Dose: 40 mg Ondansetron HCl (Zofran Inj*) 4 mg IV Q4H PRN PRN Reason: NAUSEA Last Admin: 09/19/17 06:33 Dose: 4 mg Tiotropium [place] (Spiriva Cap.Inh*) 1 cap INH QAM [facility] Last Admin: 09/27/17 08:21 Dose: 1 cap.inh Trimethoprim/Sulfamethoxazole (Bactrim Ds 800/160 Tab*) 1 tab PO BID [facility] Stop: 09/28/17 09:01 Last Admin: 09/27/17 09:25 Dose: 1 tab Vancomycin HCl (Vancomycin Cap*) 125 mg PO Q6HR [facility] Last Admin: 09/27/17 13:58 Dose: Not Given Venlafaxine HCl (Effexor Xr Cap*) 75 mg PO QAM [facility] Last Admin: 09/27/17 09:26 Dose: 75 mg Venlafaxine HCl (Effexor Xr Cap*) 150 mg PO DAILY [facility] Last Admin: 09/27/17 09:26 Dose: 150 mg Vital Signs - 8 hr 09/27/17 09/27/17 09/27/17 08:48 09:22 09:23 Temperature 97.9 F Pulse Rate 83 Respiratory 18 18 18 Rate Blood Pressure 103/67 (mmHg) O2 Sat by Pulse 93 Oximetry 09/27/17 09/27/17 09/27/17 11:37 13:01 13:02 Temperature 98.3 F Pulse Rate 82 Respiratory 18 18 18 Rate Blood Pressure 104/74 (mmHg) O2 Sat by Pulse 96 Oximetry Oxygen Devices in Use Now: None Appearance: Patient is a 72yo female who appears stated age and is sitting in the bed in [facility]. Eyes: No Scleral Icterus, PERRLA Ears/Nose/Mouth/Throat: NL Teeth, Lips, Gums, Clear Oropharnyx, Mucous Membranes Moist Neck: NL Appearance and Movements; NL JVP, Trachea Midline Respiratory: Symmetrical Chest Expansion and Respiratory Effort, - - Crackles in the bases of lower lobes. Cardiovascular: NL Sounds; No Murmurs; No JVD, RRR, No Edema Abdominal: NL Sounds; No Tenderness; No Distention, No Hepatosplenomegaly Lymphatic: No Cervical Adenopathy Extremities: No Edema, No Clubbing, Cyanosis Skin: No Rash or Ulcers, No Nodules or Sclerosis Neurological: Alert and Oriented x 3, NL Sensation, NL Muscle Strength and Tone , - - CN II-XII intact. Result Diagrams: 09/27/17 09:17 09/27/17 09:17 Microbiology and Other Data: . Assess/Plan/Problems-Billing Assessment: Ms. Solomon is a 72yo female with a PMF for CHF, C. Diff, [place], RA, AF, FRANKIE, anemia, who presents with recurrent C. Diff improving on vancomycin oral treatment with JUSTINA which is resolved and new hypoxia from fluid overload and anemia with positive [place] x2 with negative colonoscopy. - Patient Problems (1) Anemia Current Visit: No Status: Acute Priority: Medium Code(s): D64.9 - ANEMIA, UNSPECIFIED SNOMED Code(s): 943950493 Comment: Appreciate GI input. Increased to 8.5 after 1u PRBC. Repeat stool occult blood positive. Patient has a history of GI bleed. Xarelto and aspirin held. Colonoscopy negative. Will resume Xarelto and Aspirin tomorrow. Continue increased omeprazole. Also component of SANA plus possibly some dilution from fluid overload/ dehydration on admission from diarrhea. Continue iron supplementation every other day. (2) JUSTINA (acute kidney injury) Current Visit: Yes Status: Acute Code(s): N17.9 - ACUTE KIDNEY FAILURE, UNSPECIFIED SNOMED Code(s): 60992646 Comment: Resolved. Hydralazine decreased to 5mg TID due to hypotansion. Monitor closely with increased efforts at diuresis. Appreciate nephrology consult. (3) Hyperkalemia Current Visit: Yes Status: Acute Code(s): E87.5 - HYPERKALEMIA SNOMED Code (s): 37112573 Comment: Resolved. Hold Spironolatone. Would recommend holding potassium supplementation at discharge. (4) C. difficile diarrhea Current Visit: No Status: Acute Code(s): A04.72 - ENTEROCOLITIS D/T CLOSTRIDIUM DIFFICILE, NOT SPCF RECUR SNOMED Code(s): 4865663302412 Comment: Continues to have loose BMs. Much improved from before admission. Continue po vancomycin at this dose for 2 week course then taper. Taper would begin on 09/29. No indication for stool transplant at this time per ID. No evidence on Colonoscopy. (5) Elevated troponin Current Visit: No Status: Acute Code(s): R79.89 - OTHER SPECIFIED ABNORMAL FINDINGS OF BLOOD CHEMISTRY SNOMED Code(s): 134592422 Comment: Chronic EKG changes with LBBB. No CP or other signs of ACS during admission. Likely from demand ischemia. (6) Hypertension Current Visit: No Status: Acute Code(s): I10 - ESSENTIAL (PRIMARY) HYPERTENSION SNOMED Code(s): 55438988 Comment: Borderline hypotensive. Improved after PRBC Continue home metoprolol and decreased hydralazine (with hold parameters). Hold lisinopril and spironolactone given JUSTINA during admission. (7) CAD (coronary artery disease) Current Visit: No Status: Chronic Priority: Medium Code(s): I25.10 - ATHSCL HEART DISEASE OF [place] CORONARY ARTERY W/O ANG PCTRS SNOMED Code(s): 78674359 Comment: Asymptomatic. History of chronic systolic heart failure. Continue metoprolol, aspirin, statin. Diuresis PRN. Hold lisinopril, spironolactone. (8) CHF (congestive heart failure) Current Visit: No Status: Chronic Priority: High Code(s): I50.9 - HEART FAILURE, UNSPECIFIED SNOMED Code(s): 92682315 Comment: Crackles in lungs with some mildly labored breathing. ABG shows normal O2 sat despite low pulse oximetry. Diurese as BP and creatinine will tolerate, increase to lasix 20mg po daily. Chronic systolic heart failure, EF <35-40% Continue metoprolol. Daily weights, I/O. Inaccurate due to stool contamination. (9) Rheumatoid arthritis Current Visit: No Status: Deleted Code(s): M06.9 - RHEUMATOID ARTHRITIS, UNSPECIFIED SNOMED Code(s): 76138006 Comment: Continue hydroxychloroquine. (10) DVT prophylaxis Current Visit: No Status: Acute Priority: Medium Code(s): DER4830 - SNOMED Code(s): 107604340 Comment: SCDs at this time due to positive Guaic. Status and Disposition: Discharge to [place] when medically stable.
[2017-09-27] MEDS: Atorvastatin* 40 MG TAB PO SCH (18:08)
[2017-09-27] MEDS: Metoprolol Succinate XL TAB* 25 MG PO SCH (21:27)
[2017-09-27] MEDS: CMCS Melatonin (NF) 3 MG TAB PO SCH (23:46)
[2017-09-28 05:29] LABS: ABS Basophils 0.1 10^3/ul (0-0.2); ABS Eosinophils 0 10^3/ul (0-0.6); ABS Lymphocytes 1.2 10^3/ul (1.0-4.8); ABS Monocytes 1.4 10^3/ul (0-0.8); ABS Neutrophils 7.3 10^3/ul (1.5-7.7); ABS Nucleated RBC 0 10^3/ul; Eosinophil % 0 % (0-6); Hematocrit 26 % (35-47); Hemoglobin 8.3 g/dl (12.0-16.0); Mean Corpuscular HGB Conc 32 g/dl (31-36); Mean Corpuscular Hemoglobin 28 pg (27-31); Mean Corpuscular Volume 87 fL (80-97); Mean Platelet Volume 7 um3 (7.4-10.4); Nucleated Red Blood Cells % 0; Platelet Count 263 10^3/ul (150-450); Red Blood Count 2.99 10^6/ul (4.0-5.4); Red Cell Distribution Width 20 % (10.5-15)
[2017-09-28] MEDS: Vancomycin CAP* 125 MG CAP PO SCH ×4 (05:32→23:39)
[2017-09-28 05:45] LABS: EGFR Non-African American 59.3 (>60)
[2017-09-28] MEDS: Hydroxychloroquine TAB* 200 MG PO SCH ×2 (08:40→22:33)
[2017-09-28] MEDS: Furosemide TAB* 20 MG PO SCH (08:40)
[2017-09-28] MEDS: Omeprazole CAP* 20 MG PO SCH ×2 (08:40→16:43)
[2017-09-28] MEDS: Cholecalciferol TAB* 1000 UNITS PO SCH (08:40)
[2017-09-28] MEDS: Lactobacillus Acidophilu (GG)* 1 CAP CAP PO SCH ×2 (08:40→22:33)
[2017-09-28] MEDS: hydrALAZINE TAB* 10 MG PO SCH ×3 (08:41→22:58)
[2017-09-28] MEDS: Sulfamethox/Trimethoprim DS 800/160* TAB PO SCH (08:41)
[2017-09-28] MEDS: Venlafaxine EXT RELEASE CAP* 75 MG PO SCH ×2 (08:41)
[2017-09-28] MEDS: Magnesium Oxide TAB* 400 MG PO SCH (08:41)
[2017-09-28] MEDS: ALPRAZolam TAB* 0.25 MG PO PRN ×2 (08:51→23:38)
[2017-09-28] MEDS: Mometasone/Formoter 200/5 MDI INH SCH ×2 (09:07→19:25)
[2017-09-28] MEDS: Tiotropium CAP.INH* CAP.INH/18 MCG (USE ORDER SET !) INH SCH (09:07)
[2017-09-28] MEDS ORDERED: NS 0.9% IVPB ONE (10:27)
[2017-09-28] MEDS ORDERED: IRON DEXTRAN IVPB ONE (10:27)
[2017-09-28] MEDS ORDERED: Iron Sucrose* 200 MG in NS 0.9% 100 ML* 100 ML IVPB ONE (11:45)
--- NOTE | 2017-09-28 12:45 | PN ---
Subjective Date of Service: 09/28/17 Interval History: Patient feels persistently tired and depressed. Patient states that she thinks her depression is her main problem. Patient states she continues to have frequent BMs which are loose, dark and have no visible blood. Patient has intermittent SOB. Patient has intermittent pain in her abdomen which feels like gas. Patient denies F/C, N/V, dysuria, rash, dizziness on standing, or other pain. Patient denies ever being treated with IV iron previously. Family History: Unchanged from Admission Social History: Unchanged from Admission Past Medical History: Unchanged from Admission Objective Active Medications: Alprazolam (Xanax Tab*) 0.25 mg PO TID PRN PRN Reason: ANXIETY Last Admin: 09/28/17 08:51 Dose: 0.25 mg Atorvastatin Calcium (Lipitor*) 40 mg PO QPM [facility] Last Admin: 09/27/17 18:08 Dose: 40 mg Cholecalciferol (Vitamin D Tab*) 5,000 units PO DAILY [facility] Last Admin: 09/28/17 08:40 Dose: 5,000 units Dicyclomine HCl (Bentyl Cap*) 10 mg PO AC PRN PRN Reason: DIARRHEA Furosemide (Lasix Tab*) 20 mg PO DAILY [facility] Last Admin: 09/28/17 08:40 Dose: 20 mg Hydralazine HCl (Apresoline Tab*) 5 mg PO TID [facility] Last Admin: 09/28/17 08:41 Dose: 5 mg Hydroxychloroquine Sulfate (Plaquenil Tab*) 200 mg PO BID [facility] Last Admin: 09/28/17 08:40 Dose: 200 mg Iron Sucrose 200 mg/ Sodium (Chloride) 110 mls @ 110 mls/hr IVPB ONCE ONE Stop: 09/28/17 12:44 Last Admin: 09/28/17 12:32 Dose: 110 mls/hr Lactobacillus Rhamnosus (Culturelle*) 1 cap PO BID [facility] Last Admin: 09/28/17 08:40 Dose: 1 cap Magnesium Oxide (Magox 400 Tab*) 800 mg PO QAM [facility] Last Admin: 09/28/17 08:41 Dose: 800 mg Melatonin (Melatonin (Nf)) 3 mg PO BEDTIME [facility] Last Admin: 09/27/17 23:46 Dose: 3 mg Metoprolol Succinate (Toprol Xl Tab*) 25 mg PO BEDTIME [facility] Last Admin: 09/27/17 21:27 Dose: Not Given Mometasone Furoate/Formoterol Fumar (Dulera 200/5 Mdi*) 2 puff INH BID [facility] Last Admin: 09/28/17 09:07 Dose: 2 puff Omeprazole (Prilosec Cap*) 40 mg PO 0730,1630 [facility] Last Admin: 09/28/17 08:40 Dose: 40 mg Ondansetron HCl (Zofran Inj*) 4 mg IV Q4H PRN PRN Reason: NAUSEA Last Admin: 09/19/17 06:33 Dose: 4 mg Tiotropium [place] (Spiriva Cap.Inh*) 1 cap INH QAM [facility] Last Admin: 09/28/17 09:07 Dose: 1 cap.inh Vancomycin HCl (Vancomycin Cap*) 125 mg PO Q6HR [facility] Last Admin: 09/28/17 12:32 Dose: 125 mg Venlafaxine HCl (Effexor Xr Cap*) 75 mg PO QAM [facility] Last Admin: 09/28/17 08:41 Dose: 75 mg Venlafaxine HCl (Effexor Xr Cap*) 150 mg PO DAILY [facility] Last Admin: 09/28/17 08:41 Dose: 150 mg Vital Signs - 8 hr 09/28/17 09/28/17 09/28/17 06:17 06:27 07:41 Temperature 97.7 F 98.4 F Pulse Rate 92 91 Respiratory 18 18 18 Rate Blood Pressure 109/84 (mmHg) O2 Sat by Pulse 93 90 Oximetry 09/28/17 09/28/17 09/28/17 07:50 08:51 09:11 Temperature 99.0 F Pulse Rate 48 72 Respiratory 14 18 16 Rate Blood Pressure 115/69 (mmHg) O2 Sat by Pulse 94 Oximetry 09/28/17 09/28/17 11:30 11:32 Temperature 97.6 F Pulse Rate 123 Respiratory 18 14 Rate Blood Pressure 110/80 (mmHg) O2 Sat by Pulse Oximetry Oxygen Devices in Use Now: None Appearance: Patient is a 72yo female who appears stated age and is sitting in the bed in [facility]. Eyes: No Scleral Icterus, PERRLA Ears/Nose/Mouth/Throat: NL Teeth, Lips, Gums, Clear Oropharnyx, Mucous Membranes Moist Neck: NL Appearance and Movements; NL JVP, Trachea Midline Respiratory: Symmetrical Chest Expansion and Respiratory Effort, Clear to Auscultation Cardiovascular: NL Sounds; No Murmurs; No JVD, RRR, - - 2+ edema in B/L LE. Pulses 2+ in B/L LE. Abdominal: No Hepatosplenomegaly, - - Hyperactive BS. Tenderness with deep palpation over the cecum. No rebound or guarding. Lymphatic: No Cervical Adenopathy Extremities: No Clubbing, Cyanosis Skin: No Rash or Ulcers, No Nodules or Sclerosis Neurological: Alert and Oriented x 3, NL Sensation, NL Muscle Strength and Tone , - - CN-II-XII intact. Result Diagrams: 09/28/17 05:22 09/28/17 05:22 Microbiology and Other Data: . Assess/Plan/Problems-Billing Assessment: Ms. Solomon is a 72yo female with a PMF for CHF, C. Diff, [place], RA, AF, FRANKIE, anemia, who presents with recurrent C. Diff improving on vancomycin oral treatment with JUSTINA which is resolved and new hypoxia from fluid overload and anemia with positive Gu[place] x2 with negative colonoscopy. - Patient Problems (1) Anemia Current Visit: No Status: Acute Priority: Medium Code(s): D64.9 - ANEMIA, UNSPECIFIED SNOMED Code(s): 218819384 Comment: Appreciate GI input. Increased to 8.5 after 1u PRBCon 09/26. Then decreased to 8.3 today. Repeat stool occult blood positive. Patient has a history of GI bleed. Xarelto and aspirin resumed per Ortho. Continue increased omeprazole. Also component of SANA plus possibly some dilution from fluid overload/ dehydration on admission from diarrhea. Continue iron supplementation every other day at discharge. Will give IV iron today and tomorrow while patient is in the hospital due to RA and probable poor absorption of Iron. Reticulocyte count previously increased but not in proportion to level of anemia. (2) JUSTINA (acute kidney injury) Current Visit: Yes Status: Acute Code(s): N17.9 - ACUTE KIDNEY FAILURE, UNSPECIFIED SNOMED Code(s): 95590301 Comment: Resolved. Hydralazine decreased to 5mg TID due to hypotension. Monitor closely with increased efforts at diuresis. Appreciate nephrology consult. (3) Hyperkalemia Current Visit: Yes Status: Acute Code(s): E87.5 - HYPERKALEMIA SNOMED Code (s): 03234008 Comment: Resolved. Hold Spironolatone. Would recommend holding potassium supplementation at discharge. (4) C. difficile diarrhea Current Visit: No Status: Acute Code(s): A04.72 - ENTEROCOLITIS D/T CLOSTRIDIUM DIFFICILE, NOT SPCF RECUR SNOMED Code(s): 2798464837675 Comment: Continues to have loose BMs. Much improved from before admission. Continue po vancomycin at this dose for 2 week course then taper. Taper would begin on 09/29. No indication for stool transplant at this time per ID. No evidence on Colonoscopy. (5) Elevated troponin Current Visit: No Status: Acute Code(s): R79.89 - OTHER SPECIFIED ABNORMAL FINDINGS OF BLOOD CHEMISTRY SNOMED Code(s): 351012481 Comment: Chronic EKG changes with LBBB. No CP or other signs of ACS during admission. Likely from demand ischemia. (6) Hypertension Current Visit: No Status: Acute Code(s): I10 - ESSENTIAL (PRIMARY) HYPERTENSION SNOMED Code(s): 25761462 Comment: Borderline hypotensive. Improved after PRBC Continue home metoprolol and decreased hydralazine (with hold parameters). Hold lisinopril and spironolactone given JUSTINA during admission. (7) CAD (coronary artery disease) Current Visit: No Status: Chronic Priority: Medium Code(s): I25.10 - ATHSCL HEART DISEASE OF [place] CORONARY ARTERY W/O ANG PCTRS SNOMED Code(s): 84494999 Comment: Asymptomatic. History of chronic systolic heart failure. Continue metoprolol, aspirin, statin. Diuresis PRN. Hold lisinopril, spironolactone. (8) CHF (congestive heart failure) Current Visit: No Status: Chronic Priority: High Code(s): I50.9 - HEART FAILURE, UNSPECIFIED SNOMED Code(s): 13574960 Comment: Lungs clear. Diurese as BP and creatinine will tolerate, increase to lasix 20mg po daily. Chronic systolic heart failure, EF <35-40% Continue metoprolol. Daily weights, I/O. Inaccurate due to stool contamination. (9) Rheumatoid arthritis Current Visit: No Status: Deleted Code(s): M06.9 - RHEUMATOID ARTHRITIS, UNSPECIFIED SNOMED Code(s): 91477206 Comment: Continue hydroxychloroquine. 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 (10) DVT prophylaxis Current Visit: No Status: Acute Priority: Medium Code(s): CFN9944 - SNOMED Code(s): 352159634 Comment: SCDs at this time due to positive Guaic. Status and Disposition: Discharge when medically stable.
--- NOTE | 2017-09-28 13:00 | PRO ---
CC: Dr. Watkins; Dr. Nj; Yolanda Mathews MD GASTROENTEROLOGY OPERATIVE REPORT: DATE OF PROCEDURE: 09/27/17 OPERATIVE PROCEDURE: Colonoscopy to terminal ileum. SURGEON: Yolanda Mathews MD. ANESTHESIA: 1. Midazolam 4 mg IV. 2. Fentanyl 75 mcg IV. HISTORY OF PRESENT ILLNESS: Crystal is a pleasant 72-year-old female who presents with multiple comorbidities including CHF, hypertension, coronary artery disease, COPD, paroxysmal atrial fibrillation on rivaroxaban and aspirin. She presented to [facility] with diarrhea and was found to have recurrent C. diff and currently improving on oral vancomycin treatment. She was also noted to be progressively anemic while in the hospital and she was guaiac positive x2. Gastroenterology was consulted for further treatment and possible colonoscopy for further evaluation of the patient's anemia. Her last colonoscopy was performed greater than 10 years ago. There has been no evidence of active gastrointestinal bleeding. PREOPERATIVE DIAGNOSES: 1. Anemia. 2. Recurrent C. difficile. POSTOPERATIVE DIAGNOSES: 1. Normal appearing terminal ileum with biopsies to rule out Crohn's disease. 2. A 5-mm sessile cecal polyp near appendiceal orifice with polypectomy. 3. Large-mouthed diverticula in the sigmoid colon. 4. Significantly tortuous sigmoid colon likely due to surgical adhesions. 5. Normal ascending colon, transverse colon, and descending colon. 6. Random colon biopsies were obtained from the right side of the colon, left side of the colon and rectum to rule out microscopic colitis. 7. Medium sized, nonbleeding internal hemorrhoids on retroflexion. 8. Fair colonoscopy preparation. RECOMMENDATIONS: 1. Will follow up with path results. 2. Continue oral vancomycin therapy per ID recommendations. 3. May restart rivaroxaban and aspirin therapy tomorrow. 4. May resume previous diet. 5. May need a FMT in the future if patient fails therapy. PROCEDURE IN DETAIL: Colonoscopy was explained in detail to the patient. The risks, benefits, complications, alternatives, and possibilities of missed lesions were explained and understood. Complications included, but were not limited to reaction to anesthesia, aspiration, increased risk of bleeding, and perforation. All questions were answered. The patient demonstrated understanding of the conversation and informed consent was obtained. Next, the patient was brought to the endoscopy suite, placed in the left lateral recumbent position where blood pressure, cardiac, and oxygen monitors were applied. The patient was found to be a fit candidate for moderate anesthesia. After adequate IV sedation was achieved, a digital rectal exam was performed which revealed normal sphincter tone. No palpable masses were appreciated. Next, a standard pediatric Olympus colonoscope was inserted through the rectum, maneuvered all the way to the cecal base where the ileocecal valve and appendiceal orifice were identified and photographed. The terminal ileum was subsequently intubated and was normal appearing. Next, the colonoscope was withdrawn in a fashion that allowed adequate visualization of the bowel. The patient's overall colonoscopy preparation was fair. Aggressive irrigation and suctioning was performed in order to adequately visualize the mucosa. The vasculature and mucosal pattern throughout the colon was normal. There is no evidence of colitis present. There was a 5-mm sessile cecal polyp noted at the appendiceal orifice and the cecal base, this was removed via jumbo cold forceps. Hemostasis was seen. The ascending colon, transverse colon, and descending colon were normal appearing. Withdrawal into the sigmoid colon revealed significant tortuosity. There were large-mouthed diverticula also present. Withdrawal into the rectum revealed on retroflexion, moderate nonbleeding internal hemorrhoids. Of note, random colon biopsies were obtained from the right side of the colon, the left side of the colon and rectum to rule out microscopic colitis. Air was then removed from the patient. Colonoscope was removed from the patient. The patient tolerated the procedure well. There were no immediate complications. 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 Thank you, Dr. Watkins and Dr. Nj, for allowing us to participate in the care of your patient. If you should have any further questions or concerns, please do not hesitate to contact us. [id number]/[facility] #: [id number] [place] NENA
[2017-09-28] MEDS: Simethicone TAB* 80 MG TAB.CHEW PO SCH (16:45)
[2017-09-28] MEDS: Atorvastatin* 40 MG TAB PO SCH (17:45)
[2017-09-28] MEDS: CMCS Melatonin (NF) 3 MG TAB PO SCH (22:33)
[2017-09-28] MEDS: Metoprolol Succinate XL TAB* 25 MG PO SCH (22:59)
[2017-09-29] MEDS: oxyCODONE TAB* 5 MG TAB PO PRN ×3 (00:35→14:06)
[2017-09-29] MEDS: Vancomycin CAP* 125 MG CAP PO SCH ×3 (05:46→17:07)
[2017-09-29] MEDS: Cholecalciferol TAB* 1000 UNITS PO SCH (07:50)
[2017-09-29] MEDS: Simethicone TAB* 80 MG TAB.CHEW PO SCH ×3 (07:50→17:07)
[2017-09-29] MEDS: Omeprazole CAP* 20 MG PO SCH ×2 (07:50→17:07)
[2017-09-29] MEDS: Lactobacillus Acidophilu (GG)* 1 CAP CAP PO SCH ×2 (07:50→20:54)
[2017-09-29] MEDS: Magnesium Oxide TAB* 400 MG PO SCH (07:50)
[2017-09-29] MEDS: Tiotropium CAP.INH* CAP.INH/18 MCG (USE ORDER SET !) INH SCH (07:56)
[2017-09-29] MEDS: Mometasone/Formoter 200/5 MDI INH SCH ×2 (07:57→20:02)
[2017-09-29] MEDS: hydrALAZINE TAB* 10 MG PO SCH ×3 (08:52→20:54)
[2017-09-29] MEDS: Venlafaxine EXT RELEASE CAP* 75 MG PO SCH ×2 (09:21)
[2017-09-29] MEDS: Hydroxychloroquine TAB* 200 MG PO SCH ×2 (09:21→20:54)
[2017-09-29] MEDS: Furosemide TAB* 20 MG PO SCH (09:21)
[2017-09-29 09:56] LABS: ABS Basophils 0.1 10^3/ul (0-0.2); ABS Eosinophils 0 10^3/ul (0-0.6); ABS Lymphocytes 0.9 10^3/ul (1.0-4.8); ABS Monocytes 1.3 10^3/ul (0-0.8); ABS Neutrophils 7.5 10^3/ul (1.5-7.7); ABS Nucleated RBC 0 10^3/ul; Eosinophil % 0 % (0-6); Hematocrit 27 % (35-47); Hemoglobin 8.4 g/dl (12.0-16.0); Lymphocyte % 9.7 % (25-47); Mean Corpuscular HGB Conc 32 g/dl (31-36); Mean Corpuscular Hemoglobin 28 pg (27-31); Mean Corpuscular Volume 88 fL (80-97); Mean Platelet Volume 8 um3 (7.4-10.4); Nucleated Red Blood Cells % 0.2; Platelet Count 247 10^3/ul (150-450); Red Blood Count 3.02 10^6/ul (4.0-5.4); Red Cell Distribution Width 20 % (10.5-15); White Blood Count 9.8 10^3/ul (3.5-10.8)
[2017-09-29 10:21] LABS: EGFR Non-African American 53.3 (>60)
[2017-09-29] MEDS ORDERED: Iron Sucrose* 200 MG in NS 0.9% 100 ML* 100 ML IVPB ONE (12:30)
[2017-09-29] MEDS: ALPRAZolam TAB* 0.25 MG PO PRN (14:06)
--- NOTE | 2017-09-29 15:52 | PN ---
Subjective Interval History: Patient continues to feel depressed and weak. Patient continues to have diarrhea approximately 3 times a day. Patient states that she feels weak and is very short of breath with any exertion. Patient states that she would be interested in [facility] and has no support at home. Patient denies F/C, N/V, abdominal pain, CP, dysuria, changes in urinary frequency, or other pain. Family History: Unchanged from Admission Social History: Unchanged from Admission Past Medical History: Unchanged from Admission Objective Active Medications: Alprazolam (Xanax Tab*) 0.25 mg PO TID PRN PRN Reason: ANXIETY Last Admin: 09/29/17 14:06 Dose: 0.25 mg Atorvastatin Calcium (Lipitor*) 40 mg PO QPM [facility] Last Admin: 09/28/17 17:45 Dose: 40 mg Cholecalciferol (Vitamin D Tab*) 5,000 units PO DAILY [facility] Last Admin: 09/29/17 07:50 Dose: 5,000 units Dicyclomine HCl (Bentyl Cap*) 10 mg PO AC PRN PRN Reason: DIARRHEA Furosemide (Lasix Tab*) 20 mg PO DAILY [facility] Last Admin: 09/29/17 09:21 Dose: 20 mg Hydralazine HCl (Apresoline Tab*) 5 mg PO TID [facility] Last Admin: 09/29/17 13:43 Dose: 5 mg Hydroxychloroquine Sulfate (Plaquenil Tab*) 200 mg PO BID [facility] Last Admin: 09/29/17 09:21 Dose: 200 mg Lactobacillus Rhamnosus (Culturelle*) 1 cap PO BID [facility] Last Admin: 09/29/17 07:50 Dose: 1 cap Magnesium Oxide (Magox 400 Tab*) 800 mg PO QAM [facility] Last Admin: 09/29/17 07:50 Dose: 800 mg Melatonin (Melatonin (Nf)) 3 mg PO BEDTIME [facility] Last Admin: 09/28/17 22:33 Dose: 3 mg Metoprolol Succinate (Toprol Xl Tab*) 25 mg PO BEDTIME [facility] Last Admin: 09/28/17 22:59 Dose: Not Given Mometasone Furoate/Formoterol Fumar (Dulera 200/5 Mdi*) 2 puff INH BID [facility] Last Admin: 09/29/17 07:57 Dose: 2 puff Omeprazole (Prilosec Cap*) 40 mg PO 0730,1630 [facility] Last Admin: 09/29/17 07:50 Dose: 40 mg Ondansetron HCl (Zofran Inj*) 4 mg IV Q4H PRN PRN Reason: NAUSEA Last Admin: 09/19/17 06:33 Dose: 4 mg Oxycodone HCl (Roxycodone Tab*) 2.5 mg PO Q4H PRN PRN Reason: PAIN Last Admin: 09/29/17 14:06 Dose: 2.5 mg Simethicone (Mylicon Tab*) 80 mg PO AC [facility] Last Admin: 09/29/17 12:03 Dose: 80 mg Tiotropium Hamill (Spiriva Cap.Inh*) 1 cap INH QAM [facility] Last Admin: 09/29/17 07:56 Dose: 1 cap.inh Vancomycin HCl (Vancomycin Cap*) 125 mg PO Q6HR [facility] Last Admin: 09/29/17 12:03 Dose: 125 mg Venlafaxine HCl (Effexor Xr Cap*) 75 mg PO QAM [facility] Last Admin: 09/29/17 09:21 Dose: 75 mg Venlafaxine HCl (Effexor Xr Cap*) 150 mg PO DAILY [facility] Last Admin: 09/29/17 09:21 Dose: 150 mg Vital Signs - 8 hr 09/29/17 09/29/17 09/29/17 07:57 08:00 08:03 Temperature 97.6 F Pulse Rate 51 Respiratory 16 16 Rate Blood Pressure (mmHg) O2 Sat by Pulse 92 Oximetry 09/29/17 09/29/17 09/29/17 08:40 08:50 11:25 Temperature Pulse Rate 75 Respiratory 16 Rate Blood Pressure 93/58 100/65 111/62 (mmHg) O2 Sat by Pulse Oximetry 09/29/17 14:06 Temperature Pulse Rate Respiratory 16 Rate Blood Pressure (mmHg) O2 Sat by Pulse Oximetry Oxygen Devices in Use Now: None, OxyMask Appearance: Patient is a 72yo tired female who appears stated age and is sitting in the chair in [facility]. Eyes: No Scleral Icterus, PERRLA Ears/Nose/Mouth/Throat: NL Teeth, Lips, Gums, Clear Oropharnyx, Mucous Membranes Moist Neck: NL Appearance and Movements; NL JVP, Trachea Midline Respiratory: Symmetrical Chest Expansion and Respiratory Effort, - - Slight crackles in B/L LE. Cardiovascular: NL Sounds; No Murmurs; No JVD, RRR, - - 1+ pitting edema in B/L LE. Abdominal: NL Sounds; No Tenderness; No Distention, No Hepatosplenomegaly Lymphatic: No Cervical Adenopathy Extremities: No Edema, No Clubbing, Cyanosis Skin: No Rash or Ulcers, No Nodules or Sclerosis Neurological: Alert and Oriented x 3, NL Sensation, NL Muscle Strength and Tone , - - CN II-XII intact. Result Diagrams: 09/29/17 09:41 09/29/17 09:41 Microbiology and Other Data: . Assess/Plan/Problems-Billing Assessment: Ms. Solomon is a 72yo female with a PMF for CHF, C. Diff, [place], RA, AF, FRANKIE, anemia, who presents with recurrent C. Diff improving on vancomycin oral treatment with JUSTINA which is resolved and new hypoxia from fluid overload and anemia with positive Guaic x2 with negative colonoscopy. - Patient Problems (1) Anemia Current Visit: No Status: Acute Priority: Medium Code(s): D64.9 - ANEMIA, UNSPECIFIED SNOMED Code(s): 967361849 Comment: Appreciate GI input. Increased to 8.4 today. Repeat stool occult blood positive. Patient has a history of GI bleed. Xarelto and aspirin resumed per Ortho. Continue increased omeprazole. Also component of SANA plus possibly some dilution from fluid overload/ dehydration on admission from diarrhea. Continue iron supplementation every other day at discharge. Will give IV iron today and tomorrow while patient is in the hospital due to RA and probable poor absorption of Iron. Continue up to 5 doses over the course of 14 days while in the hospital. Reticulocyte count previously increased but not in proportion to level of anemia. (2) JUSTINA (acute kidney injury) Current Visit: Yes Status: Acute Code(s): N17.9 - ACUTE KIDNEY FAILURE, UNSPECIFIED SNOMED Code(s): 37785760 Comment: Resolved. Hydralazine decreased to 5mg TID due to hypotension. Monitor closely with increased efforts at diuresis. Appreciate nephrology consult. Patient's cret decreased from baseline possibly due to fluid overload. (3) Hyperkalemia Current Visit: Yes Status: Acute Code(s): E87.5 - HYPERKALEMIA SNOMED Code (s): 74023705 Comment: Resolved. Hold Spironolatone. Would recommend holding potassium supplementation at discharge. (4) C. difficile diarrhea Current Visit: No Status: Acute Code(s): A04.72 - ENTEROCOLITIS D/T CLOSTRIDIUM DIFFICILE, NOT SPCF RECUR SNOMED Code(s): 4543880149412 Comment: Continues to have loose BMs. Much improved from before admission. Continue po vancomycin at this dose for 2 week course then taper. Taper would begin on 09/29. Will decrease to Q8H tomorrow. No indication for stool transplant at this time per ID. No evidence on Colonoscopy. (5) Elevated troponin Current Visit: No Status: Acute Code(s): R79.89 - OTHER SPECIFIED ABNORMAL FINDINGS OF BLOOD CHEMISTRY SNOMED Code(s): 393047283 Comment: Chronic EKG changes with LBBB. No CP or other signs of ACS during admission. Likely from demand ischemia. (6) Hypertension Current Visit: No Status: Acute Code(s): I10 - ESSENTIAL (PRIMARY) HYPERTENSION SNOMED Code(s): 59987483 Comment: Borderline hypotensive. Improved after PRBC Continue home metoprolol and decreased hydralazine (with hold parameters). Hold Continue to hold lisinopril and spironolactone given JUSTINA during admission and persistent hypotension at this time. (7) CAD (coronary artery disease) Current Visit: No Status: Chronic Priority: Medium Code(s): I25.10 - ATHSCL HEART DISEASE OF [place] CORONARY ARTERY W/O ANG PCTRS SNOMED Code(s): 54202041 Comment: Asymptomatic. History of chronic systolic heart failure. Continue metoprolol, aspirin, statin. Diuresis PRN. Hold lisinopril, spironolactone. (8) CHF (congestive heart failure) Current Visit: No Status: Chronic Priority: High Code(s): I50.9 - HEART FAILURE, UNSPECIFIED SNOMED Code(s): 17090653 Comment: Lungs clear. Diurese as BP and creatinine will tolerate, increase to lasix 20mg po daily. Chronic systolic heart failure, EF <35-40% Continue metoprolol. Daily weights, I/O. Inaccurate due to stool contamination. Weight stable. (9) Rheumatoid arthritis Current Visit: No Status: Deleted Code(s): M06.9 - RHEUMATOID ARTHRITIS, UNSPECIFIED SNOMED Code(s): 94889314 Comment: Continue hydroxychloroquine. 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 No signs of new disease activity at this time. (10) DVT prophylaxis Current Visit: No Status: Acute Priority: Medium Code(s): RQZ5582 - SNOMED Code(s): 166315332 Comment: SCDs at this time due to positive Guaic. Status and Disposition: Patient has a bed offer from [facility] Monday.
[2017-09-29] MEDS ORDERED: Acetaminophen TAB* 325 MG PO PRN (16:58)
[2017-09-29] MEDS: Atorvastatin* 40 MG TAB PO SCH (17:07)
[2017-09-29] MEDS: Ondansetron INJ* 2 MG/ML VIAL IV PRN (17:52)
[2017-09-29] MEDS ORDERED: Trimethobenzamide CAP* 300 MG PO PRN (19:01)
[2017-09-29] MEDS ORDERED: Magnesium Sulfate 2 GM IV* 2 GM/50 ML BAG IVPB ONE (19:15)
[2017-09-29] MEDS: Dicyclomine CAP* 10 MG PO PRN (19:19)
[2017-09-29 20:47] LABS: EGFR Non-African American 46.4 (>60)
[2017-09-29] MEDS: Metoprolol Succinate XL TAB* 25 MG PO SCH (20:54)
[2017-09-29] MEDS: CMCS Melatonin (NF) 3 MG TAB PO SCH (20:54)
[2017-09-30] MEDS: Vancomycin CAP* 125 MG CAP PO SCH ×5 (00:09→23:59)
[2017-09-30] MEDS: Mometasone/Formoter 200/5 MDI INH SCH ×2 (07:20→19:57)
[2017-09-30] MEDS: Tiotropium CAP.INH* CAP.INH/18 MCG (USE ORDER SET !) INH SCH (07:20)
[2017-09-30] MEDS: hydrALAZINE TAB* 10 MG PO SCH ×3 (08:12→19:51)
[2017-09-30] MEDS: Venlafaxine EXT RELEASE CAP* 75 MG PO SCH ×2 (08:23→08:25)
[2017-09-30] MEDS: Omeprazole CAP* 20 MG PO SCH ×2 (08:23→16:38)
[2017-09-30] MEDS: Furosemide TAB* 20 MG PO SCH (08:24)
[2017-09-30] MEDS: Lactobacillus Acidophilu (GG)* 1 CAP CAP PO SCH ×2 (08:24→19:51)
[2017-09-30] MEDS: Hydroxychloroquine TAB* 200 MG PO SCH ×2 (08:24→19:51)
[2017-09-30] MEDS: Simethicone TAB* 80 MG TAB.CHEW PO SCH ×3 (08:24→16:38)
[2017-09-30] MEDS: Magnesium Oxide TAB* 400 MG PO SCH (08:24)
[2017-09-30] MEDS: Cholecalciferol TAB* 1000 UNITS PO SCH (08:24)
[2017-09-30 08:52] LABS: ABS Basophils 0.1 10^3/ul (0-0.2); ABS Eosinophils 0 10^3/ul (0-0.6); ABS Lymphocytes 1.1 10^3/ul (1.0-4.8); ABS Monocytes 1.2 10^3/ul (0-0.8); ABS Neutrophils 6.2 10^3/ul (1.5-7.7); ABS Nucleated RBC 0.1 10^3/ul; Eosinophil % 0 % (0-6); Hematocrit 26 % (35-47); Hemoglobin 8.4 g/dl (12.0-16.0); Lymphocyte % 12.5 % (25-47); Mean Corpuscular HGB Conc 32 g/dl (31-36); Mean Corpuscular Hemoglobin 28 pg (27-31); Mean Corpuscular Volume 87 fL (80-97); Mean Platelet Volume 7 um3 (7.4-10.4); Nucleated Red Blood Cells % 0.8; Platelet Count 276 10^3/ul (150-450); Red Blood Count 2.97 10^6/ul (4.0-5.4); Red Cell Distribution Width 20 % (10.5-15); White Blood Count 8.5 10^3/ul (3.5-10.8)
[2017-09-30 09:14] LABS: EGFR Non-African American 46.9 (>60)
[2017-09-30] MEDS: ALPRAZolam TAB* 0.25 MG PO PRN (11:52)
[2017-09-30] MEDS: oxyCODONE TAB* 5 MG TAB PO PRN ×2 (11:52→16:38)
--- NOTE | 2017-09-30 12:45 | PN ---
Subjective Date of Service: 09/30/17 Interval History: pt reports she feels discouraged d/t being sick for so long. She reports two loose yellow stools today. No noted blood. No abdominal pain. No N/V. No fevers or chills. Reports little appetite but does report she is making herself drink the protein drink and nibble on food. She report SOB at her baseline and denies any SOB currently. LE edema is a little worse than her baseline. No cough or orthopnea. She reports "dry mouth" Family History: Unchanged from Admission Social History: Unchanged from Admission Past Medical History: Unchanged from Admission Objective Active Medications: Acetaminophen (Tylenol Tab*) 650 mg PO Q6H PRN PRN Reason: FEVER/PAIN Alprazolam (Xanax Tab*) 0.25 mg PO TID PRN PRN Reason: ANXIETY Last Admin: 09/30/17 11:52 Dose: 0.25 mg Atorvastatin Calcium (Lipitor*) 40 mg PO QPM [facility] Last Admin: 09/29/17 17:07 Dose: 40 mg Cholecalciferol (Vitamin D Tab*) 5,000 units PO DAILY [facility] Last Admin: 09/30/17 08:24 Dose: 5,000 units Dicyclomine HCl (Bentyl Cap*) 10 mg PO AC PRN PRN Reason: DIARRHEA Last Admin: 09/29/17 19:19 Dose: 10 mg Furosemide (Lasix Tab*) 20 mg PO DAILY [facility] Last Admin: 09/30/17 08:24 Dose: 20 mg Hydralazine HCl (Apresoline Tab*) 5 mg PO TID [facility] Last Admin: 09/30/17 08:12 Dose: Not Given Hydroxychloroquine Sulfate (Plaquenil Tab*) 200 mg PO BID [facility] Last Admin: 09/30/17 08:24 Dose: 200 mg Lactobacillus Rhamnosus (Culturelle*) 1 cap PO BID [facility] Last Admin: 09/30/17 08:24 Dose: 1 cap Magnesium Oxide (Magox 400 Tab*) 800 mg PO QAM [facility] Last Admin: 09/30/17 08:24 Dose: 800 mg Melatonin (Melatonin (Nf)) 3 mg PO BEDTIME [facility] Last Admin: 09/29/17 20:54 Dose: 3 mg Metoprolol Succinate (Toprol Xl Tab*) 25 mg PO BEDTIME [facility] Last Admin: 09/29/17 20:54 Dose: 25 mg Mometasone Furoate/Formoterol Fumar (Dulera 200/5 Mdi*) 2 puff INH BID [facility] Last Admin: 09/30/17 07:20 Dose: 2 puff Omeprazole (Prilosec Cap*) 40 mg PO 0730,1630 [facility] Last Admin: 09/30/17 08:23 Dose: 40 mg Ondansetron HCl (Zofran Inj*) 4 mg IV Q4H PRN PRN Reason: NAUSEA Last Admin: 09/29/17 17:52 Dose: 4 mg Oxycodone HCl (Roxycodone Tab*) 2.5 mg PO Q4H PRN PRN Reason: PAIN Last Admin: 09/30/17 11:52 Dose: 2.5 mg Simethicone (Mylicon Tab*) 80 mg PO AC [facility] Last Admin: 09/30/17 11:52 Dose: 80 mg Tiotropium Bell (Spiriva Cap.Inh*) 1 cap INH QAM [facility] Last Admin: 09/30/17 07:20 Dose: 1 cap.inh Trimethobenzamide HCl (Tigan Cap*) 300 mg PO Q6H PRN PRN Reason: NAUSEA Last Admin: 09/29/17 19:20 Dose: 300 mg Vancomycin HCl (Vancomycin Cap*) 125 mg PO Q8H [facility] Last Admin: 09/30/17 08:24 Dose: 125 mg Venlafaxine HCl (Effexor Xr Cap*) 75 mg PO QAM [facility] Last Admin: 09/30/17 08:23 Dose: 75 mg Venlafaxine HCl (Effexor Xr Cap*) 150 mg PO DAILY [facility] Last Admin: 09/30/17 08:25 Dose: 150 mg Vital Signs - 8 hr 09/30/17 09/30/17 09/30/17 07:36 08:20 11:17 Temperature 97.5 F 97.2 F Pulse Rate 80 128 Respiratory 20 20 24 Rate Blood Pressure 96/68 101/75 (mmHg) O2 Sat by Pulse 89 76 Oximetry 09/30/17 11:52 Temperature Pulse Rate Respiratory 20 Rate Blood Pressure (mmHg) O2 Sat by Pulse Oximetry Oxygen Devices in Use Now: None, OxyMask Appearance: eldelry female laying in bed in NAD. A+O x3. slight confused noted, easily reoriented Eyes: No Scleral Icterus, PERRLA Ears/Nose/Mouth/Throat: NL Teeth, Lips, Gums, - - Dry MM Neck: NL Appearance and Movements; NL JVP Respiratory: Symmetrical Chest Expansion and Respiratory Effort, - - crackles to bases b/l. upper lobes b/l clear with good aeration Cardiovascular: NL Sounds; No Murmurs; No JVD, - - 1+ pedal edema b/l Extremities: No Clubbing, Cyanosis Neurological: Alert and Oriented x 3, NL Sensation, NL Muscle Strength and Tone Lines/Tubes/Other Access: Clean, Dry and Intact Peripheral IV Nutrition: Taking PO's Result Diagrams: 09/30/17 08:44 09/30/17 08:44 Microbiology and Other Data: . Assess/Plan/Problems-Billing Assessment: Ms. Solomon is a 72yo female with a PMF for CHF, C. Diff, [place], RA, AF, FRANKIE, anemia, who presents with recurrent C. Diff improving on vancomycin oral treatment with JUSTINA and new hypoxia from fluid overload and anemia with positive Guaic x2 with negative colonoscopy. - Patient Problems (1) C. difficile diarrhea Comment: Much improvement over course of hospitalization Finished PO vancomycin 2 week course with taper which began on 09/29 now Q8hr. No indication for stool transplant at this time per ID. (2) Anemia Comment: Stable. Appreciate GI input. No evidence of active bleeding. Negative colonoscopy (see GI note). 1 unit PRBCs given. Xarelto and aspirin resumed per GI Stool occult blood positive x2. Continue increased omeprazole. Continue iron supplementation at discharge. IV iron infusions while patient is in the hospital due to RA and probable poor absorption of Iron. Continue up to 5 doses over the course of 14 days while in the hospital. (3) JUSTINA (acute kidney injury) Comment: Appreciate nephrology consult, likely to be prerenal secondary to CHF. It did resolve with Hydralazine 5mg TID and prn lasix. Lasix was added back on daily 2 days ago, now creatinine climbing again. Appears to be a little dry (dry MM) but noted crackles in bases/LE edema. Plan to hold lasix. Repeat creatinine tomorrow. Encourage PO fluids. DC Tigan PRN in the setting of JUSTINA. (4) UTI (urinary tract infection) Comment: - UA positive with ecoli on culture. - Finished course of bactrim (5) Hyperkalemia Comment: Resolved. Hold Spironolatone. Would recommend holding potassium supplementation at discharge. (6) Elevated troponin Comment: Chronic EKG changes with LBBB. No CP or other signs of ACS during admission. Likely from demand ischemia. (7) CAD (coronary artery disease) Comment: Asymptomatic. History of chronic systolic heart failure. Continue metoprolol, aspirin, statin. (8) CHF (congestive heart failure) Comment: Chronic systolic heart failure, EF <35-40% No supplemental O2 today Continue metoprolol. Hold lisinopril, spironolactone. Daily weights, I/O. Diurese prn. (9) Rheumatoid arthritis Comment: controlled. Continue plaquenil (10) Full code status Comment: (11) DVT prophylaxis Comment: xarelto Status and Disposition: Patient has a bed offer from [facility] Monday.
[2017-09-30] MEDS: Atorvastatin* 40 MG TAB PO SCH (16:38)
[2017-09-30] MEDS: Rivaroxaban TAB(*) 15 MG PO SCH (17:31)
[2017-09-30] MEDS: Metoprolol Succinate XL TAB* 25 MG PO SCH (19:51)
[2017-09-30] MEDS: CMCS Melatonin (NF) 3 MG TAB PO SCH (19:52)
[2017-10-01 06:07] LABS: ABS Basophils 0.1 10^3/ul (0-0.2); ABS Eosinophils 0 10^3/ul (0-0.6); ABS Lymphocytes 1.5 10^3/ul (1.0-4.8); ABS Monocytes 1.5 10^3/ul (0-0.8); ABS Neutrophils 8.4 10^3/ul (1.5-7.7); ABS Nucleated RBC 0.2 10^3/ul; Eosinophil % 0 % (0-6); Hematocrit 28 % (35-47); Hemoglobin 8.8 g/dl (12.0-16.0); Lymphocyte % 12.6 % (25-47); Mean Corpuscular HGB Conc 32 g/dl (31-36); Mean Corpuscular Hemoglobin 28 pg (27-31); Mean Corpuscular Volume 90 fL (80-97); Mean Platelet Volume 8 um3 (7.4-10.4); Nucleated Red Blood Cells % 1.7; Platelet Count 289 10^3/ul (150-450); Red Cell Distribution Width 21 % (10.5-15); White Blood Count 11.5 10^3/ul (3.5-10.8)
[2017-10-01] MEDS: Mometasone/Formoter 200/5 MDI INH SCH ×2 (07:05→19:28)
[2017-10-01] MEDS: Tiotropium CAP.INH* CAP.INH/18 MCG (USE ORDER SET !) INH SCH (07:05)
[2017-10-01] MEDS: oxyCODONE TAB* 5 MG TAB PO PRN ×3 (07:58→16:11)
[2017-10-01] MEDS: ALPRAZolam TAB* 0.25 MG PO PRN (07:59)
[2017-10-01] MEDS: Aspirin Low Dose CHEW TAB* 81 MG PO SCH (07:59)
[2017-10-01] MEDS: Venlafaxine EXT RELEASE CAP* 75 MG PO SCH ×2 (07:59→08:00)
[2017-10-01] MEDS: Magnesium Oxide TAB* 400 MG PO SCH (08:00)
[2017-10-01] MEDS: Hydroxychloroquine TAB* 200 MG PO SCH ×2 (08:00→19:51)
[2017-10-01] MEDS: Lactobacillus Acidophilu (GG)* 1 CAP CAP PO SCH ×2 (08:00→19:52)
[2017-10-01] MEDS: Vancomycin CAP* 125 MG CAP PO SCH ×2 (08:00→16:10)
[2017-10-01] MEDS: Cholecalciferol TAB* 1000 UNITS PO SCH (08:01)
[2017-10-01] MEDS: Simethicone TAB* 80 MG TAB.CHEW PO SCH ×3 (08:01→16:10)
[2017-10-01] MEDS: Omeprazole CAP* 20 MG PO SCH ×2 (08:01→16:10)
[2017-10-01] MEDS: hydrALAZINE TAB* 10 MG PO SCH ×3 (08:03→19:52)
[2017-10-01] MEDS: Rivaroxaban TAB(*) 15 MG PO SCH (08:09)
--- NOTE | 2017-10-01 09:57 | PN ---
Subjective Date of Service: 10/01/17 Interval History: Patient seen and examined at bedside. Denies fever, chills, chest discomfort, N/ V/D. She reports shortness of breath, but states that it at her baseline. She is having less frequent stools, but states that they are yellow in color. She is unhappy that someone decided for her that she was going to [facility], her mother passed there and she doesn't want to go there. She states that she would like to go home with services or to the [facility]. Tele: Sinus rhythm, rate 70-80's. Few VPCs noted Family History: Unchanged from Admission Social History: Unchanged from Admission Past Medical History: Unchanged from Admission Objective Active Medications: Acetaminophen (Tylenol Tab*) 650 mg PO Q6H PRN Reason: FEVER/PAIN Alprazolam (Xanax Tab*) 0.25 mg PO TID PRN Reason: ANXIETY Aspirin (Aspirin Low Dose Tab*) 81 mg PO DAILY MARY Atorvastatin Calcium (Lipitor*) 40 mg PO QPM MARY Cholecalciferol (Vitamin D Tab*) 5,000 units PO DAILY MARY Dicyclomine HCl (Bentyl Cap*) 10 mg PO AC PRN Reason: DIARRHEA Hydralazine HCl (Apresoline Tab*) 5 mg PO TID MARY Hydroxychloroquine Sulfate (Plaquenil Tab*) 200 mg PO BID MARY Lactobacillus Rhamnosus (Culturelle*) 1 cap PO BID MARY Magnesium Oxide (Magox 400 Tab*) 800 mg PO QAM MARY Melatonin (Melatonin (Nf)) 3 mg PO BEDTIME MARY Metoprolol Succinate (Toprol Xl Tab*) 25 mg PO BEDTIME MARY Mometasone Furoate/Formoterol Fumar (Dulera 200/5 Mdi*) 2 puff INH BID MARY Omeprazole (Prilosec Cap*) 40 mg PO 0730,1630 MARY Ondansetron HCl (Zofran Inj*) 4 mg IV Q4H PRN Reason: NAUSEA Oxycodone HCl (Roxycodone Tab*) 2.5 mg PO Q4H PRN Reason: PAIN Rivaroxaban (Xarelto(*)) 15 mg PO DAILY MARY Simethicone (Mylicon Tab*) 80 mg PO AC MARY Tiotropium [place] (Spiriva Cap.Inh*) 1 cap INH QAM MARY Vancomycin HCl (Vancomycin Cap*) 125 mg PO Q8H MARY Venlafaxine HCl (Effexor Xr Cap*) 75 mg PO QAM MARY Venlafaxine HCl (Effexor Xr Cap*) 150 mg PO DAILY [facility] Vital Signs - 8 hr 10/01/17 10/01/17 10/01/17 03:56 07:27 07:58 Temperature 97.9 F 98.1 F Pulse Rate 80 26 Respiratory 16 16 24 Rate Blood Pressure 110/77 106/70 (mmHg) O2 Sat by Pulse 92 84 Oximetry 10/01/17 10/01/17 07:59 08:01 Temperature Pulse Rate Respiratory 24 24 Rate Blood Pressure (mmHg) O2 Sat by Pulse Oximetry Oxygen Devices in Use Now: None Appearance: NAD, sitting up in bed Ears/Nose/Mouth/Throat: Mucous Membranes Moist Respiratory: Symmetrical Chest Expansion and Respiratory Effort, Clear to Auscultation Cardiovascular: NL Sounds; No Murmurs; No JVD, RRR Abdominal: NL Sounds; No Tenderness; No Distention Extremities: No Edema Skin: - - CARLOTTA wraps to bilater LE Neurological: Alert and Oriented x 3, NL Muscle Strength and Tone Lines/Tubes/Other Access: Clean, Dry and Intact Peripheral IV - site benign Nutrition: Taking PO's Result Diagrams: 10/01/17 05:40 10/01/17 05:40 Microbiology and Other Data: . Assess/Plan/Problems-Billing Assessment: Ms. Solomon is a 72yo female with a PMF for CHF, C. Diff, NM, RA, AF, FRANKIE, anemia, who presents with recurrent C. Diff improving on vancomycin oral treatment with JUSTINA and new hypoxia from fluid overload and anemia with positive Guaic x2 with negative colonoscopy. - Patient Problems (1) C. difficile diarrhea Code(s): A04.72 - ENTEROCOLITIS D/T CLOSTRIDIUM DIFFICILE, NOT SPCF RECUR SNOMED Code(s): 3603871200966 Comment: - Much improvement over course of hospitalization - Finished PO vancomycin 2 week course with taper which began on 09/29 now Q8hr - No indication for stool transplant at this time per ID (2) Anemia Code(s): D64.9 - ANEMIA, UNSPECIFIED SNOMED Code(s): 402809398 Comment: - Stable - Appreciate GI input. No evidence of active bleeding. Negative colonoscopy ( see GI note) - Received 1 unit PRBCs - Xarelto and aspirin resumed per GI - Stool occult blood positive x2. - Continue increased omeprazole. - Continue iron supplementation at discharge. IV iron infusions while patient is in the hospital due to RA and probable poor absorption of Iron. Continue up to 5 doses over the course of 14 days while in the hospital. (3) JUSTINA (acute kidney injury) Code(s): N17.9 - ACUTE KIDNEY FAILURE, UNSPECIFIED SNOMED Code(s): 79346099 Comment: - Appreciate nephrology consult, likely to be prerenal secondary to CHF - It did resolve with Hydralazine 5mg TID and prn lasix - Lasix was added back on daily 3 days ago, now creatinine climbing again - Appears to be a little dry (dry MM) but noted crackles in bases/LE edema - Continue to hold lasix and Tigan PRN. Repeat creatinine tomorrow - Encourage PO fluids (4) Elevated troponin Code(s): R79.89 - OTHER SPECIFIED ABNORMAL FINDINGS OF BLOOD CHEMISTRY SNOMED Code(s): 009629375 Comment: - Chronic EKG changes with LBBB - No CP or other signs of ACS during admission - Suspect secondary to demand ischemia (5) UTI (urinary tract infection) Comment: - UA positive with ecoli on culture - Finished course of bactrim (6) Hyperkalemia Code(s): E87.5 - HYPERKALEMIA SNOMED Code(s): 51369944 Comment: - Resolved. - Hold Spironolatone. Would recommend holding potassium supplementation at discharge. (7) Rheumatoid arthritis Code(s): M06.9 - RHEUMATOID ARTHRITIS, UNSPECIFIED SNOMED Code(s): 92409544 Comment: - Controlled - Continue plaquenil (8) CAD (coronary artery disease) Code(s): I25.10 - ATHSCL HEART DISEASE OF [place] CORONARY ARTERY W/O ANG PCTRS SNOMED Code(s): 98899285 Comment: - Asymptomatic - History of chronic systolic heart failure - Continue metoprolol, aspirin, and statin (9) CHF (congestive heart failure) Code(s): I50.9 - HEART FAILURE, UNSPECIFIED SNOMED Code(s): 45045059 Comment: - Chronic systolic heart failure, EF <35-40% - No supplemental O2 today - Continue metoprolol. Hold lisinopril, spironolactone and bumex - Continue daily weights and strict I/O. Diurese prn. (10) Hypertension Code(s): I10 - ESSENTIAL (PRIMARY) HYPERTENSION SNOMED Code(s): 77478759 Comment: - SBP 90-110's - Continue home metoprolol and decreased hydralazine (with hold parameters) - Continue to hold lasix, lisinopril and spironolactone given JUSTINA during admission and persistent hypotension at this time (11) Irritable bowel disease Comment: - Continue Viberzi (12) Sleep apnea Code(s): G47.30 - SLEEP APNEA, UNSPECIFIED SNOMED Code(s): 39178169 Comment: (13) COPD (chronic obstructive pulmonary disease) Code(s): J44.9 - CHRONIC OBSTRUCTIVE PULMONARY DISEASE, UNSPECIFIED SNOMED Code(s): 76267315 Comment: - No sign of exacerbation - Continue tiotropium and prn albuterol (14) Depression Code(s): F32.9 - MAJOR DEPRESSIVE DISORDER, SINGLE EPISODE, UNSPECIFIED SNOMED Code(s): 74264338 Comment: - Patient was on 225mg venlafaxine ER but was cut back to 75mg for unclear reasons. - Continue venlafaxine ER 225 mg, and xanax TID. (15) H/O: stroke Code(s): Z86.73 - PRSNL HX OF TIA (TIA), AND CEREB INFRC W/O RESID DEFICITS SNOMED Code(s): 252536092 Comment: - Continue Rivaroxaban (16) Paroxysmal a-fib Code(s): I48.0 - PAROXYSMAL ATRIAL FIBRILLATION SNOMED Code(s): 120238251 Comment: - Continue rivaroxaban and metoprolol (17) Elevated alkaline phosphatase level Comment: - Appears to be chronic and at baseline (18) DVT prophylaxis Code(s): TQS5233 - SNOMED Code(s): 390529267 Comment: - Xarelto (19) Full code status Code(s): Z78.9 - OTHER SPECIFIED HEALTH STATUS SNOMED Code(s): 747512646 Status and Disposition: Inpatient. Patient has a bed offer from [facility] Monday.
[2017-10-01] MEDS: Dicyclomine CAP* 10 MG PO PRN (13:36)
[2017-10-01] MEDS: Ondansetron INJ* 2 MG/ML VIAL IV PRN ×2 (14:05→21:05)
[2017-10-01] MEDS ORDERED: Iron Sucrose* 200 MG in NS 0.9% 100 ML* 100 ML IVPB ONE (15:11)
[2017-10-01] MEDS: Atorvastatin* 40 MG TAB PO SCH (16:10)
[2017-10-01] MEDS: CMCS Melatonin (NF) 3 MG TAB PO SCH (19:50)
[2017-10-01] MEDS: Metoprolol Succinate XL TAB* 25 MG PO SCH (19:53)
[2017-10-02] MEDS: Vancomycin CAP* 125 MG CAP PO SCH ×2 (01:00→09:24)
[2017-10-02 05:30] LABS: ABS Basophils 0.1 10^3/ul (0-0.2); ABS Eosinophils 0 10^3/ul (0-0.6); ABS Lymphocytes 1.2 10^3/ul (1.0-4.8); ABS Monocytes 1.5 10^3/ul (0-0.8); ABS Neutrophils 8.9 10^3/ul (1.5-7.7); ABS Nucleated RBC 0.2 10^3/ul; Eosinophil % 0 % (0-6); Hematocrit 27 % (35-47); Hemoglobin 8.5 g/dl (12.0-16.0); Lymphocyte % 10.2 % (25-47); Mean Corpuscular HGB Conc 32 g/dl (31-36); Mean Corpuscular Hemoglobin 29 pg (27-31); Mean Corpuscular Volume 92 fL (80-97); Mean Platelet Volume 8 um3 (7.4-10.4); Nucleated Red Blood Cells % 1.9; Platelet Count 266 10^3/ul (150-450); Red Blood Count 2.92 10^6/ul (4.0-5.4); Red Cell Distribution Width 20 % (10.5-15); White Blood Count 11.7 10^3/ul (3.5-10.8)
[2017-10-02 05:41] LABS: EGFR Non-African American 28.8 (>60)
[2017-10-02] MEDS: Tiotropium CAP.INH* CAP.INH/18 MCG (USE ORDER SET !) INH SCH (07:42)
[2017-10-02] MEDS: Mometasone/Formoter 200/5 MDI INH SCH (07:42)
--- NOTE | 2017-10-02 08:00 | PN ---
Subjective Date of Service: 10/02/17 Interval History: Patient seen and examined at bedside. Denies fever, chills, shortness of breath , chest discomfort, N/V. Pt continues to have loose stools, but is unable to state how often. Family History: Unchanged from Admission Social History: Unchanged from Admission Past Medical History: Unchanged from Admission Objective Active Medications: Acetaminophen (Tylenol Tab*) 650 mg PO Q6H PRN Reason: FEVER/PAIN Alprazolam (Xanax Tab*) 0.25 mg PO TID PRN Reason: ANXIETY Aspirin (Aspirin Low Dose Tab*) 81 mg PO DAILY [facility] Atorvastatin Calcium (Lipitor*) 40 mg PO QPM MARY Cholecalciferol (Vitamin D Tab*) 5,000 units PO DAILY MARY Dicyclomine HCl (Bentyl Cap*) 10 mg PO AC PRN Reason: DIARRHEA Hydralazine HCl (Apresoline Tab*) 5 mg PO TID [facility] Hydroxychloroquine Sulfate (Plaquenil Tab*) 200 mg PO BID MARY Lactobacillus Rhamnosus (Culturelle*) 1 cap PO BID MARY Magnesium Oxide (Magox 400 Tab*) 800 mg PO QAM [facility] Melatonin (Melatonin (Nf)) 3 mg PO BEDTIME MARY Metoprolol Succinate (Toprol Xl Tab*) 25 mg PO BEDTIME MARY Mometasone Furoate/Formoterol Fumar (Dulera 200/5 Mdi*) 2 puff INH BID MARY Omeprazole (Prilosec Cap*) 40 mg PO 0730,1630 MARY Ondansetron HCl (Zofran Inj*) 4 mg IV Q4H PRN Reason: NAUSEA Oxycodone HCl (Roxycodone Tab*) 2.5 mg PO Q4H PRN Reason: PAIN Rivaroxaban (Xarelto(*)) 15 mg PO DAILY [facility] Simethicone (Mylicon Tab*) 80 mg PO AC [facility] Tiotropium [place] (Spiriva Cap.Inh*) 1 cap INH QAM MARY Vancomycin HCl (Vancomycin Cap*) 125 mg PO Q8H MARY Venlafaxine HCl (Effexor Xr Cap*) 75 mg PO QAM [facility] Venlafaxine HCl (Effexor Xr Cap*) 150 mg PO DAILY [facility] Vital Signs - 8 hr 10/02/17 10/02/17 10/02/17 00:16 04:43 07:44 Temperature 97.8 F 98.2 F Pulse Rate 81 77 81 Respiratory 16 16 19 Rate Blood Pressure 123/88 118/78 (mmHg) O2 Sat by Pulse 91 90 91 Oximetry Oxygen Devices in Use Now: None Appearance: NAD, laying in bed Respiratory: Symmetrical Chest Expansion and Respiratory Effort, - - Few fine crackles in the bases Cardiovascular: NL Sounds; No Murmurs; No JVD, RRR Abdominal: NL Sounds; No Tenderness; No Distention Extremities: - - Bilateral LE edema Skin: No Rash or Ulcers Neurological: Alert and Oriented x 3, NL Muscle Strength and Tone Lines/Tubes/Other Access: Clean, Dry and Intact Peripheral IV - site benign Result Diagrams: 10/02/17 04:42 10/02/17 04:42 Microbiology and Other Data: . Assess/Plan/Problems-Billing Assessment: Ms. Solomon is a 72yo female with a PMF for CHF, C. Diff, [place], RA, AF, FRANKIE, anemia, who presents with recurrent C. Diff improving on vancomycin oral treatment with JUSTINA and new hypoxia from fluid overload and anemia with positive [place] x2 with negative colonoscopy. - Patient Problems (1) C. difficile diarrhea Code(s): A04.72 - ENTEROCOLITIS D/T CLOSTRIDIUM DIFFICILE, NOT SPCF RECUR SNOMED Code(s): 9400415385116 Comment: - Much improvement over course of hospitalization - Will decrease mag oxide to 400 mg as this may be contributing to continued loose stools - Finished PO vancomycin 2 week course with taper which began on 09/29 now Q8hr - No indication for stool transplant at this time per ID (2) Anemia Code(s): D64.9 - ANEMIA, UNSPECIFIED SNOMED Code(s): 101702125 Comment: - Stable - Appreciate GI input. No evidence of active bleeding. Negative colonoscopy ( see GI note) - Received 1 unit PRBCs - Xarelto and aspirin resumed per GI - Stool occult blood positive x2. - Continue omeprazole (increased). - Continue iron supplementation at discharge. IV iron infusions while patient is in the hospital due to RA and probable poor absorption of Iron. Continue up to 5 doses over the course of 14 days while in the hospital. She has received 3 doses while here. (3) JUSTINA (acute kidney injury) Code(s): N17.9 - ACUTE KIDNEY FAILURE, UNSPECIFIED SNOMED Code(s): 10821905 Comment: - ? acute on chronic - Appreciate nephrology consult, likely to be prerenal secondary to CHF - It did resolve with Hydralazine 5mg TID and prn lasix - Lasix was added back on daily 4 days ago, now creatinine climbing again - Appears to be a little dry (dry MM) but noted crackles in bases/LE edema - Continue to hold lasix and Tigan PRN. Repeat creatinine tomorrow - Suspect Pt is near baseline renal status - Encourage PO fluids (4) Elevated troponin Code(s): R79.89 - OTHER SPECIFIED ABNORMAL FINDINGS OF BLOOD CHEMISTRY SNOMED Code(s): 133663429 Comment: - Chronic EKG changes with LBBB - No CP or other signs of ACS during admission - Suspect secondary to demand ischemia (5) UTI (urinary tract infection) Comment: - UA positive with ecoli on culture - Finished course of bactrim (6) Hyperkalemia Code(s): E87.5 - HYPERKALEMIA SNOMED Code(s): 77154016 Comment: - Resolved. - Hold Spironolatone. Would recommend holding potassium supplementation at discharge. (7) Rheumatoid arthritis Code(s): M06.9 - RHEUMATOID ARTHRITIS, UNSPECIFIED SNOMED Code(s): 96764706 Comment: - Controlled - Continue plaquenil (8) CAD (coronary artery disease) Code(s): I25.10 - ATHSCL HEART DISEASE OF [place] CORONARY ARTERY W/O ANG PCTRS SNOMED Code(s): 72994757 Comment: - Asymptomatic - History of chronic systolic heart failure - Continue metoprolol, aspirin, and statin (9) CHF (congestive heart failure) Code(s): I50.9 - HEART FAILURE, UNSPECIFIED SNOMED Code(s): 07376818 Comment: - Chronic systolic heart failure, EF <35-40% - No longer requiring supplemental O2 - Continue metoprolol. Hold lisinopril, spironolactone and bumex - Continue daily weights and strict I/O - Diurese prn (10) Hypertension Code(s): I10 - ESSENTIAL (PRIMARY) HYPERTENSION SNOMED Code(s): 42886874 Comment: - SBP 100-120's - Continue home metoprolol and decreased hydralazine (with hold parameters) - Continue to hold lasix, lisinopril and spironolactone given JUSTINA during admission and persistent hypotension at this time (11) Irritable bowel disease Comment: - Continue Viberzi (12) Sleep apnea Code(s): G47.30 - SLEEP APNEA, UNSPECIFIED SNOMED Code(s): 79614640 Comment: (13) COPD (chronic obstructive pulmonary disease) Code(s): J44.9 - CHRONIC OBSTRUCTIVE PULMONARY DISEASE, UNSPECIFIED SNOMED Code(s): 87460458 Comment: - No sign of exacerbation - Continue tiotropium and prn albuterol (14) Depression Code(s): F32.9 - MAJOR DEPRESSIVE DISORDER, SINGLE EPISODE, UNSPECIFIED SNOMED Code(s): 77031298 Comment: - Patient was on 225mg venlafaxine ER but was cut back to 75mg for unclear reasons. - Continue venlafaxine ER 225 mg, and xanax TID. (15) H/O: stroke Code(s): Z86.73 - PRSNL HX OF TIA (TIA), AND CEREB INFRC W/O RESID DEFICITS SNOMED Code(s): 916885329 Comment: - Continue Rivaroxaban (16) Paroxysmal a-fib Code(s): I48.0 - PAROXYSMAL ATRIAL FIBRILLATION SNOMED Code(s): 496023677 Comment: - Continue rivaroxaban and metoprolol (17) Elevated alkaline phosphatase level Comment: - Appears to be chronic and at baseline (18) DVT prophylaxis Code(s): SYI5658 - SNOMED Code(s): 097867080 Comment: - Xarelto (19) Full code status Code(s): Z78.9 - OTHER SPECIFIED HEALTH STATUS SNOMED Code(s): 077635729 Status and Disposition: Inpatient. Patient has a bed offer from [facility] Monday.
[2017-10-02] MEDS ORDERED: Magnesium Oxide TAB* 400 MG PO SCH (09:13)
[2017-10-02] MEDS: hydrALAZINE TAB* 10 MG PO SCH (09:22)
[2017-10-02] MEDS: Omeprazole CAP* 20 MG PO SCH (09:22)
[2017-10-02] MEDS: Venlafaxine EXT RELEASE CAP* 75 MG PO SCH ×2 (09:22→09:23)
[2017-10-02] MEDS: Lactobacillus Acidophilu (GG)* 1 CAP CAP PO SCH (09:23)
[2017-10-02] MEDS: Cholecalciferol TAB* 1000 UNITS PO SCH (09:23)
[2017-10-02] MEDS: Simethicone TAB* 80 MG TAB.CHEW PO SCH ×2 (09:23→11:52)
[2017-10-02] MEDS: Hydroxychloroquine TAB* 200 MG PO SCH (09:23)
[2017-10-02] MEDS: Aspirin Low Dose CHEW TAB* 81 MG PO SCH (09:23)
[2017-10-02] MEDS: Rivaroxaban TAB(*) 15 MG PO SCH (09:24)
[2017-10-02 09:44] VITALS: BP 107/70
[2017-10-02] MEDS: Magnesium Oxide TAB* 400 MG PO SCH (09:44)
--- NOTE | 2017-10-02 13:24 | DS ---
CC: [facility]; Dr. Watkins; Dr. Gonzalez; Dr. Pierce* DATE OF ADMISSION: 09/15/2017. DATE OF DISCHARGE: 10/02/2017. ATTENDING PHYSICIAN: Dr. Boni Buchanan* (dictated by Danilo Hernandez NP). PRIMARY CARE PHYSICIAN: Dr. Jordin Watkins. PRIMARY DIAGNOSES: 1. Recurrent C. diff. 2. Suspected acute on chronic kidney injury. 3. Hyperkalemia, resolved. 4. Hypertroponemia suspect secondary to demand ischemia. 5. Iron deficiency anemia. 6. Urinary tract infection. SECONDARY DIAGNOSES: 1. Rheumatoid arthritis. 2. Coronary artery disease. 3. Chronic systolic heart failure. 4. Hypertension. 5. Irritable bowel syndrome. 6. Sleep apnea. 7. COPD. 8. Depression. 9. History of cerebral vascular accident. 10. Paroxysmal atrial fibrillation. 11. Chronic elevated alkaline phosphate. CONSULTATIONS WHILE IN THE HOSPITAL: Dr. Sunday Gonzalez with Gastroenterology; Dr. Tan James with Infectious Disease; Dr. Matthew Pierce with Nephrology. PROCEDURES WHILE IN THE HOSPITAL: Status post colonoscopy to the terminal ileum on 09/27/[address] Yolanda Mathews. STUDIES WHILE IN THE HOSPITAL: 1. Chest x-ray, 09/15/2017: Radiologist's impression: Stigmata of chronic obstructive pulmonary disease. Cardiomegaly without evidence for pulmonary edema. 2. Abdominal x-ray, 09/15/2017: Radiologist's impression: Moderate stool in the colon without significant rectal distension. Negative for dilated bowel loops to indicate bowel obstruction. 3. Transthoracic echocardiogram, 09/17/2017: Computer Forensics Investigator's conclusion: There is severely decreased left ventricular systolic function. The estimated ejection fraction is 25 to 30 percent. Severe global hypokinesis of the left ventricle is observed. The mid inferolateral wall appears severely hypokinetic to akinetic. The left ventricular chamber size is normal. Mild concentric left ventricular hypertrophy is observed. The left atrium is moderately dilated. The right ventricle is moderately dilated. The right ventricular global systolic function is mildly to moderately reduced. The right atrium is moderately dilated. There is mild aortic stenosis. There is moderate mitral regurgitation, moderate tricuspid regurgitation, evidence of mild pulmonary hypertension. There is mild dilatation of the ascending aorta. Since the prior echocardiogram on 06/15/2017, pertinent changes are prior LVEF reported at 35 to 40 percent, prior normal right ventricular size and function reported, prior MR and TR graded mild and prior normal ascending aortic size reported. 4. Chest x-ray, 09/22/2017: Radiologist's impression: Cardiomegaly. Linear atelectasis of the right lung base. 5. Surgical specimens, 09/28/2017: A. Terminal ileum biopsy: Benign small intestinal mucosa with no significant pathologic abnormalities. B. Cecum colon biopsy: Tubular adenoma. C. Right random colon biopsy: Benign colonic mucosa with no significant pathologic abnormalities. D. Left random colon biopsy: Benign colonic mucosa with no significant pathologic abnormalities. E. Rectum biopsy: Benign colonic mucosa with no significant pathologic abnormalities. DISCHARGE MEDICATIONS: New home medications: 1. Ventolin 10 mg oral before meals as needed for diarrhea. 2. Hydralazine 5 mg oral 3 times daily. 3. Acidophilus one capsule oral twice daily. 4. Magnesium Oxide 400 mg oral every morning. 5. Simethicone 80 mg oral before meals. Continued home medications: 1. Aspirin 81 mg oral daily. 2. Metoprolol Succinate 25 mg oral at bedtime. 3. Atorvastatin 40 mg oral every evening. 4. Spiriva one capsule inhalation every morning. 5. Xanax 0.25 mg twice daily as needed for anxiety. 6. Xarelto 15 mg oral daily. 7. Protonix 40 mg oral daily. 8. Zofran 4 mg oral every 6 hours as needed for nausea. 9. Plaquenil 200 mg oral twice daily. 10. Breo Ellipta MDI one inhalation daily. 11. Ferrous Sulfate 325 mg oral daily. 12. Viberzi 75 mg oral every other day. 13. Vitamin D 5,000 units oral daily. 14. Fosamax 70 mg oral weekly. 15. Acetaminophen 500 mg oral twice daily as needed for pain. 16. Aldrich 10/325 one tablet oral every 6 hours as needed for back pain. 17. Effexor 225 mg every morning. Changed home medications: Vancomycin 125 mg oral every 8 hours for 2 weeks, this was started on September 29, followed by twice daily for 2 weeks, followed by daily for 2 weeks, followed by every other day for 2 weeks, followed by every 3rd day for 2 weeks, and then stop. Discontinued home medications: 1. Potassium. 2. Magnesium (decreased from 800 to 400 per above). 3. Spironolactone. 4. Lisinopril. 5. Bumex. HISTORY OF PRESENT ILLNESS/HOSPITAL COURSE: Ms. Solomon is a 72-year-old female with a past medical history significant for recurrent C. diff, history of myocardial infarction status post stent placement, chronic systolic heart failure with last EF of 35 to 40 percent, rheumatoid arthritis, COPD, iron deficiency anemia, and history of CVA who presented with complaints of three days of explosive and frequent diarrhea with nausea with poor oral intake and weakness that had been ongoing for months, but recently much worse. The patient was initially diagnosed with C. diff in May, was treated with Vancomycin and switched to Flagyl. After finishing a course, she has had three recurrences of diarrhea, all of which were treated with Vancomycin, outpatient, by her primary care provider. The patient continued to slowly and progressively get weaker. She reported to the emergency room that she was incontinent of stool and just did not have the energy to stand up and clean herself up. She had recently finished a course of Vancomycin approximately three days prior to her presentation and had since developed diarrhea. Previously she had had a sigmoidoscopy, last done in July of this year, showing no microscopic colitis or other abnormalities. She had not followed up with gastroenterology since. The patient also reported increased shortness of breath without leg swelling, , or dyspnea with lying down. The patient states that all of her symptoms started several years ago on an uneventful day when she went out to lunch with her friend and has had frequent loose stools since then. The patient has tried physical therapy for her weakness as prescribed by her primary care provider. Due to all of her symptoms , she presented to the emergency room for further evaluation. While in the emergency room, she was found to have hyperkalemia with a potassium of 6.0. Due to her reports of frequent and explosive stools, it was felt that she could possibly have a recurrent C. diff in addition to her weakness. The Hospitalists were asked to evaluate the patient for admission. During her hospitalization, she was seen in consultation by Dr. Tan James with Infectious Disease who recommended putting her back on a Vancomycin course for two weeks and then follow that with a taper. During her stay, her stools have improved. It was felt there was no indication for a stool transplant at this time. It was also felt that the 800 mg of Magnesium Oxide she was taking daily could be contributing to her stools. This was decreased to 400 mg daily. The patient was noted to be anemic. She received one unit of packed red blood cells during her stay. She underwent colonoscopy showing no signs of bleeding, although she did have two positive guaiacs during her stay. Her Omeprazole was continued, but increased. She received three doses of IV iron during her stay. She was resumed on her Xarelto and aspirin. The patient had elevated creatinine during her stay. It was suspected this was possibly an acute on chronic problem as it looks like she has chronically had elevated creatinines. She was seen in consultation by Dr. Pierce who felt it was likely prerenal secondary to her heart failure. She was taken off her Lisinopril and started Hydralazine. The patient was resumed back on Lasix and then developed climbing creatinine again. All of her diuretics have been held. Although she does have some lower extremity edema and crackles, she appears to be a little on the dry side. She was noted to have elevated troponin which _ at 0.04. She denied any chest pain. It was suspected this was secondary to demand ischemia. She had chronic EKG changes with a left bundle branch block. No other signs of acute coronary syndrome during her admission. The patient was found to have an E. coli urinary tract infection and completed a course of Bactrim. Her hyperkalemia that she had on presentation resolved with her potassium being held and her Spironolactone being discontinued. In regards to her chronic systolic heart failure, her EF was 35 to 40 percent and she was continued on Metoprolol. Her Lasix, Spironolactone, and Bumex were all held at discharge. The patient continued to have weakness. It was felt that she would benefit from rehabilitation and has received a bed offer for [facility]. Ms. Solomon is stable for discharge to [facility] today. Vital signs are as follows: Temperature 98.2, heart rate 62, respiratory rate 16, O2 sat 90 percent on room air, blood pressure 107/70. DISCHARGE PLAN: Ms. Solomon will be discharged to [facility]. Activity as tolerated. She should be on a low fiber diet. In regards to her C. diff, she should be placed on a Vancomycin taper which she started on September 29. She should take Vancomycin 125 mg three times daily for two weeks, followed by twice daily for two weeks, followed by daily for two weeks, followed by every other day for two weeks, followed by every third day for two weeks, and then stop. She should be referred back to Infectious Disease if she develops C. diff. In regards to the patient's iron deficiency anemia, she should be continued on Ferrous Sulfate daily. The patient's Spironolactone and potassium supplementation has been discontinued due to her chronic kidney disease and hyperkalemia on admission. The patient's creatinine has been rising during her stay. I suspect she is near her true baseline. I recommend rechecking a BMP on either Monday or Monday of this week. Recommend following her weight and restarting diuretics as needed. The patient should be seen in follow-up by a provider at [facility] within the next week. She should be evaluated by Physical Therapy and Occupational Therapy and treated accordingly. She should return to the emergency room for any chest pain or shortness of breath. This is a summarized report of a complex medical history and hospital stay. For further details, please see the entire medical record. Time for this discharge was approximately 50 minutes, greater than half of that was spent with the patient discussing discharge plans and instructions. CONDITION ON DISCHARGE: Stable. DANILO HERNANDEZ, RAMOS [id number]/[facility] #: [id number] [place]NA
== END 2017-10-02 14:06 | DRG 372 ==
LOC: ED 15:26 → MEDTELE 18:24
PROVIDERS: ADMIT Internal Medicine; ATTEND Internal Medicine
PROC: 30233N1 Transfusion of Nonautologous Red Blood Cells into Peripheral Vein, Percutaneous Approach (ICD-10-PCS; principal; 2017-09-26)
PROC: 0DBB8ZX Excision of Ileum, Via Natural or Artificial Opening Endoscopic, Diagnostic (ICD-10-PCS; 2017-09-27)
PROC: 0DBP8ZX Excision of Rectum, Via Natural or Artificial Opening Endoscopic, Diagnostic (ICD-10-PCS; 2017-09-27)
PROC: 0DBF8ZX Excision of Right Large Intestine, Via Natural or Artificial Opening Endoscopic, Diagnostic (ICD-10-PCS; 2017-09-27)
PROC: 0DBG8ZX Excision of Left Large Intestine, Via Natural or Artificial Opening Endoscopic, Diagnostic (ICD-10-PCS; 2017-09-27)
PROC: 0DBH8ZZ Excision of Cecum, Via Natural or Artificial Opening Endoscopic (ICD-10-PCS; 2017-09-27)
DX: A04.71 Enterocolitis due to Clostridium difficile, recurrent (principal); N17.9 Acute kidney failure, unspecified; I95.89 Other hypotension; E87.5 Hyperkalemia; E87.70 Fluid overload, unspecified; I08.3 Combined rheumatic disorders of mitral, aortic and tricuspid valves; I48.0 Paroxysmal atrial fibrillation; I50.42 Chronic combined systolic (congestive) and diastolic (congestive) heart failure; I13.0 Hypertensive heart and chronic kidney disease with heart failure and stage 1 through stage 4 chronic kidney disease, or unspecified chronic kidney disease; G43.909 Migraine, unspecified, not intractable, without status migrainosus; N39.0 Urinary tract infection, site not specified; I24.8 Other forms of acute ischemic heart disease; I27.20 Pulmonary hypertension, unspecified; J44.9 Chronic obstructive pulmonary disease, unspecified; E78.00 Pure hypercholesterolemia, unspecified; K21.9 Gastro-esophageal reflux disease without esophagitis; M06.9 Rheumatoid arthritis, unspecified; M19.90 Unspecified osteoarthritis, unspecified site; F41.9 Anxiety disorder, unspecified; F32.9 Major depressive disorder, single episode, unspecified; I44.7 Left bundle-branch block, unspecified; G47.33 Obstructive sleep apnea (adult) (pediatric); D50.9 Iron deficiency anemia, unspecified; I25.10 Atherosclerotic heart disease of native coronary artery without angina pectoris; R78.89 Finding of other specified substances, not normally found in blood; Z96.653 Presence of artificial knee joint, bilateral; D63.8 Anemia in other chronic diseases classified elsewhere; Z96.1 Presence of intraocular lens; K57.30 Diverticulosis of large intestine without perforation or abscess without bleeding; K64.8 Other hemorrhoids; N18.9 Chronic kidney disease, unspecified; K58.0 Irritable bowel syndrome with diarrhea; D12.0 Benign neoplasm of cecum; B96.20 Unspecified Escherichia coli [E. coli] as the cause of diseases classified elsewhere; R09.02 Hypoxemia; Z88.8 Allergy status to other drugs, medicaments and biological substances; Z86.73 Personal history of transient ischemic attack (TIA), and cerebral infarction without residual deficits; I25.2 Old myocardial infarction; Z87.891 Personal history of nicotine dependence; Z88.5 Allergy status to narcotic agent; Z82.49 Family history of ischemic heart disease and other diseases of the circulatory system; Z98.41 Cataract extraction status, right eye; Z98.42 Cataract extraction status, left eye; Z98.1 Arthrodesis status; Z82.3 Family history of stroke; Z72.89 Other problems related to lifestyle; Z80.41 Family history of malignant neoplasm of ovary; Z79.82 Long term (current) use of aspirin; Z79.01 Long term (current) use of anticoagulants; Z95.5 Presence of coronary angioplasty implant and graft
CPT/HCPCS: 36415; 71045; 74018; 80048; 80053; 81003; 81015; 82150; 82272; 82436; 82533; 82550; 82570; 82607; 82728; 82746; 82803; 83540; 83550; 83605; 83630; 83690; 83735; 83880; 84133; 84300; 84466; 84484; 85014; 85018; 85025; 85045; 85610; 85730; 86140; 86850; 86900; 86901; 86922; 87077; 87086; 87186; 87493; 88305; 93005; 93306; 94640; 94760; 97530; 99156; 99157; 99284; A9270-GY; G8978-GP-CJ; G8979-GP-CH; G8979-GP-CI; G8987-GO-CJ; G8988-GO-CI; J0610; J0690; J0696; J1756; J1940; J2250; J2405; J3010; J3475; J3490; P9040

== ENCOUNTER 2017-10-12 01:19 | Inpatient (IN) | payer MEDICARE ==
[2017-10-12] MEDS ORDERED: Dextrose 50% Syringe 50 ML* 25 GM/50 ML SYRINGE IV PUSH ONE (01:22)
[2017-10-12] MEDS ORDERED: Dextrose 50% Syringe 50 ML* 25 GM/50 ML SYRINGE ONE (01:22)
[2017-10-12] MEDS ORDERED: NS 0.9% 1000 ML* 1,000 ML IV ONE (01:26)
[2017-10-12 01:50] LABS: INR 4.23 (0.77-1.02)
[2017-10-12 01:52] LABS: ABS Basophils 0 10^3/ul (0-0.2); ABS Eosinophils 0 10^3/ul (0-0.6); ABS Lymphocytes 1.1 10^3/ul (1.0-4.8); ABS Monocytes 0.8 10^3/ul (0-0.8); ABS Nucleated RBC 0 10^3/ul; Eosinophil % 0 % (0-6); Hematocrit 38 % (35-47); Hemoglobin 11.7 g/dl (12.0-16.0); Mean Corpuscular HGB Conc 31 g/dl (31-36); Mean Corpuscular Hemoglobin 30 pg (27-31); Mean Corpuscular Volume 96 fL (80-97); Mean Platelet Volume 8.2 um3 (7.4-10.4); Nucleated Red Blood Cells % 0.1; Platelet Count 302 10^3/ul (150-450); Red Blood Count 3.93 10^6/ul (4.0-5.4); Red Cell Distribution Width 26 % (10.5-15); White Blood Count 7.9 10^3/ul (3.5-10.8)
[2017-10-12 01:56] LABS: EGFR Non-African American 30.8 (>60)
[2017-10-12 01:59] LABS: Urine Appearance Cloudy; Urine Blood 2+ (Negative); Urine Color Amber; Urine Ketones Negative (Negative); Urine Protein 1+(30 mg/dL) (Negative); Urine Specific Gravity 1.016 (1.010-1.030); Urine Urobilinogen Negative (Negative)
[2017-10-12] MEDS ORDERED: D5NS 0.9% 1000 ML BAG* 1,000 ML IV SCH (02:00)
[2017-10-12] MEDS ORDERED: NS 0.9% 1000 ML*IV.FLUID IV ONE (02:07)
[2017-10-12] MEDS ORDERED: Vancomycin(*) 1,250 MG in NS 0.9% 250 ML* 250 ML IVPB ONE (03:24)
[2017-10-12] MEDS ORDERED: Acetaminophen SUPP* 650 MG SUPP PR PRN (04:27)
[2017-10-12] MEDS ORDERED: Albuterol 2.5 MG/3 ML NEB.SOL* (0.083%) INH PRN (04:28)
[2017-10-12] MEDS ORDERED: Ondansetron INJ* 2 MG/ML VIAL IV PRN (04:28)
[2017-10-12] MEDS ORDERED: CMCS: Melatonin (NF) 3 MG TAB PO PRN (04:28)
[2017-10-12] MEDS ORDERED: NS 0.9% 1000 ML* 1,000 ML IV SCH (04:30)
[2017-10-12] MEDS ORDERED: Vancomycin per Pharmacy* NOTE FOLLOW UP SCH (05:00)
--- NOTE | 2017-10-12 05:47 | ED ---
Willa Beckman Abhishek, scribed for Don Garcia MD on 10/12/17 at 0156 . Shortness of Breath - HPI Summary HPI Summary: The pt is a 72 y/o female presenting to the [facility] arriving via ambulance with a chief complaint of SOB. The pt hx and report given by EMS and previous medical records. According to the EMS report, the pt lives independently and was feeling lethargic, weak and SOB. PMHx includes COPD. Pt also reports of diarrhea. The patient rates the pain 0/10 in severity. Symptoms aggravated by nothing. Symptoms alleviated by nothing. - History of Current Complaint Chief Complaint: EDShortnessOfBreath Time Seen by Provider: 10/12/17 01:22 Hx Obtained From: Patient Onset/Duration: Sudden Onset, Still Present Timing: Constant Associated Signs & Symptoms: Cough (Nonproductive) - Allergy/Home Medications Allergies/Adverse Reactions: Allergies Allergy/AdvReac Type Severity Reaction Status Date / Time meperidine Allergy Unknown Unknown Verified 09/15/17 17:44 Reaction Details codeine Allergy Unknown Verified 09/15/17 17:44 Reaction Details glatiramer (copolymer 1) Allergy Unknown Verified 09/15/17 17:44 Reaction Details morphine AdvReac Nausea And Verified 09/15/17 17:44 Vomiting NSAIDS (Non-Steroidal AdvReac BOWEL Verified 09/15/17 17:44 Anti-Inflamma CHANGES PMH/Surg Hx/FS Hx/Imm Hx Endocrine/Hematology History: Reports: Hx Anticoagulant Therapy - xarelto, s/p CVA, Hx Anemia Denies: Hx Blood Disorders, Hx Bone Marrow Disease, Hx Diabetes, Hx Systemic Lupus Erythematosus, Hx Sickle Cell Disease, Hx Thyroid Disease, Hx Unexplained Bleeding, Other Endocrine/Hematological Disorders Cardiovascular History: Reports: Hx Congestive Heart Failure, Hx Coronary Artery Disease - 2 STENT PLACED, Hx Hypercholesterolemia, Hx Hypertension, Hx Myocardial Infarction, Other Cardiovascular Problems/Disorders - systolic and diaslotic heart failure, EF 35 to 40% Denies: Hx Aneurysm, Hx Angina, Hx Angioplasty, Hx Auto Implanted Cardiovert Defib, Hx Cardiac Arrest, Hx Cardiomegaly, Hx Congenital Heart Disease, Hx Deep Vein Thrombosis, Hx Hypotension, Hx Pacemaker/ICD, Hx Peripheral Vascular Disease, Hx Rheumatic Fever, Hx Syncope, Hx Valvular Heart Disease Respiratory History: Reports: Hx Chronic Obstructive Pulmonary Disease (COPD), Hx Sleep Apnea - NO CPAP, Other Respiratory Problems/Disorders - HAVE OXYGEN BUT DOES NOT USE Denies: Hx Asthma, Hx Chronic Bronchitis, Hx Cystic Fibrosis, Hx Lung Cancer , Hx Pleural Effusion, Hx Pneumonia, Hx Pulmonary Edema, Hx Pulmonary Embolism, Hx Seasonal Allergies GI History: Reports: Hx Crohn's Disease - QUESTIONABLE, Hx Gastroesophageal Reflux Disease, Hx Irritable Bowel - QUESTIONABLE, Hx Ulcer Denies: Hx Cirrhosis, Hx Diverticulosis, Hx Gall Bladder Disease, Hx Gastrointestinal Bleed, Hx Hiatal Hernia, Hx Jaundice, Hx Obstructive Bowel, Hx Ileostomy, Hx Pyloric Stenosis, Other GI Disorders History: Denies: Hx Acute Renal Failure, Hx Benign Prostatic Hyperplasia, Hx Chronic Renal Failure, Hx Dialysis, Hx Kidney Infection, Hx Kidney Stones, Other Problems/Disorders Musculoskeletal History: Reports: Hx Arthritis - OSTEOARTHRITIS, RHEUMATOID, Hx Rheumatoid Arthritis, Hx Back Problems, Other Musculoskeletal History Denies: Hx Bursitis, Hx Congenital Bone Abnormalities, Hx Fibromyalgia, Hx Gout, Hx Orthopedic Injury, Hx Osteoporosis, Hx Scoliosis, Hx Tendonitis Sensory History: Reports: Hx Cataracts - HX OF Denies: Hx Contacts or Glasses, Hx Eye Injury, Hx Eye Prosthesis, Hx Glaucoma , Hx Legally Blind, Hx Macular Degeneration, Hx Vision Problem, Hx Deafness, Hx Hearing Aid, Hx Hearing Problem, Other Sensory Impairments Opthamlomology History: Reports: Hx Cataracts - HX OF Denies: Hx Contacts or Glasses, Hx Eye Injury, Hx Eye Prosthesis, Hx Glaucoma , Hx Legally Blind, Hx Macular Degeneration, Hx Vision Problem, Other Sensory Impairments Neurological History: Reports: Hx CVA, Hx Migraine, Hx Spinal Cord Injury Denies: Hx Dementia, Hx Developmental Delay, Hx Headaches, Hx Nerve Disease, Hx Seizures, Hx Transient Ischemic Attacks (TIA), Other Neuro Impairments/ Disorders Psychiatric History: Reports: Hx Anxiety, Hx Depression Denies: Hx Attention Deficit Hyperactivity Disorder, Hx Eating Disorder, Hx Panic Disorder, Hx Post Traumatic Stress Disorder, Hx Inpatient Treatment, Hx Community Mental Health Tx, Hx Schizophrenia, Hx Bipolar Disorder, Hx Suicide Attempt, Hx of Violent Episodes Against Others, Hx Substance Abuse, Other Psychiatric Issues/Disorders - Cancer History Hx Chemotherapy: No Hx Radiation Therapy: No - Surgical History Surgery Procedure, Year, and Place: Bilateral Osteotomies 1988,. OVARIAN CYST REMOVAL,. 2007 & 2011 BILATERAL CATARACT EXTRACTION WITH IOL IMPLANT, [facility]. 1998 RIGHT TOTAL KNEE REPLACEMENT, [facility]. 2007 Triple Arthrodesis,. 2012 LEFT TOTAL KNEE REPLACEMENT. Appendectomy. 2013 RIGHT KNEE EXPLORATION, DEBRIDEMENT , REPLACEMENT OF ARTICULAR SURFACE, [facility]. 2013 RIGHT KNEE ARTHROSCOPIC LAVAGE, [facility]. 2014 CARDIAC EVENT MONITOR IMPLANTATION, [facility]. 2015 HEART CATHERIZATION, [facility]. little toe straighten, [facility] Hx Anesthesia Reactions: No Infectious Disease History: No Infectious Disease History: Reports: Hx Clostridium Difficile, History Other Infectious Disease - VRE Denies: Hx Hepatitis, Hx Human Immunodeficiency Virus (HIV), Hx of Known/ Suspected MRSA, Hx Tuberculosis, Hx Known/Suspected VRE, Hx Known/Suspected VRSA , Traveled Outside the [place] in Last 30 Days - Family History Known Family History: Positive: Other - stroke (niece) Negative: Cardiac Disease, Hypertension - Social History Alcohol Use: Rare Hx Substance Use: No Substance Use Type: Reports: None Hx Tobacco Use: Yes Smoking Status (MU): Former Smoker Type: Cigarettes Amount Used/How Often: 1 PPD FOR 40+ YEARS Length of Time of Smoking/Using Tobacco: 40+ YEARS Have You Smoked in the Last Year: No Review of Systems Constitutional: Negative Eyes: Negative ENT: Negative Cardiovascular: Negative Positive: Shortness Of Breath, Cough Positive: Diarrhea Genitourinary: Negative Musculoskeletal: Negative Skin: Negative Neurological: Other - Lethargy Positive: Weakness Psychological: Normal All Other Systems Reviewed And Are Negative: Yes Physical Exam - Summary Physical Exam Summary: Appearance: Weak pale cold mild to moderate distress Skin: warm, dry, reflects adequate perfusion, Lips are cracked mucous membranes are dry Head/face: normal Eyes: EOMI, MO ENT: normal Neck: supple, non-tender, no JVD of the neck Respiratory: Tachypnea, breath sounds present, Lungs clear Cardiovascular: RRR, pulses symmetrical Abdomen: non-tender, soft Bowel Sounds: present Musculoskeletal: normal, strength/ROM intact Neuro: normal, sensory motor intact, A&Ox3 Triage Information Reviewed: Yes Vital Signs On Initial Exam: Initial Vitals Pulse Ox 95 10/12/17 01:23 Vital Signs Reviewed: Yes Diagnostics - Vital Signs Vital Signs Temp Pulse Resp BP Pulse Ox 10/12/17 01:44 95.7 F 73 30 132/89 95 10/12/17 01:23 95 - Laboratory Lab Results: Lab Results 10/12/17 Range/Units 01:21 POC Glucose (mg/dL) 27 L* (70-100) mg/dL Result Diagrams: 10/12/17 01:27 10/12/17 01:27 Lab Statement: Any lab studies that have been ordered have been reviewed, and results considered in the medical decision making process. - Radiology Chest X-ray Radiology Interpretation Completed By: ED Physician - CXR reveals, per radiologist, limited due to inspiration, cannot full evaluate right base of the lng, fluid in the right fissure - EKG 0209 EKG Rhythm: Sinus Rhythm - 73 bpm, ST Segment: Non-Specific EKG Interpretation: normal axis, first degree AV block, Poor R wave progression Re-Evaluation - Re-Evaluation 0209 Re-Evaluation Time: 02:09 Comment: Pt is on a jerry hugger and her sugar is upto 114 0220 Re-Evaluation Time: 02:20 Change: Improved - Her mental status is slightly improving and pt states she has had 4 episodes of diarrhea. Course/Dx - Course Course Of Treatment: Given dextrose with little to no change in mental status, pt is cold, temperature sensing catheter was fully placed. Temperature 35.4. Purposely holding antibiotics in apparently septic patient with likely cause being chronic C Diff. Pt with ongoing diarrhea that appears dry. We discussed pt care with Dr. Rendon and he accepts pt care. Pt critically ill. Warmed and maintained sugars above 100 on dextrose gtt. Likely sepsis with lactic acidosis. HELD all but vancomycin given her recent recurrent C diff. Lethargy, likely due to low sugars for some time. Dry. Lg volume IVF. Admit to ICU for further. - Diagnoses Differential Diagnosis/HQI/PQRI: Positive: Other - sepsis, c diff, uti/pneumonia , hypoglycemia Provider Diagnoses: Severe sepsis, C. difficile colitis, Nondiabetic hypoglycemia, Acute kidney injury, Hypothermia - Physician Notifications Discussed Care of Patient With: Denzel Rendon - We discussed pt care Time Discussed With Above Provider: 02:48 - Critical Care Time Critical Care Time: 30-74 min - CCT is EXCLUSIVE of separately billable procedures Discharge - Sign-Out/Discharge Documenting (check all that apply): Discharge - Admitted to the [facility] - Discharge Plan Condition: Critical Disposition: ADMITTED TO [facility] - Billing Disposition and Condition Condition: CRITICAL Disposition: HOSP-[facility] The documentation as recorded by the Willa contreras Abhishek accurately reflects the service I personally performed and the decisions made by Radha sabillon Kirk, MD.
[2017-10-12 06:28] LABS: ABS Basophils 0 10^3/ul (0-0.2); ABS Eosinophils 0 10^3/ul (0-0.6); ABS Monocytes 1.5 10^3/ul (0-0.8); ABS Neutrophils 8.5 10^3/ul (1.5-7.7); ABS Nucleated RBC 0 10^3/ul; Eosinophil % 0 % (0-6); Hematocrit 30 % (35-47); Hemoglobin 9.4 g/dl (12.0-16.0); Lymphocyte % 8.9 % (25-47); Mean Corpuscular HGB Conc 31 g/dl (31-36); Mean Corpuscular Hemoglobin 30 pg (27-31); Mean Corpuscular Volume 96 fL (80-97); Mean Platelet Volume 8.1 um3 (7.4-10.4); Nucleated Red Blood Cells % 0.1; Platelet Count 236 10^3/ul (150-450); Red Blood Count 3.14 10^6/ul (4.0-5.4); Red Cell Distribution Width 25 % (10.5-15)
[2017-10-12 06:41] LABS: EGFR Non-African American 34.1 (>60)
--- NOTE | 2017-10-12 06:53 | HP ---
H&P (Free Text) History and Physical: Note: This is an interval H&P. The original has been copied below for convenience. PCP: Grace Watkins MD Date/Time: 10/12/2017 0415 CC: [facility] HPI: Mrs Doran is a 72YO female HX C.diff colitis for which she was admitted to [facility] 09/15-10/02/2017 and transferred to [facility] from where I was called tonight after nurses found her profoundly generally weak, unable to stand, and confused. Nursing there was advised to arrange transfer to [facility] ED for evaluation. EMS en route obtained glucometry of 15 confirmed at [address] [facility]. Blood draw returned a serum glucose <10. She is not diabetic and not on hypoglycemics. She was given 25g IV dextrose and started on a D5NS with resolution of her hypoglycemia and improvement (but not complete resolution ) of her confusion. She was also found to be hypothermic at 35.4C and placed under a Fabienne Hugger. ABG showed pH 7.22/pCO2 34/pO2 94/HCO3 14.9 2nd lactic acid of 7.6. K was 5.9, BUN/cre 54/1.64, troponin 0.06, & [place] [address]. PMedHx, PSurgHx, SocHx, & FamHx: reviewed with her sister who was present and unchanged from H&P dated 09/15/2017. Ambulatory Orders Nursing to reconcile. Aspirin Low Dose CHEW TAB* [Aspirin Low Dose TAB*] 81 mg PO QAM 05/15/14 Atorvastatin* [Lipitor 40 MG*] 40 mg PO QPM 09/23/15 Metoprolol Succinate XL TAB* [Toprol XL TAB*] 25 mg PO BEDTIME 09/23/15 Tiotropium CAP.INH* [Spiriva CAP.INH*] 1 cap.inh INH QAM 03/03/16 ALPRAZolam TAB* [Xanax TAB*] 0.25 mg PO BID PRN MDD 2 06/21/16 Acetaminophen [Acetaminophen Extra Strength] 500 mg PO BID 09/15/17 Alendronate (NF) [Fosamax (NF)] 70 mg PO WEEKLY 09/15/17 Cholecalciferol TAB* [Vitamin D TAB*] 5,000 unit PO DAILY 09/15/17 Eluxadoline (NF) [Viberzi] 75 mg PO EVERY OTHER DAY MDD 75 mg 09/15/17 Ferrous Sulfate TAB* 325 mg PO DAILY 09/15/17 Fluticasone/Vilanterol MDI(NF) [Breo Ellipta MDI 200/25(NF)] 1 inh IN DAILY 09/03 Hydrocodone/Acetamin 10/325(NF [[place] 10/325 (NF)] 1 tab PO Q6H PRN MDD 4 tabs 09/15/17 Hydroxychloroquine TAB* [Plaquenil TAB*] 200 mg PO BID 09/15/17 Ondansetron TAB* [Zofran 4 MG Tab*] 4 mg PO Q6H PRN 09/15/17 Pantoprazole TAB (NF) [Protonix TAB (NF)] 40 mg PO DAILY 09/15/17 Rivaroxaban TAB(*) [Xarelto 15 mg(*)] 15 mg PO DAILY 09/15/17 Dicyclomine CAP* [Bentyl CAP*] 10 mg PO AC PRN cap 10/02/17 Lactobacillus Acidophilu (GG)* [Culturelle*] 1 cap PO BID cap 10/02/17 Magnesium Oxide TAB* [MagOx 400 TAB*] 400 mg PO QAM tab 10/02/17 Simethicone TAB* [Mylicon TAB*] 80 mg PO AC tab.chew 10/02/17 Vancomycin CAP* 125 mg PO Q8H #0 10/02/17 Venlafaxine EXT RELEASE CAP* [Effexor Xr CAP*] 225 mg PO QAM #0 10/02/17 hydrALAZINE TAB* [Apresoline TAB*] 5 mg PO TID tab 10/02/17 Allergies meperidine Allergy (Unknown, Verified 09/15/17 17:44) Unknown Reaction Details codeine Allergy (Verified 09/15/17 17:44) Unknown Reaction Details glatiramer (copolymer 1) Allergy (Verified 09/15/17 17:44) Unknown Reaction Details morphine Adverse Reaction (Verified 09/15/17 17:44) Nausea And Vomiting NSAIDS (Non-Steroidal Anti-Inflamma Adverse Reaction (Verified 09/15/17 17:44) BOWEL CHANGES ROS: as above, otherwise reviewed and all were negative vitals: Vital Signs Temp 35.6 C 10/12/17 06:24 Pulse 66 10/12/17 06:24 Resp 15 10/12/17 06:24 BP 114/78 10/12/17 06:15 Pulse Ox 95 10/12/17 06:24 Constitutional: NAD, normally developed, thin elderly white female HEENM: atraumatic; sclera/conjunctiva: ; hearing: moderately decreased; oropharynx: clear, tacky Neck: soft tissue: no nuchal rigidity; thyroid: normal Pulmonary: scant crackles diffusely bilaterally, fair aeration, no accessory muscle use CV: RR/RR, normal S1S2, no carotid bruit, no jugular venous distention, 2+ B DP/ PT, no edema Abdominal: soft, non-distended, non-tender, no rebound/guarding/rigidity, normoactive bowel sounds, no hepatosplenomegaly or masses, no costovertebral angle tenderness Musculoskeletal: general: grossly intact, no tenderness w/ palpation Integumental: ashen color, normal texture of exposed skin Psychiatric orientation: somnolent, arousable, oriented to person only affect: calm mood: acquiescent eye contact: poor content: unreliable responses: slowed insight: poor Testing: Lab Results 10/12/17 10/12/17 10/12/17 Range/Units 01:21 01:27 01:27 WBC 7.9 (3.5-10.8) 10^3/ul RBC 3.93 L (4.0-5.4) 10^6/ul Hgb 11.7 L (12.0-16.0) g/dl Hct 38 (35-47) % MCV 96 (80-97) fL MCH 30 (27-31) pg MCHC 31 (31-36) g/dl RDW 26 H (10.5-15) % Plt Count 302 (150-450) 10^3/ul MPV 8.2 (7.4-10.4) um3 Neut % (Auto) 75.7 (38-83) % Lymph % (Auto) 14.0 L (25-47) % [place] % (Auto) 9.7 H (0-7) % Eos % (Auto) 0 (0-6) % Baso % (Auto) 0.6 (0-2) % Absolute Neuts (auto) 6.0 (1.5-7.7) 10^3/ul Absolute Lymphs (auto) 1.1 (1.0-4.8) 10^3/ul Absolute Monos (auto) 0.8 (0-0.8) 10^3/ul Absolute Eos (auto) 0 (0-0.6) 10^3/ul Absolute Basos (auto) 0 (0-0.2) 10^3/ul Absolute Nucleated RBC 0 10^3/ul Nucleated RBC % 0.1 INR (Anticoag Therapy) 4.23 H (0.77-1.02) APTT 35.8 (26.0-36.3) seconds Patient Temperature ABG pH (7.35-7.45) ABG pH (Temp Correct) ABG pCO2 (35-45) mmHg ABG pCO2 (Temp Corrct ABG pO2 (80-100) mmHg ABG pO2 (Temp Correct ABG HCO3 (19-31) mmol/L ABG O2 Saturation (95-98) % ABG Base Excess (-2.0-2.0) Respiration Rate O2 Delivery Device Ventilator Type Vent Mode FiO2 Inspiratory Time PEEP Pressure Support Pressure Control EPAP IPAP BiPAP Sodium (139-145) mmol/L Potassium (3.5-5.0) mmol/L Chloride (101-111) mmol/L Carbon Dioxide (22-32) mmol/L Anion Gap (2-11) mmol/L BUN (6-24) mg/dL Creatinine (0.51-0.95) mg/dL Est GFR ( Amer) (>60) Est GFR (Non-Af Amer) (>60) BUN/Creatinine Ratio (8-20) Glucose (70-100) mg/dL POC Glucose (mg/dL) 27 L* (70-100) mg/dL Lactic Acid (0.5-2.0) mmol/L Calcium (8.6-10.3) mg/dL Total Bilirubin (0.2-1.0) mg/dL AST (13-39) U/L ALT (7-52) U/L Alkaline Phosphatase (34-104) U/L Troponin I (<0.04) ng/mL C-Reactive Protein (< 5.00) mg/L B-Natriuretic Peptide ( - 100) pg/mL Total Protein (6.4-8.9) g/dL Albumin (3.2-5.2) g/dL Globulin (2-4) g/dL Albumin/Globulin Ratio (1-3) Urine Color Urine Appearance Urine pH (5-9) Ur Specific [place] (1.010-1.030) Urine Protein (Negative) Urine Ketones (Negative) Urine Blood (Negative) Urine Nitrate (Negative) Urine Bilirubin (Negative) Urine Urobilinogen (Negative) Ur Leukocyte Esterase (Negative) Urine WBC (Auto) (Absent) Urine RBC (Auto) (Absent) Urine Bacteria (Absent) Hyaline Casts (Absent) Urine Glucose (Negative) Influenza A (Rapid) (Negative) Influenza B (Rapid) (Negative) Blood Type Antibody Screen 10/12/17 10/12/17 10/12/17 Range/Units 01:27 01:27 01:27 WBC (3.5-10.8) 10^3/ul RBC (4.0-5.4) 10^6/ul Hgb (12.0-16.0) g/dl Hct (35-47) % MCV (80-97) fL MCH (27-31) pg MCHC (31-36) g/dl RDW (10.5-15) % Plt Count (150-450) 10^3/ul MPV (7.4-10.4) um3 Neut % (Auto) (38-83) % Lymph % (Auto) (25-47) % [place] % (Auto) (0-7) % Eos % (Auto) (0-6) % Baso % (Auto) (0-2) % Absolute Neuts (auto) (1.5-7.7) 10^3/ul Absolute Lymphs (auto) (1.0-4.8) 10^3/ul Absolute Monos (auto) (0-0.8) 10^3/ul Absolute Eos (auto) (0-0.6) 10^3/ul Absolute Basos (auto) (0-0.2) 10^3/ul Absolute Nucleated RBC 10^3/ul Nucleated RBC % INR (Anticoag Therapy) (0.77-1.02) APTT (26.0-36.3) seconds Patient Temperature ABG pH (7.35-7.45) ABG pH (Temp Correct) ABG pCO2 (35-45) mmHg ABG pCO2 (Temp Corrct ABG pO2 (80-100) mmHg ABG pO2 (Temp Correct ABG HCO3 (19-31) mmol/L ABG O2 Saturation (95-98) % ABG Base Excess (-2.0-2.0) Respiration Rate O2 Delivery Device Ventilator Type Vent Mode FiO2 Inspiratory Time PEEP Pressure Support Pressure Control EPAP IPAP BiPAP Sodium 138 L (139-145) mmol/L Potassium 5.9 H (3.5-5.0) mmol/L Chloride 101 (101-111) mmol/L Carbon Dioxide 15 L (22-32) mmol/L Anion Gap 22 H (2-11) mmol/L BUN 54 H (6-24) mg/dL Creatinine 1.64 H (0.51-0.95) mg/dL Est GFR ( Amer) 39.6 (>60) Est GFR (Non-Af Amer) 30.8 (>60) BUN/Creatinine Ratio 32.9 H (8-20) Glucose < 10 L* (70-100) mg/dL POC Glucose (mg/dL) (70-100) mg/dL Lactic Acid 7.6 H* (0.5-2.0) mmol/L Calcium 9.6 (8.6-10.3) mg/dL Total Bilirubin 1.60 H (0.2-1.0) mg/dL AST 51 H (13-39) U/L ALT 50 (7-52) U/L Alkaline Phosphatase 259 H (34-104) U/L Troponin I 0.06 H* (<0.04) ng/mL C-Reactive Protein 90.17 H (< 5.00) mg/L B-Natriuretic Peptide 51750 H ( - 100) pg/mL Total Protein 6.3 L (6.4-8.9) g/dL Albumin 3.3 (3.2-5.2) g/dL Globulin 3.0 (2-4) g/dL Albumin/Globulin Ratio 1.1 (1-3) Urine Color Urine Appearance Urine pH (5-9) Ur Specific [place] (1.010-1.030) Urine Protein (Negative) Urine Ketones (Negative) Urine Blood (Negative) Urine Nitrate (Negative) Urine Bilirubin (Negative) Urine Urobilinogen (Negative) Ur Leukocyte Esterase (Negative) Urine WBC (Auto) (Absent) Urine RBC (Auto) (Absent) Urine Bacteria (Absent) Hyaline Casts (Absent) Urine Glucose (Negative) Influenza A (Rapid) (Negative) Influenza B (Rapid) (Negative) Blood Type Antibody Screen 10/12/17 10/12/17 10/12/17 Range/Units 01:27 01:27 02:45 WBC (3.5-10.8) 10^3/ul RBC (4.0-5.4) 10^6/ul Hgb (12.0-16.0) g/dl Hct (35-47) % MCV (80-97) fL MCH (27-31) pg MCHC (31-36) g/dl RDW (10.5-15) % Plt Count (150-450) 10^3/ul MPV (7.4-10.4) um3 Neut % (Auto) (38-83) % Lymph % (Auto) (25-47) % [place] % (Auto) (0-7) % Eos % (Auto) (0-6) % Baso % (Auto) (0-2) % Absolute Neuts (auto) (1.5-7.7) 10^3/ul Absolute Lymphs (auto) (1.0-4.8) 10^3/ul Absolute Monos (auto) (0-0.8) 10^3/ul Absolute Eos (auto) (0-0.6) 10^3/ul Absolute Basos (auto) (0-0.2) 10^3/ul Absolute Nucleated RBC 10^3/ul Nucleated RBC % INR (Anticoag Therapy) (0.77-1.02) APTT (26.0-36.3) seconds Patient Temperature Not Reportable ABG pH 7.22 L (7.35-7.45) ABG pH (Temp Correct) Not Reportable ABG pCO2 34 L (35-45) mmHg ABG pCO2 (Temp Corrct Not Reportable ABG pO2 95 (80-100) mmHg ABG pO2 (Temp Correct Not Reportable ABG HCO3 14.9 L (19-31) mmol/L ABG O2 Saturation 98.2 H (95-98) % ABG Base Excess -12.8 L (-2.0-2.0) Respiration Rate Not Reportable O2 Delivery Device Nc Ventilator Type Not Reportable Vent Mode Not Reportable FiO2 4 Inspiratory Time Not Reportable PEEP Not Reportable Pressure Support Not Reportable Pressure Control Not Reportable EPAP Not Reportable IPAP Not Reportable BiPAP Not Reportable Sodium (139-145) mmol/L Potassium (3.5-5.0) mmol/L Chloride (101-111) mmol/L Carbon Dioxide (22-32) mmol/L Anion Gap (2-11) mmol/L BUN (6-24) mg/dL Creatinine (0.51-0.95) mg/dL Est GFR ( Amer) (>60) Est GFR (Non-Af Amer) (>60) BUN/Creatinine Ratio (8-20) Glucose (70-100) mg/dL POC Glucose (mg/dL) (70-100) mg/dL Lactic Acid (0.5-2.0) mmol/L Calcium (8.6-10.3) mg/dL Total Bilirubin (0.2-1.0) mg/dL AST (13-39) U/L ALT (7-52) U/L Alkaline Phosphatase (34-104) U/L Troponin I (<0.04) ng/mL C-Reactive Protein (< 5.00) mg/L B-Natriuretic Peptide ( - 100) pg/mL Total Protein (6.4-8.9) g/dL Albumin (3.2-5.2) g/dL Globulin (2-4) g/dL Albumin/Globulin Ratio (1-3) Urine Color Meena Urine Appearance Cloudy Urine pH 5.0 (5-9) Ur Specific [place] 1.016 (1.010-1.030) Urine Protein 1+(30 mg/dl) A (Negative) Urine Ketones Negative (Negative) Urine Blood 2+ A (Negative) Urine Nitrate Negative (Negative) Urine Bilirubin Negative (Negative) Urine Urobilinogen Negative (Negative) Ur Leukocyte Esterase Negative (Negative) Urine WBC (Auto) Absent (Absent) Urine RBC (Auto) 3+(>10/hpf) A (Absent) Urine Bacteria Absent (Absent) Hyaline Casts Present A (Absent) Urine Glucose Negative (Negative) Influenza A (Rapid) (Negative) Influenza B (Rapid) (Negative) Blood Type O Positive Antibody Screen Negative 10/12/17 10/12/17 Range/Units 04:21 05:56 WBC 11.0 H (3.5-10.8) 10^3/ul RBC 3.14 L (4.0-5.4) 10^6/ul Hgb 9.4 L (12.0-16.0) g/dl Hct 30 L (35-47) % MCV 96 (80-97) fL MCH 30 (27-31) pg MCHC 31 (31-36) g/dl RDW 25 H (10.5-15) % Plt Count 236 (150-450) 10^3/ul MPV 8.1 (7.4-10.4) um3 Neut % (Auto) 77.2 (38-83) % Lymph % (Auto) 8.9 L (25-47) % [place] % (Auto) 13.7 H (0-7) % Eos % (Auto) 0 (0-6) % Baso % (Auto) 0.2 (0-2) % Absolute Neuts (auto) 8.5 H (1.5-7.7) 10^3/ul Absolute Lymphs (auto) 1.0 (1.0-4.8) 10^3/ul Absolute Monos (auto) 1.5 H (0-0.8) 10^3/ul Absolute Eos (auto) 0 (0-0.6) 10^3/ul Absolute Basos (auto) 0 (0-0.2) 10^3/ul Absolute Nucleated RBC 0 10^3/ul Nucleated RBC % 0.1 INR (Anticoag Therapy) (0.77-1.02) APTT (26.0-36.3) seconds Patient Temperature ABG pH (7.35-7.45) ABG pH (Temp Correct) ABG pCO2 (35-45) mmHg ABG pCO2 (Temp Corrct ABG pO2 (80-100) mmHg ABG pO2 (Temp Correct ABG HCO3 (19-31) mmol/L ABG O2 Saturation (95-98) % ABG Base Excess (-2.0-2.0) Respiration Rate O2 Delivery Device Ventilator Type Vent Mode FiO2 Inspiratory Time PEEP Pressure Support Pressure Control EPAP IPAP BiPAP Sodium (139-145) mmol/L Potassium (3.5-5.0) mmol/L Chloride (101-111) mmol/L Carbon Dioxide (22-32) mmol/L Anion Gap (2-11) mmol/L BUN (6-24) mg/dL Creatinine (0.51-0.95) mg/dL Est GFR ( Amer) (>60) Est GFR (Non-Af Amer) (>60) BUN/Creatinine Ratio (8-20) Glucose (70-100) mg/dL POC Glucose (mg/dL) (70-100) mg/dL Lactic Acid (0.5-2.0) mmol/L Calcium (8.6-10.3) mg/dL Total Bilirubin (0.2-1.0) mg/dL AST (13-39) U/L ALT (7-52) U/L Alkaline Phosphatase (34-104) U/L Troponin I (<0.04) ng/mL C-Reactive Protein (< 5.00) mg/L B-Natriuretic Peptide ( - 100) pg/mL Total Protein (6.4-8.9) g/dL Albumin (3.2-5.2) g/dL Globulin (2-4) g/dL Albumin/Globulin Ratio (1-3) Urine Color Urine Appearance Urine pH (5-9) Ur Specific [place] (1.010-1.030) Urine Protein (Negative) Urine Ketones (Negative) Urine Blood (Negative) Urine Nitrate (Negative) Urine Bilirubin (Negative) Urine Urobilinogen (Negative) Ur Leukocyte Esterase (Negative) Urine WBC (Auto) (Absent) Urine RBC (Auto) (Absent) Urine Bacteria (Absent) Hyaline Casts (Absent) Urine Glucose (Negative) Influenza A (Rapid) Negative (Negative) Influenza B (Rapid) Negative (Negative) Blood Type Antibody Screen ECG, personally reviewed: sinus 1st degree AV LBBB rate 73 CXR, personally reviewed: poor inspiration, atelectasis B bases Impression: 72F presenting with profound hypoglycemia without diabetes/ hypglycemics most likely 2nd severe sepsis vs exogenous administration of a hypoglycemic agent DIAGNOSIS & PLAN Primary severe hypoglycemia dDx: exogenous hypoglycemic vs severe sepsis : IV vancomycin & cefepime : currently corrected to euglycemia : hold IV glucose & trend Q1H : IVFs : blood & urine CXs : supplemental oxygen : supportive care hypoglycemic encephalopathy : correct hypoglycemia : Q1H glucometry : tincture of time : C.diff colitis : continue PO vancomycin; add IV as above in case of 2nd sepsis : consider ID consult in AMJose MD previously consulted last admission Secondary CAD/ND : continue aspirin once reconciled CHF EF 30-40% : review meds once reconciled HTN : continue metorprolol, hydralazine, HLD : continue atorvastatin once reconciled RA : continue plaquenil once reconciled COPD : albuterol neb PRN : continue tiotropium once reconciled : mometasone/formoterol pAFIB : continue metoprolol & rivaroxaban once reconciled HV CVA : review meds once reconciled GERD : continue pantoprazole once reconciled IBS : continue eluxadoline once reconciled depression : review meds once reconciled anxiety : hold alprazolam for now given encephalopathy : continue venlafaxine once reconciled FRANKIE : no acute issues Admission Rational: inpatient for severe hypoglycemia of uncertain etiology requiring ICU admission DVTp: continue rivaroxaban once reconciled Code Status: full HCP: sister History & Physical Patient: IZABELA DORAN /Age: 06 1945 72 Medical Record#: [id number] Admission Date: 09/15/17 Provider: Khari CHA CC: Dr. Watkins; Dr. Gonzalez; Dr. Alice Nj.* ADMISSION HISTORY AND PHYSICAL: DATE OF ADMISSION: 09/15/17 PRIMARY CARE PROVIDER: Dr. Watkins. SALES ORDER ADMINISTRATOR: Dr. Gonzalez. MY ATTENDING WHILE IN THE HOSPITAL: Alice Nj MD* (dictated by STARLA Torres). CHIEF COMPLAINT: Diarrhea, nausea, weakness. HISTORY OF PRESENT ILLNESS: Ms. Doran is a 72-year-old female with past medical history significant for recurrent C. diff; history of myocardial infarction, with stent placement; CHF, estimated ejection fraction 35% to 40%; rheumatoid arthritis; COPD; anemia; and CVA, who presents with 3 days of explosive frequent diarrhea with nausea for about the last 3 weeks with very poor oral intake and weakness that has been ongoing for months, but has recently gotten much worse. The patient was diagnosed with clostridium difficile colitis when she was here in May. The patient was treated with initially vancomycin, which was switched to Flagyl. The patient after finishing that course had 3 recurrences of diarrhea, all of which were treated with vancomycin outpatient by her primary care provider. The patient states that she has been getting slowly and progressively weaker. The patient states today she came in to the emergency department because she was incontinent of stool and just did not have the energy to even stand up and clean herself up. The patient recently finished a course of vancomycin, but as soon as she stopped it approximately 3 days ago, her diarrhea started again. The patient had a sigmoidoscopy while she was previously in the hospital in July of last year, which showed no microscopic colitis or other abnormality. The patient has not followed up since that time with Gastroenterology. The patient has no fevers or chills. The patient has increased shortness of breath on exertion without leg swelling, PND, nocturia. The patient has no chest pain with exertion or rest, though the patient has no chest pain with her previous ND. The patient had a heart catheterization. The patient has occasional abdominal pain, which does not get better or worse. She describes it as a cramping, diffuse pain. The patient states she has had dizziness with standing. No syncope, changes in her vision, headache. The patient denies decrease in her urination or change in the color. The patient states she urinates approximately 8 to 10 times a day. The patient states that she remembers when this all started several years ago on an uneventful day when she went out to lunch with her friend and has had frequent loose stools since then. The patient has tried physical therapy for her weakness which was prescribed by her primary care provider and she had no improvement with this. The patient was found to have a potassium of 6.0 while in the hospital. For concerns for recurrent C. diff colitis, weakness, and hyperkalemia, the hospitalist service was asked to evaluate for admission. PAST MEDICAL HISTORY: Recurrent Clostridium difficile infection; myocardial infarction with systolic CHF, most recent EF of 30% to 40%; hypertension; rheumatoid arthritis, on Plaquenil; COPD; paroxysmal atrial fibrillation; CVA; depression; obstructive sleep apnea; anemia, probable anemia of chronic disease ; spinal compression fracture. PAST SURGICAL HISTORY: Ovarian cyst removal, appendectomy, and knee replacement. MEDICATIONS: 1. Aspirin 81 mg p.o. q.a.m. 2. Potassium chloride 20 mEq p.o. t.i.d. 3. Magnesium oxide 800 mg p.o. q.a.m. 4. Spironolactone 25 mg p.o. every other day. 5. Venlafaxine 75 mg p.o. q.a.m. 6. Metoprolol succinate 25 mg p.o. at bedtime. 7. Atorvastatin 40 mg p.o. q.p.m. 8. Tiotropium 1 cap inhalation q.a.m. 9. Alprazolam 0.25 mg b.i.d. as needed. 10. Lisinopril 2.5 mg p.o. daily. 11. Rivaroxaban 15 mg p.o. daily. 12. Vancomycin 125 mg p.o. q.6 hours. 13. Lactobacillus acidophilus, paracasei, B. Lactis probiotic 1 each daily. 14. Pantoprazole tab 40 mg p.o. daily. 15. Zofran 4 mg p.o. q.6 hours as needed. 16. Hydroxychloroquine 200 mg p.o. b.i.d. 17. Breo Ellipta 225 one inhalation daily. 18. Ferrous sulfate 325 mg p.o. daily. 19. Viberzi 75 mg p.o. every other day. 20. Vitamin D 5000 units p.o. daily. 21. Bumex 0.5 mg p.o. every other day. 22. Fosamax 75 mg p.o. weekly. 23. Tylenol 500 mg p.o. b.i.d. 24. [place] 10/325 1 tab p.o. q.6 hours as needed. ALLERGIES: MEPERIDINE, CODEINE, GLATIRAMER, MORPHINE, NSAIDS. FAMILY HISTORY: Both patient's parents have a history of coronary artery disease as well as her brother. The patient had an aunt with ovarian cancer. The patient has no other syndromes that run in her family. SOCIAL HISTORY: The patient has a 50-pack year history of smoking, quit in recent years. The patient denies any alcohol or drugs. 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 The patient lives at home alone. The patient has steps in her house, but she has been able to get up, but it is a very tiring experience for her. The patient's healthcare proxy is her sister, Sarah. REVIEW OF SYSTEMS: A 14-point review of systems was reviewed and is negative except as above. PHYSICAL EXAMINATION GENERAL: The patient is a 72-year-old female who appears stated age and sitting on the bed, in no acute distress. VITAL SIGNS: Upon arrival to the emergency department, temperature 98.2, pulse rate 84, respiratory rate 16, oxygen saturation 96% on room air, blood pressure 103/83. HEENT: Head normocephalic and atraumatic. Sclerae anicteric. No conjunctival injection. Nasal mucosa and oral mucosa dry. No pharyngeal erythema, discharge or exudate. NECK: Supple, nontender. No lymphadenopathy. No carotid bruit auscultated. No JVD. RESPIRATORY: Clear to auscultation bilaterally. No wheezes, rales or rhonchi. Good air exchange bilaterally. CARDIAC: Regular rate and rhythm. No clicks, murmurs, gallops, or rubs. Pulses 2+ in the bilateral dorsalis pedis, posterior tibialis, and radial areas. No bilateral lower extremity edema noted. No tenderness to palpation in the calves. ABDOMEN: Bowel sounds present and hypoactive in all 4 quadrants. No hepatosplenomegaly. No abdominal bruits is auscultated. Slight tenderness to palpation throughout. NEUROLOGIC: Cranial nerves II through XII intact. No focal deficits. Alert and oriented x3. PSYCHIATRIC: Pleasant and cooperative. DIAGNOSTIC STUDIES/LAB DATA: White blood cell count 8.5, hemoglobin 10.6, RDW 18, MCV 86, MCH 27, platelet count 195. INR 1.54, APTT 31.6. Sodium 137, potassium 6.0, chloride 104, carbon dioxide 27, anion gap 6, BUN 21, creatinine 1.23, glucose 80, lactic acid 2.0, calcium 8.9, magnesium 1.7. Bilirubin 0.7, AST 68, ALT 76, alkaline phosphatase 183. Total creatinine kinase 77, troponin I 0.04, CRP 10.74, BNP 8082. Total protein 5.5, albumin 3.2, globulin 2.3, amylase 40, lipase 14. Studies: Electrocardiogram shows normal sinus rhythm, rate of 86, left bundle- branch block pattern, not present on previous exam with ST-segment elevation in V2, V3, and V4 with ST-segment depression and T-wave inversions in V5, V6. No peaked T waves. QTC of 460. Left ventricular hypertrophy. Left axis deviation. No abnormalities. Chest x-ray read pending. On personal review, flattening of the diaphragms, elevation of the right lawson diaphragm, no focal infiltrates, possible increased vascular congestion, cardiomegaly. No other abnormalities. Significant bowel gas present underneath the diaphragm without evidence of intraperitoneal air. ASSESSMENT AND PLAN: Impression: The patient is a 72-year-old female with a past medical history significant for recurrent Clostridium difficile infection, myocardial infarction, congestive heart failure, rheumatoid arthritis, atrial fibrillation and anemia, who presents with recurrent episodes of frequent explosive diarrhea after her third treatment with vancomycin for Clostridium difficile and weakness. While in the emergency department, the patient was found to have an elevated potassium. EKG showed a new left bundle-branch block with ST-segment elevation and positive clostridium difficile by PCR in the stool. The patient was admitted to the hospital for IV fluids, echocardiogram, rule out of myocardial infarction, and continued antibiotics for her Clostridium difficile. 1. Explosive diarrhea, Clostridium difficile infection. Ms. Doran has toxigenic Clostridium difficile by PCR in her stool, this is consistent with the result from May of last year. The patient has been treated with metronidazole and then vancomycin oral x3. The patient recently finished a course of vancomycin 125 mg p.o. daily and after that had recurrent explosive diarrhea. The patient looks to be very dehydrated and has weakness with inability to function at home. We will resume treatment with vancomycin. We will get Infectious Disease and Gastroenterology consult for the consideration of fecal transplant. We will give fluids to replete the patient's fluid stores as she appears very dry, but I will be careful to not over hydrate due to the patient's previous congestive heart failure. 2. Congestive heart failure, history of myocardial infarction, elevated troponin, new left bundle-branch block. The patient has no chest pain. The patient has a slightly elevated troponin , which could be due to demand ischemia. We will monitor these x3 and consult Cardiology if they continue to rise. The patient has an extremely elevated BNP at 8082. The patient does not appear to be fluid overloaded; however, the patient does have slight increase in her liver enzymes, which may be due to fluid overload or dehydration. We will repeat these in the morning. The patient's new left bundle-branch block may be due to hyperkalemia. We will repeat BMP as the patient has received significant fluids and treat with potassium-lowering therapies, not including Kayexalate due to the patient's diarrhea at this time. The patient has no peaked T waves or signs of symptomatic hyperkalemia. We will monitor the patient on telemetry. Continue aspirin, metoprolol, and Lipitor. 3. Hyperkalemia. As above. We will repeat BMP now and initiate potassium- lowering therapy as indicated. The patient is asymptomatic at this time. Hold patient's lisinopril and spironolactone due to hyper- kalemia as well as her potassium chloride. 4. Chronic obstructive pulmonary disease. Continue patient's home inhalers. 5. Rheumatoid arthritis. Continue patient's home Plaquenil. 6. Atrial fibrillation. The patient is currently in normal sinus rhythm. Continue metoprolol. Monitor on telemetry and continue Xarelto. 7. Anemia. This is stable at patient's baseline, likely related to anemia of chronic disease. The patient had a positive stool occult blood; however, the patient is on iron. We will monitor patient's hemoglobin daily. 8. Depression. Continue venlafaxine. 9. Hypertension. Hold patient's spironolactone, lisinopril, and Bumex due to hyperkalemia and hypotension and fluid repletion respectively. 10. FEN: The patient will have a clear liquid diet and fluids as above. 11. DVT prophylaxis: The patient will be continued on Xarelto. 12. Code status: The patient will be a full code. The patient's surrogate decision maker is her sister, Sarah, as above. TIME SPENT: Approximately 60 minutes was spent on this admission, 30 of which was spent [id number] with the patient obtaining history and physical and discussing the treatment plan. This plan has been discussed with my attending, Dr. Alice Nj, and she is in agreement. STARLA TORRES [id number]/[facility] #: [id number] *<Electronically signed by Khari CHA> 09/20/17 0710 <Electronically signed by Alice Nj MD> 09/25/17 1747 Khari CHA Dictated Date/Time: 09/15/17 1849 Transcribed Date/Time 09/15/17 2226 Copy to: CC: Sunday Gonzalez MD; Jordin Watkins MD; Khari CHA
[2017-10-12] MEDS ORDERED: Dextrose 50% Syringe 50 ML* 25 GM/50 ML SYRINGE IV PUSH PRN (07:32)
[2017-10-12] MEDS: Cefepime(*) 2 GM in NS 0.9% 50 ML* 50 ML IVPB SCH ×2 (07:56→20:27)
[2017-10-12] MEDS: Vancomycin CAP* 125 MG CAP PO SCH ×2 (08:00→16:57)
--- NOTE | 2017-10-12 08:11 | RAD ---
INDICATION: Respiratory distress COMPARISON: September 22, 2017 TECHNIQUE: An AP portable view obtained at 0231 hours is submitted. FINDINGS: Bones/Soft Tissues: There are no acute bony findings. Cardiomediastinal: The heart is normal in size. Lungs: There is infiltrate in the right chest and/or atelectasis with chronic elevation right hemidiaphragm. There is worsening aeration, however. There is obscuration left. Pleura: There are no significant effusions. Other: None IMPRESSION: WORSENING WORSENING AERATION RIGHT HEMOTHORAX PROBABLE DEVELOPING LEFT BASAL INFILTRATE. SUGGEST FOLLOW-UP.
[2017-10-12] MEDS ORDERED: Pantoprazole IV* 40 MG IV SCH (09:00)
[2017-10-12] MEDS: Sucralfate SUSP 1 GM/10 ml 10 ML UDC PO SCH ×2 (13:38→20:27)
[2017-10-12] MEDS: D5LR 1000 ML BAG* 1,000 ML IV SCH (15:32)
--- NOTE | 2017-10-12 15:44 | ECHO ---
Patient: IZABELA DORAN [facility] Rec#: [id number] : 1945 Date: 10/12/2017 Age: 72y Weight: kg / NaN lbs Sex: F Room#: ICU 5 Admit Date#: 10/12/2017 Type: Inpatient Referring: Orlando Riley MD Reading: Orlando Alvarado MD Oil Sprayer: Camilla Reeves RDCS,RDMS CC: Jordin Watkins MD Transthoracic Echocardiogram Indication: CHF BP: 130/95 HR: 81 Rhythm: NSR Findings History: CAD, RI, PCI, CHF, AFIB, CVA, COPD, HTN, HLD Technical Comments: The study quality is good. Left Ventricle: The left ventricular chamber size is normal. Mild concentric left ventricular hypertrophy is observed. Basal interventricular septum shows moderate thickening. There is global hypokinesis of the left ventricle with minor regional variation. There is severely decreased left ventricular systolic function. The estimated ejection fraction is less than 20%. Abnormal left ventricular diastolic function is observed. The patient was unable to perform a Valsalva maneuver. Left Atrium: The left atrium is moderate to severely dilated. Right Ventricle: The right ventricular cavity size is normal. The right ventricular global systolic function is moderately reduced. Right Atrium: The right atrium is moderate to severely dilated. Aortic Valve: The aortic valve is trileaflet. The aortic valve leaflets are mildly thickened. There is moderate thickening of the non coronary cusp. There is trace to mild aortic regurgitation. There is mild aortic stenosis.By 2D imaging. Mitral Valve: There is mitral annular calcification. The mitral valve leaflets are moderately thickened. There is moderate mitral regurgitation. There is no evidence of mitral stenosis. Tricuspid Valve: The tricuspid valve leaflets are mildly thickened. There is mild prolapse of the tricuspid valve leaflets. There is moderate to severe tricuspid regurgitation. The right ventricular systolic pressure is estimated at 44 mmHg. There is evidence of mild to moderate pulmonary hypertension. Pulmonic Valve: The pulmonic valve appears normal. There is a trace pulmonic regurgitation. Pericardium: There is no significant pericardial effusion. A left pleural effusion is present. Aorta: The aortic root appears normal. There is mild dilatation of the aortic arch. Pulmonary Artery: The main pulmonary artery appears normal. Venous: The inferior vena cava is dilated. There is less than 50% respiratory change in the inferior vena cava dimension. Conclusions There is global hypokinesis of the left ventricle with minor regional variation. There is severely decreased left ventricular systolic function. The estimated ejection fraction is less than 20%. Mild concentric left ventricular hypertrophy is observed. There is severely decreased left ventricular systolic function. The estimated ejection fraction is less than 20%. The right ventricular global systolic function is moderately reduced. There is moderate mitral regurgitation. The left atrium is moderate to severely dilated. There is moderate to severe tricuspid regurgitation. The right ventricular systolic pressure is estimated at 44 mmHg. There is evidence of mild to moderate pulmonary hypertension. The right atrium is moderate to severely dilated. Mild aortic stenosis by 2D imaging. There is a trace pulmonic regurgitation. A left pleural effusion is present. There is mild dilatation of the aortic arch. Compared to report of study from 09/17/2017 the LV systolic function is worse (was 25-30%). Measurements Name Value Normal Range RVIDd (AP) 2D 3.7 cm (0.9 - 2.6) RVDdMajor (2D) 4.1 cm (2.2 - 4.4) RAd ISD 4CH 5.8 cm (3.4 - 4.9) RA (A4C)W 5.4 cm (2.9 - 4.6) IVSd (2D) 1.6 cm (0.6 - 1) LVPWd (2D) 1.2 cm (0.6 - 1) LVIDd (2D) 4.9 cm (3.6 - 5.4) LVIDs (2D) 4.8 cm - LV FS (2D) 3 % (25 - 45) Aortic Annulus 2 cm (1.4 - 2.6) Ao root diameter (2D) 3.2 cm (2.1 - 3.5) Ascending Ao 3.4 cm (2.1 - 3.4) Aortic arch 3.8 cm (1.8 - 3.4) LA dimension (AP) 2D 4.5 cm (2.3 - 3.8) LAd ISD 4CH 6.3 cm (2.9 - 5.3) LA ISD 4CH W 4.8 cm (2.5 - 4.5) Name Value Normal Range LA ESV SP 4CH (A/L) 75.66 ml - LA ESV SP 2CH (A/L) 126.3 ml - LA ESV BP (A/L) 104.37 ml - LA ESV BP (A/L) index 54 ml/m2 - LA ESV SP 4CH (MOD) 68.74 ml - LA ESV SP 2CH (MOD) 119.64 ml - Name Value Normal Range MV E-wave Vmax 1 m/sec - MV deceleration time 129 msec - MV A-wave Vmax 0.8 m/sec - MV E:A ratio 1.3 ratio - LV lateral e' Vmax 0.06 m/sec - LV E:e' lateral ratio 17 ratio - Name Value Normal Range AV Vmax 1.5 m/sec - AV VTI 22 cm - AV peak gradient 9 mmHg - AV mean gradient 5.2 mmHg - LVOT diameter 2 cm - LVOT Vmax 0.6 m/sec - LVOT VTI 8.1 cm - LVOT peak gradient 1.4 mmHg - LVOT mean gradient 0.7 mmHg - DOI (VTI) 0.4 ratio - VITO (continuity Vmax) 1.2 cm2 - VITO (continuity VTI) 1.1 cm2 - MARY Vmax 0.2 m/sec - Name Value Normal Range MV Vmax 1.2 m/sec - MV VTI 25 cm - MV peak gradient 6 mmHg - MV mean gradient 2.4 mmHg - MV PHT 33 msec - MR Vmax 5.2 m/sec - MR VTI 164 cm - MR volume (PISA) 24 ml - MR flow (PISA) 83 ml/sec - MR ERO 1.4 cm2 - MR PISA radius 0.6 cm - MR alias Vmax 33 cm/sec - MVA (PHT) 6.7 cm2 - MVA (continuity VTI) 1 cm2 - Name Value Normal Range TR Vmax 2.5 m/sec - TR peak gradient 25 mmHg - RAP 15 mmHg - RVSP 44 mmHg - IVC diameter 2.3 cm - Name Value Normal Range PV Vmax 0.4 m/sec - PV peak gradient 0.7 mmHg -
[2017-10-12] MEDS ORDERED: LORazepam TAB(*) 1 MG PO PRN (15:45)
--- NOTE | 2017-10-12 15:53 | PN ---
Date of Service: 10/12/17 Critical Care Services: 72 y/o female with prior Hx recurrent C diff, admitted last night with diarrhea , hypoglycemia, and lactic acidosis. most likely Dx is sepsis, with bowel most likely origin. Receiving empiric antibiotic Rx for C diff and for usual bowel pathogens. Presently is resting comfortably. No BM since admission. Hypoglycemia has resolved. Vital Signs: Temp Pulse Resp BP SpO2 FiO2 98.4 F 81 25 122/102 92 Physical Exam: Gen:Alert, oriented, seems depressed. Lungs:clear Abdomen:soft and non-tender. BS present. Extremities:Warm. No cyanosis or edema. Fluid Balance (Past 24 Hours): 10/12/17 10/13/17 06:59 06:59 Intake Total 30 1417 Output Total 150 100 Balance -120 1317 Weight 167 lb Intake: IV Fluids 30 584 ABX - VANCOMYCIN 30 NS (0.9%) 584 IVPB 483 ABX - CEFEPIME 55 D5W 428 Oral 350 Output: [place] 150 100 Labs: 10/12/17 10/12/17 10/12/17 04:21 05:21 05:56 WBC 11.0 H Hgb 9.4 L Hct 30 L Plt Count 236 POC Glucose (mg/dL) 150 H Influenza A (Rapid) Negative Influenza B (Rapid) Negative 10/12/17 10/12/17 10/12/17 05:56 05:56 06:05 Sodium 138 L Potassium 5.1 Chloride 107 Carbon Dioxide 17 Anion Gap 14 BUN 52 Creatinine 1.50 Glucose 124 H POC Glucose (mg/dL) 147 H Lactic Acid 4.0 Calcium 8.2 L Total Bilirubin 1.20 H Direct Bilirubin 0.70 H Indirect Bilirubin 0.5 AST 54 H ALT 46 Alkaline Phosphatase 208 H Ammonia Troponin I 0.05 H* Total Protein 5.1 L Albumin 2.7 10/12/17 10/12/17 10/12/17 06:52 07:50 07:50 WBC RBC Hgb Hct MCV MCH MCHC RDW Plt Count MPV Neut % (Auto) Lymph % (Auto) [place] % (Auto) Eos % (Auto) Baso % (Auto) Absolute Neuts (auto) Absolute Lymphs (auto) Absolute Monos (auto) Absolute Eos (auto) Absolute Basos (auto) Absolute Nucleated RBC Nucleated RBC % Sodium Potassium Chloride Carbon Dioxide Anion Gap BUN Creatinine Est GFR ( Amer) Est GFR (Non-Af Amer) BUN/Creatinine Ratio Glucose POC Glucose (mg/dL) 163 H Lactic Acid Calcium Total Bilirubin Direct Bilirubin Indirect Bilirubin AST ALT Alkaline Phosphatase Ammonia 44 Troponin I Total Protein Albumin Globulin Albumin/Globulin Ratio Procalcitonin 0.3 Influenza A (Rapid) Influenza B (Rapid) Studies: None today Nutrition: Oral diet Impression: Presumed sepsis of bowel origin. ? recurrence of C diff enterocolitis. Plan: Stool for C. diff PCR when available. Continue empiric antibiotics pending routine culture results. If recurrent C diff, then consider fidaxomicin or fecal transplantation. ID consult has been sent.
[2017-10-12] MEDS: Vancomycin(*) 500 MG in NS 0.9% 250 ML* 250 ML IVPB SCH (16:56)
[2017-10-12 22:11] LABS: EGFR Non-African American 27.5 (>60)
[2017-10-13] MEDS: Vancomycin CAP* 125 MG CAP PO SCH ×2 (00:56→09:23)
[2017-10-13] MEDS: Vancomycin(*) 500 MG in NS 0.9% 250 ML* 250 ML IVPB SCH (03:39)
[2017-10-13 06:27] LABS: EGFR Non-African American 26.5 (>60)
[2017-10-13 06:30] LABS: Hematocrit 34 % (35-47); Hemoglobin 10.3 g/dl (12.0-16.0); Mean Corpuscular HGB Conc 30 g/dl (31-36); Mean Corpuscular Hemoglobin 29 pg (27-31); Mean Corpuscular Volume 97 fL (80-97); Mean Platelet Volume 8.2 um3 (7.4-10.4); Platelet Count 299 10^3/ul (150-450); Red Cell Distribution Width 25 % (10.5-15); White Blood Count 12.1 10^3/ul (3.5-10.8)
[2017-10-13] MEDS: D5LR 1000 ML BAG* 1,000 ML IV SCH ×2 (06:40→07:48)
[2017-10-13 08:39] LABS: INR 2.57 (0.77-1.02)
[2017-10-13] MEDS: Cefepime(*) 2 GM in NS 0.9% 50 ML* 50 ML IVPB SCH (08:40)
[2017-10-13] MEDS ORDERED: Metoprolol Succinate XL TAB* 50 MG PO ONE (08:58)
[2017-10-13] MEDS: Losartan TAB* 25 MG PO SCH (09:20)
[2017-10-13] MEDS: Thiamine TAB* 100 MG TAB PO SCH (09:23)
[2017-10-13] MEDS: Sucralfate SUSP 1 GM/10 ml 10 ML UDC PO SCH ×3 (09:23→21:32)
--- NOTE | 2017-10-13 12:24 | PN ---
Date of Service: 10/13/17 Critical Care Services: Problem overnight was low urine output despite a positive fluid balance. Transthoracic ECHO yesterday shows evidence of end-stage cardiomyopathy, with LVEF < 20% (down from 25-30% on last ECHO) plus pulmonary hypertension and RV systolic dysfunction. Both left and right atria are markedly dilated ( explaining the extremely high BNP levels). This (i.e., low output state) is the likely source of the poor urine output (and the patient's complaint of lassitude ). Vital Signs: Temp Pulse Resp BP SpO2 FiO2 99.0 F 80 16 121/83 100 Physical Exam: Gen:Somnolent but arousable. Lungs: Diminished breath sounds right base Cardiac: Reg rhythm Extremities:3-4+ edema of lower legs Fluid Balance (Past 24 Hours): I= O= Net Intake & Output 10/13/17 06:59 Intake Total 3487 Output Total 170 Balance 3317 Weight 175 lb Intake: IV Fluids 1879 ABX - VANCOMYCIN 275 D5W LR 1020 NS (0.9%) 584 IVPB 1038 ABX - CEFEPIME 110 D5W 428 LR 500 Oral 570 Output: [place] 170 Labs: 10/12/17 10/12/17 10/12/17 10:10 11:27 13:45 POC Glucose (mg/dL) 128 H 115 H B-Natriuretic Peptide 57672 10/13/17 10/13/17 10/13/17 05:50 05:50 05:50 WBC 12.1 H Hgb 10.3 L Hct 34 L Plt Count 299 INR (Anticoag Therapy) Sodium 138 L Potassium 5.7 Chloride 108 Carbon Dioxide 20 Anion Gap 10 BUN 55 H Creatinine 1.87 Est GFR (Non-Af Amer) 26.5 Glucose 101 H POC Glucose (mg/dL) Lactic Acid 3.6 H* Calcium 8.3 L B-Natriuretic Peptide 10/13/17 10/13/17 08:18 08:28 INR (Anticoag Therapy) 2.57 POC Glucose (mg/dL) 118 H Studies: None today Nutrition: Oral diet - Intake very poor. Impression: Major problem appears to be a low output state (resulting in renal insufficiency and peristent lactic acidosis). No evidence for infection, including C difficile (has had no BM since admission). Plan: I have consulted Dr. Raymond (cardiology), who knows this patient, and she has recommended losartan for afterload reduction and timolol for beta blockade. These have been started, and empiric antibiotics have been discontinued. Prognosis here is very poor, as there is little that can be done to improve cardiac function on a long-term basis. I have spoken to the patient and her sister (who is healthcare proxy) about this, and about end-of-life options, and the patient wants time to think about end-of-life decisions. In meantime, I will send hospice consult. Critical Care Time: 50 minutes (not including time spent discussing case with Dr. Raymond, and time spent with patient's sister).
[2017-10-13] MEDS ORDERED: D5LR 1000 ML BAG* 1,000 ML IV SCH (13:58)
[2017-10-13] MEDS ORDERED: Vancomycin Trough Check NOTE FOLLOW UP ONE (16:00)
[2017-10-13] MEDS ORDERED: CEFEPIME* 2 GM in Dextrose* 50 ml IV SCH (20:00)
--- NOTE | 2017-10-13 23:10 | CONS ---
CC: Dr. Jordin Watkins; Dr. Riley, at the Intensive Care Unit in [facility] CONSULTATION REPORT: DATE OF CONSULT: 10/13/17 REASON FOR CONSULT: Depressed ejection fraction and congestive heart failure. CHIEF COMPLAINT: Profound fatigue and weakness. HISTORY OF PRESENT ILLNESS: Crystal Solomon is a 72-year-old woman with a known atherosclerotic heart disease and paroxysmal AFib, who I have followed for a long time. I last saw her in July of this year. The patient has recently been battling Clostridium difficile and recently moved to [facility]. The nurses found her extremely weak, unable to stand and confused based on the admission notes and Crystal herself states that she just feels like she cannot do anything. Admission notes state that her glucose levels were very low, 15 and 27 on glucometer and labs on admission show significant renal insufficiency and an extremely elevated brain-natriuretic peptide (BNP of 15,000 to 17,000). The patient denies chest pain, pressure or heaviness now or in the recent past, just the weakness. The patient's echocardiogram done yesterday again showed an extremely depressed ejection fraction. PAST MEDICAL HISTORY: 1. Coronary artery disease, cardiac catheterization in 2015 showed elevated left ventricular end-diastolic pressure of 26, cardiac output 4.2 L per minute, circumflex stent was patent, 20% right coronary artery occlusion, distal right coronary had eccentric haziness estimated 60% stenosis. Left main free of disease, LAD no significant disease. Aortic stenosis, echocardiogram of 06/15/17 showed mild aortic stenosis. Cardiomyopathy, echo on 06/15/17 showed [id number] left ventricular hypertrophy, ejection fraction 35% to 40% with severely hypo to akinetic inferolateral wall, and she has had a history of jzml-[id number] insufficiency in the past. 2. Hypertension, recent hypotension requiring pulling back of her medications. 3. Dyslipidemia. 4. Stroke in 2013 (left anterior parietal). 5. Paroxysmal AFib. 6. Supraventricular tachycardia. 7. Congestive heart failure in 2014. 8. Severe obstructive sleep apnea. 9. Ventricular tachycardia. 10. Rheumatoid arthritis. 11. COPD. 12. Obesity. 13. Reflux. 14. Ulcers and GI bleed. 15. Depression and anxiety. 16. Migraines. 17. Cataracts. 18. C. difficile colitis, starting in 2017. PAST SURGICAL HISTORY: Includes ankle surgery, appendectomy, knee surgery. MEDICATIONS: Inpatient medications include: 1. D50 p.r.n. 2. Dextrose lactated Ringer's 25 mL an hour. 3. Ativan p.r.n. 4. Cozaar 50 mg a day. 5. Toprol-XL 50 mg a day. 6. Sucralfate 1 g t.i.d. 7. B1. 8. She recently was on cefepime and vancomycin. ALLERGIES: Include MEPERIDINE, CODEINE, GLATIRAMER, MORPHINE, and NONSTEROIDALS. FAMILY HISTORY: Significant for coronary diseases. Her father had a history of bypass surgery. Her mother had heart disease. Strokes and hypertension run in the family. 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 Former smoker, stopped in 2010. No history of alcohol abuse or recreational drug abuse. She had been living independently until health issues but to her recent residence in [facility]. REVIEW OF SYSTEMS: The patient denies orthopnea or PND. Chief complaint again is profound weakness. Other review of systems, noncontributory. At home, the patient stated her lower extremities were getting extremely swollen and she could not really manage the fluid. PHYSICAL EXAM: On exam, the patient is 5 feet 10 inches, weighs 175 pounds. Blood pressure on admission was 132/89, today 121/86, pulse is 78, oxygen saturation 98% on room air, temperature 99 degrees, respiratory rate 17. General Appearance: Elderly woman, has lost weight from when I had seen her, lying in bed, appears exhausted and appears extremely pale even more than her baseline. Psychologically, pleasant and cooperative. Awake, alert, and oriented to person and place. I did not evaluate for time. Skin: Very pale. HEENT: Pupils are equal and round. Mucous membranes are moderately dry. Neck: Without appreciable increase in JVP. Breath sounds, very coarse rales in the bases about a third of the way up. Upper lung maciel improved, clear laterally and anteriorly. Coronary: S1, S2, regular with a soft systolic murmur heard in the right upper sternal border. Abdomen: Flat, active bowel sounds and soft. Lower extremities were free of edema. DIAGNOSTIC STUDIES/LAB DATA: Chest x-ray from 10/12 shows worsening aeration of the right hemithorax, left basilar infiltrate. ECG from 10/12 shows normal sinus rhythm with a first-degree AV block, left bundle-branch block and this is compared with an EKG of September 16. It is not significantly changed when compared with more distant EKGs in our office, one from 02/19/17. The left bundle-branch block replaces the left anterior fascicular block. Echocardiogram from 10/12/17 showed an ejection fraction of 20% with global hypokinesis, mild left ventricular hypertrophy, right ventricular function was moderately reduced with moderate mitral insufficiency, severe left atrial enlargement, [id number] tricuspid insufficiency, PA pressure of 44 mmHg , mild aortic stenosis. Labs: White count 12, hemoglobin 10, hematocrit 34, platelets 299. INR 2.57. ABG: pH 7.22, pCO2 34, pO2 98. Sodium 138, potassium 5.7, chloride 108, bicarb 20, BUN 55, creatinine 1.87, glucose is running from 118 to 141, lactic acid 3.6. Troponins #1, 0.05; #2, 0.06. C-reactive protein elevated at 90. BNP #1, 14,787; #2, 17,285. Urinalysis 3+ red cells, 2+ blood, 1+ protein. IMPRESSION AND PLAN: In summary, Crystal Solomon is a 72-year-old woman with known atherosclerotic heart disease, cardiomyopathy that has progressed from moderately depressed to severely depressed with a new LBBB as of early September 2017. She is presenting with a chief complaint of profound weakness subjectively and objectively, hypoglycemic with evidence of pump failure, I suspect a renal insufficiency is from poor forward flow from her cardiac issues. The cardiomyopathy could be ischemic, could be multifactorial, but the patient' s EKGs have shown progression to a complete left bundle-branch block and her lack of ventricular coordination could be why her pump is failing now. I think we need to decide how aggressively we are going to be. From a cardiac standpoint, the most aggressive measures would include a biventricular pacer defibrillator, which may restore or improve her ejection fraction and therefore cardiac output, renal perfusion and sense of wellbeing. With Crystal's profound drop in ejection fraction and borderline troponins, one option would also be to perform a cardiac catheterization on her to determine if there is any ischemic contribution, but it may be more prudent to get a chemical stress test on her to see if there is any areas of reversibility before doing any invasive testing. In the interim to try to optimize the patient's cardiac output medically, options would be beta blockers either Toprol or converting to Coreg, CARLOTTA inhibitors or ARB. Low dose diuretics may help her symptomatically. Ideally, we get her on Aldactone or eplerenone but with her high potassium, BUN and creatinine, we are not going to be able to do this right now. I am going to add a CPK to ensure there is no generalized muscle breakdown. Long-term if her ejection fraction stays down, Entresto may be an option to add on her. It is uncertain if the patients prolonged C. difficile infection has contributed to her drop in EF and general decline. Thank you for allowing me to assist in this complex patient's care. [id number]/[facility] #: [id number] LA NENA
[2017-10-14 06:34] LABS: EGFR Non-African American 28.4 (>60)
[2017-10-14] MEDS ORDERED: Furosemide IV* 10 MG/ML 2 ML VIAL (20 MG) IV ONE (07:50)
--- NOTE | 2017-10-14 09:12 | PN ---
Date of Service: 10/14/17 Critical Care Services: Started on losartan and metoprolol yesterday and is tolerating it (in terms of BP) - urine output increased from 170 to 415 mls over 24h, and hyperkalemia has resolved. However, patient continues to be very lethargic and intermittently confused. Vital Signs: Temp Pulse Resp BP SpO2 FiO2 97.3 F 72 13 129/91 97 Physical Exam: Gen:Somnolent - arouses with difficulty. Oriented to person and place, but not time. Lungs: Diminished breath sounds, R > L Cardiac: Reg rhythm Abdomen: Not distended Extremities: 3+edema both lower legs. Fluid Balance (Past 24 Hours): 10/13/17 10/14/17 06:59 06:59 Intake Total 3487 1265 Output Total 170 415 Balance 3317 850 Weight 175 lb 180 lb Intake: IV Fluids 1879 1140 ABX - VANCOMYCIN 275 D5W LR 1020 1140 NS (0.9%) 584 IVPB 1038 60 ABX - CEFEPIME 110 D5W 428 D5W LR 60 LR 500 Oral 570 65 Output: [place] 170 415 Labs: 10/14/17 06:10 Sodium 137 L Potassium 4.8 Chloride 110 Carbon Dioxide 23 Anion Gap 4 BUN 54 Creatinine 1.76 Est GFR (Non-Af Amer) 28.4 Glucose 74 Calcium 8.3 L Total Creatine Kinase Serum lactate pending. Studies: Stool for C diff (PCR) negative Nutrition: Patient has been NPO (because of swallowing difficulties) and a feeding tube has been refused. Impression: Slight improvement in renal perfusion over past 24 hours. However, overall clinical condition is poor (i.e., patient is very lethargic, and is unable to eat, but refuses artificial feedings). Plan: 1. Try low-dose furosemide to improve urine output. 2. Cardiology (Dr. Raymond) input much appreciated. Will discuss future Rx with Dr. Raymond today. 3. Considering the poor prognosis in this case, I have spoken with both the patient and her healthcare proxy (her sister) about DNR/DNI status. Patient has refused DNR/DNI, but considering her confusion, the healthcare proxy must be included in these end-of-life decisions - In the meantime, I have asked for a consult from the hospice care service. Critical Care Time: 40 minutes
[2017-10-14] MEDS: Losartan TAB* 25 MG PO SCH (09:22)
[2017-10-14] MEDS: Thiamine TAB* 100 MG TAB PO SCH (09:22)
[2017-10-14] MEDS: Metoprolol Succinate XL TAB* 50 MG PO SCH (09:22)
[2017-10-14] MEDS: Sucralfate SUSP 1 GM/10 ml 10 ML UDC PO SCH ×4 (09:30→21:56)
[2017-10-14] MEDS ORDERED: Rivaroxaban TAB(*) 15 MG PO ONE (10:00)
--- NOTE | 2017-10-14 14:02 | PN ---
Subjective Date of Service: 10/14/17 - CC: weakness Interval History: The patient was barely able to speak to me. Did not answer questions on how she felt. Did not want me to contact her friend Dr. Bobbi Auguste. Medications Active Medications: Dextrose (D50w Syringe 50 Ml*) 25 gm IV PUSH ONCE PRN PRN Reason: FS < 60 Dextrose/Lactated Ringer's (D5lr 1000 Ml Bag*) 1,000 mls @ 25 mls/hr IV PER RATE [facility] Last Admin: 10/14/17 03:25 Dose: 25 mls/hr Lorazepam (Ativan Tab(*)) 1 mg PO Q8H PRN PRN Reason: ANXIETY Last Admin: 10/12/17 16:57 Dose: 1 mg Losartan Potassium (Cozaar Tab*) 50 mg PO DAILY [facility] Last Admin: 10/14/17 09:22 Dose: 50 mg Metoprolol Succinate (Toprol Xl Tab*) 50 mg PO DAILY [facility] Last Admin: 10/14/17 09:22 Dose: 50 mg Sucralfate (Sucralfate Susp) 1 gm PO TID [facility] Last Admin: 10/14/17 09:30 Dose: 1 gm Thiamine HCl (Vitamin B-1 Tab*) 100 mg PO DAILY [facility] Last Admin: 10/14/17 09:22 Dose: 100 mg Objective Vital Signs: Temp Pulse Resp BP Pulse Ox 97.7 F 72 10 135/93 99 10/14/17 13:00 10/14/17 13:00 10/14/17 13:00 10/14/17 13:00 10/14/17 13:00 Oxygen Devices in Use Now: Nasal Cannula Appearance: pale, tachypnic, eyes closed, appears moribund. Eyes: No Scleral Icterus, PERRLA Ears/Nose/Mouth/Throat: NL Teeth, Lips, Gums - mucuous membranes dry Neck: No Thyroid Enlargement, Masses Respiratory: Symmetrical Chest Expansion and Respiratory Effort, Clear to Auscultation - laterally. Cardiovascular: RRR Abdominal: No Hepatosplenomegaly Skin: No Rash or Ulcers Lines/Tubes/Other Access: Clean, Dry and Intact Peripheral IV Laboratory Results: 10/13/17 05:50 10/14/17 06:10 INR (Anticoag Therapy) 2.57 (0.77-1.02) H 10/13/17 08:18 APTT 35.8 seconds (26.0-36.3) 10/12/17 01:27 Total Bilirubin 1.20 mg/dL (0.2-1.0) H 10/12/17 05:56 Direct Bilirubin 0.70 mg/dL (0.03-0.18) H 10/12/17 05:56 Indirect Bilirubin 0.5 mg/dL (0.3-1.0) 10/12/17 05:56 AST 54 U/L (13-39) H 10/12/17 05:56 ALT 46 U/L (7-52) 10/12/17 05:56 Alkaline Phosphatase 208 U/L (34-104) H 10/12/17 05:56 B-Natriuretic Peptide 96797 pg/mL (-100) H 10/12/17 13:45 Total Protein 5.1 g/dL (6.4-8.9) L 10/12/17 05:56 Albumin 2.7 g/dL (3.2-5.2) L 10/12/17 05:56 Globulin 2.4 g/dL (2-4) 10/12/17 05:56 Albumin/Globulin Ratio 1.1 (1-3) 10/12/17 05:56 10/12/17 05:56 Troponin I 0.05 H* Diagnostic Imaging: ECHO this admission EF 20%, significant MR and TR. EKG Data: SR, LBBB. LBBB new as of early September 2017. Assessment/Plan 72 yo female with CAD, moderate CM in past. Now admitted with profound weakness, RI (probably pre renal from poor pump function). ECG shows new LBBB and ECHO shows further decline in EF and MR and TR have increased c/w May 2017. Medical options for low EF include beta jacinto, ACEI/ARB and as outpatient Entresto could be initiated. Discussed option of BiV pacer ([employer] device), but Crystal looks extremely ill, not likely to live > 1 year and currently appears moribund. Crystal has many comorbities including RI, RA, PAF, prior stroke. I support palliative approach at this time.
[2017-10-14] MEDS ORDERED: Dextrose 50% Syringe 50 ML* 25 GM/50 ML SYRINGE IV PUSH ONE (20:15)
[2017-10-15 06:50] LABS: INR 1.41 (0.77-1.02)
[2017-10-15] MEDS ORDERED: Furosemide IV* 10 MG/ML 2 ML VIAL (20 MG) IV ONE (08:09)
--- NOTE | 2017-10-15 08:47 | PN ---
Date of Service: 10/15/17 Critical Care Services: Urine output increased to 2200 mls yesterday after 20 mg furosemide (IV) - However, the patient continues to be very lethargic, and has no nutritional intake (has problems swallowing and refuses a feeding tube). Patient is now a DNR/DNI (per her wishes). Vital Signs: Temp Pulse Resp BP SpO2 FiO2 96.1 F 70 21 149/98 97 Physical Exam: Gen:Somnolent but arousable. Lungs:Diminished breath sounds, R>L. Crackles at left base. No wheezes. Abdomen: Not distended. Extremities:3+ edema in lower legs. No cyanosis. Fluid Balance (Past 24 Hours): 10/15/17 06:59 Intake Total 601 Output Total 2225 Balance -1624 Weight 183 lb Intake: IV Fluids 601 ABX - VANCOMYCIN D5W LR 601 Oral 0 Output: [place] 2225 Other: Date of Last Bowel 10/14/17 Movement # Bowel Movements 1 Estimated Stool Amount Medium Labs: 10/15/17 10/15/17 10/15/17 06:00 06:00 06:00 INR (Anticoag Therapy) 1.41 Sodium 141 Potassium 3.7 Chloride 109 Carbon Dioxide 24 BUN 50 Creatinine 1.40 Est GFR (Non-Af Amer) 37.0 Glucose 75 POC Glucose (mg/dL) Lactic Acid 0.9 Calcium 8.3 L Studies: None today Nutrition: None Impression: Has improved on low-dose ARB (losartan) Rx and low-dose furosemide (i.e., creatinine has decreased, lactic acidosis has resolved, and has begun to diurese without a decrease in BP). However, patient is very lethargic, and there has been no nutrient intake for several days. Plan: Attempt low-dose furosemide again today. Since our goal is for the patient to return home on hospice care, I will start PPN today (1250 mls, about 825 kcal) to provide some nutritional support. Still await hospice consult. Critical Care Time: 35 minutes
[2017-10-15] MEDS ORDERED: Rivaroxaban TAB(*) 15 MG PO SCH (09:00)
[2017-10-15] MEDS: Folic Acid IV* 1 MG/0.2 ML SYRINGE IV SCH (09:46)
[2017-10-15] MEDS: Losartan TAB* 25 MG PO SCH (09:47)
[2017-10-15] MEDS: Thiamine IV* 100 MG/ML 2 ML VIAL IV SCH (09:47)
[2017-10-15] MEDS: Metoprolol Succinate XL TAB* 50 MG PO SCH (09:48)
[2017-10-15] MEDS: Sucralfate SUSP 1 GM/10 ml 10 ML UDC PO SCH ×3 (09:48→22:15)
--- NOTE | 2017-10-15 14:02 | PN ---
Subjective Date of Service: 10/15/17 - CC: fatigue Interval History: Patient remains lethargic and just feels awful. She cant sleep but is tired. She states she doesn't understand. Admits she is not hungry. Denies pain. Medications Active Medications: Dextrose (D50w Syringe 50 Ml*) 25 gm IV PUSH ONCE PRN PRN Reason: FS < 60 Folic Acid (Folic Acid Iv 1 Mg*) 1 mg IV DAILY [facility] Last Admin: 10/15/17 09:46 Dose: 1 mg Dextrose 500 ml/ Amino Acids 425 ml/ Sterile Water 75 ml/Fat Emulsion Intravenous 250 ml/ Sodium Chloride 100 meq/Potassium Phosphate 15 mmole/ Magnesium Sulfate 10 meq/Multivitamins 10 ml/ Trace Metals 1 ml/ Nutrition ( Parenteral) 1,293.463 mls @ 53.924 mls/hr IV 1700 [facility] PRN Reason: Protocol Lorazepam (Ativan Tab(*)) 1 mg PO Q8H PRN PRN Reason: ANXIETY Last Admin: 10/12/17 16:57 Dose: 1 mg Losartan Potassium (Cozaar Tab*) 50 mg PO DAILY [facility] Last Admin: 10/15/17 09:47 Dose: Not Given Metoprolol Succinate (Toprol Xl Tab*) 50 mg PO DAILY [facility] Last Admin: 10/15/17 09:48 Dose: Not Given Rivaroxaban (Xarelto(*)) 15 mg PO DAILY [facility] Last Admin: 10/15/17 09:48 Dose: Not Given Sucralfate (Sucralfate Susp) 1 gm PO TID [facility] Last Admin: 10/15/17 09:48 Dose: Not Given Thiamine HCl (Vitamin B1 Iv*) 100 mg IV DAILY [facility] Last Admin: 10/15/17 09:47 Dose: 100 mg Objective Vital Signs: Temp Pulse Resp BP Pulse Ox 97.2 F 72 27 121/82 95 10/15/17 12:01 10/15/17 11:00 10/15/17 12:01 10/15/17 12:01 10/15/17 11:00 Oxygen Devices in Use Now: Nasal Cannula Appearance: pale, tachypnic, eyes closed, appears gravely ill. Eyes: No Scleral Icterus, PERRLA Ears/Nose/Mouth/Throat: NL Teeth, Lips, Gums - mucuous membranes dry Neck: No Thyroid Enlargement, Masses Respiratory: Symmetrical Chest Expansion and Respiratory Effort, Clear to Auscultation - laterally. Cardiovascular: RRR Abdominal: No Hepatosplenomegaly Skin: No Rash or Ulcers Lines/Tubes/Other Access: Clean, Dry and Intact Peripheral IV Laboratory Results: 10/13/17 05:50 10/15/17 06:00 INR (Anticoag Therapy) 1.41 (0.77-1.02) H 10/15/17 06:00 APTT 35.8 seconds (26.0-36.3) 10/12/17 01:27 Total Bilirubin 1.20 mg/dL (0.2-1.0) H 10/12/17 05:56 Direct Bilirubin 0.70 mg/dL (0.03-0.18) H 10/12/17 05:56 Indirect Bilirubin 0.5 mg/dL (0.3-1.0) 10/12/17 05:56 AST 54 U/L (13-39) H 10/12/17 05:56 ALT 46 U/L (7-52) 10/12/17 05:56 Alkaline Phosphatase 208 U/L (34-104) H 10/12/17 05:56 B-Natriuretic Peptide 46097 pg/mL (-100) H 10/12/17 13:45 Total Protein 5.1 g/dL (6.4-8.9) L 10/12/17 05:56 Albumin 2.7 g/dL (3.2-5.2) L 10/12/17 05:56 Globulin 2.4 g/dL (2-4) 10/12/17 05:56 Albumin/Globulin Ratio 1.1 (1-3) 10/12/17 05:56 10/12/17 05:56 Troponin I 0.05 H* WBC 12.1 10^3/ul (3.5-10.8) H 10/13/17 05:50 RBC 3.50 10^6/ul (4.0-5.4) L 10/13/17 05:50 Hgb 10.3 g/dl (12.0-16.0) L 10/13/17 05:50 Hct 34 % (35-47) L 10/13/17 05:50 MCV 97 fL (80-97) 10/13/17 05:50 MCH 29 pg (27-31) 10/13/17 05:50 MCHC 30 g/dl (31-36) L 10/13/17 05:50 RDW 25 % (10.5-15) H 10/13/17 05:50 Plt Count 299 10^3/ul (150-450) 10/13/17 05:50 MPV 8.2 um3 (7.4-10.4) 10/13/17 05:50 Neut % (Auto) 77.2 % (38-83) 10/12/17 05:56 Lymph % (Auto) 8.9 % (25-47) L 10/12/17 05:56 Robertson % (Auto) 13.7 % (0-7) H 10/12/17 05:56 Eos % (Auto) 0 % (0-6) 10/12/17 05:56 Baso % (Auto) 0.2 % (0-2) 10/12/17 05:56 Absolute Neuts (auto) 8.5 10^3/ul (1.5-7.7) H 10/12/17 05:56 Absolute Lymphs (auto) 1.0 10^3/ul (1.0-4.8) 10/12/17 05:56 Absolute Monos (auto) 1.5 10^3/ul (0-0.8) H 10/12/17 05:56 Absolute Eos (auto) 0 10^3/ul (0-0.6) 10/12/17 05:56 Absolute Basos (auto) 0 10^3/ul (0-0.2) 10/12/17 05:56 Absolute Nucleated RBC 0 10^3/ul 10/12/17 05:56 Nucleated RBC % 0.1 10/12/17 05:56 INR (Anticoag Therapy) 1.41 (0.77-1.02) H 10/15/17 06:00 APTT 35.8 seconds (26.0-36.3) 10/12/17 01:27 Patient Temperature Not Reportable 10/12/17 02:45 ABG pH 7.22 (7.35-7.45) L 10/12/17 02:45 ABG pH (Temp Correct) Not Reportable 10/12/17 02:45 ABG pCO2 34 mmHg (35-45) L 10/12/17 02:45 ABG pCO2 (Temp Corrct Not Reportable 10/12/17 02:45 ABG pO2 95 mmHg (80-100) 10/12/17 02:45 ABG pO2 (Temp Correct Not Reportable 10/12/17 02:45 ABG HCO3 14.9 mmol/L (19-31) L 10/12/17 02:45 ABG O2 Saturation 98.2 % (95-98) H 10/12/17 02:45 ABG Base Excess -12.8 (-2.0-2.0) L 10/12/17 02:45 Respiration Rate Not Reportable 10/12/17 02:45 O2 Delivery Device Nc 10/12/17 02:45 Ventilator Type Not Reportable 10/12/17 02:45 Vent Mode Not Reportable 10/12/17 02:45 FiO2 4 10/12/17 02:45 Inspiratory Time Not Reportable 10/12/17 02:45 PEEP Not Reportable 10/12/17 02:45 Pressure Support Not Reportable 10/12/17 02:45 Pressure Control Not Reportable 10/12/17 02:45 EPAP Not Reportable 10/12/17 02:45 IPAP Not Reportable 10/12/17 02:45 BiPAP Not Reportable 10/12/17 02:45 Sodium 141 mmol/L (139-145) 10/15/17 06:00 Potassium 3.7 mmol/L (3.5-5.0) 10/15/17 06:00 Chloride 109 mmol/L (101-111) 10/15/17 06:00 Carbon Dioxide 24 mmol/L (22-32) 10/15/17 06:00 Anion Gap 8 mmol/L (2-11) 10/15/17 06:00 BUN 50 mg/dL (6-24) H 10/15/17 06:00 Creatinine 1.40 mg/dL (0.51-0.95) H 10/15/17 06:00 Est GFR ( Amer) 47.5 (>60) 10/15/17 06:00 Est GFR (Non-Af Amer) 37.0 (>60) 10/15/17 06:00 BUN/Creatinine Ratio 35.7 (8-20) H 10/15/17 06:00 Glucose 75 mg/dL (70-100) 10/15/17 06:00 POC Glucose (mg/dL) 73 mg/dL (70-100) 10/15/17 04:32 Lactic Acid 0.9 mmol/L (0.5-2.0) 10/15/17 06:00 Calcium 8.3 mg/dL (8.6-10.3) L 10/15/17 06:00 Total Bilirubin 1.20 mg/dL (0.2-1.0) H 10/12/17 05:56 Direct Bilirubin 0.70 mg/dL (0.03-0.18) H 10/12/17 05:56 Indirect Bilirubin 0.5 mg/dL (0.3-1.0) 10/12/17 05:56 AST 54 U/L (13-39) H 10/12/17 05:56 ALT 46 U/L (7-52) 10/12/17 05:56 Alkaline Phosphatase 208 U/L (34-104) H 10/12/17 05:56 Ammonia 44 mol/L (16-53) 10/12/17 07:50 Total Creatine Kinase 122 U/L (10-223) 10/13/17 17:17 Troponin I 0.05 ng/mL (<0.04) H* 10/12/17 05:56 C-Reactive Protein 90.17 mg/L (< 5.00) H 10/12/17 01:27 B-Natriuretic Peptide 19824 pg/mL (-100) H 10/12/17 13:45 Total Protein 5.1 g/dL (6.4-8.9) L 10/12/17 05:56 Albumin 2.7 g/dL (3.2-5.2) L 10/12/17 05:56 Globulin 2.4 g/dL (2-4) 10/12/17 05:56 Albumin/Globulin Ratio 1.1 (1-3) 10/12/17 05:56 Procalcitonin 0.3 ng/mL (<0.6) 10/12/17 07:50 Urine Color Meena 10/12/17 01:27 Urine Appearance Cloudy 10/12/17 01:27 Urine pH 5.0 (5-9) 10/12/17 01:27 Ur Specific Wilmot 1.016 (1.010-1.030) 10/12/17 01:27 Urine Protein 1+(30 mg/dl) (Negative) A 10/12/17 01:27 Urine Ketones Negative (Negative) 10/12/17 01:27 Urine Blood 2+ (Negative) A 10/12/17 01:27 Urine Nitrate Negative (Negative) 10/12/17 01:27 Urine Bilirubin Negative (Negative) 10/12/17 01:27 Urine Urobilinogen Negative (Negative) 10/12/17 01:27 Ur Leukocyte Esterase Negative (Negative) 10/12/17 01:27 Urine WBC (Auto) Absent (Absent) 10/12/17 01:27 Urine RBC (Auto) 3+(>10/hpf) (Absent) A 10/12/17 01:27 Urine Bacteria Absent (Absent) 10/12/17 01:27 Hyaline Casts Present (Absent) A 10/12/17 01:27 Urine Glucose Negative (Negative) 10/12/17 01:27 Influenza A (Rapid) Negative (Negative) 10/12/17 04:21 Influenza B (Rapid) Negative (Negative) 10/12/17 04:21 Blood Type O Positive 10/12/17 01:27 Antibody Screen Negative 10/12/17 01:27 Diagnostic Imaging: ECHO this admission EF 20%, significant MR and TR. EKG Data: SR, LBBB. LBBB new as of early September 2017. Monitor: NSR, PAC's, brief SVT, occ PVC's, V bigeminy. Assessment/Plan 72 yo female with CAD, moderate CM in past. Now admitted with profound weakness, RI (probably pre renal from poor pump function). ECG shows new LBBB and ECHO shows further decline in EF and MR and TR have increased c/w May 2017. BNP of 17,000. Medical options for low EF include beta jacinto, ACEI/ARB and the patient's BUN and Creatinine and urine output have improved with this. Discussed option of BiV pacer ([employer] device), but Crystal looks extremely ill, not likely to live > 1 year. Attempted discussion with her was not helpful. Potential option if her overall statue improves. Sent TSH/VIt D as no recent values in [facility] records. B12 was checked. Crystal has many comorbities including RI, RA, PAF, prior stroke. I support palliative approach at this time.
[2017-10-15] MEDS ORDERED: AMINO ACID INFUSION IV SCH ×10 (17:00)
[2017-10-15] MEDS ORDERED: [UNRECOGNIZED DRUG - OTHER] IV SCH ×10 (17:00)
[2017-10-15] MEDS ORDERED: D10W IV SCH ×10 (17:00)
[2017-10-15] MEDS ORDERED: TPN IV SCH ×10 (17:00)
[2017-10-15] MEDS ORDERED: Acetaminophen TAB* 325 MG PO PRN (21:26)
[2017-10-15] MEDS ORDERED: Metoprolol Tartrate IV* 1 MG/ML 5 ML VIAL IV PRN (21:38)
--- NOTE | 2017-10-15 21:43 | PN ---
Progress Note - Progress Note Date of Service: 10/15/17 Note: Paged for pain and patient failed her bedside swallow in the ICU this evening. Will d/c her PO meds. Awaiting official speech eval. Will start her on lovenox (On eliquis) BID until she has a palliative care eval. Morphine 1 mg q 4hr - patient takes norco at home and c/o back pain.
[2017-10-15] MEDS: Morphine INJ* 2 MG/ML 1 ML CARPUJECT IV PRN (22:19)
[2017-10-15] MEDS: Enoxaparin(*) 80 MG/0.8 ML SYR SUBCUT SCH (22:22)
[2017-10-16] MEDS: Morphine INJ* 2 MG/ML 1 ML CARPUJECT IV PRN ×2 (05:42→11:03)
[2017-10-16 09:45] LABS: Hematocrit 38 % (35-47); Hemoglobin 11.9 g/dl (12.0-16.0); Mean Corpuscular HGB Conc 31 g/dl (31-36); Mean Corpuscular Hemoglobin 30 pg (27-31); Mean Corpuscular Volume 95 fL (80-97); Mean Platelet Volume 7.3 um3 (7.4-10.4); Platelet Count 256 10^3/ul (150-450); Red Blood Count 4.01 10^6/ul (4.0-5.4); Red Cell Distribution Width 27 % (10.5-15); White Blood Count 10.4 10^3/ul (3.5-10.8)
[2017-10-16 10:04] LABS: EGFR Non-African American 53.3 (>60)
[2017-10-16 10:16] LABS: ABS Basophils 0.1 10^3/ul (0-0.2); ABS Eosinophils 0 10^3/ul (0-0.6); ABS Monocytes 1.2 10^3/ul (0-0.8); ABS Neutrophils 8.2 10^3/ul (1.5-7.7); ABS Nucleated RBC 0 10^3/ul; Eosinophil % 0.1 % (0-6); Lymphocyte % 9.5 % (25-47); Nucleated Red Blood Cells % 0.1
[2017-10-16] MEDS: Thiamine IV* 100 MG/ML 2 ML VIAL IV SCH (10:52)
[2017-10-16] MEDS: Enoxaparin(*) 80 MG/0.8 ML SYR SUBCUT SCH (10:53)
[2017-10-16] MEDS: Folic Acid IV* 1 MG/0.2 ML SYRINGE IV SCH (10:53)
[2017-10-16] MEDS ORDERED: Atropine 1% (ORAL/SL)* 15 ML BTL SL PRN (13:01)
--- NOTE | 2017-10-16 13:08 | PN ---
Subjective Date of Service: 10/16/17 Interval History: C/O thirst. No pain. Objective Active Medications: Atropine Sulfate (Atropine 1% (Oral/Sl)*) 2 drop SL Q2H PRN PRN Reason: DISCOMFORT Dextrose 500 ml/ Amino Acids 425 ml/ Sterile Water 75 ml/Fat Emulsion Intravenous 250 ml/ Sodium Chloride 100 meq/Potassium Phosphate 15 mmole/ Magnesium Sulfate 10 meq/Multivitamins 10 ml/ Trace Metals 1 ml/ Nutrition ( Parenteral) 1,293.463 mls @ 53.924 mls/hr IV 1700 [facility] PRN Reason: Protocol Stop: 10/16/17 16:59 Last Admin: 10/15/17 17:56 Dose: 53.924 mls/hr Lorazepam (Ativan Tab(*)) 0.5 mg SL Q3H PRN PRN Reason: ANXIETY Morphine Sulfate (Morphine Oral Concentrate*) 5 mg SL Q30M PRN PRN Reason: PAIN Vital Signs - 8 hr 10/16/17 10/16/17 10/16/17 05:42 07:24 07:33 Temperature 96.9 F Pulse Rate 72 75 Respiratory 16 16 16 Rate Blood Pressure 133/80 135/78 (mmHg) O2 Sat by Pulse 97 100 Oximetry 10/16/17 10/16/17 10/16/17 08:32 08:38 11:03 Temperature Pulse Rate Respiratory 16 16 16 Rate Blood Pressure (mmHg) O2 Sat by Pulse Oximetry 10/16/17 10/16/17 10/16/17 11:31 11:40 12:03 Temperature 97.3 F Pulse Rate 78 Respiratory 16 16 Rate Blood Pressure 135/81 (mmHg) O2 Sat by Pulse 97 Oximetry Oxygen Devices in Use Now: Nasal Cannula Appearance: Alert, partly up in bed. Passive, looks weak but comfortable. Eyes: No Scleral Icterus Extremities: No Edema, No Clubbing, Cyanosis, - Skin: No Rash or Ulcers, No Nodules or Sclerosis, - Neurological: Alert and Oriented x 3, NL Sensation Result Diagrams: 10/16/17 09:36 10/16/17 09:36 Additional Lab and Data: Lab Results 10/12/17 Range/Units 01:21 POC Glucose (mg/dL) 27 L* (70-100) mg/dL Microbiology and Other Data: Microbiology 10/14/17 00:50 Stool Gross Appearance - Final Stool C. difficile DNA Amplification - Final 027 Presumptive NEGATIVE Toxigenic C.diff NEGATIVE 10/12/17 05:56 Nasal Screen MRSA (PCR)([facility]) - Final Nasal Mrsa Not Detected Assess/Plan/Problems-Billing Assessment: - Patient Problems (1) CHF (congestive heart failure) Current Visit: No Status: Chronic Priority: High Code(s): I50.9 - HEART FAILURE, UNSPECIFIED SNOMED Code(s): 71986481 Comment: Acutr on chronic systolic heart failure, EF <20% on 10/12/17. I discussed end of life care with son and daughter 10/16/17. Stop PPN and all previous meds, change to comfort feeding diet. MS sl, atropine sl, lorazepam sl ordered. Hospice will see patient 10/18.
[2017-10-16] MEDS: Morphine ORAL CONCENTRATE* 5 MG/0.25 ML ORAL.SYRIN SL PRN ×2 (13:58→22:03)
[2017-10-16] MEDS ORDERED: [UNRECOGNIZED DRUG - OTHER] IV SCH ×10 (17:00)
[2017-10-16] MEDS ORDERED: AMINO ACID INFUSION IV SCH ×10 (17:00)
[2017-10-16] MEDS ORDERED: D10W IV SCH ×10 (17:00)
[2017-10-16] MEDS ORDERED: TPN IV SCH ×10 (17:00)
[2017-10-17] MEDS: Morphine ORAL CONCENTRATE* 5 MG/0.25 ML ORAL.SYRIN SL PRN (03:27)
--- NOTE | 2017-10-17 09:25 | PN ---
Subjective Date of Service: 10/17/17 Interval History: C/O not thinking staight, not remembering things. Objective Active Medications: Atropine Sulfate (Atropine 1% (Oral/Sl)*) 2 drop SL Q2H PRN PRN Reason: DISCOMFORT Lorazepam (Ativan Tab(*)) 0.5 mg SL Q3H PRN PRN Reason: ANXIETY Morphine Sulfate (Morphine Oral Concentrate*) 5 mg SL Q30M PRN PRN Reason: PAIN Last Admin: 10/17/17 03:27 Dose: 5 mg Vital Signs - 8 hr 10/17/17 10/17/17 10/17/17 03:27 06:30 07:50 Temperature 97.4 F Pulse Rate 86 Respiratory 20 16 22 Rate Blood Pressure 128/75 (mmHg) O2 Sat by Pulse Oximetry 10/17/17 10/17/17 10/17/17 08:11 08:22 08:23 Temperature Pulse Rate 86 Respiratory 16 20 Rate Blood Pressure (mmHg) O2 Sat by Pulse 93 93 Oximetry Oxygen Devices in Use Now: Nasal Cannula Appearance: Alert, sitting up in bed. Somewhat anxious, somewhat tachypneic. Eyes: No Scleral Icterus Skin: No Rash or Ulcers, No Nodules or Sclerosis, - Neurological: Alert and Oriented x 3, NL Sensation Result Diagrams: 10/16/17 09:36 10/16/17 09:36 Additional Lab and Data: Lab Results 10/12/17 Range/Units 01:21 POC Glucose (mg/dL) 27 L* (70-100) mg/dL Microbiology and Other Data: Microbiology 10/14/17 00:50 Stool Gross Appearance - Final Stool C. difficile DNA Amplification - Final 027 Presumptive NEGATIVE Toxigenic C.diff NEGATIVE 10/12/17 05:56 Nasal Screen MRSA (PCR)([facility]) - Final Nasal Mrsa Not Detected Assess/Plan/Problems-Billing Assessment: - Patient Problems (1) CHF (congestive heart failure) Current Visit: No Status: Chronic Priority: High Code(s): I50.9 - HEART FAILURE, UNSPECIFIED SNOMED Code(s): 61025776 Comment: Acutr on chronic systolic heart failure, EF <20% on 10/12/17. I discussed end of life care with son and daughter 10/16/17. Stop PPN and all previous meds, change to comfort feeding diet. MS sl, atropine sl, lorazepam sl ordered. Hospice will see patient 4/4. (2) End of life care Current Visit: Yes Status: Acute Code(s): Z51.5 - ENCOUNTER FOR PALLIATIVE CARE SNOMED Code(s): 664665052 Comment: Trial of PRN dose of lorazepam 10/17.
[2017-10-17] MEDS: LORazepam TAB(*) 0.5 MG SL PRN ×3 (09:27→20:50)
--- NOTE | 2017-10-17 11:15 | CONSULT ---
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 She had been deteriorating in [facility] at [facility] after a long hospitalization here for an HI and C. difficile colitis, from 09/15 to 10/02. She required ICU care here and her BNP krystal to over 17,000 and echocardiogram showed a decline in EF to <20% now, while on prior hospitalization it was 30-40%. She additionally carries diagnoses of RA, COPD, HTN, HLD, AF, GERD, IBD, FRANKIE and anxiety/depression. She was initially not taking any p.o., and and seemed close to . Today she is hungry, eating a hotdog and cottage cheese. She is quite confused and has difficulty with her memory and with rational thinking, but she is conversational. She has not had a PT evaluation, but she feels she would be able to bear weight. Lab Values: Abnormal Lab Results 10/16/17 10/16/17 09:36 12:21 POC Glucose (mg/dL) 111 H B-Natriuretic Peptide 49589 H Laboratory Last Values WBC 10.4 10^3/ul (3.5-10.8) 10/16/17 09:36 RBC 4.01 10^6/ul (4.0-5.4) 10/16/17 09:36 Hgb 11.9 g/dl (12.0-16.0) L 10/16/17 09:36 Hct 38 % (35-47) 10/16/17 09:36 MCV 95 fL (80-97) 10/16/17 09:36 MCH 30 pg (27-31) 10/16/17 09:36 MCHC 31 g/dl (31-36) 10/16/17 09:36 RDW 27 % (10.5-15) H 10/16/17 09:36 Plt Count 256 10^3/ul (150-450) 10/16/17 09:36 MPV 7.3 um3 (7.4-10.4) L 10/16/17 09:36 Neut % (Auto) 78.2 % (38-83) 10/16/17 09:36 Lymph % (Auto) 9.5 % (25-47) L 10/16/17 09:36 [place] % (Auto) 11.6 % (0-7) H 10/16/17 09:36 Eos % (Auto) 0.1 % (0-6) 10/16/17 09:36 Baso % (Auto) 0.6 % (0-2) 10/16/17 09:36 Absolute Neuts (auto) 8.2 10^3/ul (1.5-7.7) H 10/16/17 09:36 Absolute Lymphs (auto) 1.0 10^3/ul (1.0-4.8) 10/16/17 09:36 Absolute Monos (auto) 1.2 10^3/ul (0-0.8) H 10/16/17 09:36 Absolute Eos (auto) 0 10^3/ul (0-0.6) 10/16/17 09:36 Absolute Basos (auto) 0.1 10^3/ul (0-0.2) 10/16/17 09:36 Absolute Nucleated RBC 0 10^3/ul 10/16/17 09:36 Nucleated RBC % 0.1 10/16/17 09:36 INR (Anticoag Therapy) 1.41 (0.77-1.02) H 10/15/17 06:00 APTT 35.8 seconds (26.0-36.3) 10/12/17 01:27 Patient Temperature Not Reportable 10/12/17 02:45 ABG pH 7.22 (7.35-7.45) L 10/12/17 02:45 ABG pH (Temp Correct) Not Reportable 10/12/17 02:45 ABG pCO2 34 mmHg (35-45) L 10/12/17 02:45 ABG pCO2 (Temp Corrct Not Reportable 10/12/17 02:45 ABG pO2 95 mmHg (80-100) 10/12/17 02:45 ABG pO2 (Temp Correct Not Reportable 10/12/17 02:45 ABG HCO3 14.9 mmol/L (19-31) L 10/12/17 02:45 ABG O2 Saturation 98.2 % (95-98) H 10/12/17 02:45 ABG Base Excess -12.8 (-2.0-2.0) L 10/12/17 02:45 Respiration Rate Not Reportable 10/12/17 02:45 O2 Delivery Device Nc 10/12/17 02:45 Ventilator Type Not Reportable 10/12/17 02:45 Vent Mode Not Reportable 10/12/17 02:45 FiO2 4 10/12/17 02:45 Inspiratory Time Not Reportable 10/12/17 02:45 PEEP Not Reportable 10/12/17 02:45 Pressure Support Not Reportable 10/12/17 02:45 Pressure Control Not Reportable 10/12/17 02:45 EPAP Not Reportable 10/12/17 02:45 IPAP Not Reportable 10/12/17 02:45 BiPAP Not Reportable 10/12/17 02:45 Sodium 145 mmol/L (139-145) 10/16/17 09:36 Potassium 3.0 mmol/L (3.5-5.0) L 10/16/17 09:36 Chloride 109 mmol/L (101-111) 10/16/17 09:36 Carbon Dioxide 28 mmol/L (22-32) 10/16/17 09:36 Anion Gap 8 mmol/L (2-11) 10/16/17 09:36 BUN 38 mg/dL (6-24) H 10/16/17 09:36 Creatinine 1.02 mg/dL (0.51-0.95) H 10/16/17 09:36 Est GFR ( Amer) 68.5 (>60) 10/16/17 09:36 Est GFR (Non-Af Amer) 53.3 (>60) 10/16/17 09:36 BUN/Creatinine Ratio 37.3 (8-20) H 10/16/17 09:36 Glucose 98 mg/dL (70-100) 10/16/17 09:36 POC Glucose (mg/dL) 111 mg/dL (70-100) H 10/16/17 12:21 Lactic Acid 0.9 mmol/L (0.5-2.0) 10/15/17 06:00 Calcium 8.5 mg/dL (8.6-10.3) L 10/16/17 09:36 Phosphorus 2.7 mg/dL (2.5-5.0) 10/16/17 09:36 Magnesium 1.8 mg/dL (1.9-2.7) L 10/16/17 09:36 Total Bilirubin 0.90 mg/dL (0.2-1.0) 10/16/17 09:36 Direct Bilirubin 0.40 mg/dL (0.03-0.18) H 10/16/17 09:36 Indirect Bilirubin 0.5 mg/dL (0.3-1.0) 10/16/17 09:36 AST 60 U/L (13-39) H 10/16/17 09:36 ALT 86 U/L (7-52) H 10/16/17 09:36 Alkaline Phosphatase 293 U/L (34-104) H 10/16/17 09:36 Ammonia 44 mol/L (16-53) 10/12/17 07:50 Total Creatine Kinase 122 U/L (10-223) 10/13/17 17:17 Troponin I 0.05 ng/mL (<0.04) H* 10/12/17 05:56 C-Reactive Protein 90.17 mg/L (< 5.00) H 10/12/17 01:27 B-Natriuretic Peptide 53025 pg/mL (-100) H 10/16/17 09:36 Total Protein 5.3 g/dL (6.4-8.9) L 10/16/17 09:36 Albumin 2.8 g/dL (3.2-5.2) L 10/16/17 09:36 Globulin 2.5 g/dL (2-4) 10/16/17 09:36 Albumin/Globulin Ratio 1.1 (1-3) 10/16/17 09:36 25-OH Vitamin D Total 65.9 ng/mL (20-50) H 10/15/17 14:50 Procalcitonin 0.3 ng/mL (<0.6) 10/12/17 07:50 TSH 5.28 mcIU/mL (0.34-5.60) 10/15/17 14:50 Free T4 0.90 ng/dL (0.61-1.12) 10/15/17 14:50 Urine Color Meena 10/12/17 01:27 Urine Appearance Cloudy 10/12/17 01:27 Urine pH 5.0 (5-9) 10/12/17 01:27 Ur Specific [place] 1.016 (1.010-1.030) 10/12/17 01:27 Urine Protein 1+(30 mg/dl) (Negative) A 10/12/17 01:27 Urine Ketones Negative (Negative) 10/12/17 01:27 Urine Blood 2+ (Negative) A 10/12/17 01:27 Urine Nitrate Negative (Negative) 10/12/17 01:27 Urine Bilirubin Negative (Negative) 10/12/17 01:27 Urine Urobilinogen Negative (Negative) 10/12/17 01:27 Ur Leukocyte Esterase Negative (Negative) 10/12/17 01:27 Urine WBC (Auto) Absent (Absent) 10/12/17 01:27 Urine RBC (Auto) 3+(>10/hpf) (Absent) A 10/12/17 01:27 Urine Bacteria Absent (Absent) 10/12/17 01:27 Hyaline Casts Present (Absent) A 10/12/17 01:27 Urine Glucose Negative (Negative) 10/12/17 01:27 Influenza A (Rapid) Negative (Negative) 10/12/17 04:21 Influenza B (Rapid) Negative (Negative) 10/12/17 04:21 Blood Type O Positive 10/12/17 01:27 Antibody Screen Negative 10/12/17 01:27 - Objective Active Medications: Atropine Sulfate (Atropine 1% (Oral/Sl)*) 2 drop SL Q2H PRN PRN Reason: DISCOMFORT Lorazepam (Ativan Tab(*)) 0.5 mg SL Q3H PRN PRN Reason: ANXIETY Last Admin: 10/17/17 09:27 Dose: 0.5 mg Morphine Sulfate (Morphine Oral Concentrate*) 5 mg SL Q30M PRN PRN Reason: PAIN Last Admin: 10/17/17 03:27 Dose: 5 mg Vital Signs: Vital Signs: Temp Pulse Resp BP Pulse Ox 97.4 F 86 16 128/75 93 10/17/17 07:50 10/17/17 08:22 10/17/17 09:27 10/17/17 07:50 10/17/17 08:23 Patient Weight: Weight 174 lb 3.2 oz Intake and Output: Intake & Output 10/15/17 10/16/17 10/17/1718 06:59 06:59 06:59 06:59 Intake Total 601 900 864 Output Total 2225 1855 800 Balance -7774 955 64 Weight 183 lb 13.848 oz 174 lb 3.2 oz Intake: IV Fluids 601 684 424 D5W LR 601 PPN 684 424 IVPB 216 D5W LR 216 Oral 0 0 440 Output: [place] 2225 1855 800 Other: Date of Last Bowel 10/14/17 Movement # Bowel Movements 1 0 0 Estimated Stool Amount Medium ADLs: Meal Record Start: 10/12/17 05: 42 Freq: 09,,18 Status: Active Protocol: Created 10/12/17 05:42 System (Rec: 10/12/17 05:42 System ICU-M21) Document 10/12/17 09:00 [id number] (Rec: 10/12/17 14:14 [id number] ICU-M21) Document 10/12/17 13:00 [id number] (Rec: 10/12/17 14:56 [id number] ICU-M21) Document 10/12/17 18:00 [id number] (Rec: 10/12/17 21:04 [id number] ICU-C25) Document 10/13/17 13:00 [id number] (Rec: 10/13/17 13:26 [id number] ICU-C25) Document 10/13/17 18:00 [id number] (Rec: 10/13/17 18:06 [id number] ICU-C25) Document 10/14/17 09:00 [id number] (Rec: 10/14/17 09:39 [id number] ICU-C12) Document 10/14/17 13:00 [id number] (Rec: 10/14/17 13:07 [id number] ICU-C12) Document 10/14/17 18:00 [id number] (Rec: 10/14/17 18:28 [id number] ICU-C12) Document 10/15/17 09:00 [id number] (Rec: 10/15/17 15:02 GCV1166 ICU-C12) Document 10/15/17 13:00 [id number] (Rec: 10/15/17 15:02 [id number] ICU-C12) Document 10/15/17 17:51 [id number] (Rec: 10/15/17 17:51 [id number] MED-C11) Document 10/16/17 08:26 DJR1169 (Rec: 10/16/17 08:27 [id number] MED-C09) Document 10/16/17 13:00 [id number] (Rec: 10/16/17 13:13 [id number] MED-C09) Document 10/16/17 17:52 [id number] (Rec: 10/16/17 17:52 [id number] MED-C11) Intake and Output Start: 10/12/17 05: 42 Freq: 06,14,22 Status: Active Protocol: Created 10/12/17 05:42 System (Rec: 10/12/17 05:42 System ICU-M21) Document 10/12/17 06:00 [id number] (Rec: 10/12/17 07:08 [id number] ICU-C25) Document 10/12/17 14:00 [id number] (Rec: 10/12/17 14:16 [id number] ICU-M21) Document 10/12/17 22:00 [id number] (Rec: 10/12/17 22:50 QHK1567 ICU-C25) Document 10/13/17 06:00 [id number] (Rec: 10/13/17 06:11 [id number] ICU-C25) Document 10/13/17 14:00 [id number] (Rec: 10/13/17 15:17 [id number] ICU-C25) Document 10/13/17 22:00 [id number] (Rec: 10/13/17 22:48 [id number] ICU-C15) Document 10/14/17 06:00 QCT0587 (Rec: 10/14/17 06:14 WTT7611 ICU-C15) Document 10/14/17 14:00 [id number] (Rec: 10/14/17 14:08 IWQ2290 ICU-C12) Document 10/14/17 22:00 [id number] (Rec: 10/14/17 22:02 [id number] ICU-C15) Document 10/15/17 00:30 [id number] (Rec: 10/15/17 02:54 [id number] ICU-C12) Document 10/15/17 06:00 PBB1179 (Rec: 10/15/17 06:52 [id number] ICU-C12) Document 10/15/17 20:06 [id number] (Rec: 10/15/17 20:06 CZV4013 MED-C11) Document 10/16/17 05:18 TLQ6655 (Rec: 10/16/17 05:18 QXL9511 MED-C11) Document 10/16/17 13:12 PRP7077 (Rec: 10/16/17 13:13 OJQ2388 MED-C09) Document 10/16/17 22:00 [id number] (Rec: 10/16/17 22:22 [id number] MED-C11) Document 10/17/17 03:59 [id number] (Rec: 10/17/17 03:59 [id number] MED-C16) General Impression: Conversational, confused woman sitting in Constanza chair and eating with good appetite. Head: Symmetrical Eyes: No Scleral Icterus Ears/Nose/Mouth/Throat: Clear Oropharnyx Neck: No Thyroid Enlargement, Masses Respiratory: Symmetrical Chest Expansion and Respiratory Effort Abdominal: NL Sounds; No Tenderness; No Distention Extremities: No Clubbing, Cyanosis, - - 1+ edema Neurological: Alert and Oriented x 3, NL Sensation - Assessment Assessment: This patient was seriously ill on admission, but now seems to be improving in terms of her appetite and general energy level. She still qualifies for hospice services on the basis of her severe CHF with EF <20%, and her poor nutritional status with albumin level of 2.7. She has not yet had a PT evaluation, as she was so ill until now, but Dr. Buchanan has now ordered a PT consult, and if she is able to bear weight, I think she would be appropriate for an enhanced assisted living situation, and the family would prefer [place] or [place]. She has been placed on comfort medications only, and I would recommend reinstituting her needed medications for inflammatory bowel disease and rheumatoid arthritis, and perhaps her antihypertensives as well. She does have a history of depression and anxiety treated with venlafaxine, and it may be reasonable to start this med again sometime in the future. Deepti Hill will look into L disposition for this patient. Thanks for the consult. - Plan Consult Plan (MU): Hospice - Time On Unit Date of Evaluation: 10/17/17 Hospice Consult Time in: 10:20 Hospice Consult Time Out: 11:40 Hospice Consult Time Total: 80 > 50% of Time Spend In Counseling or Coordinating Care: Yes
[2017-10-17] MEDS ORDERED: ALPRAZolam TAB* 0.25 MG PO PRN (11:34)
[2017-10-17] MEDS ORDERED: Dicyclomine CAP* 10 MG PO PRN (11:34)
[2017-10-17] MEDS ORDERED: Spiriva Inhaler DEVICE* 1 EACH DEVICE INH ONE (12:00)
[2017-10-17] MEDS: Omeprazole CAP* 20 MG PO SCH (14:03)
[2017-10-17] MEDS: hydrALAZINE TAB* 10 MG PO SCH ×2 (14:04→20:51)
[2017-10-17] MEDS: Hydroxychloroquine TAB* 200 MG PO SCH ×2 (14:04→20:51)
[2017-10-17] MEDS: Tiotropium CAP.INH* CAP.INH/18 MCG (USE ORDER SET !) INH SCH (14:05)
[2017-10-17] MEDS: Metoprolol Succinate XL TAB* 25 MG PO SCH (20:50)
[2017-10-18] MEDS: LORazepam TAB(*) 0.5 MG SL PRN ×3 (06:30→17:24)
[2017-10-18] MEDS: Tiotropium CAP.INH* CAP.INH/18 MCG (USE ORDER SET !) INH SCH ×2 (08:03→09:47)
[2017-10-18] MEDS: MDI INH SCH ×2 (08:04→10:51)
[2017-10-18] MEDS: VILANTEROL MDI INH SCH ×2 (08:04→10:51)
[2017-10-18] MEDS: FLUTICASONE INH SCH ×2 (08:04→10:51)
[2017-10-18] MEDS: Omeprazole CAP* 20 MG PO SCH ×2 (08:47→08:55)
[2017-10-18] MEDS: Hydroxychloroquine TAB* 200 MG PO SCH ×3 (08:47→20:44)
[2017-10-18] MEDS: Morphine ORAL CONCENTRATE* 5 MG/0.25 ML ORAL.SYRIN SL PRN ×7 (08:47→17:24)
[2017-10-18] MEDS: hydrALAZINE TAB* 10 MG PO SCH ×3 (08:48→20:44)
[2017-10-18] MEDS ORDERED: Venlafaxine EXT RELEASE CAP* 75 MG PO SCH ×2 (09:00→20:59)
--- NOTE | 2017-10-18 14:24 | PN ---
Subjective Date of Service: 10/18/17 Interval History: Patient weakly responsive, denies SOB while whe is tachypneic and tripoding. Objective Active Medications: Alprazolam (Xanax Tab*) 0.25 mg PO BID PRN PRN Reason: ANXIETY Last Admin: 10/18/17 12:37 Dose: 0.25 mg Atropine Sulfate (Atropine 1% (Oral/Sl)*) 2 drop SL Q2H PRN PRN Reason: DISCOMFORT Dicyclomine HCl (Bentyl Cap*) 10 mg PO AC PRN PRN Reason: DIARRHEA Eluxadoline (Viberzi) 75 mg PO EVERY OTHER DAY [facility] Fluticasone/Vilanterol (Breo Ellipta Mdi 200/25(Nf)) 1 puff INH DAILY [facility] Last Admin: 10/18/17 10:51 Dose: Not Given Hydralazine HCl (Apresoline Tab*) 5 mg PO TID [facility] Last Admin: 10/18/17 08:48 Dose: Not Given Hydroxychloroquine Sulfate (Plaquenil Tab*) 200 mg PO BID [facility] Last Admin: 10/18/17 08:56 Dose: Not Given Lorazepam (Ativan Tab(*)) 0.5 mg SL Q3H PRN PRN Reason: ANXIETY Last Admin: 10/18/17 10:56 Dose: 0.5 mg Metoprolol Succinate (Toprol Xl Tab*) 25 mg PO BEDTIME [facility] Last Admin: 10/17/17 20:50 Dose: 25 mg Morphine Sulfate (Morphine Oral Concentrate*) 10 mg SL Q30M PRN PRN Reason: PAIN Last Admin: 10/18/17 13:22 Dose: 10 mg Omeprazole (Prilosec Cap*) 20 mg PO DAILY [facility] Last Admin: 10/18/17 08:55 Dose: Not Given Tiotropium [place] (Spiriva Cap.Inh*) 1 cap INH QAM [facility] Last Admin: 10/18/17 09:47 Dose: 1 cap Venlafaxine HCl (Effexor Xr Cap*) 225 mg PO QAM [facility] Last Admin: 10/18/17 08:47 Dose: 225 mg Vital Signs - 8 hr 10/18/17 10/18/17 10/18/17 06:30 08:00 08:05 Pulse Rate 70 Respiratory 22 20 14 Rate Blood Pressure (mmHg) O2 Sat by Pulse 100 Oximetry 10/18/17 10/18/17 10/18/17 08:38 08:47 09:09 Pulse Rate 43 Respiratory 20 20 20 Rate Blood Pressure 109/73 (mmHg) O2 Sat by Pulse 97 Oximetry 10/18/17 10/18/17 10/18/17 09:23 09:49 10:56 Pulse Rate 48 Respiratory 20 14 20 Rate Blood Pressure (mmHg) O2 Sat by Pulse 97 Oximetry 10/18/17 10/18/17 10/18/17 11:34 11:35 12:36 Pulse Rate Respiratory 22 22 28 Rate Blood Pressure (mmHg) O2 Sat by Pulse Oximetry 10/18/17 10/18/17 10/18/17 12:37 13:22 13:23 Pulse Rate Respiratory 28 20 20 Rate Blood Pressure (mmHg) O2 Sat by Pulse Oximetry Oxygen Devices in Use Now: Nasal Cannula Appearance: In tripod position in bed. Tachypneic. Looks weak. Eyes: No Scleral Icterus Respiratory: - - tachypneic Extremities: No Edema, No Clubbing, Cyanosis, - Neurological: NL Sensation - Answers weakly but appropriately. No tremor. Result Diagrams: 10/16/17 09:36 10/16/17 09:36 Additional Lab and Data: Lab Results 10/12/17 Range/Units 01:21 POC Glucose (mg/dL) 27 L* (70-100) mg/dL Microbiology and Other Data: Microbiology 10/14/17 00:50 Stool Gross Appearance - Final Stool C. difficile DNA Amplification - Final 027 Presumptive NEGATIVE Toxigenic C.diff NEGATIVE 10/12/17 05:56 Nasal Screen MRSA (PCR)([facility]) - Final Nasal Mrsa Not Detected Assess/Plan/Problems-Billing Assessment: - Patient Problems (1) CHF (congestive heart failure) Current Visit: No Status: Chronic Priority: High Code(s): I50.9 - HEART FAILURE, UNSPECIFIED SNOMED Code(s): 45575456 Comment: Acutr on chronic systolic heart failure, EF <20% on 10/12/17. I discussed end of life care with son and daughter 10/16/17. Stop PPN and all previous meds, change to comfort feeding diet. MS sl, atropine sl, lorazepam sl ordered. Hospice will see patient 10/18. Morphin dose increased to 10 mg SL q 30 min on 10/18. (2) End of life care Current Visit: Yes Status: Acute Code(s): Z51.5 - ENCOUNTER FOR PALLIATIVE CARE SNOMED Code(s): 157608047 Comment: Trial of PRN dose of lorazepam 10/17.
[2017-10-18] MEDS: Metoprolol Succinate XL TAB* 25 MG PO SCH (20:44)
[2017-10-19] MEDS ORDERED: ELUXADOLINE 75 MG PO SCH (09:00)
[2017-10-19 10:59] VITALS: BP 119/80
--- NOTE | 2017-10-19 11:27 | PN ---
Subjective Date of Service: 10/19/17 Interval History: Patient seen and examined at bedside. Denies fever, chills, shortness of breath , chest discomfort. Family History: Unchanged from Admission Social History: Unchanged from Admission Past Medical History: Unchanged from Admission Objective Active Medications: Atropine Sulfate (Atropine 1% (Oral/Sl)*) 2 drop SL Q2H PRN Reason: DISCOMFORT Lorazepam (Ativan Tab(*)) 0.5 mg SL Q3H PRN Reason: ANXIETY Morphine Sulfate (Morphine Oral Concentrate*) 10 mg SL Q30M PRN Reason: PAIN Vital Signs - 8 hr 10/19/17 10/19/17 07:36 11:12 Pulse Rate 64 Respiratory 24 Rate Blood Pressure 119/80 (mmHg) O2 Sat by Pulse 92 93 Oximetry Oxygen Devices in Use Now: OxyMask - 2L Appearance: NAD, sitting up in bed Ears/Nose/Mouth/Throat: - - Dry Mucous membranes Respiratory: Symmetrical Chest Expansion and Respiratory Effort, Clear to Auscultation Cardiovascular: NL Sounds; No Murmurs; No JVD, RRR Abdominal: NL Sounds; No Tenderness; No Distention Extremities: - - Severe bilateral LE edema Neurological: - - Alert and Oriented to Person Nutrition: Taking PO's Result Diagrams: 10/16/17 09:36 10/16/17 09:36 Additional Lab and Data: Lab Results 10/12/17 Range/Units 01:21 POC Glucose (mg/dL) 27 L* (70-100) mg/dL Microbiology and Other Data: Microbiology 10/14/17 00:50 Stool Gross Appearance - Final Stool C. difficile DNA Amplification - Final 027 Presumptive NEGATIVE Toxigenic C.diff NEGATIVE 10/12/17 05:56 Nasal Screen MRSA (PCR)([facility]) - Final Nasal Mrsa Not Detected Assess/Plan/Problems-Billing Assessment: Ms. Solomon is a 72 yo female with PMH significant for CAD, CHF EF 30-40%, HTN , HLD< RA, COPD, P afib, CVA, GERD, IBS, C-diff colitis, depression, anxiety and FRANKIE who presented to the emergency room with hypoglycemia and was found to have severe cardiomyopathy. - Patient Problems (1) End of life care Code(s): Z51.5 - ENCOUNTER FOR PALLIATIVE CARE SNOMED Code(s): 778303820 Comment: - Supportive care (2) CHF (congestive heart failure) Code(s): I50.9 - HEART FAILURE, UNSPECIFIED SNOMED Code(s): 87422170 Comment: - Acute on chronic systolic heart failure, EF <20% on 10/12/17. - Dr. Buchanan discussed end of life care with son and daughter 10/16/17. Stop PPN and all previous meds, change to comfort feeding diet. - MS sl, atropine sl, lorazepam sl ordered. Hospice will see patient 10/18. Morphine dose increased to 10 mg SL q 30 min on 10/18. (3) DVT prophylaxis Code(s): GZE2599 - SNOMED Code(s): 260551744 Comment: - Comfort care (4) DNR (do not resuscitate) Status and Disposition: Inpatient. Stable for discharge to [facility] today for comfort care.
[2017-10-19] MEDS: Morphine ORAL CONCENTRATE* 5 MG/0.25 ML ORAL.SYRIN SL PRN ×2 (11:38→13:01)
--- NOTE | 2017-10-19 12:49 | DS ---
CC: Dr. Jordin Watkins; [facility]* DATE OF ADMISSION: 10/12/2017. DATE OF DISCHARGE: 10/19/2017. AGE: 72. ATTENDING PHYSICIAN: Dr. Ainsley Law* (dictated by Misty Adkins NP). PRIMARY CARE PHYSICIAN: Dr. Jordin Watkins. PRIMARY DIAGNOSES: 1. End of life care. 2. Severe cardiomyopathy. 3. Recurrent C. diff colitis. 4. Hypoglycemic encephalopathy. SECONDARY DIAGNOSES: 1. Coronary artery disease, status post myocardial infarction. 2. Hypertension. 3. Hyperlipidemia. 4. Rheumatoid arthritis. 5. Chronic obstructive pulmonary disease. 6. Paroxysmal atrial fibrillation. 7. History of cerebrovascular accident. 8. GERD. 9. IBS. 10. Depression. 11. Anxiety. 12. Obstructive sleep apnea. CONSULTATIONS WHILE IN THE HOSPITAL: Dr. Archana Raymond with Cardiology; Dr. Gege Kilgore with Palliative Care Services. STUDIES WHILE IN THE HOSPITAL: 1. Chest x-ray, 10/12/2017: Radiologist's impression: Worsening aeration right hemothorax, possible developing left basilar infiltrate. Suggest follow- up. 2. Transthoracic echocardiogram, 10/12/2017: Freelance Writer's conclusion: There is global hypokinesis of the left ventricle with minor regional variation. There is severely decreased left ventricular systolic function. The estimated ejection fraction is less than 20%. Mild concentric left ventricular hypertrophy is observed. There is severely decreased left ventricular systolic function. The right ventricular global systolic function is moderately reduced. There is moderate mitral regurgitation. The left atrium is moderate to severely dilated. There is moderate to severe tricuspid regurgitation. The right ventricular systolic pressure is estimated at 44 mmHg. There is evidence of mild to moderate pulmonary hypertension. The right atrium is moderate to severely dilated. Mild aortic stenosis by 2D imaging. There is a trace pulmonic regurgitation. A left pleural effusion is present. There is mild dilatation of the aortic arch. Compared to report of study from 09/17/2017, the LV systolic function is worse, was 25 to 30 percent. DISCHARGE MEDICATIONS: New medications: 1. Atropine 1% two drops sublingual every 2 hours as needed for discomfort, increased secretions. 2. Lorazepam 0.5 mg sublingual every 3 hours as needed for anxiety. 3. Morphine oral concentrate 10 mg sublingual every 30 minutes as needed for pain or dyspnea. Discontinued home medications: Aspirin, Metoprolol Succinate, Atorvastatin, Spiriva, Xanax, Protonix, Zofran, Plaquenil, Breo Ellipta, Ferrous Sulfate, Viberzi, vitamin D, Fosamax, acetaminophen, [place], Bentyl, Hydralazine, [place], Magnesium Oxide, Vancomycin, Effexor, Xarelto, Simethicone. HISTORY OF PRESENT ILLNESS/HOSPITAL COURSE: Ms. Solomon is a 72-year-old female with a past medical history significant for recurrent C. diff colitis, coronary artery disease with history of myocardial infarction, status post stent placement, congestive heart failure, rheumatoid arthritis, COPD, anemia, and a history of CVA who previously presented to the hospital with three days of explosive diarrhea on September 15. She was reinitiated on a Vancomycin taper and was doing better. She had been found to have hyperkalemia during her stay. She was treated with a long taper of oral Vancomycin. She was ultimately discharged on October 02 to [facility] for rehab. While at [facility], the patient was found to be profoundly weak, unable to stand and confused and the patient was transferred to the emergency room for further evaluation. EMS obtained a glucose reading of 15 that was confirmed upon arrival at [facility] at 27. While in the emergency room the patient had a blood draw showing serum glucose less than 10. The patient was not a diabetic, was not on any medications to decrease her glucose. She received IV dextrose and was started on a D5 normal saline drip with resolution of her hypoglycemia and improvement, but not complete resolution of her confusion. She was also found to be hypothermic. She was placed on a Fabienne Hugger. She had an ABG, a lactic acid of 7.6, potassium was 5.9, BUN and creatinine were 54 and 1.64 respectively. She had a mildly elevated troponin of 0.06[place] [address]. The Hospitalists were asked to evaluate the patient for admission. While in the hospital, the patient was treated for the possibility of severe sepsis with IV Vancomycin and Cefepime. She was monitored in the Intensive Care Unit where her glucoses trended. She received IV fluids for her C. diff. She was continued on her oral Vancomycin taper. The patient had an echocardiogram showing a decrease in her EF. Ultimately, the patient and her family decided for comfort measures. She was seen in consultation by Dr. Gege Kilgore on October 17, who felt that the patient would be appropriate for return to an assisted living facility if she was able to do well. The patient then started to decline again and it was decided that she would go to [facility] for comfort measures and sign on to hospice. Ms. Solomon is stable for discharge to [facility]. Vital signs are as follows : Temperature 97.9, heart rate 64, respiratory rate 24, O2 sat 92 percent on 2 liters via OxyMask, blood pressure 119/80. DISCHARGE PLAN: Ms. Solomon will be discharged to [facility]. Activity is as tolerated. She should be continued on Atropine, Lorazepam, and Morphine as needed for symptom control. Her other medications have all been discontinued. If the patient turns around and starts doing well again, some of her previously prescribed medications could be resumed. She should be on a comfort diet, able to eat whatever she would like. The patient will be discharged with plans to sign on to hospice. This is a summarized report of a complex medical history. For further details, please see the entire medical record. Time for this discharge was approximately 50 minutes, greater than half of that was spent with the patient discussing discharge plans and instructions. CONDITION ON DISCHARGE: Guarded. Reviewed by TRU VERGARA 10/31/17 1708 [id number]/[facility] #: [id number] [place]
== END 2017-10-19 14:20 | DRG 314 ==
LOC: ED 01:19 → ICU 04:18 → MED 10-15 16:15
PROVIDERS: ADMIT Hospitalist; ATTEND Internal Medicine
DX: I42.9 Cardiomyopathy, unspecified (principal); I50.43 Acute on chronic combined systolic (congestive) and diastolic (congestive) heart failure; A04.71 Enterocolitis due to Clostridium difficile, recurrent; J44.9 Chronic obstructive pulmonary disease, unspecified; I25.10 Atherosclerotic heart disease of native coronary artery without angina pectoris; E78.00 Pure hypercholesterolemia, unspecified; I11.0 Hypertensive heart disease with heart failure; G47.30 Sleep apnea, unspecified; K21.9 Gastro-esophageal reflux disease without esophagitis; K58.9 Irritable bowel syndrome, unspecified; M19.90 Unspecified osteoarthritis, unspecified site; M06.9 Rheumatoid arthritis, unspecified; G43.909 Migraine, unspecified, not intractable, without status migrainosus; F41.9 Anxiety disorder, unspecified; F32.9 Major depressive disorder, single episode, unspecified; Z96.1 Presence of intraocular lens; Z96.653 Presence of artificial knee joint, bilateral; E16.2 Hypoglycemia, unspecified; I48.0 Paroxysmal atrial fibrillation; E66.9 Obesity, unspecified; I44.0 Atrioventricular block, first degree; I44.7 Left bundle-branch block, unspecified; I08.3 Combined rheumatic disorders of mitral, aortic and tricuspid valves; I44.4 Left anterior fascicular block; I27.20 Pulmonary hypertension, unspecified; T68.XXXA Hypothermia, initial encounter; Z51.5 Encounter for palliative care; G47.33 Obstructive sleep apnea (adult) (pediatric); Z88.8 Allergy status to other drugs, medicaments and biological substances; Z88.5 Allergy status to narcotic agent; Z95.5 Presence of coronary angioplasty implant and graft; I25.2 Old myocardial infarction; Z86.73 Personal history of transient ischemic attack (TIA), and cerebral infarction without residual deficits; Z98.42 Cataract extraction status, left eye; Z98.41 Cataract extraction status, right eye; Z98.1 Arthrodesis status; Z82.3 Family history of stroke; Z87.891 Personal history of nicotine dependence; Z82.49 Family history of ischemic heart disease and other diseases of the circulatory system; Z80.41 Family history of malignant neoplasm of ovary; Z68.25 Body mass index [BMI] 25.0-25.9, adult
CPT/HCPCS: 36415; 71045; 80048; 80053; 80076; 81003; 81015; 82140; 82306; 82550; 82803; 83605; 83735; 83880; 84100; 84145; 84439; 84443; 84484; 85025; 85027; 85610; 85730; 86140; 86850; 86900; 86901; 87040; 87086; 87493; 87502; 87641; 93005; 93306; 94640; 94760; 99285; A9270-GY; G8978-GP-CM; G8979-GP-CI; J0692; J1650; J1940; J2270; J3370; J3411; J3475